=== PATIENT | male | born 1955 | race Caucasian/White ===

== ENCOUNTER → 2019-02-05 | Day surgery (SDC) | payer BC ==
[2019-02-03 10:54] LABS: BASOPHILS # (AUTO) 0.1 (0.0-0.1); EOSINOPHILS # (AUTO) 0.7 (0.0-0.4); EOSINOPHILS % 7.5 % (0.0-6.0); HEMATOCRIT 49.7 % (38.2-49.6); HEMOGLOBIN 16.5 g/dL (14.0-18.0); LYMPHOCYTES # (AUTO) 1.4 (1.0-3.2); LYMPHOCYTES % 15.6 % (18.0-39.1); MEAN CORPUSCULAR HEMOGLOBIN 29.8 pg (28-32); MEAN CORPUSCULAR HGB CONC 33.2 g/dL (31-35); MEAN CORPUSCULAR VOLUME 89.9 fL (81-99); MONOCYTES # (AUTO) 0.8 (0.2-0.8); MONOCYTES % 9.6 % (4.4-11.3); NEUTROPHILS # (AUTO) 5.8 (2.1-6.9); NEUTROPHILS % 65.6 % (38.7-80.0); PLATELET COUNT 286 x10e3/uL (140-360); RED BLOOD COUNT 5.53 x10e6/uL (4.3-5.7); RED CELL DISTRIBUTION WIDTH 13.1 % (11.7-14.4)
[~2019-02-05] MED LIST: FENTANYL CITRATE/PF 100MCG/2 ML INJ ONE; HYOSCYAMINE 0.125 MG TAB ONE; MIDAZOLAM HCL 2 MG/2 ML VIAL ONE; PROPOFOL IV EMULSION 10 MG/ML 50 ML VIAL ONE
--- OUTSIDE RECORDS SUMMARY | 2019-02-05 10:37 | XMS REPORT ---
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 Allergies, Adverse Reactions, Alerts This patient has no known allergies or adverse reactions. Medications This patient has no known medications. Encounters Start Date/Time End Date/Time Encounter Type Admission Type Attending Clinicians Care Facility Care Department Encounter ID 2017-07-19 05:15:00 2017-07-19 07:00:00 Out[facility] [id number]
[2019-02-05 15:58] VITALS: BP 141/82
--- NOTE | 2019-02-05 22:58 | Operative Report ---
DATE OF PROCEDURE: 02/05/2019 SURGEON: Stalin Cortez MD INDICATION FOR COLONOSCOPY: Colorectal cancer screening, history of bright red blood per rectum. MEDICATIONS: The patient was done under MAC, please see anesthesiologist's note. PROCEDURE IN DETAIL: With the patient in left lateral decubitus position, the flexible fiberoptic Olympus colonoscope was inserted into the rectum with ease and advanced all the way to the cecum. A minute polyp was cold biopsied in the cecum. A scope was then withdrawn slowly and approximately an 8 mm sessile polyp was removed per snare electrocautery from the ascending colon. The transverse and descending appeared to be within normal limits. A large circumferential mass was noted in the sigmoid colon. It started at approximately 12 cm from the anal verge. An extended 8 cm approximately to 20 cm. Biopsies were obtained and the proximal and distal margins of the mass where tattooed. The minute polyps were removed per snare electrocautery from the rectum. The scope was then retroflexed into the distal rectum and small internal hemorrhoids were noted none of which was actively bleeding. The scope was then straightened out it was subsequently withdrawn. The patient tolerated procedure well. Of note, diverticular disease was noted in the distal descending as well as the sigmoid colon. IMPRESSION: 1. Cecal polyp, minute, cold biopsied. 2. Ascending colon polyp approximately 8 mm sessile, removed per snare electrocautery. 3. Large circumferential mass extending from 12 cm to 20 cm from the anal verge. Biopsies were obtained. Proximal and distal margins of the mass were tattooed. 4. Diverticulosis. 5. Rectal polyps x3, removed per snare electrocautery. 6. Internal hemorrhoids none actively bleeding. PLAN: Follow up histology. The patient will need a CT scan of the abdomen and pelvis. We will need General Surgical consultation. Stalin Cortez MD [facility] [place] /[id number] cc: MD Jesús Romero DO
== END | disposition home or self-care (01) ==
LOC: OR 10:25
PROVIDERS: ATTEND Internal Medicine Gastroenterology
DX: C18.7 Malignant neoplasm of sigmoid colon (principal); D12.2 Benign neoplasm of ascending colon; K62.1 Rectal polyp; K57.30 Diverticulosis of large intestine without perforation or abscess without bleeding; K64.8 Other hemorrhoids; R19.5 Other fecal abnormalities; I10 Essential (primary) hypertension; I34.1 Nonrheumatic mitral (valve) prolapse; R00.1 Bradycardia, unspecified; Z01.810 Encounter for preprocedural cardiovascular examination; Z01.812 Encounter for preprocedural laboratory examination; Z86.73 Personal history of transient ischemic attack (TIA), and cerebral infarction without residual deficits
CPT/HCPCS: 36415; 45380; 45381; 45385; 85025; 93005; J2250; J2704; J3010; 45384

== ENCOUNTER → 2019-02-06 | Outpatient (CLI) | payer BC ==
[~2019-02-06] MED LIST changes: -FENTANYL CITRATE/PF 100MCG/2 ML INJ ONE; -HYOSCYAMINE 0.125 MG TAB ONE; +IOPAMIDOL 370 MG/ML 200 ML INFUS..BTL INJ ONE; -MIDAZOLAM HCL 2 MG/2 ML VIAL ONE; -PROPOFOL IV EMULSION 10 MG/ML 50 ML VIAL ONE
[2019-02-06 14:40] LABS: BLOOD UREA NITROGEN 14 mg/dL (7-26); BUN/CREATININE RATIO 14 (6-25); CREATININE, SERUM 1.03 mg/dL (0.72-1.25); EST GLOMERULAR FILTRATION RATE > 60 ML/MIN (60-)
--- NOTE | 2019-02-06 17:18 | Diagnostic Imaging Report ---
CT of the abdomen and pelvis History: Sigmoid mass Comparison: None available. Technique: Multidetector CT scanning of the abdomen and pelvis was performed from the level of the lung bases to the inferior pubic ramus, with IV contrast. DOSE REDUCTION: The examination was performed according to departmental dose-optimization program which includes automated exposure control, adjustment of the mA and/or kV according to patient size and/or use of iterative reconstruction technique. Discussion: The lung bases are clear. No focal hepatic lesions are identified. The liver is diffusely hypoattenuating compatible with hepatic steatosis. The gallbladder is present nondistended. No radiopaque gallstones are identified. There is no intrahepatic or extra hepatic biliary dilatation. The spleen is within normal limits. Incidental note is made of a 12 mm splenule anterior to the spleen. The bilateral adrenal glands are within normal limits. The pancreas is homogeneous in attenuation. No pancreatic masses identified. There is no pancreatic ductal dilatation. The kidneys are normal in size and enhance symmetrically. No hydroureteronephrosis. No kidney stones. The stomach, small, and large bowel are nondistended. The appendix is normal. There are scattered colonic diverticula. There is focal sigmoid wall thickening measuring up to 1 cm in thickness and approximately 5 cm in length. There is no free intraperitoneal air or ascites. No enlarged abdominal or pelvic lymph nodes are identified. The abdominal aorta is of normal course and caliber. The urinary bladder is within normal limits. The prostate is not enlarged. No acute osseous abnormalities are identified. No osseous lytic or blastic lesions are identified. IMPRESSION: 1. Sigmoid mass concerning for neoplasm. 2. No evidence of metastatic disease. 3. Sigmoid diverticulosis without evidence of acute diverticulitis. Signed by: Mitch Ortiz MD on 02/06/2019 5:14 PM
== END ==
LOC: CT 13:38
PROVIDERS: ATTEND Internal Medicine Gastroenterology
DX: R19.09 Other intra-abdominal and pelvic swelling, mass and lump (principal); K57.30 Diverticulosis of large intestine without perforation or abscess without bleeding
CPT/HCPCS: 36415; 74177; 82565; 84520; Q9967

== ENCOUNTER 2019-04-17 12:29 | Inpatient (IN) | payer BC ==
[~2019-04-17] VITALS: Ht 177.8 cm; Wt 76.7 kg
[2019-04-17] MEDS ORDERED: DIATRIZOATE MEGL/DIATRIZOA SOD 30 ML BTL PO ONE (13:34)
[2019-04-17 13:42] LABS: BASOPHILS # (AUTO) 0.1 (0.0-0.1); BASOPHILS % 0.3 % (0.0-1.0); HEMATOCRIT 44.9 % (38.2-49.6); HEMOGLOBIN 13.7 g/dL (14.0-18.0); LYMPHOCYTES # (AUTO) 0.7 (1.0-3.2); LYMPHOCYTES % 4.6 % (18.0-39.1); MEAN CORPUSCULAR HEMOGLOBIN 26.5 pg (28-32); MEAN CORPUSCULAR HGB CONC 30.5 g/dL (31-35); MEAN CORPUSCULAR VOLUME 86.8 fL (81-99); MONOCYTES # (AUTO) 0.6 (0.2-0.8); MONOCYTES % 4.1 % (4.4-11.3); NEUTROPHILS # (AUTO) 14.2 (2.1-6.9); NEUTROPHILS % 90.5 % (38.7-80.0); PLATELET COUNT 328 x10e3/uL (140-360); RED BLOOD COUNT 5.17 x10e6/uL (4.3-5.7); RED CELL DISTRIBUTION WIDTH 13.8 % (11.7-14.4)
[2019-04-17 13:44] LABS: INR 0.9; PROTHROMBIN TIME 12.7 seconds (11.9-14.5)
[2019-04-17 13:45] LABS: PARTIAL THROMBOPLASTIN TIME 27.4 seconds (23.8-35.5)
[2019-04-17 13:52] LABS: ALANINE AMINOTRANSFERASE 17 IU/L (0-55); ALBUMIN 4.1 g/dL (3.5-5.0); ALBUMIN/GLOBULIN RATIO 1.4 (0.8-2.0); ALKALINE PHOSPHATASE 76 IU/L (40-150); BLOOD UREA NITROGEN 9 mg/dL (7-26); BUN/CREATININE RATIO 10 (6-25); CALCIUM 9.3 mg/dL (8.4-10.2); CARBON DIOXIDE 22 mmol/L (22-29); CHLORIDE 105 mmol/L (98-107); CREATININE, SERUM 0.92 mg/dL (0.72-1.25); EST GLOMERULAR FILTRATION RATE > 60 ML/MIN (60-); GLUCOSE 113 mg/dL (74-118); SODIUM 140 mmol/L (136-145)
[2019-04-17] MEDS ORDERED: SODIUM CHLORIDE 0.9% 1000ML 1,000 ML IV SCH (15:00)
[2019-04-17 15:02] LABS: CLARITY,URINE CLEAR (CLEAR); COLOR,URINE YELLOW (YELLOW)
[2019-04-17] MEDS ORDERED: PIPER-TAZ 3.375 GM 50 ML IV STA (15:02)
[2019-04-17 15:03] LABS: BILIRUBIN,URINE NEGATIVE (NEGATIVE); KETONES,URINE NEGATIVE (NEGATIVE); LEUKOCYTE ESTERASE ,URINE NEGATIVE (NEGATIVE); NITRITE,URINE NEGATIVE (NEGATIVE); PROTEIN,URINE DIPSTICK NEGATIVE (NEGATIVE); URINE UROBILINOGEN 0.2 mg/dL (0.2 - 1)
--- NOTE | 2019-04-17 15:17 | Diagnostic Imaging Report ---
CT of the abdomen and pelvis, with contrast, 04/17/2019. History: Acute abdominal pain. Comparison: 02/24/2019. Technique: Multidetector CT scanning of the abdomen and pelvis was performed from the level of the lung bases to the inferior pubic rami after intravenous and oral administration of contrast. Coronal and sagittal multiplanar reformations were obtained. RADIATION DOSE: Total DLP: 375 mGy*cm Dose modulation, iterative reconstruction, and/or weight based adjustment of the mA/kV was utilized to reduce the radiation dose to as low as reasonably achievable. Discussion: LUNG BASES: There is bibasilar dependent atelectasis. ABDOMEN: The liver, gallbladder, biliary tree, spleen, pancreas, adrenal glands, and kidneys are normal. The hepatic vein, portal vein, and splenic vein are patent. The abdominal aorta is within normal limits for size. The stomach and proximal small bowel are unremarkable. There is been prior left hemicolectomy with anastomosis noted in the distal sigmoid region. There is dilatation of the distal small bowel and remaining colon down to the sigmoid anastomosis. Cecum measures up to 7.9 cm in diameter. The appendix is mildly distended and fluid-filled without visible appendicolith. There is no evidence of adenopathy or free fluid. PELVIS: The bladder, prostate, and seminal vesicles are normal in appearance. There is no evidence of free fluid or adenopathy. BONES AND SOFT TISSUES: Degenerative changes are present throughout the lumbar spine without evidence of lytic or sclerotic lesion. IMPRESSION: Prior left colectomy and distal colonic obstruction with transition point at the anastomosis. Signed by: Nikita Ayala on 04/17/2019 3:14 PM
[2019-04-17 15:20] LABS: BACTERIA,URINE RARE /HPF
[2019-04-17] MEDS ORDERED: MORPHINE SULFATE 2 MG/ML SYR 1ML IV PRN (16:45)
[2019-04-17] MEDS: SODIUM CHLORIDE 0.9% 1000ML 1,000 ML IV SCH (16:45)
[2019-04-17] MEDS ORDERED: MORPHINE SULFATE INJ 4 MG/ML INJ 1ML IV PRN (17:00)
[2019-04-17] MEDS ORDERED: MORPHINE SULFATE 5 MG/ML VIAL IV ONE (17:00)
[2019-04-17] MEDS ORDERED: IOPAMIDOL 370 MG/ML 200 ML INFUS..BTL INJ ONE (17:15)
[2019-04-17] MEDS ORDERED: SODIUM CHLORIDE 0.9% 50ML 50 ML ONE (17:15)
[2019-04-17] MEDS: METRONIDAZOLE 500MG/NS 100ML 100 ML IV SCH ×2 (17:42→23:38)
[2019-04-17] MEDS: MORPHINE SULFATE INJ 4 MG/ML INJ 1ML IV ONE (17:42)
[2019-04-17] MEDS: ONDANSETRON HCL INJ 2MG/ML 2ML 2 MG/ML VIAL IV PRN (17:42)
[2019-04-17] MEDS ORDERED: DEXAMETHASONE SOD PHOS INJ 4 MG/ML VIAL ONE (19:40)
[2019-04-17] MEDS ORDERED: ONDANSETRON HCL INJ 2MG/ML 2ML 2 MG/ML VIAL ONE (19:40)
[2019-04-17] MEDS ORDERED: LIDOCAINE HCL 2% LOCAL INJ 5 ML SDV VIAL INJ ONE (19:40)
[2019-04-17] MEDS ORDERED: SEVOFLURANE INHAL SOLN 250 ML PEN BTL ONE (19:40)
[2019-04-17] MEDS ORDERED: PROPOFOL IV EMULSION 10 MG/ML 20 ML VIAL ONE (19:40)
--- NOTE | 2019-04-17 20:18 | NUR ---
RECEIVED REPORT FROM SABINA FARRELL NURSE. PATIENT ARRIVED VIA WHEELCHAIR ACCOMPANIED BY HIS . PATIENT IS A&OX3 AND AMBULATES. CALL LIGHT WITHIN REACH.
[2019-04-17 20:20] VITALS: BP 163/80
[2019-04-17 21:09] VITALS: BP 163/80
[2019-04-17] MEDS: PIPER-TAZ 3.375 GM 50 ML IV SCH (21:56)
[2019-04-18] VITALS (8 sets, daily range): BP systolic 112–146; BP diastolic 67–82
[2019-04-18] MEDS: SODIUM CHLORIDE 0.9% 1000ML 1,000 ML IV SCH (02:40)
[2019-04-18] MEDS: PIPER-TAZ 3.375 GM 50 ML IV SCH ×4 (03:21→21:07)
[2019-04-18] MEDS: METRONIDAZOLE 500MG/NS 100ML 100 ML IV SCH ×4 (05:47→23:45)
[2019-04-18 06:11] LABS: BASOPHILS % 0.4 % (0.0-1.0); EOSINOPHILS # (AUTO) 0.1 (0.0-0.4); EOSINOPHILS % 0.7 % (0.0-6.0); HEMATOCRIT 38.8 % (38.2-49.6); HEMOGLOBIN 12.2 g/dL (14.0-18.0); LYMPHOCYTES # (AUTO) 0.9 (1.0-3.2); LYMPHOCYTES % 9.6 % (18.0-39.1); MEAN CORPUSCULAR HEMOGLOBIN 26.5 pg (28-32); MEAN CORPUSCULAR HGB CONC 31.4 g/dL (31-35); MEAN CORPUSCULAR VOLUME 84.3 fL (81-99); MONOCYTES % 9.8 % (4.4-11.3); NEUTROPHILS # (AUTO) 7.8 (2.1-6.9); NEUTROPHILS % 79.2 % (38.7-80.0); PLATELET COUNT 287 x10e3/uL (140-360); RED CELL DISTRIBUTION WIDTH 13.8 % (11.7-14.4)
[2019-04-18 06:39] LABS: ALANINE AMINOTRANSFERASE 12 IU/L (0-55); ALBUMIN 3.3 g/dL (3.5-5.0); ALBUMIN/GLOBULIN RATIO 1.3 (0.8-2.0); ALKALINE PHOSPHATASE 66 IU/L (40-150); ANION GAP 12.4 mmol/L (8-16); BLOOD UREA NITROGEN 10 mg/dL (7-26); BUN/CREATININE RATIO 10 (6-25); CALCIUM 8.9 mg/dL (8.4-10.2); CARBON DIOXIDE 24 mmol/L (22-29); CHLORIDE 106 mmol/L (98-107); CREATININE, SERUM 1.04 mg/dL (0.72-1.25); EST GLOMERULAR FILTRATION RATE > 60 ML/MIN (60-); GLUCOSE 107 mg/dL (74-118); POTASSIUM 4.4 mmol/L (3.5-5.1); SODIUM 138 mmol/L (136-145)
--- NOTE | 2019-04-18 07:00 | NUR ---
BEDSIDE REPORT DONE. PT IS ALERT RESTING IN BED, NO S/S OF DISTRESS. CALL LIGHT WITHIN REACH AND INSTRUCTED PT TO CALL RN FOR HELP.
--- NOTE | 2019-04-18 07:21 | NUR ---
GAVE BEDSIDE SHIFT REPORT TO ONCOMING NURSE. PATIENT IN BED ASLEEP. CALL LIGHT WITHIN REACH. PATIENT IS A&OX3 AND AMBULATES
[2019-04-18] MEDS ORDERED: SODIUM CHLORIDE 0.9% 250ML 250 ML ONE (14:18)
[2019-04-18] MEDS: ONDANSETRON HCL INJ 2MG/ML 2ML 2 MG/ML VIAL IV PRN (18:23)
--- NOTE | 2019-04-18 19:05 | NUR ---
RECEIVED REPORT FROM PREVIOUS NURSE. CALL LIGHT WITHIN REACH. PATIENT IN BED.
[2019-04-18] MEDS: MAGNESIUM HYDROXIDE 30 ML UDC PO SCH (21:07)
[2019-04-19] VITALS (9 sets, daily range): BP systolic 102–154; BP diastolic 64–76
[2019-04-19] MEDS: PIPER-TAZ 3.375 GM 50 ML IV SCH ×4 (03:17→20:20)
[2019-04-19] MEDS: METRONIDAZOLE 500MG/NS 100ML 100 ML IV SCH ×4 (05:32→23:53)
[2019-04-19 06:49] LABS: BASOPHILS # (AUTO) 0.1 (0.0-0.1); BASOPHILS % 0.7 % (0.0-1.0); EOSINOPHILS # (AUTO) 0.2 (0.0-0.4); EOSINOPHILS % 2.2 % (0.0-6.0); HEMATOCRIT 36.6 % (38.2-49.6); HEMOGLOBIN 11.2 g/dL (14.0-18.0); LYMPHOCYTES # (AUTO) 0.8 (1.0-3.2); LYMPHOCYTES % 10.9 % (18.0-39.1); MEAN CORPUSCULAR HEMOGLOBIN 26.1 pg (28-32); MEAN CORPUSCULAR HGB CONC 30.6 g/dL (31-35); MEAN CORPUSCULAR VOLUME 85.3 fL (81-99); MONOCYTES # (AUTO) 0.7 (0.2-0.8); MONOCYTES % 9.8 % (4.4-11.3); NEUTROPHILS # (AUTO) 5.5 (2.1-6.9); PLATELET COUNT 266 x10e3/uL (140-360); RED BLOOD COUNT 4.29 x10e6/uL (4.3-5.7); RED CELL DISTRIBUTION WIDTH 13.6 % (11.7-14.4)
[2019-04-19 06:54] LABS: ALANINE AMINOTRANSFERASE 11 IU/L (0-55); ALBUMIN 3.3 g/dL (3.5-5.0); ALBUMIN/GLOBULIN RATIO 1.4 (0.8-2.0); ALKALINE PHOSPHATASE 60 IU/L (40-150); ANION GAP 12.9 mmol/L (8-16); BLOOD UREA NITROGEN 11 mg/dL (7-26); BUN/CREATININE RATIO 9 (6-25); CALCIUM 8.7 mg/dL (8.4-10.2); CARBON DIOXIDE 25 mmol/L (22-29); CHLORIDE 105 mmol/L (98-107); CREATININE, SERUM 1.18 mg/dL (0.72-1.25); EST GLOMERULAR FILTRATION RATE > 60 ML/MIN (60-); GLUCOSE 78 mg/dL (74-118); POTASSIUM 3.9 mmol/L (3.5-5.1); SODIUM 139 mmol/L (136-145)
--- NOTE | 2019-04-19 07:00 | NUR ---
bedside report done. pt is sleeping, no s/s of distress. call light within reach, bed safety in place
--- NOTE | 2019-04-19 07:10 | NUR ---
GAVE REPORT TO ONCOMING NURSE. CALL LIGHT WITHIN REACH. PATIENT ASLEEP IN BED. PATIENT IS A&OX3 AND AMBULATES.
[2019-04-19] MEDS: NEOMYCIN SULFATE 500 MG TAB PO SCH ×2 (12:38→15:19)
[2019-04-19] MEDS: ERYTHROMYCIN 500 MG TAB PO SCH ×2 (12:38→15:19)
[2019-04-19] MEDS: ONDANSETRON HCL INJ 2MG/ML 2ML 2 MG/ML VIAL IV PRN (13:13)
--- NOTE | 2019-04-19 15:16 | NUR ---
pt stated that he is unable to take the second dose of oral antibiotics that was ordered by Dr. Raymond. Called Dr. Raymond and he stated that it was fine for the patient to skip the second dose and for the RN to plan to give the third dose at 11 pm
[2019-04-19] MEDS ORDERED: SODIUM CHLORIDE 0.9% 1000ML 1,000 ML IV SCH (17:15)
--- NOTE | 2019-04-19 19:05 | NUR ---
RECEIVED REPORT FROM PREVIOUS NURSE. CALL LIGHT WITHIN REACH. PATIENT IN BED. PATIENT IS A&OX3 AND AMBULATES.
[2019-04-19] MEDS: MAGNESIUM HYDROXIDE 30 ML UDC PO SCH (19:43)
[2019-04-19] MEDS ORDERED: ERYTHROMYCIN 500 MG TAB PO ONE (23:00)
[2019-04-19] MEDS ORDERED: NEOMYCIN SULFATE 500 MG TAB PO ONE (23:00)
[2019-04-20] VITALS (8 sets, daily range): BP systolic 118–138; BP diastolic 61–69
[2019-04-20] MEDS: PIPER-TAZ 3.375 GM 50 ML IV SCH ×4 (03:08→20:35)
[2019-04-20] MEDS: METRONIDAZOLE 500MG/NS 100ML 100 ML IV SCH ×4 (05:23→23:38)
--- NOTE | 2019-04-20 07:00 | NUR ---
RECEIVED BEDSIDE SHIFT REPORT FROM OFF GOING NURSE. PATIENT IS IN STABLE CONDITION, NO ACUTE DISTRESS NOTED. CALL LIGHT WITHIN REACH. BED IN THE LOWEST POSITION.
--- NOTE | 2019-04-20 07:02 | NUR ---
GAVE BEDSIDE SHIFT REPORT TO ONCOMING NURSE. CALL LIGHT WITHIN REACH. PATIENT IN BED. PATIENT IS A&OX3 AND AMBULATES
[2019-04-20] MEDS ORDERED: SUGAMMADEX SODIUM 200 MG/2 ML VIAL IV ONE (13:57)
--- NOTE | 2019-04-20 14:45 | NUR ---
PATIENT BACK TO UNIT FROM PROCEDURE, HE IS IN STABLE CONDITION.
[2019-04-20] MEDS ORDERED: FENTANYL CITRATE/PF 100MCG/2 ML INJ ONE (17:58)
[2019-04-20] MEDS ORDERED: MIDAZOLAM HCL 2 MG/2 ML VIAL ONE (17:58)
--- NOTE | 2019-04-20 19:34 | NUR ---
Bedside shift report given to oncoming nurse. Patient is resting in bed, no acute distress noted. Call light within reach. Bed in the lowest position.
--- NOTE | 2019-04-20 19:35 | NUR ---
RECEIVED PT IN BED AOX3 .RESPIRATIONS ARE EVEN AND UNLABORED .DENIES PAIN .NO ACUTE DISTRESS NOTED CALL LIGHT AT REACH.CONTINUE TO MONITOR
--- NOTE | 2019-04-20 21:24 | Operative Report ---
DATE OF PROCEDURE: 04/20/2019 SURGEON: Lopez Raymond MD PREOPERATIVE DIAGNOSIS: Rectal stricture with colonic obstruction. POSTOPERATIVE DIAGNOSIS: Rectal stricture with colonic obstruction. OPERATION PERFORMED: Colonoscopy with dilatation and release of colonic obstruction. ANESTHESIA: General. COMPLICATIONS: None. ESTIMATED BLOOD LOSS: Minimal. DESCRIPTION OF PROCEDURE: With the patient lying in bed in the lithotomy position under good general endotracheal anesthesia, the flexible colonoscope was introduced into the rectum, was slowly and carefully advanced about 10 to 12 cm. Immediately, we saw some lavinia from the patient's previous staple line from his low anterior resection. There was no obvious opening. There was a little bit of fecal material and a tiny little pinhole opening that could be seen through the center of the anastomosis with the anastomosis was almost virtually completely closed, secondary to a stricture. There was no sign of any recurrent tumor or anything like that. We decided to go ahead and do a dilatation. We managed to put the inflatable dilator through the stricture and up into the upper colon and this was then inflated slowly in stages and dilated all the way up to 16 mm and this was done for 2 minutes. The balloon was then let down and we were then able at this point to get the colonoscope up above the stricture. The stricture was then again re-ballooned all the way up to 16 mm and after this was done, 2nd balloon all the way up to 20 mm was then placed and similarly done for 2 minutes. We did it twice. After this was done, the colonoscope was then able to be passed all the way in the proximal colon. The mucosa of the proximal colon, all appeared to be within normal limits. This was all of short stricture at the level of the staple line. We were at this point inspected for bleeding and make sure that there was no significant bleeding and the procedure was then terminated. The patient tolerated the procedure well and returned to the recovery room in stable condition. MD SCOTT RomeroR/MODL /[id number]
[2019-04-21 00:48] VITALS: BP 108/58
[2019-04-21] MEDS: PIPER-TAZ 3.375 GM 50 ML IV SCH ×3 (02:53→15:19)
[2019-04-21 05:26] VITALS: BP 116/63
[2019-04-21 05:41] LABS: BASOPHILS % 0.2 % (0.0-1.0); EOSINOPHILS % 0.2 % (0.0-6.0); HEMATOCRIT 34.2 % (38.2-49.6); HEMOGLOBIN 10.8 g/dL (14.0-18.0); LYMPHOCYTES % 11.5 % (18.0-39.1); MEAN CORPUSCULAR HEMOGLOBIN 26.3 pg (28-32); MEAN CORPUSCULAR HGB CONC 31.6 g/dL (31-35); MEAN CORPUSCULAR VOLUME 83.2 fL (81-99); MONOCYTES # (AUTO) 0.9 (0.2-0.8); MONOCYTES % 10.9 % (4.4-11.3); NEUTROPHILS # (AUTO) 6.5 (2.1-6.9); PLATELET COUNT 257 x10e3/uL (140-360); RED BLOOD COUNT 4.11 x10e6/uL (4.3-5.7); RED CELL DISTRIBUTION WIDTH 13.5 % (11.7-14.4)
[2019-04-21 06:00] LABS: ANION GAP 10.1 mmol/L (8-16); BLOOD UREA NITROGEN 9 mg/dL (7-26); BUN/CREATININE RATIO 9 (6-25); CALCIUM 8.8 mg/dL (8.4-10.2); CARBON DIOXIDE 26 mmol/L (22-29); CHLORIDE 108 mmol/L (98-107); CREATININE, SERUM 0.96 mg/dL (0.72-1.25); EST GLOMERULAR FILTRATION RATE > 60 ML/MIN (60-); GLUCOSE 95 mg/dL (74-118); POTASSIUM 4.1 mmol/L (3.5-5.1); SODIUM 140 mmol/L (136-145)
[2019-04-21] MEDS: METRONIDAZOLE 500MG/NS 100ML 100 ML IV SCH ×3 (06:00→17:50)
--- NOTE | 2019-04-21 06:24 | NUR ---
PT RESTED DURING THE NIGHT ,ERASMO PAIN ,CALL LIGHT WITH IN REACH.CONTINUE TO MONITOR
--- NOTE | 2019-04-21 06:48 | NUR ---
BEDSIDE REPORT GIVEN TO THE ONCOMING NURSE
--- NOTE | 2019-04-21 06:58 | NUR ---
BEDSIDE SHIFT REPORT RECEIVED FROM OFF GOING NURSE. PATIENT IS RESTING IN BED. NO ACUTE DISTRESS NOTED AT THIS TIME. CALL LIGHT WITHIN REACH. BED IN THE LOWEST POSITION.
[2019-04-21 08:00] VITALS: BP 126/67
[2019-04-21 08:18] VITALS: BP 126/67
[2019-04-21 12:00] VITALS: BP 115/57
[2019-04-21 16:00] VITALS: BP 111/61
--- NOTE | 2019-04-21 19:09 | NUR ---
Received discharge order from MD. Patient is in stable condition. IV line to right wrist discontinues with tip intact, pressure applied to site, no bleeding noted. Discharge teaching provided to patient and , they both verbalized understanding. Discharge folder with prescriptions on hand. All personal items on hand. Patient refused wheelchair, staff accompanied patient to private auto.
--- NOTE | 2019-05-13 06:45 | Discharge Summary ---
ADMITTING DIAGNOSIS: Partial colonic obstruction. DISCHARGE DIAGNOSIS: Partial colonic obstruction secondary to rectal stricture. OPERATION PERFORMED: Colonoscopy and dilatation of rectal stricture. COMPLICATIONS: None. INDICATIONS: The patient is a 64-year-old male, who was admitted to the hospital after presenting to the emergency room with a history of acute onset of crampy lower abdominal pain and distention. The patient had a previous colon resection 2 months before. Physical examination at the time of admission showed him to have some abdominal distention. There was no rebound present. CT scan of the abdomen that was done showed distended colon and small bowel consistent with partial colonic obstruction. HOSPITAL COURSE: Laboratory data was otherwise within normal limits. The patient was able to be prepped for colonoscopy and he was taken to the operating room on 04/20/2019, at which time he underwent a rigid sigmoidoscopy and a flexible colonoscopy with dilatation of a rectal stricture. Postoperatively, the patient did well. He started having bowel movements. His pain had resolved and finally on 04/21/2019, with the patient being afebrile, his vital signs being stable, tolerating a diet well, and having bowel movements. He was discharged to go home to be followed at the office at a later date. MD BARBARA Romero/BHARGAV /[id number]
== END 2019-04-21 19:09 | disposition home or self-care (01) | DRG 395 ==
LOC: ER 12:29 → ERHOLD 16:40 → MED/SURG3 21:08
PROVIDERS: ADMIT Surgery; ATTEND Surgery
PROC: 0D7P8DZ Dilation of Rectum with Intraluminal Device, Via Natural or Artificial Opening Endoscopic (ICD-10-PCS; principal; 2019-04-20 12:30)
DX: K62.4 Stenosis of anus and rectum (principal); Z85.038 Personal history of other malignant neoplasm of large intestine; Z90.49 Acquired absence of other specified parts of digestive tract
CPT/HCPCS: 36415; 45378; 74177; 80048; 80053; 81001; 83605; 85025; 85610; 85730; 87040; 93005; 99284; J1100; J2001; J2250; J2270; J2405; J2543; J3010; J7030; J7050; Q9967

== ENCOUNTER → 2019-05-18 | Day surgery (SDC) | payer BC ==
[2019-05-14 10:24] LABS: BASOPHILS # (AUTO) 0.1 (0.0-0.1); BASOPHILS % 0.9 % (0.0-1.0); EOSINOPHILS # (AUTO) 0.1 (0.0-0.4); EOSINOPHILS % 1.9 % (0.0-6.0); HEMATOCRIT 39.3 % (38.2-49.6); HEMOGLOBIN 12.1 g/dL (14.0-18.0); LYMPHOCYTES # (AUTO) 1.1 (1.0-3.2); LYMPHOCYTES % 16.4 % (18.0-39.1); MEAN CORPUSCULAR HEMOGLOBIN 25.7 pg (28-32); MEAN CORPUSCULAR HGB CONC 30.8 g/dL (31-35); MEAN CORPUSCULAR VOLUME 83.4 fL (81-99); MONOCYTES # (AUTO) 0.7 (0.2-0.8); MONOCYTES % 10.9 % (4.4-11.3); NEUTROPHILS # (AUTO) 4.4 (2.1-6.9); NEUTROPHILS % 69.3 % (38.7-80.0); PLATELET COUNT 268 x10e3/uL (140-360); RED BLOOD COUNT 4.71 x10e6/uL (4.3-5.7); RED CELL DISTRIBUTION WIDTH 14.8 % (11.7-14.4)
[2019-05-14 10:43] LABS: ANION GAP 8.8 mmol/L (8-16); BLOOD UREA NITROGEN 11 mg/dL (7-26); BUN/CREATININE RATIO 11 (6-25); CALCIUM 9.4 mg/dL (8.4-10.2); CARBON DIOXIDE 29 mmol/L (22-29); CHLORIDE 107 mmol/L (98-107); CREATININE, SERUM 0.98 mg/dL (0.72-1.25); EST GLOMERULAR FILTRATION RATE > 60 ML/MIN (60-); GLUCOSE 105 mg/dL (74-118); POTASSIUM 3.8 mmol/L (3.5-5.1); SODIUM 141 mmol/L (136-145)
[~2019-05-18] MED LIST changes: +DEXAMETHASONE SOD PHOS INJ 4 MG/ML VIAL ONE; -IOPAMIDOL 370 MG/ML 200 ML INFUS..BTL INJ ONE; +LIDOCAINE HCL 2% LOCAL INJ 5 ML SDV VIAL INJ ONE; +MIDAZOLAM HCL 2 MG/2 ML VIAL ONE; +ONDANSETRON HCL INJ 2MG/ML 2ML 2 MG/ML VIAL ONE; +PROPOFOL IV EMULSION 10 MG/ML 20 ML VIAL ONE; +SEVOFLURANE INHAL SOLN 250 ML PEN BTL ONE
[2019-05-18 11:10] VITALS: BP 133/93
--- NOTE | 2019-05-18 12:20 | Operative Report ---
DATE OF PROCEDURE: 05/18/2019 SURGEON: Lopez Raymond MD PREOPERATIVE DIAGNOSIS: Rectal stricture. POSTOPERATIVE DIAGNOSIS: Rectal stricture. OPERATION PERFORMED: Colonoscopy with dilatation of rectal stricture. ANESTHESIA: General. COMPLICATIONS: None. ESTIMATED BLOOD LOSS: Minimal. DESCRIPTION OF PROCEDURE: With the patient lying in bed in the lithotomy position under good general anesthesia, the rigid EGD scope was placed into the rectum and advanced and at about the 10 cm stage, the area of the previous anastomosis was identified. There was a visible silk suture, has had been seen before. There was a tight again stricture at this level. We then went ahead and passed a dilator through the stricture without difficulty up into the upper colon and the dilator was then sequentially dilated to 20 mm, leaving each dilation from 16, 18, and 20 up for 2 minutes each. After this was done, the dilator was removed. The EGD scope would then be passed up into the upper colon without any difficulty. The guidewire was then advanced under direct vision all the way up to the cecum without any problems and the EGD scope was then removed and the pneumatic dilator was then introduced transanally and positioned over the guidewire, and this was then inflated all the way up to 30 mm of dilation, which was maintained for about 4 minutes. After this was done, the pneumatic dilator was then deflated and the larger colonoscope now traversed easily through the dilation without any difficulty. There was no major bleeding. The patient tolerated the procedure well and returned to the recovery room in stable condition. MD BARBARA Romero/MODL /[id number]
== END | disposition home or self-care (01) ==
LOC: OR 06:02
PROVIDERS: ATTEND Surgery
DX: K62.4 Stenosis of anus and rectum (principal); K56.609 Unspecified intestinal obstruction, unspecified as to partial versus complete obstruction; Z01.812 Encounter for preprocedural laboratory examination; Z86.73 Personal history of transient ischemic attack (TIA), and cerebral infarction without residual deficits
CPT/HCPCS: 36415; 45386; 80048; 85025; C1726; J1100; J2001; J2250; J2405; J2704; 45378

== ENCOUNTER 2019-10-10 02:22 | Inpatient (IN) | payer BC, OTHER ==
[~2019-10-10] VITALS: Ht 177.8 cm; Wt 83.1 kg
[2019-10-10] VITALS (7 sets, daily range): BP systolic 146–159; BP diastolic 79–92
[2019-10-10] MEDS ORDERED: MORPHINE SULFATE 2 MG/ML SYR 1ML IV STA (03:03)
[2019-10-10] MEDS ORDERED: ONDANSETRON HCL INJ 2MG/ML 2ML 2 MG/ML VIAL IV STA (03:03)
[2019-10-10 03:19] LABS: BASOPHILS # (AUTO) 0.1 (0.0-0.1); BASOPHILS % 0.5 % (0.0-1.0); EOSINOPHILS # (AUTO) 0.1 (0.0-0.4); EOSINOPHILS % 1.1 % (0.0-6.0); HEMATOCRIT 45.7 % (38.2-49.6); HEMOGLOBIN 14.3 g/dL (14.0-18.0); LYMPHOCYTES % 9.8 % (18.0-39.1); MEAN CORPUSCULAR HEMOGLOBIN 25.6 pg (28-32); MEAN CORPUSCULAR HGB CONC 31.3 g/dL (31-35); MEAN CORPUSCULAR VOLUME 81.9 fL (81-99); MONOCYTES # (AUTO) 0.8 (0.2-0.8); NEUTROPHILS # (AUTO) 8.4 (2.1-6.9); NEUTROPHILS % 80.2 % (38.7-80.0); PLATELET COUNT 257 x10e3/uL (140-360); RED BLOOD COUNT 5.58 x10e6/uL (4.3-5.7); RED CELL DISTRIBUTION WIDTH 15.9 % (11.7-14.4)
[2019-10-10] MEDS ORDERED: DIATRIZOATE MEGL/DIATRIZOA SOD 30 ML BTL PO ONE (03:19)
--- NOTE | 2019-10-10 03:22 | Emergency Department Note ---
History of Present Illnes History of Present Illness Chief Complaint: Abdominal Complaints History of Present Illness This is a 64 year old male REPORTS INTERMITTENT CRAMPS TO RLQ X3 DAYS; PT HAD BOWEL RESECTION ON 02/18/[address] Svitlana SCHWAB WITH RECURRENT STRICTURES;. Historian: Patient Arrival Mode: Car Onset (how long ago): day(s) (3) Location: RLQ Quality: PAIN Radiation: Reports non-radiation Severity: moderate Onset quality: gradual Duration (how long): day(s) (3) Timing of current episode: constant Progression: worsening Chronicity: recurrent Context: Reports recent surgery (BOWEL RESECTION WITH RECURRENT STRICTURES); Denies recent illness Relieving factors: none Exacerbating factors: none Associated symptoms: Reports denies other symptoms, Reports nausea/vomiting (WITHOUT VOMITING) Past Medical/Family History Physician Review I have reviewed the patient's past medical and family history. Any updates have been documented here. Past Medical History Recent Fever: No Clinical Suspicion of Infectio: No New/Unexplained Change in Ment: No Past Medical History: TIA, Cancer Other Medical History: MURMUR COLON CANCER Past Surgical History: Colon Resection Social History Smoking Cessation: Never Smoker Alcohol Use: None Any Illegal Drug Use: No Family History Family history of heart diseas: No Other family history HTN Other Last Tetanus: UNKNOWN Review of Systems Review of Systems Constitutional: Reports no symptoms EENTM: Reports no symptoms Cardiovascular: Reports no symptoms Respiratory: Reports no symptoms Gastrointestinal: Reports as per HPI Genitourinary: Reports no symptoms Musculoskeletal: Reports no symptoms Integumentary: Reports no symptoms Neurological: Reports no symptoms Psychological: Reports no symptoms Endocrine: Reports no symptoms Hematological/Lymphatic: Reports no symptoms Physical Exam Related Data Allergies: Coded Allergies: No Known Allergies (Unverified , 02/03/19) Triage Vital Signs Vital Signs Date Time Temp Pulse Resp B/P (MAP) Pulse Ox O2 Delivery O2 Flow Rate FiO2 10/10/19 02:58 98.4 70 16 164/92 99 Room Air Vital signs reviewed: Yes Physical Exam CONSTITUTIONAL Constitutional: Present well-developed, Present well-nourished, Present distressed (MILD) HENT HENT: Present normocephalic, Present atraumatic, Present oropharynx clear/moist, Present nose normal HENT L/R: Present left ext ear normal, Present right ext ear normal EYES Eyes: Reports PERRL, Reports conjunctivae normal NECK Neck: Present ROM normal PULMONARY Pulmonary: Present effort normal, Present breath sounds normal CARDIOVASCULAR Cardiovascular: Present regular rhythm, Present heart sounds normal, Present capillary refill normal, Present normal rate GASTROINTESTINAL Abdominal: Present soft, Present bowel sounds normal, Present tender (RLQ); Absent guarding, Absent mass, Absent rebound GENITOURINARY Genitourinary: Present exam deferred SKIN Skin: Present warm, Present dry MUSCULOSKELETAL Musculoskeletal: Present ROM normal NEUROLOGICAL Neurological: Present alert, Present oriented x 3, Present no gross motor or sensory deficits PSYCHOLOGICAL Psychological: Present mood/affect normal, Present judgement normal Results Laboratory Laboratory Laboratory Tests Test 10/10/19 03:05 White Blood Count 10.42 x10e3/uL (4.8-10.8) Red Blood Count 5.58 x10e6/uL (4.3-5.7) Hemoglobin 14.3 g/dL (14.0-18.0) Hematocrit 45.7 % (38.2-49.6) Mean Corpuscular Volume 81.9 fL (81-99) Mean Corpuscular Hemoglobin 25.6 pg (28-32) Mean Corpuscular Hemoglobin Concent 31.3 g/dL (31-35) Red Cell Distribution Width 15.9 % (11.7-14.4) Platelet Count 257 x10e3/uL (140-360) Neutrophils (%) (Auto) 80.2 % (38.7-80.0) Lymphocytes (%) (Auto) 9.8 % (18.0-39.1) Monocytes (%) (Auto) 8.0 % (4.4-11.3) Eosinophils (%) (Auto) 1.1 % (0.0-6.0) Basophils (%) (Auto) 0.5 % (0.0-1.0) Neutrophils # (Auto) 8.4 (2.1-6.9) Lymphocytes # (Auto) 1.0 (1.0-3.2) Monocytes # (Auto) 0.8 (0.2-0.8) Eosinophils # (Auto) 0.1 (0.0-0.4) Basophils # (Auto) 0.1 (0.0-0.1) Absolute Immature Granulocyte (auto 0.04 x10e3/uL (0-0.1) Prothrombin Time 12.2 seconds (11.9-14.5) Prothromb Time International Ratio 0.87 Activated Partial Thromboplast Time 27.9 seconds (23.8-35.5) Sodium Level 142 mmol/L (136-145) Potassium Level 4.1 mmol/L (3.5-5.1) Chloride Level 107 mmol/L (98-107) Carbon Dioxide Level 26 mmol/L (22-29) Anion Gap 13.1 mmol/L (8-16) Blood Urea Nitrogen 12 mg/dL (7-26) Creatinine 1.06 mg/dL (0.72-1.25) Estimat Glomerular Filtration Rate > 60 ML/MIN (60-) BUN/Creatinine Ratio 11 (6-25) Glucose Level 121 mg/dL (74-118) Calcium Level 9.6 mg/dL (8.4-10.2) Total Bilirubin 0.8 mg/dL (0.2-1.2) Aspartate Amino Transf (AST/SGOT) 16 IU/L (5-34) Alanine Aminotransferase (ALT/SGPT) 15 IU/L (0-55) Alkaline Phosphatase 86 IU/L (40-150) Total Protein 6.9 g/dL (6.5-8.1) Albumin 3.9 g/dL (3.5-5.0) Globulin 3.0 g/dL (2.3-3.5) Albumin/Globulin Ratio 1.3 (0.8-2.0) Amylase Level 42 U/L (25-125) Lipase 11 U/L (8-78) Laboratory Tests Test 10/10/19 03:05 Lab results reviewed: Yes Imaging Imaging results reviewed: Yes Impressions i spoke wtih dr king(radiologist) pt with colonic obstruction Assessment & Plan Medical Decision Making [facility] PT WITH ABD PAIN WITH H/O COLON CANCER WITH COLON RESECTION AND RECURRENT STRICTURES CBC,CMP, CT ABD/PEVLIS ORDERED TO EVAL FOR BOWEL OBSTRUCTION, STRICTURE, DIVERTICULITIS, COLITIS, ELEVATED LFT'S, ELECTROLYTE ABNORMALITY MORPHINE 4 MG IV ORDERED ZOFRAN 4 MG IV ORDERED i spoke with dr phan and dr schwab, admit inpatient, place ng tube Assessment & Plan Final Impression: (1) Colonic obstruction Depart Disposition: ADMITTED Last Vital Signs Date Time Temp Pulse Resp B/P (MAP) Pulse Ox O2 Delivery O2 Flow Rate FiO2 10/10/19 02:58 98.4 70 16 164/92 99 Room Air Home Meds No Active Prescriptions or Reported Meds Medications in the ED Morphine Sulfate 4 mg NOW STAT IV ; Start 10/10/19 at 03:03; Stop 10/10/19 at 03:04 Ondansetron HCl 4 mg NOW STAT IV ; Start 10/10/19 at 03:03; Stop 10/10/19 at 03:04 Diatrizoate Meglum/ Diatrizoate Sod 30 ml STK-MED ONCE PO ; Start 10/10/19 at 03:19; Stop 10/10/19 at 03:13; Status DC NIYAH ANDERSON MD Oct 10, 2019 03:22
[2019-10-10 03:29] LABS: INR 0.87; PROTHROMBIN TIME 12.2 seconds (11.9-14.5)
[2019-10-10 03:30] LABS: PARTIAL THROMBOPLASTIN TIME 27.9 seconds (23.8-35.5)
[2019-10-10 03:36] LABS: ALANINE AMINOTRANSFERASE 15 IU/L (0-55); ALBUMIN 3.9 g/dL (3.5-5.0); ALBUMIN/GLOBULIN RATIO 1.3 (0.8-2.0); ALKALINE PHOSPHATASE 86 IU/L (40-150); AMYLASE 42 U/L (25-125); ANION GAP 13.1 mmol/L (8-16); BLOOD UREA NITROGEN 12 mg/dL (7-26); BUN/CREATININE RATIO 11 (6-25); CALCIUM 9.6 mg/dL (8.4-10.2); CARBON DIOXIDE 26 mmol/L (22-29); CHLORIDE 107 mmol/L (98-107); CREATININE, SERUM 1.06 mg/dL (0.72-1.25); EST GLOMERULAR FILTRATION RATE > 60 ML/MIN (60-); GLUCOSE 121 mg/dL (74-118); LIPASE 11 U/L (8-78); POTASSIUM 4.1 mmol/L (3.5-5.1); SODIUM 142 mmol/L (136-145)
--- OUTSIDE RECORDS SUMMARY | 2019-10-10 03:54 | XMS REPORT | Clinical Summary ---
Author Author [facility] [employer] Address Unknown Phone Unavailable Care Team Providers Care Manager Analysis Name Role Phone Asked, No Pcp PCP Unavailable Allergies No Known Allergies Medications No known medications Active Problems Problem Noted Date TIA (transient ischemic attack) 05/12/2017 Social History Date Tobacco Use Types Packs/Day Years Used Never Smoker Smokeless Tobacco: Never Used Drinks/Week oz/Week Comments Alcohol Use No Sex Assigned at Date Recorded Not on file Industry Job Start Date Occupation Not on file Not on file Not on file Travel End Travel History Travel Start No recent travel history available. 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
--- OUTSIDE RECORDS SUMMARY | 2019-10-10 03:55 | XMS REPORT | Continuity of Care Document ---
Author Author [facility] Organization [facility] Address [address] [place] [address] Phone Unavailable Care Team Providers Care Coding Advisor Name Role Phone ROSI TYSON DO PCP Dorota LUO Attphys Unavailable Charleen RAYMOND Attphys Unavailable ASUNCION [place] Attphys Unavailable DR CORIN MEDINA Attphys Unavailable Charleen RAYMOND Admphys Unavailable DR CORIN MEDINA Admjessica Unavailable Payers Payer Name Policy Type Policy Number Effective Date Expiration Date [id number] 2018 00:00[facility]00 [facility] Problems Condition Name Condition Details Condition Category Status Onset Date Resolution Date Last Treatment Date Treating Clinician Comments Source TIA (transient ischemic attack) TIA (transient ischemic attack) Dis ease Active 2017-05-12 00:00:00 Waqas Metz Obstruction of colon Colonic obstruction Problem Active [facility] Allergies, Adverse Reactions, Alerts This patient has no known allergies or adverse reactions. Social History Social Habit Start Date Stop Date Quantity Comments Source Sex Assigned At Alphonse zuniga Lashay Alcohol intake 2017-05-12 00:00:00 2017-05-12 00:00:00 Current non-drinker of alcohol (finding) Waqas Metz Smoking Status Start Date Stop Date Source Never smoker [facility] Medications This patient has no known medications. Procedures Procedure Date / Time Performed Performing Clinician Sourjess e Computed tomography of abdomen and pelvis with contrast 2019 00:00:00 ED HADLEY [facility] Computed tomography of abdomen and pelvis with contrast 2018 00:00:00 EWA RAYMOND [facility] RESECTION OF LEFT LARGE INTESTINE, OPEN APPROACH 2019-02-18 00:00:00 EWA RAYMOND [facility] X-ray of chest, two views 2019-02-13 00:00:00 EWA RAYMOND [facility] Computed tomography of abdomen and pelvis with contrast 2018 00:00:00 ASUNCION [place] [facility] COLONOSCOPY AND BIOPSY 2019-02-05 00:00:00 EWA RAYMOND [facility] COLONOSCOPY SUBMUCOUS NJX 2019-02-05 00:00:00 EWA RAYMOND [facility] COLONOSCOPY W/LESION REMOVAL 2019-02-05 00:00:00 ALEXUS RAYMOND [facility] Plan of Care Planned Activity Planned Date Details Comments Source Future Scheduled Test 2019-10-03 00:00:00 INFLUENZA VACCINE [code = INFLUENZA VACCINE] [facility] Scheduled Test 2019 00:00:00 65+ PNEUMOCOCCAL V ACCINE (1 of 2 - PCV13) [code = 65+ PNEUMOCOCCAL VACCINE (1 of 2 - PCV13)] [facility] Scheduled Test 2004-01-03 00:00:00 COLONOSCOPY SCREEN ING [code = COLONOSCOPY SCREENING] [facility] Scheduled Test 2004-01-03 00:00:00 SHINGLES VACCINES (#1) [code = SHINGLES VACCINES (#1)] [facility] Encounters Start Date/Time End Date/Time Encounter Type Admission Type Att[facility] Care Department Encounter ID Source 2019-04-17 16:40:00 2019-04-21 19:09:00 Discharged Inpatient 1 SANDIP LUO [facility] [id number] [facility] 2019-03-29 14:29:00 2019-03-29 17:57:00 Departed Emergency Room 1 SANDIP LUO [facility] [id number] [facility] 2019-02-18 14:47:00 2019-03-01 12:35:00 Discharged Inpatient 3 EWA RAYMOND [facility] [id number] [facility] 2019-02-06 13:38:00 2019-02-06 13:38:00 Registered Clinic 3 ASUNCION OH [facility] [id number] [facility] 2019-02-05 10:25:00 2019-02-05 10:25:00 Registered Surgical Day Care [facility] [id number] [facility] 2017-07-19 05:15:00 2017-07-19 07:00:00 Outpatient CORIN MITCHELL [facility] [id number] [facility] Results Test Description Test Time Test Comments Results Result Comments Source Sodium Level 2019-04-21 06:03:00 Test Item Sodium Level (test code = 2951-2) 140 136-145 [facility]ressPotassium Dkqtn4553-28-92 06:03:00* Test Item Value Reference Range Interpretation Comments Potassium Level (test code = 2823-3) 4.1 3.5-5.1 [facility]ressChloride Bdzil6741-08-47 06:03:00* Test Item Value Reference Range Interpretation Comments Chloride Level (test code = 2075-0) 108 98-107 H [facility] CypressCarbon Dioxide Kjcns7112-86-54 06:03:00* Test Item Value Reference Range Interpretation Comments Carbon Dioxide Level (test code = 2028-9) 26 22-29 [facility] CypressAnion Bnx3542-57-86 06:03:00* Test Item Value Reference Range Interpretation Comments Anion Gap (test code = 36653-2) 10.1 8-16 [facility]ressBlood Urea Yxylmkwi1009-16-78 06:03:00* Test Item Value Reference Range Interpretation Comments Blood Urea Nitrogen (test code = 3094-0) 9 7-26 [facility]ressCreatinine2020-02-18 06:03:00* Test Item Value Reference Range Interpretation Comments Creatinine (test code = 2160-0) 0.96 0.72-1.25 [facility]ressBUN/Creatinine Twvfg2585-82-41 06:03:00* Test Item Value Reference Range Interpretation Comments BUN/Creatinine Ratio (test code = 3097-3) 9 6-25 [facility] CypressEstimat Glomerular Filtration Rate 2019-04-21 06:03:00* Test Item Value Reference Range Interpretation Comments Estimat Glomerular Filtration Rate (test code = 522536379) > 60 >60 Ranges were taken from the National Kidney Disease Education Program and the [facility] Kidney Foundation literature.Reference ranges:60 or greater: Ssiyyz45-23 ( for 3 consecutive months): Chronic kidney disease 15 or less: Kidney failureHCA Houston Healthcare North CypressGlucose Lpjki0750-81-64 06:03:00* Test Item Value Reference Range Interpretation Comments Glucose Level (test code = LIX4746) 95 74-118 [facility] CypressCalcium Uryxw5287-96-71 06:03:00* Test Item Value Reference Range Interpretation Comments Calcium Level (test code = 70951-7) 8.8 8.4-10.2 [facility] CypressWhite Blood Gmftx2222-65-09 05:47:00* Test Item Value Reference Range Interpretation Comments White Blood Count (test code = 6690-2) 8.38 4.8-10.8 [facility] CypressRed Blood Ekyht9944-26-84 05:47:00* Test Item Value Reference Range Interpretation Comments Red Blood Count (test code = 789-8) 4.11 4.3-5.7 L [facility] CypressHemoglobin2020-02-18 05:47:00* Test Item Value Reference Range Interpretation Comments Hemoglobin (test code = 63151-3) 10.8 14.0-18.0 L [facility]ressHematocrit2020-02-18 05:47:00* Test Item Value Reference Range Interpretation Comments Hematocrit (test code = 4544-3) 34.2 38.2-49.6 L [facility] CypressMean Corpuscular Khuzet8985-95-06 05:47:00* Test Item Value Reference Range Interpretation Comments Mean Corpuscular Volume (test code = 787-2) 83.2 81-99 [facility] CypressMean Corpuscular Qtevjsighy5812-87-45 05:47:00* Test Item Value Reference Range Interpretation Comments Mean Corpuscular Hemoglobin (test code = 785-6) 26.3 28-32 L [facility] CypressMean Corpuscular Hemoglobin Concent 2019-04-21 05:47:00* Test Item Value Reference Range Interpretation Comments Mean Corpuscular Hemoglobin Concent (test code = 786-4) 31.6 31-35 [facility] CypressRed Cell Distribution Sziee0416-04-46 05:47:00* Test Item Value Reference Range Interpretation Comments Red Cell Distribution Width (test code = 10973-4) 13.5 11.7 -14.4 [facility] CypressPlatelet Xucrs1930-61-54 05:47:00* Test Item Value Reference Range Interpretation Comments Platelet Count (test code = 777-3) 257 140-360 [facility] CypressNeutrophils (%) (Auto)2019-04-21 05:47:00 * Test Item Value Reference Range Interpretation Comments Neutrophils (%) (Auto) (test code = 67616-9) 77.0 38.7-80.0 [facility] CypressLymphocytes (%) (Auto)2019-04-21 05:47:00 * Test Item Value Reference Range Interpretation Comments Lymphocytes (%) (Auto) (test code = 736-9) 11.5 18.0-39.1 L [facility] CypressMonocytes (%) (Auto)2019-04-21 05:47:00* Test Item Value Reference Range Interpretation Comments Monocytes (%) (Auto) (test code = 5905-5) 10.9 4.4-11.3 [facility]ressEosinophils (%) (Auto)2019-04-21 05:47:00 * Test Item Value Reference Range Interpretation Comments Eosinophils (%) (Auto) (test code = 713-8) 0.2 0.0-6.0 [facility] CypressBasophils (%) (Auto)2019-04-21 05:47:00* Test Item Value Reference Range Interpretation Comments Basophils (%) (Auto) (test code = 706-2) 0.2 0.0-1.0 [facility] CypressIM GRANULOCYTES %2019-04-21 05:47:00* Test Item Value Reference Range Interpretation Comments IM GRANULOCYTES % (test code = IM GRANULOCYTES %) 0.2 0.0- 1.0 [facility] CypressNeutrophils # (Auto)2019-04-21 05:47:00* Test Item Value Reference Range Interpretation Comments Neutrophils # (Auto) (test code = 751-8) 6.5 2.1-6.9 [facility] CypressLymphocytes # (Auto)2019-04-21 05:47:00* Test Item Value Reference Range Interpretation Comments Lymphocytes # (Auto) (test code = 11078-9) 1.0 1.0-3.2 [facility] CypressMonocytes # (Auto)2019-04-21 05:47:00* Test Item Value Reference Range Interpretation Comments Monocytes # (Auto) (test code = 742-7) 0.9 0.2-0.8 H [facility] CypressEosinophils # (Auto)2019-04-21 05:47:00* Test Item Value Reference Range Interpretation Comments Eosinophils # (Auto) (test code = 711-2) 0.0 0.0-0.4 [facility]ressBasophils # (Auto)2019-04-21 05:47:00* Test Item Value Reference Range Interpretation Comments Basophils # (Auto) (test code = 704-7) 0.0 0.0-0.1 [facility] CypressAbsolute Immature Granulocyte (auto 2019-04-21 05:47:00* Test Item Value Reference Range Interpretation Comments Absolute Immature Granulocyte (auto (efrem t code = Absolute Immature Granulocyte (auto) 0.02 0-0.1 [facility] CypressBlood Pdgxwse8135-18-49 15:06:00* Test Item Value Reference Range Interpretation Comments Blood Culture (test code = 31401255) NO GROWTH AFTER 72 HOURS [facility] CypressTotal Byzhyqmth1602-50-53 06:59:00* Test Item Value Reference Range Interpretation Comments Total Bilirubin (test code = 1975-2) 1.4 0.2-1.2 H [facility] CypressAspartate Amino Transf (AST/SGOT) 2019-04-19 06:59:00* Test Item Value Reference Range Interpretation Comments Aspartate Amino Transf (AST/SGOT) (test code = Aspartate Amino Transf (AST/SGOT)) 14 5-34 [facility] CypressAlanine Aminotransferase (ALT/SGPT) 2019-04-19 06:59:00* Test Item Value Reference Range Interpretation Comments Alanine Aminotransferase (ALT/SGPT) (test code = 1742-6) 11 0-55 [facility] CypressTotal Iffzdxh7185-69-10 06:59:00* Test Item Value Reference Range Interpretation Comments Total Protein (test code = 2885-2) 5.7 6.5-8.1 L [facility] CypressAlbumin2020-02-16 06:59:00* Test Item Value Reference Range Interpretation Comments Albumin (test code = 1751-7) 3.3 3.5-5.0 L [facility] CypressGlobulin2020-02-16 06:59:00* Test Item Value Reference Range Interpretation Comments Globulin (test code = 92085-5) 2.4 2.3-3.5 [facility] CypressAlbumin/Globulin Cmtye5471-91-68 06:59:00 * Test Item Value Reference Range Interpretation Comments Albumin/Globulin Ratio (test code = 1759-0) 1.4 0.8-2.0 [facility] CypressAlkaline Lxuzdkxvhfz1649-17-59 06:59:00* Test Item Value Reference Range Interpretation Comments Alkaline Phosphatase (test code = 6768-6) 60 40-150 [facility] CypressLactic Acid Qzzkl8607-54-22 15:26:00* Test Item Value Reference Range Interpretation Comments Lactic Acid Level (test code = Lactic Acid Level) 1.0 0.5- 2.0 [facility] CypressUrine XZK3863-98-39 15:20:00* Test Item Value Reference Range Interpretation Comments Urine WBC (test code = 5821-4) NONE 0-5 [facility] CypressUrine NLF0729-13-41 15:20:00* Test Item Value Reference Range Interpretation Comments Urine RBC (test code = 93818-6) NONE 0-5 [facility] CypressUrine Kjxxmfnc4007-95-26 15:20:00* Test Item Value Reference Range Interpretation Comments Urine Bacteria (test code = 03803-0) RARE NONE [facility] CypressUrine Epithelial Gtiki2162-22-53 15:20:00 * Test Item Value Reference Range Interpretation Comments Urine Epithelial Cells (test code = 02757-0) NONE NONE [facility] CypressCT ABDOMEN/PELVIS S5722-95-35 15:06:00 [facility] [address] [address] Patient Name: ANAT FRANCE MR #: [id number] : 1955 Age/Sex: 64/M Req #: [id number] Adm Physician: Ordered by: ED HADLEY DAM TENDER Report #: [id number] Location: ER Room/Bed: Procedure: 0214-[address]/CT ABDOMEN/PELVIS W Exam Date: 04/17/19 Exam Time: 1450 REPORT STATUS: Signed CT of the abdomen and pelvis, with contrast, 04/17/2019. History: Acute abdominal pain. Comparison: 02/24/2019. Technique: Multidetector CT scanning of the abdomen and pelvis was performed from the level of the lung bases to the inferior pubic rami after intravenous and oral administration of contrast. Coronal and sagittal multiplanar reformations were obtained. RADIATION DOSE: Total DLP: 375 mGy*cm Dose modulation, iterative reconstruction, and/or weight based adjustment of the mA/kV was utilized to reduce the radiation dose to as low as reasonably achievable. Discussi on: LUNG BASES: There is bibasilar dependent atelectasis. ABDOMEN: The l iver, gallbladder, biliary tree, spleen, pancreas, adrenal glands, and kidneys are normal. The hepatic vein, portal vein, and splenic vein are patent. The abdominal aorta is within normal limits for size. The stomach and pro ximal small bowel are unremarkable. There is been prior left hemicolectomy wit h anastomosis noted in the distal sigmoid region. There is dilatation of the d istal small bowel and remaining colon down to the sigmoid anastomosis. Cecum m easures up to 7.9 cm in diameter. The appendix is mildly distended and fluid-f illed without visible appendicolith. There is no evidence of adenopathy or ryanne e fluid. PELVIS: The bladder, prostate, and seminal vesicles are normal in appearance. There is no evidence of free fluid or adenopathy. BONES A ND SOFT TISSUES: Degenerative changes are present throughout the lumbar spine without evidence of lytic or sclerotic lesion. IMPRESSION: Prior left colectomy and distal colonic obstruction with transition point at the anastomo sis. Signed by: Nikita Ayala on 04/17/2019 3:14 PM Dictated By: Jess AYALA MD 13 Tr anscribed By: FABRICIO on 04/17/191513 COPY TO: ED HADLEY DAM TENDER Urine Dmflf6141-28-06 15:03:00* Test Item Value Reference Range Interpretation Comments Urine Color (test code = 5778-6) YELLOW YELLOW [facility] CypressUrine Abnghuu9391-01-73 15:03:00* Test Item Value Reference Range Interpretation Comments Urine Clarity (test code = 41809-1) CLEAR CLEAR [facility] CypressUrine Specific Dfivlml1136-42-65 15:03:00 * Test Item Value Reference Range Interpretation Comments Urine Specific [place] (test code = 5811-5) 1.025 1.010-1.02 5 [facility] CypressUrine iO4814-52-65 15:03:00* Test Item Value Reference Range Interpretation Comments Urine pH (test code = 55740-9) 7 5-7 [facility] CypressUrine Leukocyte Mstcwknk3792-88-20 15:03:00* Test Item Value Reference Range Interpretation Comments Urine Leukocyte Esterase (test code = 5799-2) NEGATIVE NEGATIVE [facility] CypressUrine Qhpbzoz0115-95-56 15:03:00* Test Item Value Reference Range Interpretation Comments Urine Nitrite (test code = 19088-2) NEGATIVE NEGATIVE [facility] CypressUrine Qeyvtsh5023-30-45 15:03:00* Test Item Value Reference Range Interpretation Comments Urine Protein (test code = 5804-0) NEGATIVE NEGATIVE [facility] CypressUrine Glucose (UA)2019-04-17 15:03:00* Test Item Value Reference Range Interpretation Comments Urine Glucose (UA) (test code = 2349-9) NEGATIVE NEGATIVE [facility] CypressUrine Isebrra3231-00-09 15:03:00* Test Item Value Reference Range Interpretation Comments Urine Ketones (test code = 69439-7) NEGATIVE NEGATIVE [facility] Jdedobrwctyk7327-72-78 15:03:00* Test Item Value Reference Range Interpretation Comments Urine Urobilinogen (test code = 73976-1) 0.2 0.2-1 [facility] CypressUrine Bbufgtzta3141-24-78 15:03:00* Test Item Value Reference Range Interpretation Comments Urine Bilirubin (test code = 1978-6) NEGATIVE NEGATIVE [facility] CypressUrine Imogv3669-76-48 15:03:00* Test Item Value Reference Range Interpretation Comments Urine Blood (test code = 42363-3) NEGATIVE NEGATIVE [facility] CypressProthrombin Seve5982-26-57 14:25:00* Test Item Value Reference Range Interpretation Comments Prothrombin Time (test code = 5902-2) 12.7 11.9-14.5 [facility] CypressProthromb Time International Ratio 2019-04-17 14:25:00* Test Item Value Reference Range Interpretation Comments Prothromb Time International Ratio (test code = 6301-6) 0.90 Oral Anticoagulant Therapy INR Values:1. Low Intensity Therapy 1.5 - 2.02 . Moderate Intensity Therapy 2.0 - 3.03. High Intensity Therapy(1) 2.5 - 3. 54. High Intensity Therapy(2) 3.0 - 4.05. Panic Value INR > 5.0 [facility] CypressActivated Partial Thromboplast Time 2019-04-17 14:25:00* Test Item Value Reference Range Interpretation Comments Activated Partial Thromboplast Time (test code = 10067-4) 27.4 23.8-35.5 [facility] CypressABDOMEN 2 ISQO0723-90-31 17:29:00 [facility] [address] [address] Patient Name: ANAT FRANCE MR #: [id number] : 1955 Age/Sex: 64/M Req #: [id number] Adm Physician: Ordered by: SANDIP LUO MD Report #: [id number] Location: ER Room/Bed: Procedure: 5983-1418 DX/ABDOMEN 2 VIEW Exam Date: 03/29/19 Exam Time: 15 48 REPORT STATUS: Signed Exam: K UB - 2 views Clinical History: Abdominal pain, constipation. Compariso n: KUB 02/26/[address] abdomen/pelvis 02/24/2019. Findings/Impression: Nonobstructive bowel gas pattern. Interval resolution of small volume pneumope ritoneum. Moderate amount of stool in the proximal colon. No evidence of ab normal calcification. No acute bony abnormality. Signed by: Dr. Valeria Kang MD on 03/29/2019 5:32 PM Dictated By: VALERIA KANG MD 31 Transcribed By: FABRICIO on 03/29/191731 COPY TO: SANDIP LUO MD Sodium Rxleo4368-75-61 16:11:00* Test Item Value Reference Range Interpretation Comments Sodium Level (test code = 2951-2) 140 136-145 [facility] CypressPotassium Zvhne6172-23-79 16:11:00* Test Item Value Reference Range Interpretation Comments Potassium Level (test code = 2823-3) 3.9 3.5-5.1 [facility] CypressChloride Fsczc8723-60-96 16:11:00* Test Item Value Reference Range Interpretation Comments Chloride Level (test code = 2075-0) 105 98-107 [facility] CypressCarbon Dioxide Xyivs4325-13-20 16:11:00* Test Item Value Reference Range Interpretation Comments Carbon Dioxide Level (test code = 2028-9) 25 22-29 [facility] CypressAnion Ran9743-73-59 16:11:00* Test Item Value Reference Range Interpretation Comments Anion Gap (test code = 69014-7) 13.9 8-16 [facility] CypressBlood Urea Zviboxng9059-82-03 16:11:00* Test Item Value Reference Range Interpretation Comments Blood Urea Nitrogen (test code = 3094-0) 8 7-26 [facility] CypressCreatinine2020-01-26 16:11:00* Test Item Value Reference Range Interpretation Comments Creatinine (test code = 2160-0) 0.87 0.72-1.25 [facility] CypressBUN/Creatinine Cqkrr8658-42-87 16:11:00* Test Item Value Reference Range Interpretation Comments BUN/Creatinine Ratio (test code = 3097-3) 9 6-25 [facility] CypressEstimat Glomerular Filtration Rate 2019-03-29 16:11:00* Test Item Value Reference Range Interpretation Comments Estimat Glomerular Filtration Rate (test code = 052389453) > 60 >60 Ranges were taken from the National Kidney Disease Education Program and the [facility] Kid[facility] Foundation literature.Reference ranges:60 or greater: Mmojtq56-46 ( for 3 consecutive months): Chronic kidney disease 15 or less: Kidney failureHCA [facility] Healthcare North CypressGlucose Cultt3957-95-66 16:11:00* Test Item Value Reference Range Interpretation Comments Glucose Level (test code = ETZ2494) 98 74-118 [facility] CypressCalcium Vwiex2914-46-91 16:11:00* Test Item Value Reference Range Interpretation Comments Calcium Level (test code = 69259-8) 9.5 8.4-10.2 [facility] CypressTotal Ugdjgalcm1210-93-81 16:11:00* Test Item Value Reference Range Interpretation Comments Total Bilirubin (test code = 1975-2) 0.9 0.2-1.2 [facility] CypressAspartate Amino Transf (AST/SGOT) 2019-03-29 16:11:00* Test Item Value Reference Range Interpretation Comments Aspartate Amino Transf (AST/SGOT) (test code = Aspartate Amino Transf (AST/SGOT)) 18 5-34 [facility] CypressAlanine Aminotransferase (ALT/SGPT) 2019-03-29 16:11:00* Test Item Value Reference Range Interpretation Comments Alanine Aminotransferase (ALT/SGPT) (test code = 1742-6) 19 0-55 [facility] CypressTotal Dupuazx5444-88-17 16:11:00* Test Item Value Reference Range Interpretation Comments Total Protein (test code = 2885-2) 6.5 6.5-8.1 [facility] CypressAlbumin2020-01-26 16:11:00* Test Item Value Reference Range Interpretation Comments Albumin (test code = 1751-7) 3.8 3.5-5.0 [facility] CypressGlobulin2020-01-26 16:11:00* Test Item Value Reference Range Interpretation Comments Globulin (test code = 44811-2) 2.7 2.3-3.5 [facility] CypressAlbumin/Globulin Npjgo6311-89-85 16:11:00 * Test Item Value Reference Range Interpretation Comments Albumin/Globulin Ratio (test code = 1759-0) 1.4 0.8-2.0 [facility] CypressAlkaline Hfjexgdutcs0110-38-74 16:11:00* Test Item Value Reference Range Interpretation Comments Alkaline Phosphatase (test code = 6768-6) 69 40-150 [facility] CypressCreatine Riqghr2196-77-52 16:11:00* Test Item Value Reference Range Interpretation Comments Creatine Kinase (test code = 2157-6) 45 30-200 [facility] CypressCreatine Kinase EK0997-25-46 16:11:00* Test Item Value Reference Range Interpretation Comments Creatine Kinase MB (test code = 34582-9) 1.00 0-5.0 [facility] CypressTrst. francis hospitalnin E5124-64-01 16:11:00* Test Item Value Reference Range Interpretation Comments Troponin I (test code = DVY9184) 0.004 0-0.300 [facility] CypressCreatine Oaifbk8939-39-26 16:11:00* Test Item Value Reference Range Interpretation Comments Creatine Kinase (test code = 2157-6) 45 30-200 [facility] CypressCreatine Kinase AP6298-31-65 16:11:00* Test Item Value Reference Range Interpretation Comments Creatine Kinase MB (test code = 24027-9) 1.00 0-5.0 [facility] CypressTroponin P0505-78-28 16:11:00* Test Item Value Reference Range Interpretation Comments Troponin I (test code = UKO0875) 0.004 0-0.300 [facility] CypressWhite Blood Bwmvx3934-57-79 15:44:00* Test Item Value Reference Range Interpretation Comments White Blood Count (test code = 6690-2) 8.91 4.8-10.8 [facility]ressRed Blood Huowl7958-20-37 15:44:00* Test Item Value Reference Range Interpretation Comments Red Blood Count (test code = 789-8) 4.57 4.3-5.7 [facility] CypressHemoglobin2020-01-26 15:44:00* Test Item Value Reference Range Interpretation Comments Hemoglobin (test code = 96530-7) 12.7 14.0-18.0 L [facility] CypressHematocrit2020-01-26 15:44:00* Test Item Value Reference Range Interpretation Comments Hematocrit (test code = 4544-3) 39.3 38.2-49.6 [facility] CypressMean Corpuscular Trdqfd2882-51-68 15:44:00* Test Item Value Reference Range Interpretation Comments Mean Corpuscular Volume (test code = 787-2) 86.0 81-99 [facility]ressMean Corpuscular Ljruddipbv6723-92-84 15:44:00* Test Item Value Reference Range Interpretation Comments Mean Corpuscular Hemoglobin (test code = 785-6) 27.8 28-32 L [facility]ressMean Corpuscular Hemoglobin Concent 2019-03-29 15:44:00* Test Item Value Reference Range Interpretation Comments Mean Corpuscular Hemoglobin Concent (test code = 786-4) 32.3 31-35 [facility]ressRed Cell Distribution Iqibp4569-36-94 15:44:00* Test Item Value Reference Range Interpretation Comments Red Cell Distribution Width (test code = 66794-7) 13.6 11.7 -14.4 [facility] CypressPlatelet Qvzse1564-63-86 15:44:00* Test Item Value Reference Range Interpretation Comments Platelet Count (test code = 777-3) 346 140-360 [facility] CypressNeutrophils (%) (Auto)2019-03-29 15:44:00 * Test Item Value Reference Range Interpretation Comments Neutrophils (%) (Auto) (test code = 94675-8) 76.6 38.7-80.0 [facility] CypressLymphocytes (%) (Auto)2019-03-29 15:44:00 * Test Item Value Reference Range Interpretation Comments Lymphocytes (%) (Auto) (test code = 736-9) 13.2 18.0-39.1 L [facility] CypressMonocytes (%) (Auto)2019-03-29 15:44:00* Test Item Value Reference Range Interpretation Comments Monocytes (%) (Auto) (test code = 5905-5) 8.0 4.4-11.3 [facility]ressEosinophils (%) (Auto)2019-03-29 15:44:00 * Test Item Value Reference Range Interpretation Comments Eosinophils (%) (Auto) (test code = 713-8) 1.2 0.0-6.0 [facility] CypressBasophils (%) (Auto)2019-03-29 15:44:00* Test Item Value Reference Range Interpretation Comments Basophils (%) (Auto) (test code = 706-2) 0.6 0.0-1.0 [facility] CypressIM GRANULOCYTES %2019-03-29 15:44:00* Test Item Value Reference Range Interpretation Comments IM GRANULOCYTES % (test code = IM GRANULOCYTES %) 0.4 0.0- 1.0 [facility] CypressNeutrophils # (Auto)2019-03-29 15:44:00* Test Item Value Reference Range Interpretation Comments Neutrophils # (Auto) (test code = 751-8) 6.8 2.1-6.9 [facility] CypressLymphocytes # (Auto)2019-03-29 15:44:00* Test Item Value Reference Range Interpretation Comments Lymphocytes # (Auto) (test code = 45600-0) 1.2 1.0-3.2 [facility] CypressMonocytes # (Auto)2019-03-29 15:44:00* Test Item Value Reference Range Interpretation Comments Monocytes # (Auto) (test code = 742-7) 0.7 0.2-0.8 [facility]ressEosinophils # (Auto)2019-03-29 15:44:00* Test Item Value Reference Range Interpretation Comments Eosinophils # (Auto) (test code = 711-2) 0.1 0.0-0.4 [facility] CypressBasophils # (Auto)2019-03-29 15:44:00* Test Item Value Reference Range Interpretation Comments Basophils # (Auto) (test code = 704-7) 0.1 0.0-0.1 [facility] CypressAbsolute Immature Granulocyte (auto 2019-03-29 15:44:00* Test Item Value Reference Range Interpretation Comments Absolute Immature Granulocyte (auto (efrem t code = Absolute Immature Granulocyte (auto) 0.04 0-0.1 [facility] CypressUrine Vdiii2639-96-31 15:44:00* Test Item Value Reference Range Interpretation Comments Urine Color (test code = 5778-6) YELLOW YELLOW [facility] CypressUrine Bukguwc7456-94-99 15:44:00* Test Item Value Reference Range Interpretation Comments Urine Clarity (test code = 09701-2) CLEAR CLEAR [facility] CypressUrine Specific Trjmobo4296-61-30 15:44:00 * Test Item Value Reference Range Interpretation Comments Urine Specific [place] (test code = 5811-5) 1.030 1.010-1.02 5 H [facility] CypressUrine [id number] 15:44:00* Test Item Value Reference Range Interpretation Comments Urine pH (test code = 87088-9) 6 5-7 [facility]ressUrine Leukocyte Qwxupgzp9476-97-21 15:44:00* Test Item Value Reference Range Interpretation Comments Urine Leukocyte Esterase (test code = 5799-2) NEGATIVE NEGATIVE [facility] Tgixxrz9961-84-40 15:44:00* Test Item Value Reference Range Interpretation Comments Urine Nitrite (test code = 15686-7) NEGATIVE NEGATIVE [facility] CypressUrine Nwlrvwq9677-48-67 15:44:00* Test Item Value Reference Range Interpretation Comments Urine Protein (test code = 5804-0) NEGATIVE NEGATIVE [facility] Glucose (UA)2019-03-29 15:44:00* Test Item Value Reference Range Interpretation Comments Urine Glucose (UA) (test code = 2349-9) NEGATIVE NEGATIVE [facility] CypressUrine Iarhjsp4196-40-55 15:44:00* Test Item Value Reference Range Interpretation Comments Urine Ketones (test code = 38735-1) NEGATIVE NEGATIVE [facility] Ozommdbiydkh9341-66-54 15:44:00* Test Item Value Reference Range Interpretation Comments Urine Urobilinogen (test code = 27098-4) 0.2 0.2-1 [facility] CypressUrine Juidlvfcf3322-57-99 15:44:00* Test Item Value Reference Range Interpretation Comments Urine Bilirubin (test code = 1978-6) NEGATIVE NEGATIVE [facility] CypressUrine Jkjjt1299-51-30 15:44:00* Test Item Value Reference Range Interpretation Comments Urine Blood (test code = 37834-9) NEGATIVE NEGATIVE [facility] CypressUrine PUA9369-05-81 15:44:00* Test Item Value Reference Range Interpretation Comments Urine WBC (test code = 5821-4) 0-5 0-5 [facility] CypressUrine QGA9313-66-73 15:44:00* Test Item Value Reference Range Interpretation Comments Urine RBC (test code = 51601-7) 0-5 0-5 [facility] CypressUrine Ltnurrcc7161-16-31 15:44:00* Test Item Value Reference Range Interpretation Comments Urine Bacteria (test code = 71042-9) RARE NONE [facility] CypressUrine Epithelial Ctkat8024-07-88 15:44:00 * Test Item Value Reference Range Interpretation Comments Urine Epithelial Cells (test code = 71153-4) [facility]W N[facility] R[facility]71[facility]66 06:01:00* Test Item Value Reference Range Interpretation Comments Sodium Level (test code = 2951-2) 138 136-145 [facility] CypressPotassium Pnbic0015-04-01 06:01:00* Test Item Value Reference Range Interpretation Comments Potassium Level (test code = 2823-3) 3.5 3.5-5.1 [facility] CypressChloride Dqmbb7487-00-27 06:01:00* Test Item Value Reference Range Interpretation Comments Chloride Level (test code = 2075-0) 105 98-107 [facility] CypressCarbon Dioxide Fckon3200-95-22 06:01:00* Test Item Value Reference Range Interpretation Comments Carbon Dioxide Level (test code = 2028-9) 24 22-29 [facility] CypressAnion Dez7120-27-38 06:01:00* Test Item Value Reference Range Interpretation Comments Anion Gap (test code = 35033-6) 12.5 8-16 [facility] CypressBlood Urea Ocvvrvww2221-05-88 06:01:00* Test Item Value Reference Range Interpretation Comments Blood Urea Nitrogen (test code = 3094-0) 8 7-26 [facility] CypressCreatinine2019-12-27 06:01:00* Test Item Value Reference Range Interpretation Comments Creatinine (test code = 2160-0) 0.88 0.72-1.25 [facility] CypressBUN/Creatinine Ldysf9027-17-28 06:01:00* Test Item Value Reference Range Interpretation Comments BUN/Creatinine Ratio (test code = 3097-3) 9 6-25 [facility] CypressEstimat Glomerular Filtration Rate 2019-02-27 06:01:00* Test Item Value Reference Range Interpretation Comments Estimat Glomerular Filtration Rate (test code = 502524043) > 60 >60 Ranges were taken from the National Kidney Disease Education Program and the [place] [employer] literature.Reference ranges:60 or greater: Ubqggx99-44 ( for 3 consecutive months): Chronic kidney disease 15 or less: Kidney failureHCA [facility] CypressGlucose Sqcfs2677-21-64 06:01:00* Test Item Value Reference Range Interpretation Comments Glucose Level (test code = AEZ5949) 119 74-118 H [facility] CypressCalcium Vsboh0796-63-22 06:01:00* Test Item Value Reference Range Interpretation Comments Calcium Level (test code = 46787-1) 8.3 8.4-10.2 L [facility] CypressTotal Ykczkjysd8785-18-35 06:01:00* Test Item Value Reference Range Interpretation Comments Total Bilirubin (test code = 1975-2) 1.0 0.2-1.2 [facility] CypressAspartate Amino Transf (AST/SGOT) 2019-02-27 06:01:00* Test Item Value Reference Range Interpretation Comments Aspartate Amino Transf (AST/SGOT) (test code = Aspartate Amino Transf (AST/SGOT)) 28 5-34 [facility] CypressAlanine Aminotransferase (ALT/SGPT) 2019-02-27 06:01:00* Test Item Value Reference Range Interpretation Comments Alanine Aminotransferase (ALT/SGPT) (test code = 1742-6) 37 0-55 [facility] CypressTotal Ikfnqmt5733-65-77 06:01:00* Test Item Value Reference Range Interpretation Comments Total Protein (test code = 2885-2) 4.9 6.5-8.1 L [facility] CypressAlbumin2019-12-27 06:01:00* Test Item Value Reference Range Interpretation Comments Albumin (test code = 1751-7) 2.2 3.5-5.0 L [facility] CypressGlobulin2019-12-27 06:01:00* Test Item Value Reference Range Interpretation Comments Globulin (test code = 09898-5) 2.7 2.3-3.5 [facility] CypressAlbumin/Globulin Rtbgw9135-26-98 06:01:00 * Test Item Value Reference Range Interpretation Comments Albumin/Globulin Ratio (test code = 1759-0) 0.8 0.8-2.0 [facility] CypressAlkaline Fyjkoyihrwn0600-96-13 06:01:00* Test Item Value Reference Range Interpretation Comments Alkaline Phosphatase (test code = 6768-6) 84 40-150 [facility] CypressWhite Blood Xikow3565-64-39 05:45:00* Test Item Value Reference Range Interpretation Comments White Blood Count (test code = 6690-2) 11.43 4.8-10.8 H [facility] CypressRed Blood Qmhsp7126-46-86 05:45:00* Test Item Value Reference Range Interpretation Comments Red Blood Count (test code = 789-8) 3.26 4.3-5.7 L [facility] CypressHemoglobin2019-12-27 05:45:00* Test Item Value Reference Range Interpretation Comments Hemoglobin (test code = 27256-8) 9.6 14.0-18.0 L [facility] CypressHematocrit2019-12-27 05:45:00* Test Item Value Reference Range Interpretation Comments Hematocrit (test code = 4544-3) 28.3 38.2-49.6 L [facility] CypressMean Corpuscular Wqidew2580-82-53 05:45:00* Test Item Value Reference Range Interpretation Comments Mean Corpuscular Volume (test code = 787-2) 86.8 81-99 [facility] CypressMean Corpuscular Lfgrmdmyjw4688-83-13 05:45:00* Test Item Value Reference Range Interpretation Comments Mean Corpuscular Hemoglobin (test code = 785-6) 29.4 28-32 [facility] CypressMean Corpuscular Hemoglobin Concent 2019-02-27 05:45:00* Test Item Value Reference Range Interpretation Comments Mean Corpuscular Hemoglobin Concent (test code = 786-4) 33.9 31-35 [facility] CypressRed Cell Distribution Oviau4278-01-70 05:45:00* Test Item Value Reference Range Interpretation Comments Red Cell Distribution Width (test code = 66643-5) 12.9 11.7 -14.4 [facility] CypressPlatelet Aogeo8833-70-22 05:45:00* Test Item Value Reference Range Interpretation Comments Platelet Count (test code = 777-3) 375 140-360 H [facility] CypressNeutrophils (%) (Auto)2019-02-27 05:45:00 * Test Item Value Reference Range Interpretation Comments Neutrophils (%) (Auto) (test code = 68846-5) 73.5 38.7-80.0 [facility] CypressLymphocytes (%) (Auto)2019-02-27 05:45:00 * Test Item Value Reference Range Interpretation Comments Lymphocytes (%) (Auto) (test code = 736-9) 7.8 18.0-39.1 L [facility] CypressMonocytes (%) (Auto)2019-02-27 05:45:00* Test Item Value Reference Range Interpretation Comments Monocytes (%) (Auto) (test code = 5905-5) 10.1 4.4-11.3 [facility] CypressEosinophils (%) (Auto)2019-02-27 05:45:00 * Test Item Value Reference Range Interpretation Comments Eosinophils (%) (Auto) (test code = 713-8) 5.7 0.0-6.0 [facility] CypressBasophils (%) (Auto)2019-02-27 05:45:00* Test Item Value Reference Range Interpretation Comments Basophils (%) (Auto) (test code = 706-2) 0.5 0.0-1.0 [facility] CypressIM GRANULOCYTES %2019-02-27 05:45:00* Test Item Value Reference Range Interpretation Comments IM GRANULOCYTES % (test code = IM GRANULOCYTES %) 2.4 0.0- 1.0 H [facility] CypressNeutrophils # (Auto)2019-02-27 05:45:00* Test Item Value Reference Range Interpretation Comments Neutrophils # (Auto) (test code = 751-8) 8.4 2.1-6.9 H [facility] CypressLymphocytes # (Auto)2019-02-27 05:45:00* Test Item Value Reference Range Interpretation Comments Lymphocytes # (Auto) (test code = 00196-1) 0.9 1.0-3.2 L [facility] CypressMonocytes # (Auto)2019-02-27 05:45:00* Test Item Value Reference Range Interpretation Comments Monocytes # (Auto) (test code = 742-7) 1.2 0.2-0.8 H [facility] CypressEosinophils # (Auto)2019-02-27 05:45:00* Test Item Value Reference Range Interpretation Comments Eosinophils # (Auto) (test code = 711-2) 0.7 0.0-0.4 H [facility] CypressBasophils # (Auto)2019-02-27 05:45:00* Test Item Value Reference Range Interpretation Comments Basophils # (Auto) (test code = 704-7) 0.1 0.0-0.1 [facility] CypressAbsolute Immature Granulocyte (auto 2019-02-27 05:45:00* Test Item Value Reference Range Interpretation Comments Absolute Immature Granulocyte (auto (efrem t code = Absolute Immature Granulocyte (auto) 0.28 0-0.1 H [facility] CypressABDOMEN ACUTE SERIES W/PA RPQ2426-53-42 13:47:00 [place] [address] Patient Name: ANAT FRANCE MR #: [id number] : 1955 Age/Sex: 64/M Req #: [id number] Adm Physician: EWA RAYMOND MD Ordered by: EWA RAYMOND MD Report #: [id number] Location: MED/SURG Room/Bed: [facility] Procedure: [id number] DX/ABDOMEN ACUTE SERIES W/PA CXR Exam Date: 02/26/19 Exam Time: 1310 REPORT S TATUS: Signed EXAM: ABDOMEN ACUTE SERIES W/PA CXR DATE: 02/26/2019 12:2 6 PM INDICATION: Ileus COMPARISON: CT and radiograph from 02/25/20 19 FINDINGS: The trachea is midline. The lungs are symmetrically expanded without evidence for focal consolidation, pneumothorax, or significant pleural effusion. The cardiomediastinal silhouette is stable in appearance. Again identified is pneumoperitoneum, not significantly changed from the prior ex amination. There are diffusely dilated loops small bowel identified with air-f luid levels, similar to the prior examination. Surgical drainage catheter is i dentified in stable position. Midline surgical lavinia noted. No acute osse ous abnormalities identified. IMPRESSION: No significant interval baets ge from 02/24/2019 Grossly stable pneumoperitoneum. Grossly stable austin earing dilated loops of small bowel containing air-fluid levels concerning for ileus versus bowel obstruction. Signed by: Dr. Pelon Sotelo MD on 02/02 1:51 PM Dictated By: PELON SOTELO MD 1351 Transcribed By: FABRICIO on 02/26/19 1351 C OPY TO: EWA RAYMOND MD CT ABDOMEN/PELVIS W6214-06-20 17:35:00 [facility] [address] [place], [place] [address] Patient Name: ANAT FRANCE MR #: [id number] : 1955 Age/Sex: 64/M Req #: [id number] Adm Physician: EWA RAYMOND MD Ordered by: EWA RAYMOND MD Report #: [id number] Location: MED/SURG Room/Bed: [facility] Procedure: [id number] CT/CT ABDOMEN/PELVIS W Exam Date: 02/24/19 Exam Time: 1709 REPORT STATUS: Sig parveen EXAM: CT Abdomen and Pelvis WITH contrast INDICATION: Pneumoperitoneu m on earlier KUB ADNORMAL KUB. ONLY IV CONTRAST NO ORAL [id number] COMPARISON: KUB 02/24/[address] abdomen and pelvis 12 06/07/2018 LEATHA HNIQUE: Abdomen and pelvis were scanned utilizing a multidetector helical scan ner from the lung base to the pubic symphysis after administration of IV contr ast. Coronal and sagittal reformations were obtained. Routine protocol was per formed. Scan was performed when during portal venous phase. IV CON TRAST: 100 mL of Isovue-370 ORAL CONTRAST: None RADI ATION DOSE: Total DLP: 364.5 mGy*cm Estimated effective dose: (DL P x 0.015 x size factor) mSv COMPLICATIONS: None FINDINGS: LINES and TUBES: None. LOWER THORAX: Interval development of small bila teral pleural effusions with adjacent subsegmental atelectasis. HEPATOBIL IARY: No focal hepatic lesions. No biliary ductal dilation. GALLBLADD ER: No radio-opaque stones or sludge. There is mild gallbladder wall thickeni ng at the fundus, nonspecific finding and likely reactive. SPLEEN: No splen omegaly. PANCREAS: No focal masses or ductal dilatation. ADRENALS: No adrenal nodules KIDNEYS/URETERS: Kidneys enhance symmetrically. No hydronephrosis. No cystic or solid mass lesions. No stones. GI TRACT: Si nce 06/07/2018, there has been interval resection of a sigmoid mass. There is a left anterior lower quadrant drainage catheter with tip in the posterior pelvi s. Moderate inflammatory changes surrounding the surgical anastomoses, likely postoperative. No abscess or drainable fluid collections. Mild diffuse dila tation of the small bowel and colon, suggestive of postoperative ileus. No tra nsition point. No air within the bowel wall to suggest ischemia. The appendix is mildly dilated measuring 10 mm, previously 6 mm, and is surrounded by mild fat stranding and fluid and better seen on coronal image 48. PELVIC OR HENNY/BLADDER: Unremarkable. LYMPH NODES: No lymphadenopathy. VESSELS: Unremarkable. PERITONEUM / RETROPERITONEUM: Small amount of ascites, mainly in the right lower quadrant. Small amount of free air anterior to the liver in the right upper quadrant, measuring up to 2.1 cm in thickness. Tiny foci of air are also seen in the lower anterior abdomen just below the abdominal wall at the level of S1 on series 2, image 17, anterior left lower quadrant on imag e 75, and posterior deep pelvis on image 84. Otherwise, no free air in the rem aining abdomen or pelvis. BONES: Unremarkable. SOFT TISSUES: Small fat-containing left inguinal hernia. IMPRESSION: Status p ost recent sigmoid colon mass resection with direct colonic reanastomosis. Dyzhs-wc-eywwyycq peritoneum in the right upper quadrant as well as few tiny air foci scattered in the abdomen and pelvis may be postoperative. No CT find ings to suggest postoperative air leak or rupture viscus. Small amount of a scites, mainly in the right lower quadrant. The appendix is now mildly dila idalia, measuring 10 mm compared to 6 mm on preoperative exam. Findings are unequ ivocal for acute appendicitis and this may reflect reactive inflammation. Cons ider repeat CT abdomen and pelvis in 72 hours. Postoperative ileus. Signed by: Dr. Fabiana Billingsley M.D. on 02/24/2019 5:50 PM Dic tated By: FABIANA BILLINGSLEY MD 49 Transcribed By: FABRICIO on 02/24/191749 COPY TO: EWA RAYMOND MD ABDOMEN ACUTE SERIES W/PA [id number] 15:33:00 [place] [address] Patient Name: ANAT FRANCE MR #: [id number] : 1955 Age/Sex: 64/M Req #: [id number] Adm Physician: EWA RAYMOND MD Ordered by: EWA RAYMOND MD Report #: [id number] Location: MED/SURG Room/Bed: [facility] Procedure: [id number] DX/ABDOMEN ACUTE SERIES W/PA CXR Exam Date: 02/24/19 Exam Time: 1334 REPORT S TATUS: Signed EXAMINATION: ABDOMEN ACUTE SERIES W/PA CXR INDICATION : Ileus COMPARISON: Chest radiograph of 02/13/2019, CT abdomen and pelvis o f 02/06/2019 FINDINGS: LINES/TUBES:None LUNGS:The lungs are w ell-inflated. No focal consolidation or pulmonary edema. Mild bibasilar subseg mental atelectasis. PLEURA:No pleural effusion or pneumothorax. MEDIAS TINUM:The cardiomediastinal silhouette appears unchanged in size and shape. BONES/SOFT TISSUES:No acute osseous injury. ABDOMEN:New pneumoperitoneum with an air-fluid level in the right upper quadrant. Multiple dilated loops of small bowel measuring up to 3.8 cm maximum diameter with associated air-fluid levels, concerning for continued small bowel obstruction versus ileus. IMPRESSION: New pneumoperitoneum with an air-fluid level in the right upper quadrant. Dilated loops of small bowel measuring up to 3.8 cm maximum brandi meter with associated air-fluid levels, concerning for continued small bowel o bstruction versus ileus. No focal consolidation or pulmonary edema. Mild bibasilar subsegmental atelectasis. The above findings were discussed wit h Dr. Ewa Raymond on 02/24/2019 3:33 PM, who responded indicating that the communication was understood. Signed by: Kaushal Moore MD on 02/24/2019 3:40 PM Dictated By: KAUSHAL MOORE MD 39 Transcribed By: FABRICIO on 02/24/191539 COPY TO: EWA SOTO MD Differential Total Cells Pkigfrv2717-03-85 12:44:00* Test Item Value Reference Range Interpretation Comments Differential Total Cells Counted (test code = Differeulalia tial Total Cells Counted) 100 [facility]ressNeutrophils % (Manual)2019-02-19 12:44:00 * Test Item Value Reference Range Interpretation Comments Neutrophils % (Manual) (test code = 21655-6) 80 40-74 H [facility] CypressBand Neutrophils %2019-02-19 12:44:00* Test Item Value Reference Range Interpretation Comments Band Neutrophils % (test code = 764-1) 10 [facility] CypressLymphocytes % (Manual)2019-02-19 12:44:00 * Test Item Value Reference Range Interpretation Comments Lymphocytes % (Manual) (test code = 737-7) 3 19-48 L [facility] CypressMonocytes % (Manual)2019-02-19 12:44:00* Test Item Value Reference Range Interpretation Comments Monocytes % (Manual) (test code = 744-3) 7 3.4-9.0 [facility] CypressPlatelet Idywfyjj7194-95-86 12:44:00* Test Item Value Reference Range Interpretation Comments Platelet Estimate (test code = 68037-5) ADEQUATE [facility] CypressPlatelet Morphology Fxgbqmd4122-77-12 12:44:00* Test Item Value Reference Range Interpretation Comments Platelet Morphology Comment (test code = 48487-5) NORMAL [facility] CypressRed Cell Morphology Ssvfojm4052-62-72 12:44:00* Test Item Value Reference Range Interpretation Comments Red Cell Morphology Comment (test code = 6742-1) NORMAL [facility] CypressDifferential Total Cells Counted 2019-02-19 12:44:00* Test Item Value Reference Range Interpretation Comments Differential Total Cells Counted (test code = Differeulalia tial Total Cells Counted) 100 [facility] CypressNeutrophils % (Manual)2019-02-19 12:44:00 * Test Item Value Reference Range Interpretation Comments Neutrophils % (Manual) (test code = 11180-5) 80 40-74 H [facility] CypressBand Neutrophils %2019-02-19 12:44:00* Test Item Value Reference Range Interpretation Comments Band Neutrophils % (test code = 764-1) 10 [facility] CypressLymphocytes % (Manual)2019-02-19 12:44:00 * Test Item Value Reference Range Interpretation Comments Lymphocytes % (Manual) (test code = 737-7) 3 19-48 L [facility] CypressMonocytes % (Manual)2019-02-19 12:44:00* Test Item Value Reference Range Interpretation Comments Monocytes % (Manual) (test code = 744-3) 7 3.4-9.0 [facility] CypressPlatelet Mxecrhcc8373-96-26 12:44:00* Test Item Value Reference Range Interpretation Comments Platelet Estimate (test code = 75342-3) [facility]QU[facility] CypressPlatelet Morphology [id number] 12:44:00* Test Item Value Reference Range Interpretation Comments Platelet Morphology Comment (test code = 02399-1) NORMAL [facility] CypressRed Cell Morphology [id number] 12:44:00* Test Item Value Reference Range Interpretation Comments Red Cell Morphology Comment (test code = 6742-1) NORMAL [facility] CypressDifferential Total Cells Counted 2019-02-19 12:44:00* Test Item Value Reference Range Interpretation Comments Differential Total Cells Counted (test code = Differen tial Total Cells Counted) 100 [facility] CypressNeutrophils % (Manual)2019-02-19 12:44:00 * Test Item Value Reference Range Interpretation Comments Neutrophils % (Manual) (test code = 05169-8) 80 40-74 H [facility] CypressBand Neutrophils %2019-02-19 12:44:00* Test Item Value Reference Range Interpretation Comments Band Neutrophils % (test code = 764-1) 10 [facility] CypressLymphocytes % (Manual)2019-02-19 12:44:00 * Test Item Value Reference Range Interpretation Comments Lymphocytes % (Manual) (test code = 737-7) 3 19-48 L [facility] CypressMonocytes % (Manual)2019-02-19 12:44:00* Test Item Value Reference Range Interpretation Comments Monocytes % (Manual) (test code = 744-3) 7 3.4-9.0 [facility] CypressPlatelet [id number] 12:44:00* Test Item Value Reference Range Interpretation Comments Platelet Estimate (test code = 32584-5) [facility]QUATE [facility] CypressPlatelet Morphology [id number] 12:44:00* Test Item Value Reference Range Interpretation Comments Platelet Morphology Comment (test code = 10217-6) NORMAL [facility] CypressRed Cell Morphology [id number] 12:44:00* Test Item Value Reference Range Interpretation Comments Red Cell Morphology Comment (test code = 6742-1) NORMAL [facility] CypressCHEST 2 [id number] 16:47:00 [facility] [address] [address] Patient Name: ANAT FRANCE MR #: [id number] : 1955 Age/Sex: 64/M Req #: [id number] Adm Physician: Ordered by: EWA RAYMOND MD Report #: [id number] Location: OR Room/Bed: Procedure: 1213- 0065 DX/CHEST 2 VIEWS Exam Date: 02/13/19 Exam Time: 1550 REPORT STATUS: Signed Ches t, PA and lateral. History: Preoperative evaluation. Colon cancer. Com parison: None available. Discussion: The cardiomediastinal silhouette and pulmonary vasculature are within normal limits. The lungs are clear without ev idence of consolidation or effusion. There are no acute osseous abnormalities . Except IMPRESSION: No evidence of acute cardiopulmonary abnormality. Signed by: Mitch Andrew MD on 02/13/2019 4:48 PM Dictated By: ST JEANNIE ANDREW MD 164 8 Transcribed By: FABRICIO on 02/13/19 1648 COPY TO: EWA RAYMOND CT ABDOMEN/PELVIS [id number] 17:07:00 [address] [address] Patient Name: ANAT FRANCE MR #: [id number] : 1955 Age/Sex: 64/M Req #: [id number] Adm Physician: Ordered by: ASUNCION OH MD Report #: [id number] Location: CT Room/Bed: Procedure: 1206-[address]/CT ABDOMEN/PELVIS W Exam Date: 02/06/19 Exam Ti me: 1515 REPORT STATUS: Signed C T of the abdomen and pelvis History: Sigmoid mass Comparison: None av ailable. Technique: Multidetector CT scanning of the abdomen and pelvis was performed from the level of the lung bases to the inferior pubic ramus, with IV contra st. DOSE REDUCTION: The examination was performed according to departmental dose-optimization program which includes automated exposure control, adjustme nt of the mA and/or kV according to patient size and/or use of iterative rec onstruction technique. Discussion: The lung bases are clear. No focal hepatic lesions are identified. The liver is diffusely hypoattenuating compatible with hepatic steatosis. The gallbladder is present nondistended. No radiopaque gal lstones are identified. There is no intrahepatic or extra hepatic biliary dila tation. The spleen is within normal limits. Incidental note is made of a 12 mm splenule anterior to the spleen. The bilateral adrenal glands are wit hin normal limits. The pancreas is homogeneous in attenuation. No pancreati c masses identified. There is no pancreatic ductal dilatation. The kidney s are normal in size and enhance symmetrically. No hydroureteronephrosis. No k idney stones. The stomach, small, and large bowel are nondistended. The [place] endix is normal. There are scattered colonic diverticula. There is focal sigmo id wall thickening measuring up to 1 cm in thickness and approximately 5 cm in length. There is no free intraperitoneal air or ascites. No enlarged abdominal or pelvic lymph nodes are identified. The abdominal aorta is of n ormal course and caliber. The urinary bladder is within normal limits. The prostate is not enlarged. No acute osseous abnormalities are identifie d. No osseous lytic or blastic lesions are identified. IMPRESSION: 1. S igmoid mass concerning for neoplasm. 2. No evidence of metastatic disease. 3. Sigmoid diverticulosis without evidence of acute diverticulitis. Signed by: Mitch Andrew MD on 02/06/2019 5:14 PM Dictated By: MITCH MUHAMMAD MD [id number] Transcrib ed By: FABRICIO on 02/06/19 618 COPY TO: ASUNCION OH MD
[2019-10-10] MEDS ORDERED: SODIUM CHLORIDE 0.9% 50ML 50 ML ONE (04:06)
[2019-10-10] MEDS ORDERED: IOPAMIDOL 370 MG/ML 200 ML INFUS..BTL INJ ONE (04:06)
--- NOTE | 2019-10-10 05:27 | Diagnostic Imaging Report ---
EXAM: CT Abdomen and Pelvis WITH contrast INDICATION: ^EVAL FOR OBSTRUCTION/STRICTURE COMPARISON: TECHNIQUE: Abdomen and pelvis were scanned utilizing a multidetector helical scanner from the lung base to the pubic symphysis after administration of IV contrast. Coronal and sagittal reformations were obtained. Routine protocol was performed. Scan was performed when during portal venous phase. IV CONTRAST: 100 mL of Isovue 370 ORAL CONTRAST: None COMPLICATIONS: None RADIATION DOSE: Total DLP: 365.90 mGy*cm Estimated effective dose: (DLP x 0.015 x size factor) mSv CTDIvol has been reviewed. It is below the limits set by the Radiation Protocol Committee (RPC). Dose modulation, iterative reconstruction, and/or weight based adjustment of the mA/kV was utilized to reduce the radiation dose to as low as reasonably achievable. FINDINGS: LINES and TUBES: None. LOWER THORAX: Unremarkable HEPATOBILIARY: No focal hepatic lesions. No biliary ductal dilation. GALLBLADDER: Cholelithiasis No wall thickening. SPLEEN: No splenomegaly. PANCREAS: No focal masses or ductal dilatation. ADRENALS: No adrenal nodules KIDNEYS/URETERS: Kidneys enhance symmetrically. No hydronephrosis. No cystic or solid mass lesions. No stones. GI TRACT: Prior partial colectomy. There is focal dilatation of a long segment of colon measuring up to 6.9 cm. There is a transition point at the rectosigmoid anastomosis. The dilated loop of bowel demonstrates mild wall thickening and mild stranding of the mesenteric fat. Small bowel is nondilated. PELVIC ORGANS/BLADDER: Unremarkable. LYMPH NODES: No lymphadenopathy. VESSELS: Unremarkable. PERITONEUM / RETROPERITONEUM: No free air or fluid. BONES: Unremarkable. SOFT TISSUES: Unremarkable. IMPRESSION: Distal colonic obstruction with transition point at the anastomosis in the rectosigmoid region. Signed by: Gilberto Paz MD on 10/10/2019 5:24 AM
[2019-10-10] MEDS ORDERED: MORPHINE SULFATE 2 MG/ML SYR 1ML IV PRN (05:30)
[2019-10-10] MEDS ORDERED: BENZOCAINE/TETRACAINE/BUTAMBEN AERO SPRAY 56 GM CAN TOP ONE (05:30)
--- OUTSIDE RECORDS SUMMARY | 2019-10-10 05:56 | XMS REPORT | Continuity of Care Document ---
Author Author [facility] t Organization [facility] Address [address] [place] [address] Phone Unavailable Care Team Providers Care Butadiene Converter Helper Name Role Phone ROSI TYSON DO PCP Charleen ANDERSON Attphys Unavailable Dorota LUO Attphys Unavailable Charleen RAYMOND Attphys Unavailable ASUNCION [place] Attphys Unavailable DR CORIN MEDINA Attphygricelda Unavailable Charleen RAYMOND Admphys Unavailable DR CORIN MEDINA Unavailable Payers Payer Name Policy Type Policy Number Effective Date Expiration Date [id number] 2018 00:00:00 [facility] Problems Condition Name Condition Details Condition Category Status Onset Date Resolution Date Last Treatment Date Treating Clinician Comments Source TIA (transient ischemic attack) TIA (transient ischemic attack) Dis ease Active 2017-05-12 00:00:00 Waqas Metz Obstruction of colon Colonic obstruction Problem Active [facility] Allergies, Adverse Reactions, Alerts This patient has no known allergies or adverse reactions. Social History Social Habit Start Date Stop Date Quantity Comments Source Sex Assigned At Alphonse zuniga Lashay Alcohol intake 2017-05-12 00:00:00 2017-05-12 00:00:00 Current non-drinker of alcohol (finding) Waqas Metz Smoking Status Start Date Stop Date Source Never smoker [place] Lesly jackie Medications This patient has no known medications. Procedures Procedure Date / Time Performed Performing Clinician Sourjess e Computed tomography of abdomen and pelvis with contrast 2019 00:00:00 ED HADLEY [facility] Computed tomography of abdomen and pelvis with contrast 2018 00:00:00 EWA RAYMOND [facility] RESECTION OF LEFT LARGE INTESTINE, OPEN APPROACH 2019-02-18 00:00:00 EWA RAYMOND [facility] X-ray of chest, two views 2019-02-13 00:00:00 EWA RAYMOND [facility] Computed tomography of abdomen and pelvis with contrast 2018 00:00:00 ASUNCION [place] [facility] COLONOSCOPY AND BIOPSY 2019-02-05 00:00:00 EWA RAYMOND [facility] COLONOSCOPY SUBMUCOUS NJX 2019-02-05 00:00:00 EWA RAYMOND [facility] COLONOSCOPY W/LESION REMOVAL 2019-02-05 00:00:00 ALEXUS RAYMOND [facility] Plan of Care Planned Activity Planned Date Details Comments Source Future Scheduled Test 2019-10-03 00:00:00 INFLUENZA VACCINE [code = INFLUENZA VACCINE] [facility] Scheduled Test 2019 00:00:00 65+ PNEUMOCOCCAL V ACCINE (1 of 2 - PCV13) [code = 65+ PNEUMOCOCCAL VACCINE (1 of 2 - PCV13)] [facility] Scheduled Test 2004-01-03 00:00:00 COLONOSCOPY SCREEN ING [code = COLONOSCOPY SCREENING] [facility] Scheduled Test 2004-01-03 00:00:00 SHINGLES VACCINES (#1) [code = SHINGLES VACCINES (#1)] [facility] Encounters Start Date/Time End Date/Time Encounter Type Admission Type [facility] Care Department Encounter ID Source 2019-04-17 16:40:00 2019-04-21 19:09:00 Discharged Inpatient 1 SANDIP LUO [facility] [id number] [facility] 2019-03-29 14:29:00 2019-03-29 17:57:00 Departed Emergency Room 1 SANDIP LUO [facility] [id number] [facility] 2019-02-18 14:47:00 2019-03-01 12:35:00 Discharged Inpatient 3 EWA RAYMOND [facility] [id number] [facility] 2019-02-06 13:38:00 2019-02-06 13:38:00 Registered Clinic 3 ASUNCION OH [facility] [id number] [facility] 2019-02-05 10:25:00 2019-02-05 10:25:00 Registered Surgical Day Care [facility] [id number] [facility] 2017-07-19 05:15:00 2017-07-19 07:00:00 Outpatient C CORIN MEDINA [id number] Results Test Description Test Time Test Comments Results Result Comments Source CT ABDOMEN/PELVIS W 2019-10-10 05:07:00 [place] [address] Patient Name: ANAT FRANCE MR #: [id number] : 1955 Age/Sex: 64/M Req #: [id number] Adm Physician: Ordered by: NIYAH ANDERSON MD Report #: [id number] Location: ER Room/Bed: Procedure: [id number] CT/CT ABDOMEN/PELVIS W Exam Date: 10/10/19 Exam Time: 0420 REPORT STATUS: Signed EXAM: CT Abdomen and Pelvis WITH contrast INDICATION: EVAL FOR OBSTRUCTION/STRICTURE COMPARISON: TECHNIQUE: Abdomen and pelvis were scanned utilizing a multidetector helical scanner from the lung base to the pubic symphysis after administration of IV contrast. Coronal and sagittal reformations were obtained. Routine protocol was performed. Scan was performed when during portal venous phase. IV CONTRAST: 100 mL of Isovue 370 ORAL CONTRAST: None COMPLICATIONS: None RADIATION DOSE: Total DLP: 365.90 mGy*cm Estimated effective dose: (DLP x 0.015 x size factor) mSv CTDIvol has bee n reviewed. It is below the limits set by the Radiation Protocol Committee (RPC). Dose modulation, iterative reconstruction, and/or weight based adjustment of the mA/kV was utilized to reduce the radiation dose to as low as reasonably achievable. FINDINGS: LINES and TUBES: None. LOWER THORAX: Unremarkable HEPATOBILIARY: No focal hepatic lesions. No biliary ductal dilation. GALLBLADDER: Cholelithiasis No wall thickening. SPLEEN: No splenomegaly. PANCREAS: No focal masses or ductal dilatation. ADRENALS: No adrenal nodules KIDNEYS/URETERS: Kidneys enhance symmetrically. No hydronephrosis. No cystic or solid mass lesions. No stones. GI TRACT: Prior partial colectomy. There is focal dilatation of a long segment of colon measuring up to 6.9 cm. There is a transition point at the rectosigmoid anastomosis. The dilated loop of bowel demonstrates mild wall thickening and mild stranding of the mesenteric fat. Small bowel is nondilated. PELVIC ORGANS/BLADDER: Unremarkable. LYMPH NODES: No lymphadenopathy. VESSELS: Unremarkable. PERITONEUM / RETROPERITONEUM: No free air or fluid. BONES: Unremarkable. SOFT TISSUES: Unremarkable. IMPRESSION: Distal colonic obstruction with transition point at the anastomosis in the rectosigmoid region. Signed by: Luis Paz MD on 10/10/2019 5:24 AM Dictated By: LUIS PAZ MD 3 Transcribed By: FABRICIO on 10/10/19523 COPY TO: NIYAH ANDERSON MD Sodium Level 2019-04-21 06:03:00 Test Item Sodium Level (test code = 2951-2) 140 136-145 [facility] Pdrzo6438-20-80 06:03:00* Test Item Value Reference Range Interpretation Comments Potassium Level (test code = 2823-3) 4.1 3.5-5.1 [facility] HoustonChloride Ibuzn4598-93-84 06:03:00* Test Item Value Reference Range Interpretation Comments Chloride Level (test code = 2075-0) 108 98-107 H [facility] HoustonCarbon Dioxide Tvzwz0024-14-63 06:03:00* Test Item Value Reference Range Interpretation Comments Carbon Dioxide Level (test code = 2028-9) 26 22-29 [facility] HoustonAnion Jwg8112-83-31 06:03:00* Test Item Value Reference Range Interpretation Comments Anion Gap (test code = 58193-4) 10.1 8-16 [facility] HoustonBlood Urea Lqelprqx0285-52-73 06:03:00* Test Item Value Reference Range Interpretation Comments Blood Urea Nitrogen (test code = 3094-0) 9 7-26 [facility] HoustonCreatinine2020-02-18 06:03:00* Test Item Value Reference Range Interpretation Comments Creatinine (test code = 2160-0) 0.96 0.72-1.25 [facility] HoustonBUN/Creatinine Kpuvm7195-84-91 06:03:00* Test Item Value Reference Range Interpretation Comments BUN/Creatinine Ratio (test code = 3097-3) 9 6- [facility] Houston[facility]at Glomerular Filtration Rate 2019-04-21 06:03:00* Test Item Value Reference Range Interpretation Comments Estimat Glomerular Filtration Rate (test code = 379314111) > 60 >60 Ranges were taken from the National Kidney Disease Education Program and the [facility] literature.Reference ranges:60 or greater: Gjfcjc85-14 ( for 3 consecutive months): Chronic kidney disease 15 or less: Kidney failureNexus Children's Hospital HoustonGlucose Pnjzr3233-31-66 06:03:00* Test Item Value Reference Range Interpretation Comments Glucose Level (test code = FJP2814) 95 74-118 [facility] HoustonCalcium Tqmxr7478-84-84 06:03:00* Test Item Value Reference Range Interpretation Comments Calcium Level (test code = 95614-3) 8.8 8.4-10.2 [facility] HoustonWhite Blood Mxsdq8661-61-51 05:47:00* Test Item Value Reference Range Interpretation Comments White Blood Count (test code = 6690-2) 8.38 4.8-10.8 [facility] HoustonRed Blood Xxufl7207-26-70 05:47:00* Test Item Value Reference Range Interpretation Comments Red Blood Count (test code = 789-8) 4.11 4.3-5.7 L [facility] HoustonHemoglobin2020-02-18 05:47:00* Test Item Value Reference Range Interpretation Comments Hemoglobin (test code = 17569-3) 10.8 14.0-18.0 L [facility] HoustonHematocrit2020-02-18 05:47:00* Test Item Value Reference Range Interpretation Comments Hematocrit (test code = 4544-3) 34.2 38.2-49.6 L [facility] HoustonMean Corpuscular Uvdvwu6666-14-29 05:47:00* Test Item Value Reference Range Interpretation Comments Mean Corpuscular Volume (test code = 787-2) 83.2 81-99 [facility] HoustonMean Corpuscular Ymttvagvla2340-45-29 05:47:00* Test Item Value Reference Range Interpretation Comments Mean Corpuscular Hemoglobin (test code = 785-6) 26.3 28-32 L [facility] HoustonMean Corpuscular Hemoglobin Concent 2019-04-21 05:47:00* Test Item Value Reference Range Interpretation Comments Mean Corpuscular Hemoglobin Concent (test code = 786-4) 31.6 31-35 [facility] HoustonRed Cell Distribution Kohsk6666-12-10 05:47:00* Test Item Value Reference Range Interpretation Comments Red Cell Distribution Width (test code = 82580-0) 13.5 11.7 -14.4 [facility] HoustonPlatelet Xffbb4134-99-29 05:47:00* Test Item Value Reference Range Interpretation Comments Platelet Count (test code = 777-3) 257 140-360 [facility] HoustonNeutrophils (%) (Auto)2019-04-21 05:47:00 * Test Item Value Reference Range Interpretation Comments Neutrophils (%) (Auto) (test code = 28514-9) 77.0 38.7-80.0 [facility] HoustonLymphocytes (%) (Auto)2019-04-21 05:47:00 * Test Item Value Reference Range Interpretation Comments Lymphocytes (%) (Auto) (test code = 736-9) 11.5 18.0-39.1 L [facility] HoustonMonocytes (%) (Auto)2019-04-21 05:47:00* Test Item Value Reference Range Interpretation Comments Monocytes (%) (Auto) (test code = 5905-5) 10.9 4.4-11.3 [facility] HoustonEosinophils (%) (Auto)2019-04-21 05:47:00 * Test Item Value Reference Range Interpretation Comments Eosinophils (%) (Auto) (test code = 713-8) 0.2 0.0-6.0 [facility] HoustonBasophils (%) (Auto)2019-04-21 05:47:00* Test Item Value Reference Range Interpretation Comments Basophils (%) (Auto) (test code = 706-2) 0.2 0.0-1.0 [facility] HoustonIM GRANULOCYTES %2019-04-21 05:47:00* Test Item Value Reference Range Interpretation Comments IM GRANULOCYTES % (test code = IM GRANULOCYTES %) 0.2 0.0- 1.0 [facility] HoustonNeutrophils # (Auto)2019-04-21 05:47:00* Test Item Value Reference Range Interpretation Comments Neutrophils # (Auto) (test code = 751-8) 6.5 2.1-6.9 [facility] HoustonLymphocytes # (Auto)2019-04-21 05:47:00* Test Item Value Reference Range Interpretation Comments Lymphocytes # (Auto) (test code = 15691-2) 1.0 1.0-3.2 [facility] HoustonMonocytes # (Auto)2019-04-21 05:47:00* Test Item Value Reference Range Interpretation Comments Monocytes # (Auto) (test code = 742-7) 0.9 0.2-0.8 H [facility] HoustonEosinophils # (Auto)2019-04-21 05:47:00* Test Item Value Reference Range Interpretation Comments Eosinophils # (Auto) (test code = 711-2) 0.0 0.0-0.4 [facility] HoustonBasophils # (Auto)2019-04-21 05:47:00* Test Item Value Reference Range Interpretation Comments Basophils # (Auto) (test code = 704-7) 0.0 0.0-0.1 [facility] HoustonAbsolute Immature Granulocyte (auto 2019-04-21 05:47:00* Test Item Value Reference Range Interpretation Comments Absolute Immature Granulocyte (auto (efrem t code = Absolute Immature Granulocyte (auto) 0.02 0-0.1 [facility] HoustonBlood Lfnghxo1922-56-93 15:06:00* Test Item Value Reference Range Interpretation Comments Blood Culture (test code = 53556416) NO GROWTH AFTER 72 HOURS [facility] HoustonTotal Hthomibsw3175-25-13 06:59:00* Test Item Value Reference Range Interpretation Comments Total Bilirubin (test code = 1975-2) 1.4 0.2-1.2 H [facility] HoustonAspartate Amino Transf (AST/SGOT) 2019-04-19 06:59:00* Test Item Value Reference Range Interpretation Comments Aspartate Amino Transf (AST/SGOT) (test code = Aspartate Amino Transf (AST/SGOT)) 14 5-34 [facility] HoustonAlanine Aminotransferase (ALT/SGPT) 2019-04-19 06:59:00* Test Item Value Reference Range Interpretation Comments Alanine Aminotransferase (ALT/SGPT) (test code = 1742-6) 11 0-55 [facility] HoustonTotal Sksfwpi3996-68-18 06:59:00* Test Item Value Reference Range Interpretation Comments Total Protein (test code = 2885-2) 5.7 6.5-8.1 L [facility] HoustonAlbumin2020-02-16 06:59:00* Test Item Value Reference Range Interpretation Comments Albumin (test code = 1751-7) 3.3 3.5-5.0 L [facility] HoustonGlobulin2020-02-16 06:59:00* Test Item Value Reference Range Interpretation Comments Globulin (test code = 90929-5) 2.4 2.3-3.5 [facility] HoustonAlbumin/Globulin Rhihy7648-43-92 06:59:00 * Test Item Value Reference Range Interpretation Comments Albumin/Globulin Ratio (test code = 1759-0) 1.4 0.8-2.0 [facility] HoustonAlkaline Xzoekvuzbvs4272-91-36 06:59:00* Test Item Value Reference Range Interpretation Comments Alkaline Phosphatase (test code = 6768-6) 60 40-150 [facility] HoustonLactic Acid Yfsta2539-15-31 15:26:00* Test Item Value Reference Range Interpretation Comments Lactic Acid Level (test code = Lactic Acid Level) 1.0 0.5- 2.0 [facility] HoustonUrine WKC4710-71-29 15:20:00* Test Item Value Reference Range Interpretation Comments Urine WBC (test code = 5821-4) NONE 0-5 [facility] HoustonUrine TJJ6945-82-79 15:20:00* Test Item Value Reference Range Interpretation Comments Urine RBC (test code = 40517-7) NONE 0-5 [facility] HoustonUrine Fgeupsxl4378-69-12 15:20:00* Test Item Value Reference Range Interpretation Comments Urine Bacteria (test code = 00100-6) RARE NONE [facility] HoustonUrine Epithelial Jilyt4203-99-42 15:20:00 * Test Item Value Reference Range Interpretation Comments Urine Epithelial Cells (test code = 09130-7) NONE NONE [facility] HoustonCT ABDOMEN/PELVIS G4898-39-21 15:06:00 [facility] [address] [address] Patient Name: ANAT FRANCE MR #: [id number] : 1955 Age/Sex: 64/M Req #: [id number] Adm Physician: Ordered by: ED HADLEY LITIGATION ASSISTANT Report #: [id number] Location: ER Room/Bed: Procedure: [id number]/CT [...] 3:14 PM Dictated By: Jess AYALA MD [address] anscribed By: FABRICIO on 04/17/19 1514 COPY TO: ED HADLEY LITIGATION ASSISTANT Urine Dryji9295-79-22 15:03:00* Test Item Value Reference Range Interpretation Comments Urine Color (test code = 5778-6) YELLOW YELLOW [facility] HoustonUrine Yhodldo1512-85-86 15:03:00* Test Item Value Reference Range Interpretation Comments Urine Clarity (test code = 29099-2) CLEAR CLEAR [facility] HoustonUrine Specific Dxvofjn1305-45-54 15:03:00 * Test Item Value Reference Range Interpretation Comments Urine Specific [place] (test code = 5811-5) 1.025 1.010-1.02 5 [facility] HoustonUrine [id number] 15:03:00* Test Item Value Reference Range Interpretation Comments Urine pH (test code = 02161-3) 7 5-7 [facility] HoustonUrine Leukocyte Wzzfbwlz8126-65-40 15:03:00* Test Item Value Reference Range Interpretation Comments Urine Leukocyte Esterase (test code = 5799-2) NEGATIVE NEGATIVE [facility] HoustonUrine Yrgerer7338-07-71 15:03:00* Test Item Value Reference Range Interpretation Comments Urine Nitrite (test code = 72084-9) NEGATIVE NEGATIVE [facility] HoustonUrine Tniboai9115-44-18 15:03:00* Test Item Value Reference Range Interpretation Comments Urine Protein (test code = 5804-0) NEGATIVE NEGATIVE [facility] HoustonUrine Glucose (UA)2019-04-17 15:03:00* Test Item Value Reference Range Interpretation Comments Urine Glucose (UA) (test code = 2349-9) NEGATIVE NEGATIVE [facility] HoustonUrine Nymkaaf4498-60-48 15:03:00* Test Item Value Reference Range Interpretation Comments Urine Ketones (test code = 31856-2) NEGATIVE NEGATIVE [facility] HoustonUrine Vngaqrzyempp5901-76-15 15:03:00* Test Item Value Reference Range Interpretation Comments Urine Urobilinogen (test code = 71651-3) 0.2 0.2-1 [facility] HoustonUrine Baxzyxryv7153-78-35 15:03:00* Test Item Value Reference Range Interpretation Comments Urine Bilirubin (test code = 1978-6) NEGATIVE NEGATIVE [facility] HoustonUrine Zbchx2795-48-13 15:03:00* Test Item Value Reference Range Interpretation Comments Urine Blood (test code = 17116-1) NEGATIVE NEGATIVE [facility] HoustonProthrombin Ncrr8253-34-73 14:25:00* Test Item Value Reference Range Interpretation Comments Prothrombin Time (test code = 5902-2) 12.7 11.9-14.5 [facility] HoustonProthromb Time International Ratio 2019-04-17 14:25:00* Test Item Value Reference Range Interpretation Comments Prothromb Time International Ratio (test code = 6301-6) 0.90 Oral Anticoagulant Therapy INR Values:1. Low Intensity Therapy 1.5 - 2.02 . Moderate Intensity Therapy 2.0 - 3.03. High Intensity Therapy(1) 2.5 - 3. 54. High Intensity Therapy(2) 3.0 - 4.05. Panic Value INR > 5.0 [facility] HoustonActivated Partial Thromboplast Time 2019-04-17 14:25:00* Test Item Value Reference Range Interpretation Comments Activated Partial Thromboplast Time (test code = 30912-4) 27.4 23.8-35.5 [facility] HoustonABDOMEN 2 [id number] 17:29:00 [facility] [address] [place] [address] Patient Name: ANAT FRANCE MR #: [id number] : 1955 Age/Sex: 64/M Req #: [id number] Adm Physician: Ordered by: SANDIP LUO MD Report #: [id number] Location: ER Room/Bed: Procedure: [id number] DX/ABDOMEN 2 VIEW Exam Date: 03/29/19 Exam [...] 03/29/191731 COPY TO: SANDIP LUO MD Sodium Newls7422-94-74 16:11:00* Test Item Value Reference Range Interpretation Comments Sodium Level (test code = 2951-2) 140 136-145 [facility] HoustonPotassium Zytre1903-01-24 16:11:00* Test Item Value Reference Range Interpretation Comments Potassium Level (test code = 2823-3) 3.9 3.5-5.1 [facility] HoustonChloride Ibdnj0387-69-87 16:11:00* Test Item Value Reference Range Interpretation Comments Chloride Level (test code = 2075-0) 105 98-107 [facility] HoustonCarbon Dioxide Xkzni8058-93-80 16:11:00* Test Item Value Reference Range Interpretation Comments Carbon Dioxide Level (test code = 2028-9) 25 22-29 [facility] HoustonAnion Ndi1014-15-74 16:11:00* Test Item Value Reference Range Interpretation Comments Anion Gap (test code = 57534-3) 13.9 8-16 [facility] HoustonBlood Urea Hsjgdufy3007-95-49 16:11:00* Test Item Value Reference Range Interpretation Comments Blood Urea Nitrogen (test code = 3094-0) 8 7-26 [facility] HoustonCreatinine2020-01-26 16:11:00* Test Item Value Reference Range Interpretation Comments Creatinine (test code = 2160-0) 0.87 0.72-1.25 [facility] HoustonBUN/Creatinine Rflla1738-72-07 16:11:00* Test Item Value Reference Range Interpretation Comments BUN/Creatinine Ratio (test code = 3097-3) 9 6-25 [facility] HoustonEstimat Glomerular Filtration Rate 2019-03-29 16:11:00* Test Item Value Reference Range Interpretation Comments Estimat Glomerular Filtration Rate (test code = 876652897) > 60 >60 Ranges were taken from the National Kidney Disease Education Program and the Counts include 234 beds at the [facility] Kidney Foundation literature.Reference ranges:60 or greater: Ycncln57-11 ( for 3 consecutive months): Chronic kidney disease 15 or less: Kidney failureNexus Children's Hospital HoustonGlucose Zfbpu4045-46-60 16:11:00* Test Item Value Reference Range Interpretation Comments Glucose Level (test code = UTJ3588) 98 74-118 [facility] HoustonCalcium Yojcd7695-60-31 16:11:00* Test Item Value Reference Range Interpretation Comments Calcium Level (test code = 76519-2) 9.5 8.4-10.2 [facility] HoustonTotal Vcecjtwsg8241-59-14 16:11:00* Test Item Value Reference Range Interpretation Comments Total Bilirubin (test code = 1975-2) 0.9 0.2-1.2 [facility] HoustonAspartate Amino Transf (AST/SGOT) 2019-03-29 16:11:00* Test Item Value Reference Range Interpretation Comments Aspartate Amino Transf (AST/SGOT) (test code = Aspartate Amino Transf (AST/SGOT)) 18 5-34 [facility] HoustonAlanine Aminotransferase (ALT/SGPT) 2019-03-29 16:11:00* Test Item Value Reference Range Interpretation Comments Alanine Aminotransferase (ALT/SGPT) (test code = 1742-6) 19 0-55 [facility] HoustonTotal Svhwygy6597-96-72 16:11:00* Test Item Value Reference Range Interpretation Comments Total Protein (test code = 2885-2) 6.5 6.5-8.1 [facility] HoustonAlbumin2020-01-26 16:11:00* Test Item Value Reference Range Interpretation Comments Albumin (test code = 1751-7) 3.8 3.5-5.0 [facility] HoustonGlobulin2020-01-26 16:11:00* Test Item Value Reference Range Interpretation Comments Globulin (test code = 45475-9) 2.7 2.3-3.5 [facility] HoustonAlbumin/Globulin Rxxle0437-57-42 16:11:00 * Test Item Value Reference Range Interpretation Comments Albumin/Globulin Ratio (test code = 1759-0) 1.4 0.8-2.0 [facility] HoustonAlkaline Xxpcmwrxwzd6343-30-18 16:11:00* Test Item Value Reference Range Interpretation Comments Alkaline Phosphatase (test code = 6768-6) 69 40-150 [facility] HoustonCreatine Schtvq1249-13-16 16:11:00* Test Item Value Reference Range Interpretation Comments Creatine Kinase (test code = 2157-6) 45 30-200 [facility] HoustonCreatine Kinase IZ2800-35-68 16:11:00* Test Item Value Reference Range Interpretation Comments Creatine Kinase MB (test code = 32637-3) 1.00 0-5.0 [facility] HoustonTroponin U2891-44-07 16:11:00* Test Item Value Reference Range Interpretation Comments Troponin I (test code = NHQ4393) 0.004 0-0.300 [facility] HoustonCreatine Raispl6740-35-93 16:11:00* Test Item Value Reference Range Interpretation Comments Creatine Kinase (test code = 2157-6) 45 30-200 [facility] HoustonCreatine Kinase YU3202-67-40 16:11:00* Test Item Value Reference Range Interpretation Comments Creatine Kinase MB (test code = 35877-6) 1.00 0-5.0 [facility] HoustonTroponin V4152-84-11 16:11:00* Test Item Value Reference Range Interpretation Comments Troponin I (test code = EUZ6493) 0.004 0-0.300 [facility] HoustonWhite Blood Qduks7039-33-77 15:44:00* Test Item Value Reference Range Interpretation Comments White Blood Count (test code = 6690-2) 8.91 4.8-10.8 [facility] HoustonRed Blood Dzagq2099-85-31 15:44:00* Test Item Value Reference Range Interpretation Comments Red Blood Count (test code = 789-8) 4.57 4.3-5.7 [facility] [place]emoglobin[place] 15:44:00* Test Item Value Reference Range Interpretation Comments Hemoglobin (test code = 00324-3) 12.7 14.0-18.0 L [facility] HoustonHematocrit2020-01-26 15:44:00* Test Item Value Reference Range Interpretation Comments Hematocrit (test code = 4544-3) 39.3 38.2-49.6 [facility] HoustonMean Corpuscular Djgzzq9156-12-98 15:44:00* Test Item Value Reference Range Interpretation Comments Mean Corpuscular Volume (test code = 787-2) 86.0 81-99 [facility] [place]Mean Corpuscular Tqneeskksd0805-56-23 15:44:00* Test Item Value Reference Range Interpretation Comments Mean Corpuscular Hemoglobin (test code = 785-6) 27.8 28-32 L [facility] HoustonMean Corpuscular Hemoglobin Concent 2019-03-29 15:44:00* Test Item Value Reference Range Interpretation Comments Mean Corpuscular Hemoglobin Concent (test code = 786-4) 32.3 31-35 [facility] HoustonRed Cell Distribution Kncod0130-23-73 15:44:00* Test Item Value Reference Range Interpretation Comments Red Cell Distribution Width (test code = 72979-5) 13.6 11.7 -14.4 [facility] HoustonPlatelet Mdlus6813-87-27 15:44:00* Test Item Value Reference Range Interpretation Comments Platelet Count (test code = 777-3) 346 140-360 [facility] HoustonNeutrophils (%) (Auto)2019-03-29 15:44:00 * Test Item Value Reference Range Interpretation Comments Neutrophils (%) (Auto) (test code = 53361-8) 76.6 38.7-80.0 [facility] HoustonLymphocytes (%) (Auto)2019-03-29 15:44:00 * Test Item Value Reference Range Interpretation Comments Lymphocytes (%) (Auto) (test code = 736-9) 13.2 18.0-39.1 L [facility] HoustonMonocytes (%) (Auto)2019-03-29 15:44:00* Test Item Value Reference Range Interpretation Comments Monocytes (%) (Auto) (test code = 5905-5) 8.0 4.4-11.3 [facility] HoustonEosinophils (%) (Auto)2019-03-29 15:44:00 * Test Item Value Reference Range Interpretation Comments Eosinophils (%) (Auto) (test code = 713-8) 1.2 0.0-6.0 [facility] HoustonBasophils (%) (Auto)2019-03-29 15:44:00* Test Item Value Reference Range Interpretation Comments Basophils (%) (Auto) (test code = 706-2) 0.6 0.0-1.0 [facility] HoustonIM GRANULOCYTES %2019-03-29 15:44:00* Test Item Value Reference Range Interpretation Comments IM GRANULOCYTES % (test code = IM GRANULOCYTES %) 0.4 0.0- 1.0 [facility] HoustonNeutrophils # (Auto)2019-03-29 15:44:00* Test Item Value Reference Range Interpretation Comments Neutrophils # (Auto) (test code = 751-8) 6.8 2.1-6.9 [facility] HoustonLymphocytes # (Auto)2019-03-29 15:44:00* Test Item Value Reference Range Interpretation Comments Lymphocytes # (Auto) (test code = 40185-6) 1.2 1.0-3.2 [facility] HoustonMonocytes # (Auto)2019-03-29 15:44:00* Test Item Value Reference Range Interpretation Comments Monocytes # (Auto) (test code = 742-7) 0.7 0.2-0.8 [facility] HoustonEosinophils # (Auto)2019-03-29 15:44:00* Test Item Value Reference Range Interpretation Comments Eosinophils # (Auto) (test code = 711-2) 0.1 0.0-0.4 [facility] HoustonBasophils # (Auto)2019-03-29 15:44:00* Test Item Value Reference Range Interpretation Comments Basophils # (Auto) (test code = 704-7) 0.1 0.0-0.1 [facility] HoustonAbsolute Immature Granulocyte (auto 2019-03-29 15:44:00* Test Item Value Reference Range Interpretation Comments Absolute Immature Granulocyte (auto (efrem t code = Absolute Immature Granulocyte (auto) 0.04 0-0.1 [facility] HoustonUrine Rwsnc3077-81-90 15:44:00* Test Item Value Reference Range Interpretation Comments Urine Color (test code = 5778-6) YELLOW YELLOW [facility] HoustonUrine Dkthbds5801-18-99 15:44:00* Test Item Value Reference Range Interpretation Comments Urine Clarity (test code = 05688-5) CLEAR CLEAR [facility] HoustonUrine Specific Bvckeao5409-86-34 15:44:00 * Test Item Value Reference Range Interpretation Comments Urine Specific [place] (test code = 5811-5) 1.030 1.010-1.02 5 H [facility] HoustonUrine iK0901-38-59 15:44:00* Test Item Value Reference Range Interpretation Comments Urine pH (test code = 93307-3) 6 5-7 [facility] HoustonUrine Leukocyte Wnjjwznw8867-93-26 15:44:00* Test Item Value Reference Range Interpretation Comments Urine Leukocyte Esterase (test code = 5799-2) NEGATIVE NEGATIVE [facility] HoustonUrine Ljjfaly6192-07-37 15:44:00* Test Item Value Reference Range Interpretation Comments Urine Nitrite (test code = 16002-6) NEGATIVE NEGATIVE [facility] HoustonUrine Hhnjzlb4820-20-15 15:44:00* Test Item Value Reference Range Interpretation Comments Urine Protein (test code = 5804-0) NEGATIVE NEGATIVE [facility] HoustonUrine Glucose (UA)2019-03-29 15:44:00* Test Item Value Reference Range Interpretation Comments Urine Glucose (UA) (test code = 2349-9) NEGATIVE NEGATIVE [facility] HoustonUrine Fuwgxzs3319-32-82 15:44:00* Test Item Value Reference Range Interpretation Comments Urine Ketones (test code = 49674-1) NEGATIVE NEGATIVE [facility] HoustonUrine Upewsuenhgof2975-61-91 15:44:00* Test Item Value Reference Range Interpretation Comments Urine Urobilinogen (test code = 04444-4) 0.2 0.2-1 [facility] HoustonUrine Nvuhsrndb0341-47-88 15:44:00* Test Item Value Reference Range Interpretation Comments Urine Bilirubin (test code = 1978-6) NEGATIVE NEGATIVE [facility] Gpucl8971-52-68 15:44:00* Test Item Value Reference Range Interpretation Comments Urine Blood (test code = 36932-0) NEGATIVE NEGATIVE [facility] HoustonUrine EQH8125-34-41 15:44:00* Test Item Value Reference Range Interpretation Comments Urine WBC (test code = 5821-4) 0-5 0-5 [facility] HoustonUrine PDU2390-54-45 15:44:00* Test Item Value Reference Range Interpretation Comments Urine RBC (test code = 41792-4) 0-5 0-5 [facility] Cwngmmvx0973-12-45 15:44:00* Test Item Value Reference Range Interpretation Comments Urine Bacteria (test code = 36853-1) RARE NONE [facility] HoustonUrine Epithelial Nxllm3398-17-90 15:44:00 * Test Item Value Reference Range Interpretation Comments Urine Epithelial Cells (test code = 55602-9) FEW NONE [facility] Uonlf5866-[facility]-59 06:01:00* Test Item Value Reference Range Interpretation Comments Sodium Level (test code = 2951-2) 138 136-145 [facility] HoustonPotassium Aumvf5895-15-20 06:01:00* Test Item Value Reference Range Interpretation Comments Potassium Level (test code = 2823-3) 3.5 3.5-5.1 [facility] HoustonChloride Apvgl5659-19-07 06:01:00* Test Item Value Reference Range Interpretation Comments Chloride Level (test code = 2075-0) 105 98-107 [facility] HoustonCarbon Dioxide Evvkf3478-51-24 06:01:00* Test Item Value Reference Range Interpretation Comments Carbon Dioxide Level (test code = 2028-9) 24 22-29 [facility] HoustonAnion Vea4495-86-91 06:01:00* Test Item Value Reference Range Interpretation Comments Anion Gap (test code = 28487-6) 12.5 8-16 [facility] HoustonBlood Urea Tlorixjg9753-76-49 06:01:00* Test Item Value Reference Range Interpretation Comments Blood Urea Nitrogen (test code = 3094-0) 8 7-26 [facility] HoustonCreatinine2019-12-27 06:01:00* Test Item Value Reference Range Interpretation Comments Creatinine (test code = 2160-0) 0.88 0.72-1.25 [facility] HoustonBUN/Creatinine Toity4336-72-07 06:01:00* Test Item Value Reference Range Interpretation Comments BUN/Creatinine Ratio (test code = 3097-3) 9 6-25 [facility] HoustonEstimat Glomerular Filtration Rate 2019-02-27 06:01:00* Test Item Value Reference Range Interpretation Comments Estimat Glomerular Filtration Rate (test code = 913661724) > 60 >60 Ranges were taken from the National Kidney Disease Education Program and the [facility] literature.Reference ranges:60 or greater: Maykcm28-25 ( for 3 consecutive months): Chronic kidney disease 15 or less: Kidney failureN[facility] Children's Hospital HoustonGlucose Zrdfj9440-21-31 06:01:00* Test Item Value Reference Range Interpretation Comments Glucose Level (test code = AGM0149) 119 74-118 H [facility] HoustonCalcium Dgito8995-34-95 06:01:00* Test Item Value Reference Range Interpretation Comments Calcium Level (test code = 75833-5) 8.3 8.4-10.2 L [facility] HoustonTotal Fjfctkcxb2008-55-11 06:01:00* Test Item Value Reference Range Interpretation Comments Total Bilirubin (test code = 1975-2) 1.0 0.2-1.2 [facility] HoustonAspartate Amino Transf (AST/SGOT) 2019-02-27 06:01:00* Test Item Value Reference Range Interpretation Comments Aspartate Amino Transf (AST/SGOT) (test code = Aspartate Amino Transf (AST/SGOT)) 28 5-34 [facility] HoustonAlanine Aminotransferase (ALT/SGPT) 2019-02-27 06:01:00* Test Item Value Reference Range Interpretation Comments Alanine Aminotransferase (ALT/SGPT) (test code = 1742-6) 37 0-55 [facility] HoustonTotal Pufxsgl3055-44-45 06:01:00* Test Item Value Reference Range Interpretation Comments Total Protein (test code = 2885-2) 4.9 6.5-8.1 L [facility] HoustonAlbumin2019-12-27 06:01:00* Test Item Value Reference Range Interpretation Comments Albumin (test code = 1751-7) 2.2 3.5-5.0 L [facility] HoustonGlobulin2019-12-27 06:01:00* Test Item Value Reference Range Interpretation Comments Globulin (test code = 45425-3) 2.7 2.3-3.5 [facility] HoustonAlbumin/Globulin Akqgk8554-33-09 06:01:00 * Test Item Value Reference Range Interpretation Comments Albumin/Globulin Ratio (test code = 1759-0) 0.8 0.8-2.0 [facility] HoustonAlkaline Wqysqjznmsk3929-60-01 06:01:00* Test Item Value Reference Range Interpretation Comments Alkaline Phosphatase (test code = 6768-6) 84 40-150 [facility] HoustonWhite Blood Lcakl4370-75-43 05:45:00* Test Item Value Reference Range Interpretation Comments White Blood Count (test code = 6690-2) 11.43 4.8-10.8 H [facility] HoustonRed Blood Ffott7718-00-19 05:45:00* Test Item Value Reference Range Interpretation Comments Red Blood Count (test code = 789-8) 3.26 4.3-5.7 L [facility] HoustonHemoglobin2019-12-27 05:45:00* Test Item Value Reference Range Interpretation Comments Hemoglobin (test code = 86587-6) 9.6 14.0-18.0 L [facility] HoustonHematocrit2019-12-27 05:45:00* Test Item Value Reference Range Interpretation Comments Hematocrit (test code = 4544-3) 28.3 38.2-49.6 L [facility] HoustonMean Corpuscular Mxsvow4541-24-94 05:45:00* Test Item Value Reference Range Interpretation Comments Mean Corpuscular Volume (test code = 787-2) 86.8 81-99 [facility] HoustonMean Corpuscular Bamjztxpol0148-42-21 05:45:00* Test Item Value Reference Range Interpretation Comments Mean Corpuscular Hemoglobin (test code = 785-6) 29.4 28-32 [facility] HoustonMean Corpuscular Hemoglobin Concent 2019-02-27 05:45:00* Test Item Value Reference Range Interpretation Comments Mean Corpuscular Hemoglobin Concent (test code = 786-4) 33.9 31-35 [facility] HoustonRed Cell Distribution Xdzob0812-70-65 05:45:00* Test Item Value Reference Range Interpretation Comments Red Cell Distribution Width (test code = 64465-5) 12.9 11.7 -14.4 [facility] HoustonPlatelet Vtyws1412-18-78 05:45:00* Test Item Value Reference Range Interpretation Comments Platelet Count (test code = 777-3) 375 140-360 H [facility] HoustonNeutrophils (%) (Auto)2019-02-27 05:45:00 * Test Item Value Reference Range Interpretation Comments Neutrophils (%) (Auto) (test code = 20257-9) 73.5 38.7-80.0 [facility] HoustonLymphocytes (%) (Auto)2019-02-27 05:45:00 * Test Item Value Reference Range Interpretation Comments Lymphocytes (%) (Auto) (test code = 736-9) 7.8 18.0-39.1 L [facility] HoustonMonocytes (%) (Auto)2019-02-27 05:45:00* Test Item Value Reference Range Interpretation Comments Monocytes (%) (Auto) (test code = 5905-5) 10.1 4.4-11.3 [facility] HoustonEosinophils (%) (Auto)2019-02-27 05:45:00 * Test Item Value Reference Range Interpretation Comments Eosinophils (%) (Auto) (test code = 713-8) 5.7 0.0-6.0 [facility] HoustonBasophils (%) (Auto)2019-02-27 05:45:00* Test Item Value Reference Range Interpretation Comments Basophils (%) (Auto) (test code = 706-2) 0.5 0.0-1.0 [facility] HoustonIM GRANULOCYTES %2019-02-27 05:45:00* Test Item Value Reference Range Interpretation Comments IM GRANULOCYTES % (test code = IM GRANULOCYTES %) 2.4 0.0- 1.0 H [facility] HoustonNeutrophils # (Auto)2019-02-27 05:45:00* Test Item Value Reference Range Interpretation Comments Neutrophils # (Auto) (test code = 751-8) 8.4 2.1-6.9 H [facility] HoustonLymphocytes # (Auto)2019-02-27 05:45:00* Test Item Value Reference Range Interpretation Comments Lymphocytes # (Auto) (test code = 36830-9) 0.9 1.0-3.2 L [facility] HoustonMonocytes # (Auto)2019-02-27 05:45:00* Test Item Value Reference Range Interpretation Comments Monocytes # (Auto) (test code = 742-7) 1.2 0.2-0.8 H [facility] HoustonEosinophils # (Auto)2019-02-27 05:45:00* Test Item Value Reference Range Interpretation Comments Eosinophils # (Auto) (test code = 711-2) 0.7 0.0-0.4 H [facility] HoustonBasophils # (Auto)2019-02-27 05:45:00* Test Item Value Reference Range Interpretation Comments Basophils # (Auto) (test code = 704-7) 0.1 0.0-0.1 [facility] HoustonAbsolute Immature Granulocyte (auto 2019-02-27 05:45:00* Test Item Value Reference Range Interpretation Comments Absolute Immature Granulocyte (auto (efrem t code = Absolute Immature Granulocyte (auto) 0.28 0-0.1 H [facility] HoustonABDOMEN ACUTE SERIES W/PA WXE1007-38-18 13:47:00 [facility] [address] [place] [address] Patient Name: ANAT FRANCE MR #: [id number] : 1955 Age/Sex: 64/M Req #: [id number] Adm Physician: EWA RAYMOND MD Ordered by: EWA RAYMOND MD Report #: [id number] Location: MED/SURG Room/Bed: [facility] Procedure: [id number] DX/ABDOMEN ACUTE SERIES W/PA CXR Exam Date: [...] ous abnormalities identified. IMPRESSION: No significant interval bates ge from 02/24/2019 Grossly stable pneumoperitoneum. Grossly stable austin earing dilated loops of small bowel containing air-fluid levels concerning for ileus versus bowel obstruction. Signed by: Dr. Pelon Sotelo MD on 02/02 1:51 PM Dictated By: PELON SOTELO MD 135 Transcribed By: FABRICIO on 02/26/19 1351 C OPY TO: EWA RAYMOND MD CT ABDOMEN/PELVIS L2733-19-26 17:35:00 [place] [address] Patient Name: ANAT FRANCE MR #: [id number] : 1955 Age/Sex: 64/M Req #: [id number] Adm Physician: EWA RAYMOND MD Ordered by: EWA RAYMOND MD Report #: [id number] Location: MED/SURG Room/Bed: [facility] Procedure: [id number] CT/CT ABDOMEN/PELVIS W Exam Date: 02/24/19 Exam [...] colon mass resection with direct colonic reanastomosis. Jxbig-ua-ceoieiux peritoneum in the right upper quadrant as [...] EWA RAYMOND MD ABDOMEN ACUTE SERIES W/PA VVV2672-34-74 15:33:00 [place] [address] Patient Name: ANAT FRANCE MR #: [id number] : 1955 Age/Sex: 64/M Req #: [id number] Adm Physician: EWA RAYMOND MD Ordered by: EWA RAYMOND MD Report #: [id number] Location: MED/SURG Room/Bed: [facility] Procedure: [id number] DX/ABDOMEN ACUTE SERIES W/PA CXR Exam Date: [...] 3:40 PM Dictated By: KAUSHAL MOORE MD 154 Transcribed By: FABRICIO on 02/24/19 1540 COPY TO: EWA SOTO MD Differential Total Cells Euhzlod1036-33-83 12:44:00* Test Item Value Reference Range Interpretation Comments Differential Total Cells Counted (test code = Differen tial Total Cells Counted) 100 [facility] HoustonNeutrophils % (Manual)2019-02-19 12:44:00 * Test Item Value Reference Range Interpretation Comments Neutrophils % (Manual) (test code = 38230-0) 80 40-74 H [facility] HoustonBand Neutrophils %2019-02-19 12:44:00* Test Item Value Reference Range Interpretation Comments Band Neutrophils % (test code = 764-1) 10 [facility] HoustonLymphocytes % (Manual)2019-02-19 12:44:00 * Test Item Value Reference Range Interpretation Comments Lymphocytes % (Manual) (test code = 737-7) 3 19-48 L [facility] HoustonMonocytes % (Manual)2019-02-19 12:44:00* Test Item Value Reference Range Interpretation Comments Monocytes % (Manual) (test code = 744-3) 7 3.4-9.0 [facility] HoustonPlatelet Jfhyuhmo8020-56-34 12:44:00* Test Item Value Reference Range Interpretation Comments Platelet Estimate (test code = 61741-6) ADEQUATE [facility] HoustonPlatelet Morphology Nxjsvql3081-40-74 12:44:00* Test Item Value Reference Range Interpretation Comments Platelet Morphology Comment (test code = 20863-1) NORMAL [facility] HoustonRed Cell Morphology Wbzaftc1029-53-61 12:44:00* Test Item Value Reference Range Interpretation Comments Red Cell Morphology Comment (test code = 6742-1) NORMAL [facility] HoustonDifferential Total Cells Counted 2019-02-19 12:44:00* Test Item Value Reference Range Interpretation Comments Differential Total Cells Counted (test code = Connor tial Total Cells Counted) 100 [facility] HoustonNeutrophils % (Manual)2019-02-19 12:44:00 * Test Item Value Reference Range Interpretation Comments Neutrophils % (Manual) (test code = 12377-8) 80 40-74 H [facility] HoustonBand Neutrophils %2019-02-19 12:44:00* Test Item Value Reference Range Interpretation Comments Band Neutrophils % (test code = 764-1) 10 [facility] HoustonLymphocytes % (Manual)2019-02-19 12:44:00 * Test Item Value Reference Range Interpretation Comments Lymphocytes % (Manual) (test code = 737-7) 3 19-48 L [facility] HoustonMonocytes % (Manual)2019-02-19 12:44:00* Test Item Value Reference Range Interpretation Comments Monocytes % (Manual) (test code = 744-3) 7 3.4-9.0 [facility] HoustonPlatelet Ltwaxqmn3057-56-50 12:44:00* Test Item Value Reference Range Interpretation Comments Platelet Estimate (test code = 56064-3) ADEQUATE [facility] HoustonPlatelet Morphology Gtpquxt1946-62-28 12:44:00* Test Item Value Reference Range Interpretation Comments Platelet Morphology Comment (test code = 34606-7) NORMAL [facility] HoustonRed Cell Morphology Hzrmjyx9154-34-55 12:44:00* Test Item Value Reference Range Interpretation Comments Red Cell Morphology Comment (test code = 6742-1) NORMAL [facility] HoustonDifferential Total Cells Counted 2019-02-19 12:44:00* Test Item Value Reference Range Interpretation Comments Differential Total Cells Counted (test code = Differen tial Total Cells Counted) 100 [facility] HoustonNeutrophils % (Manual)2019-02-19 12:44:00 * Test Item Value Reference Range Interpretation Comments Neutrophils % (Manual) (test code = 93589-8) 80 40-74 H [facility] HoustonBand Neutrophils %2019-02-19 12:44:00* Test Item Value Reference Range Interpretation Comments Band Neutrophils % (test code = 764-1) 10 [facility] HoustonLymphocytes % (Manual)2019-02-19 12:44:00 * Test Item Value Reference Range Interpretation Comments Lymphocytes % (Manual) (test code = 737-7) 3 19-48 L [facility] HoustonMonocytes % (Manual)2019-02-19 12:44:00* Test Item Value Reference Range Interpretation Comments Monocytes % (Manual) (test code = 744-3) 7 3.4-9.0 [facility] HoustonPlatelet Apvhkfbm3836-87-93 12:44:00* Test Item Value Reference Range Interpretation Comments Platelet Estimate (test code = 12318-3) ADEQUATE [facility] HoustonPlatelet Morphology Apwescn4022-64-07 12:44:00* Test Item Value Reference Range Interpretation Comments Platelet Morphology Comment (test code = 55563-2) NORMAL [facility] HoustonRed Cell Morphology Atwerbd8229-38-29 12:44:00* Test Item Value Reference Range Interpretation Comments Red Cell Morphology Comment (test code = 6742-1) NORMAL [facility] HoustonCHEST 2 NKLOQ5270-20-25 16:47:00 [facility] [address] [place] [address] Patient Name: ANAT FRANCE MR #: [id number] : 1955 Age/Sex: 64/M Req #: [id number] Adm Physician: Ordered by: EWA RAYMOND MD Report #: [id number] Location: OR Room/Bed: Procedure: [id number] DX/CHEST [...] 1648 COPY TO: EWA RAYMOND CT ABDOMEN/PELVIS Y1207-40-68 17:07:00 [place] [address] Patient Name: ANAT FRANCE MR #: [id number] : 1955 Age/Sex: 64/M Req #: [id number] Adm Physician: Ordered by: ASUNCION OH MD Report #: [id number] Location: CT Room/Bed: Procedure: [id number]/CT [...] 5:14 PM Dictated By: MITCH MUHAMMAD MD 13 Transcrib ed By: FABRICIO on 02/06/191713 COPY TO: ASUNCION OH MD
--- OUTSIDE RECORDS SUMMARY | 2019-10-10 05:56 | XMS REPORT | Clinical Summary ---
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
--- NOTE | 2019-10-10 06:10 | NUR ---
Received report from ER nurse.
--- NOTE | 2019-10-10 06:24 | NUR ---
Patient arrived to floor via stretcher.
[2019-10-10] MEDS: SODIUM CHLORIDE 0.9% 1000ML 1,000 ML IV SCH ×3 (06:29→23:00)
[2019-10-10] MEDS ORDERED: ACETAMINOPHEN 325 MG SUPP PR PRN (13:30)
[2019-10-10] MEDS ORDERED: HYDRALAZINE HCL 20 MG/ML VIAL IV PRN (13:30)
[2019-10-10] MEDS ORDERED: MORPHINE SULFATE INJ 4 MG/ML INJ 1ML IV PRN (13:45)
[2019-10-10] MEDS: SODIUM CHLORIDE 0.9% 250ML IRRIG IR SCH ×2 (16:58→20:38)
--- NOTE | 2019-10-10 17:50 | NUR ---
PATIENT REPORTED HEADACHE AND WAS OFFERED TYLENOL A SUPPOSITORY. PATIENT REFUSED AND SAID, "I'LL TRY TO SLEEP IT OFF."
--- NOTE | 2019-10-10 18:50 | History and Physical ---
HISTORY OF PRESENT ILLNESS: A 64-year-old male with past medical history positive for colon cancer, status post partial colectomy, recurrent obstructions on the anastomotic side of the colon, came here with abdominal pain, found to have abdominal obstruction. Again, the patient was placed on NG tube with suction and IV fluids. REVIEW OF SYSTEMS: CARDIOVASCULAR: No chest pain or palpitation. RESPIRATORY: No shortness of breath. No cough. GASTROINTESTINAL: No nausea, vomiting, abdominal pain. GENITOURINARY: No frequency or dysuria. ALLERGIES: NOT ALLERGIC TO ANY MEDICATION. PAST MEDICAL HISTORY: Positive for hypertension, history of colon cancer. SOCIAL HISTORY: He does not smoke. He does not drink. PHYSICAL EXAMINATION: HEART: Showed regular rhythm. Normal S1, S2 sound. LUNGS: Clear bilaterally. ABDOMEN: Soft. EXTREMITIES: Show no evidence of cyanosis or hematoma. VITAL SIGNS: Blood pressure 149/79, temperature 98.4, heart rate 69 per minute, respiratory rate 20 per minute, oxygen saturation 97%. LABORATORY DATA: On the blood work, we have CBC; white blood count 10.42, hemoglobin 14.3, hematocrit 45.7, and platelet count 457,000. On the BMP; sodium 142, potassium 4.1, chloride 107, CO2 26, BUN 12, creatinine 1.06, anion gap 13.1, glucose 121, calcium 9.6, total bilirubin 0.8, AST 16, ALT 15, alkaline phosphatase 86, total protein 6.9, albumin 3.9, globulin 3.0, amylase 42, lipase 11. COVID test is pending. On the imaging we have distal colonic obstruction. On the CT of the abdomen colon showed distal colon obstruction with transition point anastomosis in the rectosigmoid region. FINAL IMPRESSION: 1. . 2. Uncontrolled hypertension. 3. History of colon cancer. PLAN OF TREATMENT: N.p.o. IV fluids. NG tube to suction in. Normal saline 125 mL an hour, morphine 4 mg IV q.4 hours as needed, Zofran 4 mg IV q.4 hours as needed. MD ED Kim/BHARGAV /[id number]
--- NOTE | 2019-10-10 18:53 | NUR ---
AAOX3. ACYANOTIC. RESTING IN BED. NO DISTRESS NOTED. CALL LIGHT IN REACH. SIDE RAILS UP X2. BED LOW AND LOCKED. REPORT RECEIVED BY ONCOMING NURSE.
--- NOTE | 2019-10-10 19:48 | NUR ---
received report from day nurse. patient is resting comfortably in bed. bed is in lowest position and call light is within reach. will continue to monitor patient.
[2019-10-11] VITALS (7 sets, daily range): BP systolic 144–160; BP diastolic 71–90
[2019-10-11] MEDS: SODIUM CHLORIDE 0.9% 250ML IRRIG IR SCH ×7 (00:15→23:36)
[2019-10-11] MEDS: SODIUM CHLORIDE 0.9% 1000ML 1,000 ML IV SCH ×2 (05:30→08:59)
[2019-10-11 06:22] LABS: BASOPHILS % 0.5 % (0.0-1.0); EOSINOPHILS # (AUTO) 0.2 (0.0-0.4); EOSINOPHILS % 1.9 % (0.0-6.0); HEMATOCRIT 44.7 % (38.2-49.6); LYMPHOCYTES % 11.9 % (18.0-39.1); MEAN CORPUSCULAR HEMOGLOBIN 25.7 pg (28-32); MEAN CORPUSCULAR HGB CONC 31.3 g/dL (31-35); MEAN CORPUSCULAR VOLUME 82.2 fL (81-99); MONOCYTES # (AUTO) 0.7 (0.2-0.8); MONOCYTES % 8.5 % (4.4-11.3); NEUTROPHILS # (AUTO) 6.4 (2.1-6.9); NEUTROPHILS % 76.8 % (38.7-80.0); PLATELET COUNT 240 x10e3/uL (140-360); RED BLOOD COUNT 5.44 x10e6/uL (4.3-5.7); RED CELL DISTRIBUTION WIDTH 15.8 % (11.7-14.4)
[2019-10-11 06:31] LABS: ALANINE AMINOTRANSFERASE 12 IU/L (0-55); ALBUMIN 3.4 g/dL (3.5-5.0); ALBUMIN/GLOBULIN RATIO 1.2 (0.8-2.0); ALKALINE PHOSPHATASE 101 IU/L (40-150); ANION GAP 12.9 mmol/L (8-16); BLOOD UREA NITROGEN 12 mg/dL (7-26); BUN/CREATININE RATIO 13 (6-25); CALCIUM 8.8 mg/dL (8.4-10.2); CARBON DIOXIDE 24 mmol/L (22-29); CHLORIDE 107 mmol/L (98-107); CREATININE, SERUM 0.89 mg/dL (0.72-1.25); EST GLOMERULAR FILTRATION RATE > 60 ML/MIN (60-); GLUCOSE 93 mg/dL (74-118); POTASSIUM 3.9 mmol/L (3.5-5.1); SODIUM 140 mmol/L (136-145)
--- NOTE | 2019-10-11 07:11 | NUR ---
Report given to day nurse. patient is resting comfortably in the bed.
--- NOTE | 2019-10-11 07:20 | NUR ---
ASSUMED CARE. AWAKE AND ALERT. RESTING IN BED. ACYANOTIC. NO DISTRESS NOTED. CALL LIGHT IN REACH. SIDE RAILS UP X2. BED LOW AND LOCKED.
--- NOTE | 2019-10-11 08:55 | Diagnostic Imaging Report ---
Abdomen/KUB INDICATION: ^COLONIC OBSTRUCTION ^[id number] ^0815 COMPARISON: CT abdomen/pelvis 10/10/2019. FINDINGS: Medical Devices: Enteric tube terminates just past the GE junction Bowel: Little air in the small bowel. Status post left hemicolectomy. Dilated right colon is redemonstrated (7.4 cm) with air-fluid level. It contains diluted enteric contrast. There is air in the proximal transverse colon. No pneumatosis. Free air: None Abdominal calcifications: None Organomegaly: None Excreted contrast in the kidneys and bladder from CT. Lung bases: Clear Bones: Unremarkable IMPRESSION: Persistently dilated colon with air-fluid level, consistent with distal obstruction. Enteric tube terminates at the GE junction. Recommend advancement by 7 to 10 cm to ensure sidehole placement within the stomach. Signed by: Dr. Brigette Finn MD on 10/11/2019 8:52 AM
[2019-10-11] MEDS: ACETAMINOPHEN 1000 MG/100 ML IV PRN ×2 (13:31→23:46)
[2019-10-11] MEDS: CLONIDINE HCL 0.3MG/24 HR PATCH TOP SCH (13:45)
--- NOTE | 2019-10-11 13:47 | NUR ---
NGT TO LEFT NARE REMOVED AFTER PATIENT REPORTED FEELING A LUMP IN THROAT. DR. WYATT NOTIFIED AND ORDERED RE-INSERTION OF NGT AND XRAY FOLLOWING INSERTION. PREPARING TO INSERT NGT TO RIGHT NARE.
--- NOTE | 2019-10-11 14:37 | NUR ---
15F NGT INSERTED TO RIGHT NARE. PLACEMENT CHECKED WITH 30 CC OF AIR. PATIENT TOLERATED PROCEDURE WELL. AAOX3. ACYANOTIC. 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 NO DISTRESS NOTED. CALL LIGHT IN REACH. BED LOW AND LOCKED.
--- NOTE | 2019-10-11 16:18 | Progress Note ---
DATE: 10/11/2019 Internal Medicine Progress Note SUBJECTIVE: The patient is doing well. No abdominal pain. PHYSICAL EXAMINATION: HEART: Showed regular rhythm. Normal S1 and S2 sound. LUNGS: Clear bilaterally. ABDOMEN: Soft. No distention. EXTREMITIES: Show no edema. VITAL SIGNS: Blood pressure 156/76, temperature 98.4 degrees Fahrenheit, heart rate 64 per minute, respiratory rate 19 per minute, and O2 saturation 99%. LABORATORY DATA: On the CBC, white blood count 8.34, hemoglobin 14.0, hematocrit 44.0, and platelet count 240,000. On the BMP; sodium 140, potassium 3.9, chloride 107, CO2 24, BUN 12, creatinine 0.89, glucose 93, and calcium 9.8. Total bilirubin 1.5, AST 14, ALT 12, and alkaline phosphatase 101. Total protein 6.3, albumin 3.4, and globulin 2.9. Coronavirus test is pending. Last x-ray of the abdomen showed still having persistent dilated colon with air fluid level consistent with distal obstruction. Enteric tube terminates in the gastroesophageal junction. Recommend advancement by 7 to 10 cm to ensure placement within the stomach. FINAL IMPRESSION: 1. Colonic obstruction. 2. Uncontrolled hypertension. 3. History of colon cancer. PLAN OF TREATMENT: N.p.o. NG tube to suctioning. Continue current medication regimen. Continue with surgical followup. MD ED Kim/BHARGAV /[id number]
--- NOTE | 2019-10-11 16:29 | Diagnostic Imaging Report ---
Abdomen/KUB INDICATION: ^NGT PLACEMENT ^[id number] ^1540 COMPARISON: Abdomen x-ray 0820 hours. FINDINGS: Portable, supine image obtained at 1540 hours. Medical Devices: Nasogastric tube terminates at the GE junction. The sidehole is within the esophagus Bowel: Gaseous dilatation of the large bowel is redemonstrated. The right colon measures 6.8 cm in diameter without pneumatosis. No dilated small bowel loops. Free air: None Abdominal calcifications: None Organomegaly: None Lung bases: Clear Bones: Stable IMPRESSION: Enteric tube remains in the distal esophagus. Recommend advancement 7 to 10 cm to a short sidehole placement within the stomach. No change in large bowel dilatation. Signed by: Dr. Brigette Finn MD on 10/11/2019 4:25 PM
--- NOTE | 2019-10-11 19:19 | NUR ---
received report from day nurse. patient is resting comfortably in the bed. bed is in the lowest position and call light is within reach. will continue to monitor patient.
--- NOTE | 2019-10-11 19:45 | NUR ---
spoke with attending physician regarding IV fluids. physician gave orders for D5 1/2 NS at 100cc/hr. NS order discontinued.
--- NOTE | 2019-10-11 20:00 | NUR ---
spoke with surgeon regarding whether patient can have ice chips. surgeon states patient cannot have any ice chips.
[2019-10-11] MEDS ORDERED: DEXTROSE 5% 1,000 ML IV SCH (20:30)
[2019-10-11] MEDS: DEXTROSE 5%/0.45% SOD CHL 1,000 ML IV SCH (21:23)
--- NOTE | 2019-10-11 21:52 | NUR ---
suction canister has been changed.
[2019-10-12] VITALS (7 sets, daily range): BP systolic 149–164; BP diastolic 78–88
[2019-10-12] MEDS: SODIUM CHLORIDE 0.9% 250ML IRRIG IR SCH ×4 (04:15→16:15)
--- NOTE | 2019-10-12 07:08 | NUR ---
report given to day nurse. patient is resting comfortably in the bed. bed is in lowest position and call light is within reach.
[2019-10-12] MEDS: DEXTROSE 5%/0.45% SOD CHL 1,000 ML IV SCH ×3 (07:27→21:00)
--- NOTE | 2019-10-12 09:05 | Diagnostic Imaging Report ---
Exam: KUB - 2 views Indication: Large bowel obstruction Comparison: KUB of 10/11/2019 Findings: NG tube with tip in the stomach and side port at the gastroesophageal junction. Persistent dilation of ascending and proximal transverse colon, now measuring up to 8.2 cm maximum diameter at the proximal transverse colon. No free air or pneumatosis. No acute osseous injury. Impression: Persistently dilated loops of large bowel measuring up to 8.2 cm maximum diameter, consistent with previously seen large bowel obstruction with anastomotic transition point. Signed by: Mohan Whitehead MD on 10/12/2019 9:01 AM
[2019-10-12] MEDS: ACETAMINOPHEN 1000 MG/100 ML IV PRN (11:15)
[2019-10-12] MEDS: ONDANSETRON HCL INJ 2MG/ML 2ML 2 MG/ML VIAL IV PRN (14:35)
[2019-10-12] MEDS: ACETAMINOPHEN 325 MG TAB PO PRN (17:30)
[2019-10-12] MEDS ORDERED: MAGNESIUM HYDROXIDE 30 ML UDC PO ONE (18:20)
[2019-10-13] VITALS (9 sets, daily range): BP systolic 118–147; BP diastolic 63–84
--- NOTE | 2019-10-13 06:43 | NUR ---
patient is resting in the bed. bed is in the lowest position and call light is within reach.
[2019-10-13] MEDS: DEXTROSE 5%/0.45% SOD CHL 1,000 ML IV SCH (07:04)
[2019-10-13] MEDS: ACETAMINOPHEN 325 MG TAB PO PRN (10:34)
--- NOTE | 2019-10-13 12:58 | Diagnostic Imaging Report ---
EXAMINATION: ABDOMEN ACUTE SERIES W/PA CXR INDICATION: Bowel obstruction COMPARISON: KUB of 10/12/2019, CT abdomen and pelvis of 10/10/2019 FINDINGS: LINES/TUBES:None LUNGS:The lungs are well-inflated. No focal consolidation or pulmonary edema. PLEURA:No pleural effusion or pneumothorax. MEDIASTINUM:The cardiomediastinal silhouette appears normal in size and shape. BONES/SOFT TISSUES:No acute osseous injury. Left nipple ring. ABDOMEN:Gaseous distention of multiple loops of large and small bowel. Gaseous distention of the cecum measures up to 6.6 cm maximum diameter with an associated air-fluid level. Distended loops of small bowel measure up to 4.0 cm maximum diameter with several associated air-fluid levels. No free air. No acute osseous injury. Anastomotic sutures in the pelvis. IMPRESSION: No acute findings in the thorax. Distended loops of large and small bowel with associated air-fluid levels consistent with known bowel obstruction. Signed by: Mohan Whitehead MD on 10/13/2019 12:54 PM
--- NOTE | 2019-10-13 18:53 | NUR ---
Report given to oncoming nurse of patients status. AAOX4 to time, person, place,situation. Respirations even and unlabored. Side rails upx2, call light within reach.
[2019-10-13] MEDS ORDERED: MAGNESIUM HYDROXIDE 30 ML UDC PO ONE (21:00)
[2019-10-14] VITALS (8 sets, daily range): BP systolic 129–157; BP diastolic 75–82
[2019-10-14] MEDS: DEXTROSE 5%/0.45% SOD CHL 1,000 ML IV SCH ×2 (04:49→18:15)
--- NOTE | 2019-10-14 06:51 | NUR ---
patient is resting in the bed. bed is in lowest position and call light is within reach.
--- NOTE | 2019-10-14 19:05 | NUR ---
Report given to oncoming nurse of patient's status. No s/s of acute distress noted. Side rails upx2, call light within reach, bed alarm on.
--- NOTE | 2019-10-14 19:30 | NUR ---
BEDSIDE SHIFT REPORT RECEIVED FROM DAY RN. PT IS ALERT AND ORIENTED X3. RESPIRATIONS ARE EVEN AND UNLABORED.PT WANTING TO KOREY SHOWER THIS PM. PIV INFUSING D5.45 AT 100 ML /HR. SITE HEALTHY. PT AMBULATE TO BATHROOM. DR VERDUGO HERE NEW ORDER RECEIVED FOR MOM 60 ML IN AM. CALL LIGHT WITHIN REACH. BED LOCKED AND IN LOW POSITION.
[2019-10-15] VITALS: BP 130/75
--- NOTE | 2019-10-15 00:36 | NUR ---
l wrist 20g started, patent and intact, educated patient on signs of infiltration, cheyenne rn notified of site insertion, cheyenne rn will continue to monitor.
[2019-10-15 04:00] VITALS: BP 108/54
[2019-10-15] MEDS: DEXTROSE 5%/0.45% SOD CHL 1,000 ML IV SCH ×3 (04:46→17:40)
[2019-10-15] MEDS ORDERED: MAGNESIUM HYDROXIDE 30 ML UDC PO ONE (06:00)
[2019-10-15 08:00] VITALS: BP 144/73
[2019-10-15 09:05] VITALS: BP 144/73
[2019-10-15 09:30] VITALS: BP 157/82
--- NOTE | 2019-10-15 10:14 | Progress Note ---
DATE: 10/15/2019 Internal Medicine Progress Note SUBJECTIVE: The patient is doing well. No significant complaint. PHYSICAL EXAMINATION: HEART: Showed regular rhythm. Normal S1 and S2 sound. LUNGS: Clear bilaterally. ABDOMEN: Soft, nontender. No distention. LABORATORY DATA: On the BMP; sodium 140, potassium 3.9, chloride 107, CO2 of 24, BUN 12, creatinine 0.89, glucose 93. CBC showed white count 8.34, hemoglobin 14.0, hematocrit 44.7, and platelet count 240,000. FINAL IMPRESSION: 1. Colonic obstruction. 2. History of colon cancer. PLAN OF TREATMENT: We are going to continue with current IV fluids, Zofran as needed for vomiting, hydralazine 10 mg IV q.4 hours as needed for hypertension, Tylenol 325 mg q.4 hours as needed, clonidine patch 0.3 mg once a week, morphine 4 mg IV q.4 hours as needed. Surgical followup with Dr. Raymond. MD ED Kim/BHARGAV /[id number] MTDD
--- NOTE | 2019-10-15 19:20 | NUR ---
BEDSIDE SHIFT REPORT RECEIVED FROM DAY RN. CONDITION STABLE . 20 G PIV PATENT WITH HEALTHY SITE. PT TO BE NPO IN AM FOR PROCEDURE - CONSENT SIGNED.
[2019-10-15 20:00] VITALS: BP 148/83
[2019-10-16] VITALS (9 sets, daily range): BP systolic 127–150; BP diastolic 59–88
[2019-10-16] MEDS: DEXTROSE 5%/0.45% SOD CHL 1,000 ML IV SCH ×2 (04:40→13:03)
[2019-10-16 05:19] LABS: BASOPHILS % 0.6 % (0.0-1.0); EOSINOPHILS # (AUTO) 0.3 (0.0-0.4); EOSINOPHILS % 4.5 % (0.0-6.0); HEMATOCRIT 41.1 % (38.2-49.6); HEMOGLOBIN 13.3 g/dL (14.0-18.0); LYMPHOCYTES % 16.3 % (18.0-39.1); MEAN CORPUSCULAR HEMOGLOBIN 26.3 pg (28-32); MEAN CORPUSCULAR HGB CONC 32.4 g/dL (31-35); MEAN CORPUSCULAR VOLUME 81.2 fL (81-99); MONOCYTES # (AUTO) 0.7 (0.2-0.8); MONOCYTES % 10.8 % (4.4-11.3); NEUTROPHILS # (AUTO) 4.2 (2.1-6.9); NEUTROPHILS % 67.5 % (38.7-80.0); PLATELET COUNT 224 x10e3/uL (140-360); RED BLOOD COUNT 5.06 x10e6/uL (4.3-5.7); RED CELL DISTRIBUTION WIDTH 15.4 % (11.7-14.4)
[2019-10-16 05:57] LABS: ALANINE AMINOTRANSFERASE 43 IU/L (0-55); ALKALINE PHOSPHATASE 89 IU/L (40-150); ANION GAP 11.4 mmol/L (8-16); BLOOD UREA NITROGEN 6 mg/dL (7-26); BUN/CREATININE RATIO 7 (6-25); CALCIUM 8.8 mg/dL (8.4-10.2); CARBON DIOXIDE 25 mmol/L (22-29); CHLORIDE 108 mmol/L (98-107); CREATININE, SERUM 0.85 mg/dL (0.72-1.25); EST GLOMERULAR FILTRATION RATE > 60 ML/MIN (60-); GLUCOSE 104 mg/dL (74-118); POTASSIUM 3.4 mmol/L (3.5-5.1); SODIUM 141 mmol/L (136-145)
[2019-10-16] MEDS ORDERED: POTASSIUM CHLORIDE 20MEQ/100ML 100 ML IV ONE (09:45)
[2019-10-16] MEDS ORDERED: PROPOFOL IV EMULSION 10 MG/ML 20 ML VIAL ONE (13:57)
[2019-10-16] MEDS ORDERED: LIDOCAINE HCL 2% JELLY 5 ML TUBE ONE (14:19)
[2019-10-16] MEDS ORDERED: SEVOFLURANE INHAL SOLN 250 ML PEN BTL ONE (14:19)
[2019-10-16] MEDS ORDERED: GLYCOPYRROLATE INJ 0.2 MG/ML VIAL ONE (14:19)
[2019-10-16] MEDS ORDERED: DEXAMETHASONE SOD PHOS INJ 4 MG/ML VIAL ONE (14:19)
[2019-10-16] MEDS ORDERED: NEOSTIGMINE 1 MG/ML 10ML VIAL ONE (14:19)
[2019-10-16] MEDS ORDERED: ROCURONIUM BROMIDE 10 MG/ML 5ML VIAL IV ONE (14:19)
[2019-10-16] MEDS ORDERED: KETOROLAC TROMETHAMINE 30 MG/ML VIAL ONE (14:19)
[2019-10-16] MEDS ORDERED: LIDOCAINE HCL 2% LOCAL INJ 5 ML SDV VIAL INJ ONE (14:19)
[2019-10-16] MEDS ORDERED: ONDANSETRON HCL INJ 2MG/ML 2ML 2 MG/ML VIAL ONE (14:19)
[2019-10-16] MEDS ORDERED: CEFTRIAXONE SOD 1 GM VIAL ONE (14:19)
[2019-10-16] MEDS ORDERED: MIDAZOLAM HCL 2 MG/2 ML VIAL ONE (14:50)
[2019-10-16] MEDS ORDERED: KETAMINE HCL INJ 50 MG/ML 10 ML VIAL ONE (14:50)
[2019-10-16] MEDS ORDERED: FENTANYL CITRATE/PF 100MCG/2 ML INJ ONE (14:50)
--- NOTE | 2019-10-16 17:15 | NUR ---
Nutrition Screen Note RD Recommendation for Physician: -Recommend advancing to GI soft diet when medically appropriate -If diet is unable to be advanced, consider alternative means of nutrition Plan of Care: RD following, monitoring for tolerance and adequacy Nutrition reason for involvement: length of stay and NPO/clear liquid diet order > 4 days Primary Diagnose(s): colonic obstruction PMH: HTN, colon cancer s/p partial colectomy Ht: 70 in Wt: 169 lb BMI: 24.2 kg/m2 IBW:[address] Assessment: (10/16/19) Chart reviewed. Labs and meds reviewed. Pt is a 64 year old male admitted with colonic obstruction. Pt has been NPO/clear liquid diet for > 4 days. Pt is currently NPO for procedure today (exploratory laparotomy and colon resection). Pt was previously on a clear liquid diet with 50-100% meal intake. Per chart, there are no reports of decreased appetite or unintentional weight loss prior to admission. Recommend advancing to GI soft diet when medically appropriate. Will continue to monitor. Current Diet: NPO Malnutrition Evaluation (10/16/19) The patient does not meet criteria for a specified degree of malnutrition at this time. Will re-evaluate at follow-up as appropriate. Energy intake: <50% of estimated energy requirements for > 5 days Weight loss: No weight loss reported per chart Fat loss: unable to evaluate Muscle loss: unable to evaluate Supporting Evidence: Fluid accumulation: unable to evaluate Functional Status: unable to evaluate Diet Education Needs Assessment: Diet education not indicated. Nutrition Care Level: high Signed: Debi Cullen, RD, LD
--- NOTE | 2019-10-16 19:05 | NUR ---
WALKING ROUNDS PERFORMED, PT OFF UNIT IN SURGERY.
--- NOTE | 2019-10-16 19:35 | NUR ---
RECEIVED CALL FROM REQUESTING UPDATES ON PT. PT STILL IN SURGERY AND INFORMED FAMILY MEMBER WILL CALL WITH UPDATES WHEN AVAILABLE.
[2019-10-16] MEDS ORDERED: NALOXONE HCL INJ 0.4 MG/ML AMP IV PRN (20:00)
[2019-10-16] MEDS ORDERED: ACETAMINOPHEN 1000 MG/100 ML IV PRN (20:00)
[2019-10-16] MEDS: HYDROMORPHONE 0.2MG/ML-SOD CHL 30ML PCA SYRINGE IV PRN (20:15)
[2019-10-16] MEDS ORDERED: PIPER-TAZ 3.375 GM 50 ML ONE (20:43)
[2019-10-16] MEDS: PIPER-TAZ 3.375 GM 50 ML IV SCH (21:00)
--- NOTE | 2019-10-16 22:01 | NUR ---
PT BELONGINGS TRANSFERRED TO ROOM 189. PT TO TRANSFER TO ROOM FROM ICU. CALL PLACED TO JACQUELINE FRANCE TO UPDATE ON PATIENT STATUS AND ROOM CHANGE. NO ANSWER, LEFT MESSAGE.
[2019-10-16] MEDS: METRONIDAZOLE 500MG/NS 100ML 100 ML IV SCH (22:34)
[2019-10-16] MEDS: DEXTROSE 5%/LACTATED RINGERS 1,000 ML IV SCH (22:34)
--- NOTE | 2019-10-16 22:49 | NUR ---
Spoke to Dr. Svitlana Raymond about downgrade orders for patient. Dr. Raymond stated that it was ok to move to med surg, but he wants STRICT I&O's on the patient and to be notified of any decreased urine output, or signs/symptoms of Sepsis. RN acknowledged and verbally conveyed order to TORRES Spivey at [phone].
--- NOTE | 2019-10-16 23:00 | NUR ---
RECEIVED PT FROM ICU TO ROOM 115 BY HOSPITAL BED. PT IS AAOX3, RR EVEN AND NON-LABORED, ON ROOM AIR. SOUND ENGINEER FOR PAIN MANAGEMENT WITH SOUND ENGINEER BUTTON WITHIN REACH. NGT TO (L) NARE. HENNESSY TO GRAVITY. COLOSTOMY NOTED TO (R) ANTERIOR ABD, DRESSING CDI. TRAE DRAIN TO (L) ANTERIOR ABD DRAINING SANGUINOUS FLUID. LEFT PT LAYING FOWLERS IN BED, BED IN LOW LOCKED POSITION, SIDE RAILS UPX2, CALL LIGHT AND PHONE WITHIN REACH.
[2019-10-16] MEDS: SODIUM CHLORIDE 0.9% 250ML IRRIG IR SCH (23:16)
--- NOTE | 2019-10-16 23:21 | NUR ---
AT 2140 PATIENT WAS TRANSFERRED TO ICU 189 FROM PACU S/P ILEECTOMY/COLON RESECTION. PATIENT WITH PREVIOUS HX OF COLECTOMY, COLON CANCER, HTN. COMMUNITY MUSIC THERAPIST PUMP PRESENT, 0.2MG DILAUDID. #20 L WRIST IV PRESENT. PATIENT WAS LETHARGIC, ORIENTED X 4. HR REGULAR, SINUS RHYTHM, HYPERTENSIVE (140'S - 150'S SYS). NO EDEMA PRESENT, PULSES X 4. LCTA. DENIES SOB. 7L OXYMASK ON AT TIME OF TRANSFER, SPO2 100%. SUPPLEMENTAL OXYGEN TITRATED DOWN UNTIL TAKEN OFF BEFORE TRANSFERRING OUT OF ICU. MIDLINE ABDOMINAL INCISION COVERED BY BULKY SURGICAL DRESSING. RIGHT SIDED OSTOMY PRESENT WITH SEROSAN OUTPUT NOTED IN BAG. OSTOMY APPEARS BEEFY RED. TRAE DRAIN TO LEFT ABDOMEN WITH SANG OUTPUT, 20CC EMPTIED. PATIENT REPORTS 7/10 PAIN. COMMUNITY MUSIC THERAPIST EDUCATION PROVIDED. ABSENT BS AT THIS TIME. L NGT TO LOW CONTINUOUS SUCTION. HENNESSY HANGING TO GRAVITY, YELLOW URINE. Q15MIN VS OBTAINED AND D5LR & FLAGYL ABX HUNG. THIS RN WAS THEN NOTIFIED THAT PATIENT WOULD BE TRANSFERRING BACK TO ORIGINAL BED, MS 115. PATIENT BROUGHT TO MS AT 2300 AND REPORT GIVEN AT BEDSIDE. COMMUNITY MUSIC THERAPIST HAND OFF PROVIDED, ALL QUESTIONS ANSWERED. COMMUNITY MUSIC THERAPIST PUMP PRESENT, 0.2MG DILAUDID. #20 L WRIST IV PRESENT.
[2019-10-17] VITALS (9 sets, daily range): BP systolic 108–132; BP diastolic 64–74
[2019-10-17] MEDS: PIPER-TAZ 3.375 GM 50 ML IV SCH ×4 (03:00→20:46)
[2019-10-17] MEDS: DEXTROSE 5%/LACTATED RINGERS 1,000 ML IV SCH ×3 (04:00→20:46)
[2019-10-17 05:02] LABS: BASOPHILS % 0.3 % (0.0-1.0); HEMATOCRIT 39.9 % (38.2-49.6); HEMOGLOBIN 12.5 g/dL (14.0-18.0); LYMPHOCYTES # (AUTO) 0.6 (1.0-3.2); LYMPHOCYTES % 4.2 % (18.0-39.1); MEAN CORPUSCULAR HEMOGLOBIN 27.1 pg (28-32); MEAN CORPUSCULAR HGB CONC 31.3 g/dL (31-35); MEAN CORPUSCULAR VOLUME 86.6 fL (81-99); MONOCYTES % 6.9 % (4.4-11.3); NEUTROPHILS # (AUTO) 12.1 (2.1-6.9); NEUTROPHILS % 88.1 % (38.7-80.0); PLATELET COUNT 234 x10e3/uL (140-360); RED BLOOD COUNT 4.61 x10e6/uL (4.3-5.7); RED CELL DISTRIBUTION WIDTH 15.3 % (11.7-14.4)
[2019-10-17] MEDS: METRONIDAZOLE 500MG/NS 100ML 100 ML IV SCH ×4 (05:12→22:45)
[2019-10-17] MEDS: SODIUM CHLORIDE 0.9% 250ML IRRIG IR SCH ×4 (05:12→16:00)
[2019-10-17 05:19] LABS: ANION GAP 12.8 mmol/L (8-16); BLOOD UREA NITROGEN 9 mg/dL (7-26); BUN/CREATININE RATIO 9 (6-25); CALCIUM 8.1 mg/dL (8.4-10.2); CARBON DIOXIDE 22 mmol/L (22-29); CHLORIDE 108 mmol/L (98-107); CREATININE, SERUM 0.95 mg/dL (0.72-1.25); EST GLOMERULAR FILTRATION RATE > 60 ML/MIN (60-); GLUCOSE 155 mg/dL (74-118); POTASSIUM 3.8 mmol/L (3.5-5.1); SODIUM 139 mmol/L (136-145)
--- NOTE | 2019-10-17 05:32 | NUR ---
PAGE PLACED FOR MD Svitlana VERDUGO CONCERNING COLOR CHANGE IN URINE FROM YELLOW TO CLOUDY DARK ABY AND THE CATHETER TUBING CHANGED TO A PINK CLOUDY COLOR. SAMPLE COLLECTED AND TUBING CHANGED. WAITING FOR CALL BACK.
[2019-10-17] MEDS ORDERED: LACTATED RINGER'S 500 ML IV ONE ×2 (05:45→17:15)
[2019-10-17] MEDS ORDERED: LACTATED RINGER'S 1,000 ML ONE ×2 (06:09→17:18)
--- NOTE | 2019-10-17 06:11 | NUR ---
SPOKE WITH MD Svitlana VERDUGO CONCERNING CHANGE IN URINE APPEARANCE. GIVE BOLUS AND CONTINUE TO MONITOR.
--- NOTE | 2019-10-17 14:50 | NUR ---
PATIENT STATED, "I WANT SOME SOME ICE CHIPS OR I WANT THIS TUBE OUT OF MY NOSE, I JUST CAN NOT SWALLOW." CALLED DR. Svitlana VERDUGO'S ANSWERING SERVICE, SPOKE TO FORK TRUCK OPERATOR REGARDING THE PATIENT STATEMENT, FORK TRUCK OPERATOR STATED, "I WILL NOTIFY THE PHYSICIAN."
--- NOTE | 2019-10-17 18:47 | NUR ---
WALKING ROUNDS PERFORMED, RECEIVED PT LAYING SEMI FOWLERS IN BED, AAOX3, RR EVEN AND NON-LABORED, ON ROOM AIR. VETERINARY VIRUS SERUM INSPECTOR PUMP FOR PAIN CONTROL, VETERINARY VIRUS SERUM INSPECTOR BUTTON WITHIN REACH. DRESSING TO ANTERIOR ABD CDI. COLOSTOMY INTACT, TRAE TO (L) ABD INTACT DRAINING TO BULB SUCTION. LEFT PT LAYING SEMI FOWLERS IN BED, BED IN LOW LOCKED POSITION, SIDE RAILS UPX2, CALL LIGHT AND PHONE WITHIN REACH.
[2019-10-17] MEDS: HYDROMORPHONE 0.2MG/ML-SOD CHL 30ML PCA SYRINGE IV PRN (22:05)
[2019-10-18] MEDS: PIPER-TAZ 3.375 GM 50 ML IV SCH ×4 (04:00→20:45)
[2019-10-18] MEDS: DEXTROSE 5%/LACTATED RINGERS 1,000 ML IV SCH ×3 (04:00→19:49)
[2019-10-18 04:41] VITALS: BP 117/76
[2019-10-18] MEDS: METRONIDAZOLE 500MG/NS 100ML 100 ML IV SCH ×4 (04:47→22:00)
[2019-10-18 05:19] LABS: BASOPHILS # (AUTO) 0.1 (0.0-0.1); BASOPHILS % 0.6 % (0.0-1.0); EOSINOPHILS # (AUTO) 0.2 (0.0-0.4); EOSINOPHILS % 1.8 % (0.0-6.0); HEMOGLOBIN 10.8 g/dL (14.0-18.0); LYMPHOCYTES # (AUTO) 0.8 (1.0-3.2); LYMPHOCYTES % 7.6 % (18.0-39.1); MEAN CORPUSCULAR HEMOGLOBIN 25.9 pg (28-32); MEAN CORPUSCULAR HGB CONC 30.9 g/dL (31-35); MEAN CORPUSCULAR VOLUME 83.9 fL (81-99); MONOCYTES # (AUTO) 1.2 (0.2-0.8); MONOCYTES % 10.9 % (4.4-11.3); NEUTROPHILS # (AUTO) 8.5 (2.1-6.9); NEUTROPHILS % 78.5 % (38.7-80.0); PLATELET COUNT 228 x10e3/uL (140-360); RED BLOOD COUNT 4.17 x10e6/uL (4.3-5.7); RED CELL DISTRIBUTION WIDTH 15.6 % (11.7-14.4)
[2019-10-18 05:55] LABS: BLOOD UREA NITROGEN 9 mg/dL (7-26); BUN/CREATININE RATIO 9 (6-25); CALCIUM 8.1 mg/dL (8.4-10.2); CARBON DIOXIDE 27 mmol/L (22-29); CHLORIDE 107 mmol/L (98-107); CREATININE, SERUM 1.04 mg/dL (0.72-1.25); EST GLOMERULAR FILTRATION RATE > 60 ML/MIN (60-); GLUCOSE 114 mg/dL (74-118); SODIUM 140 mmol/L (136-145)
--- NOTE | 2019-10-18 07:35 | NUR ---
PATIENT'S HENNESSY CATHETER BULB REMOVED WITHOUT DIFFICULTY, PATIENT COMPLAINED THAT IT WAS UNCOMFORTABLE. Addendum: 10/18/19 at 0740 by Scar Thomas RN PATIENT'S HENNESSY CATHETER BULB DEFLATED, 8ML NORMAL SALINE REMOVED IN SYRINGE, CATHETER REMOVED WITHOUT DIFFICULTY, PATIENT COMPLAINED THAT IT WAS UNCOMFORTABLE.
[2019-10-18 08:31] VITALS: BP 120/76
[2019-10-18 09:19] VITALS: BP 120/76
--- NOTE | 2019-10-18 11:14 | NUR ---
PATIENT SITTING AT BEDSIDE IN A CHAIR, DENIED PAIN AND DISCOMFORT.
[2019-10-18] MEDS: CLONIDINE HCL 0.3MG/24 HR PATCH TOP SCH (13:45)
[2019-10-18 14:39] VITALS: BP 123/65
[2019-10-18 17:56] VITALS: BP 126/65
--- NOTE | 2019-10-18 18:50 | NUR ---
BEDSIDE NURSING REPORT RECEIVED FROM MORNING NURSE. PT ALERT AND ORIENT TO NAME, SITTING IN CHAIR AT BEDSIDE. DENIES PAIN AT THIS TIME, DERRICK BOAT LEVERMAN PUMP IN PLACE. CALL LIGHT WITHIN REACH. BED LOW AND LOCKED.
[2019-10-18] MEDS ORDERED: HYDROMORPHONE 0.2MG/ML-SOD CHL 30ML PCA SYRINGE IV PRN (19:30)
[2019-10-18 20:00] VITALS: BP 130/60
[2019-10-19] MEDS: PIPER-TAZ 3.375 GM 50 ML IV SCH ×4 (03:00→20:58)
[2019-10-19] MEDS: METRONIDAZOLE 500MG/NS 100ML 100 ML IV SCH ×4 (04:00→22:39)
[2019-10-19] MEDS: DEXTROSE 5%/LACTATED RINGERS 1,000 ML IV SCH ×3 (04:00→20:30)
[2019-10-19 05:04] LABS: BASOPHILS # (AUTO) 0.1 (0.0-0.1); BASOPHILS % 0.5 % (0.0-1.0); EOSINOPHILS # (AUTO) 0.4 (0.0-0.4); EOSINOPHILS % 4.5 % (0.0-6.0); HEMATOCRIT 33.7 % (38.2-49.6); HEMOGLOBIN 10.6 g/dL (14.0-18.0); LYMPHOCYTES # (AUTO) 0.8 (1.0-3.2); LYMPHOCYTES % 8.2 % (18.0-39.1); MEAN CORPUSCULAR HEMOGLOBIN 26.3 pg (28-32); MEAN CORPUSCULAR HGB CONC 31.5 g/dL (31-35); MEAN CORPUSCULAR VOLUME 83.6 fL (81-99); MONOCYTES # (AUTO) 0.9 (0.2-0.8); MONOCYTES % 9.1 % (4.4-11.3); NEUTROPHILS # (AUTO) 7.5 (2.1-6.9); NEUTROPHILS % 77.1 % (38.7-80.0); PLATELET COUNT 252 x10e3/uL (140-360); RED BLOOD COUNT 4.03 x10e6/uL (4.3-5.7); RED CELL DISTRIBUTION WIDTH 15.2 % (11.7-14.4)
[2019-10-19 05:40] LABS: ANION GAP 10.3 mmol/L (8-16); BLOOD UREA NITROGEN 7 mg/dL (7-26); BUN/CREATININE RATIO 8 (6-25); CALCIUM 8.3 mg/dL (8.4-10.2); CARBON DIOXIDE 24 mmol/L (22-29); CHLORIDE 107 mmol/L (98-107); CREATININE, SERUM 0.84 mg/dL (0.72-1.25); EST GLOMERULAR FILTRATION RATE > 60 ML/MIN (60-); GLUCOSE 118 mg/dL (74-118); POTASSIUM 3.3 mmol/L (3.5-5.1); SODIUM 138 mmol/L (136-145)
[2019-10-19 06:30] VITALS: BP 146/81
--- NOTE | 2019-10-19 07:00 | NUR ---
BEDSIDE SHIFT REPORT RECEIVED FROM ELEMENTARY INSTRUCTIONAL COACH RN. PT DENIES NEEDS AT THIS TIME.
[2019-10-19 08:03] VITALS: BP 146/81
[2019-10-19 13:11] VITALS: BP 148/76
[2019-10-19 16:15] VITALS: BP 150/70
--- NOTE | 2019-10-19 19:47 | NUR ---
Received pt in bed awake a/o x 3. c/o periodic cramp to abd, otherwise no pain or discomfort. Bed in low and locked position, personal items and call light within reach. No s/sx of acute distress noted. Bedside report given.
[2019-10-19 20:00] VITALS: BP 156/89
[2019-10-19] MEDS: HYDROMORPHONE 1MG/1ML INJ IV PRN (20:59)
[2019-10-19] MEDS: ONDANSETRON HCL INJ 2MG/ML 2ML 2 MG/ML VIAL IV PRN (20:59)
[2019-10-19 21:00] VITALS: BP 156/89
[2019-10-20] VITALS (9 sets, daily range): BP systolic 144–173; BP diastolic 75–91
[2019-10-20] MEDS: HYDROMORPHONE 1MG/1ML INJ IV PRN ×4 (00:34→13:37)
[2019-10-20] MEDS: PIPER-TAZ 3.375 GM 50 ML IV SCH ×4 (03:29→21:14)
[2019-10-20] MEDS: METRONIDAZOLE 500MG/NS 100ML 100 ML IV SCH ×3 (04:00→16:05)
[2019-10-20] MEDS: DEXTROSE 5%/LACTATED RINGERS 1,000 ML IV SCH ×3 (05:00→20:00)
--- NOTE | 2019-10-20 07:00 | NUR ---
BEDSIDE SHIFT REPORT RECEIVED FROM CURRICULUM CONSULTANT RN. PT DENIES NEEDS AT THIS TIME.
[2019-10-20] MEDS: ONDANSETRON HCL INJ 2MG/ML 2ML 2 MG/ML VIAL IV PRN ×2 (09:14→13:37)
[2019-10-20] MEDS ORDERED: MORPHINE SULFATE INJ 4 MG/ML INJ 1ML IV PRN (17:45)
--- NOTE | 2019-10-20 18:25 | NUR ---
Nutrition Screen Note RD Recommendation for Physician: -Recommend ADAT to GI Soft -Recommend Ensure Clear TID for adequacy while on CLD, adjust to Ensure Enlive TID when diet advanced -If unable to advance diet within 24 hrs, recommend initiating PPN at 80 ml/hr of D10W/500 ml (96 gm dextrose), AA8.5%/500 ml (82 gm protein), NaCl 30 mEq/L, Na Acetate 30 mEq/L, KCl 35 mEq/L, KPhos 12 mmol/L, Ca Gluconate 4.6 mEq/L, Mg Sulfate 12 mEq/l, trace elements, MVI, thiamine. Provides 654 kcal/day -Decrease or discontinue IVF with initiation of TPN -Check BMP with Mg and Phos daily, replace low lytes as needed Plan of Care: RD following, TPN rec's, diet and ONS rec's, monitoring for tolerance and adequacy Nutrition reason for involvement: length of stay and NPO/clear liquid diet order > 4 days Primary Diagnose(s): colonic obstruction PMH: HTN, colon cancer s/p partial colectomy Ht: 70 in Wt: 169 lb BMI: 24.2 kg/m2 IBW:[address] Assessment: 10/19: Follow up. Pt on CLD x day 2 today. Pt tolerating CLD, continues to have some abdominal pain- per RN most likely post operative gas. Pt now NPO/CLD day 10, discussed with RN that pt will need PN as diet has not been advanced. RN reports pt with peripheral access only. Noted Dr. Svitlana Raymond managing pt currently. RD placed PPN order form in chart if diet not advanced for MD to initiate PN. Chart reviewed. Will continue to monitor. (10/16/19) Chart reviewed. Labs and meds reviewed. Pt is a 64 year old male admitted with colonic obstruction. Pt has been NPO/clear liquid diet for > 4 days. Pt is currently NPO for procedure today (exploratory laparotomy and colon resection). Pt was previously on a clear liquid diet with 50-100% meal intake. Per chart, there are no reports of decreased appetite or unintentional weight loss prior to admission. Recommend advancing to GI soft diet when medically appropriate. Will continue to monitor. GI: + ostotomy, output 10/17 50 ml Skin: abdominal incision Labs: 10/18: na 138, K 3.3, Cl 107, CO2 24, BUN 7, Cr 0.84, Gluc 118, Ca 8.3 Meds: abx, dilaudid, zofran IVF: D5LR at 125 ml/hr Estimated Nutritional Needs: 9847-6534 calories/day (18-20 kcal/kg CBW) 83-125 g protein/day (1-1.5 g pro/kg CBW) Malnutrition Evaluation (10/16/19) The patient does not meet criteria for a specified degree of malnutrition at this time. Will re-evaluate at follow-up as appropriate. Energy intake: <50% of estimated energy requirements for > 5 days Weight loss: No weight loss reported per chart Fat loss: unable to evaluate Muscle loss: unable to evaluate Supporting Evidence: Fluid accumulation: unable to evaluate Functional Status: unable to evaluate Diet: Clear liquids Diet Education Needs Assessment: Diet education not indicated. Diet Adequacy: Not meeting calorie needs, Not meeting protein needs Diet Tolerance: tolerating CLD Diet Education Needs Assessment: Diet education not indicated, patient on temporary/transition diet. Nutrition Diagnosis: Inadequate energy and protein intake related to current medical condition (colonic obstruction) as evidenced by NPO/CLD x 10 days and not meeting needs. Goal: Patient will meet 75-100% of estimated needs by follow up Progress: N/A Interventions: -Fiber modified diet, Commercial beverage, Composition, Rate, Route, Recommended Modifications, Multivitamin/mineral supplement therapy, Collaboration with other providers Monitoring/Evaluation: -Total energy intake, Total protein intake, Formula/Solution, Prescription medication, Modified diet, Liquid supplement, Weight change Nutrition Care Level: high- NPO/CLD x 10 days Signed: Isadora Carrera RD, LD, [facility]
[2019-10-21] MEDS: DEXTROSE 5%/LACTATED RINGERS 1,000 ML IV SCH ×2 (01:08→04:00)
[2019-10-21] MEDS: PIPER-TAZ 3.375 GM 50 ML IV SCH ×4 (03:21→20:41)
[2019-10-21 04:10] VITALS: BP 152/88
--- NOTE | 2019-10-21 07:00 | NUR ---
bedside shift report received pt in stable condition, denies pain at this time, updated on poc voiced understanding, dsg to abdomen c/d/i, colostomy with greenish/brownish stool noted, rafael with serosanguineous fluid noted, ivf infusing to r wrist 20g no ss of infiltration noted, no other co voiced call light in reach will contineu to monitor
[2019-10-21 08:37] VITALS: BP 155/90
[2019-10-21 08:57] VITALS: BP 155/90
[2019-10-21] MEDS ORDERED: POTASSIUM CHL IV SCH (09:30)
[2019-10-21] MEDS ORDERED: LACTATED RINGERS IV SCH (09:30)
[2019-10-21] MEDS ORDERED: DEXTROSE IV SCH (09:30)
[2019-10-21] MEDS: ONDANSETRON HCL INJ 2MG/ML 2ML 2 MG/ML VIAL IV PRN ×2 (11:18→11:25)
--- NOTE | 2019-10-21 11:26 | NUR ---
pt co nausea, states he got real hot, diaphoretic and nausea,pt given prn nausea meds, pt states he has cramping that comes and goes, no other co voiced, will continue to monitor
[2019-10-21] MEDS ORDERED: KETOROLAC TROMETHAMINE 30 MG/ML VIAL IV ONE (12:00)
[2019-10-21 12:24] VITALS: BP 149/89
[2019-10-21] MEDS: POTASSIUM CHL IV SCH ×2 (13:14→22:39)
[2019-10-21] MEDS: LACTATED RINGERS IV SCH ×2 (13:14→22:39)
[2019-10-21] MEDS: DEXTROSE IV SCH ×2 (13:14→22:39)
[2019-10-21 16:26] VITALS: BP 153/81
[2019-10-21 20:00] VITALS: BP 151/86
--- NOTE | 2019-10-21 21:53 | NUR ---
SPOKE TO MD Jr OH. NEW ORDERS RECEIVED.
[2019-10-21] MEDS ORDERED: KETOROLAC TROMETHAMINE 30 MG/ML VIAL IV PRN (22:00)
[2019-10-22] VITALS (9 sets, daily range): BP systolic 131–155; BP diastolic 78–91
[2019-10-22] MEDS: PIPER-TAZ 3.375 GM 50 ML IV SCH ×4 (04:23→21:06)
--- NOTE | 2019-10-22 07:12 | NUR ---
REPORT GIVEN TO DAYSHIFT NURSE. ALERT AND RESTING IN BED. NO SIGNS IV INFILTRATION. BED LOCKED AND IN LOW POSITION. CALL LIGHT WITHIN REACH.
[2019-10-22] MEDS: LACTATED RINGERS IV SCH (09:07)
[2019-10-22] MEDS: DEXTROSE IV SCH (09:07)
[2019-10-22] MEDS: POTASSIUM CHL IV SCH (09:07)
--- NOTE | 2019-10-22 19:00 | NUR ---
Resumed care of patient. Patient awake and resting in bed, no s/s of distress at this time. Bed locked and in lowest position, side rails upx3, call light placed within reach. All safety measures in place.
[2019-10-23] VITALS (10 sets, daily range): BP systolic 133–156; BP diastolic 73–87
[2019-10-23] MEDS: DEXTROSE IV SCH ×3 (01:04→14:15)
[2019-10-23] MEDS: POTASSIUM CHL IV SCH ×3 (01:04→14:15)
[2019-10-23] MEDS: LACTATED RINGERS IV SCH ×3 (01:04→14:15)
[2019-10-23] MEDS: PIPER-TAZ 3.375 GM 50 ML IV SCH ×4 (03:04→20:55)
[2019-10-23 05:17] LABS: BASOPHILS # (AUTO) 0.1 (0.0-0.1); EOSINOPHILS # (AUTO) 0.5 (0.0-0.4); EOSINOPHILS % 5.2 % (0.0-6.0); HEMATOCRIT 35.6 % (38.2-49.6); HEMOGLOBIN 11.2 g/dL (14.0-18.0); LYMPHOCYTES # (AUTO) 1.2 (1.0-3.2); LYMPHOCYTES % 13.1 % (18.0-39.1); MEAN CORPUSCULAR HEMOGLOBIN 25.7 pg (28-32); MEAN CORPUSCULAR HGB CONC 31.5 g/dL (31-35); MEAN CORPUSCULAR VOLUME 81.8 fL (81-99); MONOCYTES # (AUTO) 0.9 (0.2-0.8); MONOCYTES % 10.3 % (4.4-11.3); NEUTROPHILS # (AUTO) 5.8 (2.1-6.9); NEUTROPHILS % 66.6 % (38.7-80.0); PLATELET COUNT 359 x10e3/uL (140-360); RED BLOOD COUNT 4.35 x10e6/uL (4.3-5.7); RED CELL DISTRIBUTION WIDTH 15.2 % (11.7-14.4)
[2019-10-23 05:35] LABS: ANION GAP 11.9 mmol/L (8-16); BLOOD UREA NITROGEN 6 mg/dL (7-26); BUN/CREATININE RATIO 7 (6-25); CALCIUM 8.4 mg/dL (8.4-10.2); CARBON DIOXIDE 21 mmol/L (22-29); CHLORIDE 109 mmol/L (98-107); CREATININE, SERUM 0.88 mg/dL (0.72-1.25); EST GLOMERULAR FILTRATION RATE > 60 ML/MIN (60-); GLUCOSE 310 mg/dL (74-118); POTASSIUM 4.9 mmol/L (3.5-5.1); SODIUM 137 mmol/L (136-145)
--- NOTE | 2019-10-23 07:00 | NUR ---
Bedside report given to oncoming nurse. Patient awake and resting in bed, no s/s of distress at this time. All safety measures in place.
--- NOTE | 2019-10-23 13:04 | NUR ---
WOUND CARE CONSULT FOR OSTOMY TEACHING POST ILEECTOMY /RESECTION PATIENT GIVEN WRITTEN INFORMATION AND INSTRUCTION ON TROY SKIN PROTECTION AND APPLIANCE MAINTENANCE . PATIENT DEMONSTRATED TECHNIQUES AND REPEATED INSTRUCTIONAL INFORMATION ALSO STATES INCREASED LEVEL OF COMFORT AND CONFIDENCE CONTACT INFO SHARED SO FUTURE NEEDS MAY BE ADDRESSED IF ASSISTANCE OR INFORMATION IS NEEDED Addendum: 10/23/19 at 1309 by Byron Solo RN Amended: Links added.
--- NOTE | 2019-10-23 14:33 | NUR ---
ORDERS REC'D FOR HOME HEALTH AND OSTOMY SUPPLIES CHOICE LETTER SIGNED FOR [facility] PH: [phone] FAX: [phone] CLINICALS FAXED; CONFIRMATION REC'D COPY OF CHOICE LETTER ALONG WITH MY BUSINESS CARD GIVEN TO PT CM SPOKE WITH MARQUITA AT [facility] AND ASSURED THEY ARE IN NETWORK WITH [facility] BS TX PLAN DC HOME TOMORROW
--- NOTE | 2019-10-23 19:00 | NUR ---
Resumed care of patient. Patient awake and resting in bed, respirations even and unlabored on room air, no s/s of distress at this time. Colostomy bag in place, stoma beefy red. Midline abdominal incision and dressings CDI. Bed locked and in lowest position, side rails upx3, call light placed within reach. All safety measures in place.
[2019-10-23] MEDS: HYDROCODONE/APAP 7.5MG-325MG 1 EA TAB PO PRN (20:29)
[2019-10-24] VITALS: BP 127/80
[2019-10-24] MEDS: PIPER-TAZ 3.375 GM 50 ML IV SCH ×2 (03:13→09:09)
[2019-10-24 04:00] VITALS: BP 108/57
[2019-10-24] MEDS: HYDROCODONE/APAP 7.5MG-325MG 1 EA TAB PO PRN (04:44)
[2019-10-24 08:55] VITALS: BP 119/73
[2019-10-24 08:57] VITALS: BP 119/73
[2019-10-24 08:59] VITALS: BP 119/73
[2019-10-24] MEDS ORDERED: NORCO 7.5-3251 EACH PO (10:22)
--- NOTE | 2019-10-24 11:57 | Discharge Summary ---
ADMITTING DIAGNOSES: 1. Colon stricture with obstruction. 2. Colon adenocarcinoma. DISCHARGE DIAGNOSES: 1. Colon adenocarcinoma. 2. Status post exploratory laparotomy with colon resection and low anterior anastomosis with diverting ileostomy placement. HOSPITAL COURSE: This is a 64-year-old white man, who has known history of colon adenocarcinoma. The patient was admitted with a diagnosis of colonic stricture with obstruction. The patient was seen by Dr. Lopez Raymond and underwent successful exploratory laparotomy with colon resection. During the surgical procedure, the patient underwent low anterior anastomosis and diverting ileostomy placement. The patient tolerated surgery well. On date of discharge, the patient was tolerating a regular diet. One day prior to being discharge, the patient's potassium was 4.9, BUN and creatinine were 6 and 0.8 respectively. Also, one day prior to being discharge, hemoglobin 11.2 g/dL and white blood cell count was 8700 with normal differential. The patient's condition on discharge was stable. DISCHARGE MEDICATIONS: [place] 7.5/325 one pill every 4 hours p.r.n. pain, 30 prescribed, no refills. FOLLOWUP INSTRUCTIONS: The patient instructed to follow up with Dr. Lopez Raymond within 1-2 weeks. The patient instructed to follow up with Dr. Sandesr, his primary care physician within 2 weeks. MD RANDY EngelO/RENUL /[id number] cc: DO Lopez Kaiser MD
--- NOTE | 2019-12-30 09:52 | Operative Report ---
DATE OF PROCEDURE: 10/16/2019 SURGEON: Lopez Raymond MD PREOPERATIVE DIAGNOSIS: Colonic stricture with obstruction. POSTOPERATIVE DIAGNOSIS: Colonic stricture with obstruction. OPERATIONS PERFORMED: Exploratory laparotomy, colon resection and low-anterior anastomosis and diverting ileostomy. ASSISTANTS: 1. Dr. Greg Raymond. 2. ALLYN Dumont. ANESTHESIA: General endotracheal. COMPLICATIONS: None. ESTIMATED BLOOD LOSS: 300 mL. DESCRIPTION OF PROCEDURE: With the patient lying in bed in the supine position under good general endotracheal anesthesia, the abdomen was prepped with Betadine solution and draped in the usual manner. A lower midline incision was made. It was carried down through the subcutaneous tissue, down to the midline fascia. The midline fascia was opened and the abdomen was entered. Upon entering the abdominal cavity, exploration revealed there were some adhesions to the lower abdomen and also to the pelvic region and the right lower quadrant from the patient's previous surgery. The patient had undergone a previous left colectomy for cancer. The proximal bowel leading down into the pelvis was at this point decompressed and the patient had undergone a bowel prep, which had been successful in getting him cleaned out. The right colon was then mobilized off the lateral gutter in order to be able to get as much length as possible as well as the hepatic flexure of the transverse colon. At this point, all the adhesions in the pelvis were slowly and carefully taken down. The area of the old staple anastomosis was identified and there was a tight inflammatory stricture in this area. We decided to go ahead and do a resection. The proximal colon was then divided between bowel clamps at an area that was clearly viable and after this was done, the distal area of the previous anastomosis was then slowly and carefully resected up into the upper rectosigmoid junction after the area had been clearly mobilized off the pelvis. We had at this point some viable bowel was proximally and distally, although the upper rectum had some amount of inflammatory reaction, but it was clearly viable and with good bleeding edges. We decided at this point to go ahead and do an anastomosis as the patient had a good bowel prep. The anastomosis was then hand-sewn. The posterior row of 3-0 silk was then performed in a seromuscular fashion. The tooth clamps were then removed and an internal row was performed with 3-0 Vicryl. After this was done, the gloves and instruments were changed. The anastomosis was completed with another anterior seromuscular 3-0 silk. This gives a satisfactory anastomosis without any tension. However, we decided that it would be best to protect this anastomosis with an ileostomy to make sure that there was no further problems and to close the ileostomy down the line once everything was completely healed. The terminal ileum was then divided with a MORA stapler and mobilized, and brought out in the right lower quadrant without any tension whatsoever. The abdomen was then copiously irrigated and perfect hemostasis was ascertained, and the abdomen was then closed in layers. The peritoneum was closed with a running suture of #1 Vicryl. The midline fascia was closed with a running suture of #1 PDS and the skin was closed with clips. The ileostomy was then matured using interrupted sutures of 3-0 Vicryl. An appliance and dressings were placed. Sponge, lap, and needle count was correct. The patient tolerated the procedure well and returned to the recovery room in stable condition. MD BARBARA Romero/BHARGAV /[id number]
== END 2019-10-24 11:30 | disposition home or self-care (01) | DRG 330 ==
LOC: ER 02:32 → ERHOLD 05:53 → MED/SURG 06:11 → ICU 10-16 21:40 → MED/SURG 10-16 23:00
PROC: 0DBP0ZZ Excision of Rectum, Open Approach (ICD-10-PCS; 2019-10-16)
PROC: 0D1B0Z4 Bypass Ileum to Cutaneous, Open Approach (ICD-10-PCS; 2019-10-16)
PROC: 0DBN0ZZ Excision of Sigmoid Colon, Open Approach (ICD-10-PCS; principal; 2019-10-16 12:30)
DX: K56.699 Other intestinal obstruction unspecified as to partial versus complete obstruction (principal); K76.6 Portal hypertension; I10 Essential (primary) hypertension; Z86.73 Personal history of transient ischemic attack (TIA), and cerebral infarction without residual deficits; Z85.038 Personal history of other malignant neoplasm of large intestine; Z90.49 Acquired absence of other specified parts of digestive tract; K63.89 Other specified diseases of intestine; E87.6 Hypokalemia; K66.0 Peritoneal adhesions (postprocedural) (postinfection); R53.81 Other malaise; Z11.59 Encounter for screening for other viral diseases
CPT/HCPCS: 36415; 74018; 74019; 74022; 74177; 80048; 80053; 82150; 82948; 83690; 85025; 85610; 85730; 93005; 96361; 99284; J0696; J1100; J1170; J1885; J2001; J2250; J2270; J2405; J2543; J2710; J3010; J3480; J7030; J7070; J7120; J7121; Q9967

== ENCOUNTER 2019-11-05 09:26 | Observation (INO) | payer BC, OTHER ==
[~2019-11-05] VITALS: Ht 177.8 cm; Wt 83.0 kg
[~2019-11-05 09:26] MED LIST changes: -DEXAMETHASONE SOD PHOS INJ 4 MG/ML VIAL ONE; -LIDOCAINE HCL 2% LOCAL INJ 5 ML SDV VIAL INJ ONE; -MIDAZOLAM HCL 2 MG/2 ML VIAL ONE; +NORCO 7.5-3251 EACH PO; -ONDANSETRON HCL INJ 2MG/ML 2ML 2 MG/ML VIAL ONE; -PROPOFOL IV EMULSION 10 MG/ML 20 ML VIAL ONE; -SEVOFLURANE INHAL SOLN 250 ML PEN BTL ONE
[2019-11-05] MEDS ORDERED: KETOROLAC TROMETHAMINE 30 MG/ML VIAL IV STA (09:57)
[2019-11-05] MEDS ORDERED: DIAZEPAM 2 MG TAB PO ONE (10:00)
--- NOTE | 2019-11-05 10:02 | NUR ---
COVID SWAB OBTAINED.
--- OUTSIDE RECORDS SUMMARY | 2019-11-05 10:05 | XMS REPORT | Clinical Summary ---
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
--- OUTSIDE RECORDS SUMMARY | 2019-11-05 10:05 | XMS REPORT | Continuity of Care Document ---
Author Author [facility] t Organization [facility] Address [address] [place] [address] Phone Unavailable Care Team Providers Care Cardiac Nurse Specialist Name Role Phone MARBELLAAngi SERRANO DO ARANDA PCP [place] Attphys Unavailable Dorota LUO Attphys Unavailable Charleen RAYMOND Attphys Unavailable [place]UNCION [place] Attphys Unavailable DR CORIN MEDINA Attphys Unavailable [place] Admphys Unavailable Charleen RAYMOND Admphys Unavailable DR CORIN MEDINA Admjessica Unavailable Payers Payer Name Policy Type Policy Number Effective Date Expiration Date Manda delaney [facility] [id number] 2019 00:00:00 [facility] Cdc Review Covid19 [id number] [facility] Problems Condition Name Condition Details Condition Category Status Onset Date Resolution Date Last Treatment Date Treating Clinician Comments Source TIA (transient ischemic attack) TIA (transient ischemic attack) Dis ease Active 2017-05-12 00:00:00 Waqas Metz Obstruction of colon Colonic obstruction Problem Active [facility] Allergies, Adverse Reactions, Alerts This patient has no known allergies or adverse reactions. Social History Social Habit Start Date Stop Date Quantity Comments Source Sex Assigned At Alphonse zuniga Lashay Alcohol intake 2017-05-12 00:00:00 2017-05-12 00:00:00 Current non-drinker of alcohol (finding) Waqas Metz Smoking Status Start Date Stop Date Source Never smoker Waqas mejia Medications Ordered Medication Name Filled Medication Name Start Date Stop Da te Current Medication? Ordering Clinician Indication Dosage Frequency Signature (SIG) Comments Components Source Hydrocodone Bit/Acetaminophen (Jackson 7.5-325 Tablet) 1 Each TABLET Hydrocodone Bit/Acetaminophen (Jackson 7.5-325 Tablet) 1 Each TABLET Yes 1 Every 4 Hours as needed for [facility] Vital Signs Vital Name Observation Time Observation Value Comments Source Body Temperature 2019-10-24 08:59:00 97.6 [degF] [facility] BMI (Body Mass Index) 2019-10-24 08:52:00 26.3 kg/m2 [facility] Weight 2019-10-20 06:35:00 183.31 [lb_av] [facility] Procedures Procedure Date / Time Performed Performing Clinician [facility] Computed tomography of abdomen and pelvis with contrast 00:00:00 [facility] COLONOSCOPY W/BALLOON DILAT 2019-05-18 00:00:00 [facility] DILATION OF RECTUM WITH INTRALUMINAL DEVICE, ENDO 2019-04-20 00: 00:00 [facility] Computed tomography of abdomen and pelvis with contrast 2019 00:00:00 ED HADLEY [facility] Computed tomography of abdomen and pelvis with contrast 2018 00:00:00 EWA RAYMOND [facility] RESECTION OF LEFT LARGE INTESTINE, OPEN APPROACH 2019-02-18 00:0 0:00 [facility] X-ray of chest, two views 2019-02-13 00:00:00 EWA RAYMOND [facility] Computed tomography of abdomen and pelvis with contrast 2018 00:00:00 ASUNCION [place] [facility] COLONOSCOPY AND BIOPSY 2019-02-05 00:00:00 [facility] Manda [facility] COLONOSCOPY SUBMUCOUS NJX 2019-02-05 00:00:00 HAI Batres [facility] COLONOSCOPY W/LESION REMOVAL 2019-02-05 00:00:00 [facility] Plan of Care Planned Activity Planned Date Details Comments Source Future Scheduled Test 2019-12-03 00:00:00 INFLUENZA VACCINE [code = INFLUENZA VACCINE] [facility] Future Scheduled Test 2019 00:00:00 65+ PNEUMOCOCCAL V ACCINE (1 of 2 - PCV13) [code = 65+ PNEUMOCOCCAL VACCINE (1 of 2 - PCV13)] [facility] Future Scheduled Test 2004-01-03 00:00:00 COLONOSCOPY SCREEN ING [code = COLONOSCOPY SCREENING] [facility] Scheduled Test 2004-01-03 00:00:00 SHINGLES VACCINES (#1) [code = SHINGLES VACCINES (#1)] [facility] Instructions Bowel Obstruction [facility] Encounters Start Date/Time End Date/Time Encounter Type Admission Type Attendi [facility] Care Department Encounter ID Source 2019-10-10 05:53:00 2019-10-24 11:30:00 Discharged Inpatient 1 LOKI [place] [facility] [id number] [facility]3]. [facility] Patients [facility] 2019-05-18 06:02:00 2019-05-18 06:02:00 Registered Surgical Day Care [facility] [id number] [facility] Patients [facility] 2019-04-17 15:40:00 2019-04-21 18:09:00 Discharged Inpatient 1 SANDIP LUO [facility] Patients [facility] [id number] [facility]3]. [facility] Patients [facility] 2019-03-29 13:29:00 2019-03-29 16:57:00 Departed Emergency Room 1 SANDIP LUO [facility] [id number] [facility]3]. [facility] Patients [facility] 2019-02-18 13:47:00 2019-03-01 11:35:00 Discharged Inpatient 3 EWA RAYMOND [facility] [id number] [facility]3]. [facility] Patients [facility] 2019-02-06 12:38:00 2019-02-06 12:38:00 Registered Clinic 3 OHNILTON ADAMESURICE [facility] [id number] [facility]3]. [facility] 2019-02-05 09:25:00 2019-02-05 09:25:00 Registered Surgical Day Care [facility] [id number] [facility] 2017-07-19 05:15:00 2017-07-19 07:00:00 Outpatient CORIN MITCHELL [facility] [id number] [facility] Results Test Description Test Time Test Comments Results Result Comments Source Capillary blood glucose measurement by glucometer (mas s/volume) 2019-10-23 18:11:00 Test Item Bedside Glucose (test code = 42771-1) 117 70-120 Meter ID: [id number] [facility] automated count (number/volume)2019-10-23 05:06:00* Test Item Value Reference Range Interpretation Comments White Blood Count (test code = 6690-2) 8.77 4.8-10.8 [facility] automated count (number/volume)2019-10-23 05:06:00* Test Item Value Reference Range Interpretation Comments Red Blood Count (test code = 789-8) 4.35 4.3-5.7 [facility] measurement (moles/volume)2019-10-23 05:06:00* Test Item Value Reference Range Interpretation Comments Hemoglobin (test code = 47922-7) 11.2 14.0-18.0 [facility] hematocrit (volume fraction)2019-10-23 05:06:00* Test Item Value Reference Range Interpretation Comments Hematocrit (test code = 4544-3) 35.6 38.2-49.6 [facility] erythrocyte mean corpuscular cgmhgc8362-14-41 05:06:00* Test Item Value Reference Range Interpretation Comments Mean Corpuscular Volume (test code = 787-2) 81.8 81-99 [facility] eryth[facility] mean corpuscular hemoglobin (mass per erythrocyte)2019-10-23 05:06:00* Test Item Value Reference Range Interpretation Comments Mean Corpuscular Hemoglobin (test code = 785-6) 25.7 28-32 [facility] erythrocyte mean corpuscular hemoglobin concentration measurement (mass/volume)2019-10-23 05:06:00* Test Item Value Reference Range Interpretation Comments Mean Corpuscular Hemoglobin Concent (test code = 786-4) 31.5 31-35 [facility] HospitalRDW UzaXl-Ggt2765-74-21 05:06:00* Test Item Value Reference Range Interpretation Comments Red Cell Distribution Width (test code = 41824-0) 15.2 11.7 -14.4 [facility] blood platelet count (count/volume)2019-10-23 05:06:00* Test Item Value Reference Range Interpretation Comments Platelet Count (test code = 777-3) 359 140-360 [facility] blood segmented neutrophil count as percentage of total edwtyvjbyw4442-95-20 05:06:00* Test Item Value Reference Range Interpretation Comments Neutrophils (%) (Auto) (test code = 75300-3) 66.6 38.7-80.0 [facility] lymphocyte count as percentage ot total ihlgfwqgxp6321-20-44 05:06:00* Test Item Value Reference Range Interpretation Comments Lymphocytes (%) (Auto) (test code = 736-9) 13.1 18.0-39.1 [facility] blood monocyte count as percentage of total dckdymjvod5277-20-42 05:06:00* Test Item Value Reference Range Interpretation Comments Monocytes (%) (Auto) (test code = 5905-5) 10.3 4.4-11.3 [facility] blood eosinophil count as percentage of total kemwrmobyi8894-56-70 05:06:00* Test Item Value Reference Range Interpretation Comments Eosinophils (%) (Auto) (test code = 713-8) 5.2 0.0-6.0 [facility] blood basophil count as percentage of total xwydqqmbss5543-37-81 05:06:00* Test Item Value Reference Range Interpretation Comments Basophils (%) (Auto) (test code = 706-2) 1.0 0.0-1.0 [facility] HospitalFluoroscopic procedure less than one hour scuxmief9812-88-89 05:06:00* Test Item Value Reference Range Interpretation Comments IM GRANULOCYTES % (test code = IM GRANULOCYTES %) 3.8 0.0- 1.0 [facility] blood neutrophil count 2019-10-23 05:06:00* Test Item Value Reference Range Interpretation Comments Neutrophils # (Auto) (test code = 751-8) 5.8 2.1-6.9 [facility] lymphocytes count (number/volume) 2019-10-23 05:06:00* Test Item Value Reference Range Interpretation Comments Lymphocytes # (Auto) (test code = 36426-5) 1.2 1.0-3.2 [facility] monocytes automated count (number/volume)2019-10-23 05:06:00* Test Item Value Reference Range Interpretation Comments Monocytes # (Auto) (test code = 742-7) 0.9 0.2-0.8 [facility] HospitalAutom[facility] blood eosinophil count 2019-10-23 05:06:00* Test Item Value Reference Range Interpretation Comments Eosinophils # (Auto) (test code = 711-2) 0.5 0.0-0.4 [facility] HospitalAutomated blood basophil count (count/volume)2019-10-23 05:06:00* Test Item Value Reference Range Interpretation Comments Basophils # (Auto) (test code = 704-7) 0.1 0.0-0.1 [facility] HospitalFluoroscopic procedure less than one hour zzciugac0837-49-56 05:06:00* Test Item Value Reference Range Interpretation Comments Absolute Immature Granulocyte (auto (efrem t code = Absolute Immature Granulocyte (auto) 0.33 0-0.1 [facility] sodium measurement (moles/volume)2019-10-23 05:06:00* Test Item Value Reference Range Interpretation Comments Sodium Level (test code = 2951-2) 137 136-145 [facility]er[facility] or plasma potassium measurement (moles/volume)2019-10-23 05:06:00* Test Item Value Reference Range Interpretation Comments Potassium Level (test code = 2823-3) 4.9 3.5-5.1 [facility] or plasma chloride measurement (moles/volume)2019-10-23 05:06:00* Test Item Value Reference Range Interpretation Comments Chloride Level (test code = 2075-0) 109 98-107 [facility]erum or plasma carbon dioxide, total measurement (moles/volume)2019-10-23 05:06:00* Test Item Value Reference Range Interpretation Comments Carbon Dioxide Level (test code = 2028-9) 21 -29 [facility] Hospitalerum or plasma anion qdr6828-80-19 05:06:00* Test Item Value Reference Range Interpretation Comments Anion Gap (test code = 94122-7) 11.9 8-16 [facility] or plasma urea nitrogen measurement (mass/volume)2019-10-23 05:06:00* Test Item Value Reference Range Interpretation Comments Blood Urea Nitrogen (test code = 3094-0) 6 7-26 [facility]erum or plasma creatinine measurement (mass/volume)2019-10-23 05:06:00* Test Item Value Reference Range Interpretation Comments Creatinine (test code = 2160-0) 0.88 0.72-1.25 [facility]erum or plasma urea nitrogen/creatinine mass ufaqy0019-04-04 05:06:00* Test Item Value Reference Range Interpretation Comments BUN/Creatinine Ratio (test code = 3097-3) 7 6-25 [facility] HospitalEstimated glomerular filtration rate (GFR) nwvzlvbdidlvs3831-06-87 05:06:00* Test Item Value Reference Range Interpretation Comments Estimat Glomerular Filtration Rate (test code = 017512947) > 60 >60 Ranges were taken from the National Kidney Disease Education Program and the [facility] literature.Reference ranges:60 or greater: Vmzset65-85 ( for 3 consecutive months): Chronic kidney disease 15 or less: Kidney failureMethodist Southlake HospitalGlucose ugtpissrnjv2080-84-68 05:06:00* Test Item Value Reference Range Interpretation Comments Glucose Level (test code = QZN9782) 310 74-118 [facility]erum or plasma calcium measurement (mass/volume)2019-10-23 05:06:00* Test Item Value Reference Range Interpretation Comments Calcium Level (test code = 32315-1) 8.4 8.4-10.2 [facility] Hospitalerum or plasma total bilirubin measurement (mass/volume)2019-10-16 05:10:00* Test Item Value Reference Range Interpretation Comments Total Bilirubin (test code = 1975-2) 0.9 0.2-1.2 [facility] HospitalFluoroscopic procedure less than one hour vhqdeafn9566-45-56 05:10:00* Test Item Value Reference Range Interpretation Comments Aspartate Amino Transf (AST/SGOT) (test code = Aspartate Amino Transf (AST/SGOT)) 47 5-34 [facility] Hospitalerum or plasma alanine aminotransferase measurement (enzymatic activity/volume)2019-10-16 05:10:00* Test Item Value Reference Range Interpretation Comments Alanine Aminotransferase (ALT/SGPT) (test code = 1742-6) 43 0-55 [facility] Hospitalerum or plasma protein measurement (mass/volume)2019-10-16 05:10:00* Test Item Value Reference Range Interpretation Comments Total Protein (test code = 2885-2) 5.9 6.5-8.1 [facility] Hospitalerum or plasma albumin measurement (mass/volume)2019-10-16 05:10:00* Test Item Value Reference Range Interpretation Comments Albumin (test code = 1751-7) 3.0 3.5-5.0 [facility] HospitalPlasma globulin measurement (mass/volume) 2019-10-16 05:10:00* Test Item Value Reference Range Interpretation Comments Globulin (test code = 52049-5) 2.9 2.3-3.5 [facility] Hospitalerum or plasma albumin/globulin mass tmgli0670-50-78 05:10:00* Test Item Value Reference Range Interpretation Comments Albumin/Globulin Ratio (test code = 1759-0) 1.0 0.8-2.0 [facility] Hospitalerum or plasma alkaline phosphatase measurement (enzymatic activity/volume)2019-10-16 05:10:00* Test Item Value Reference Range Interpretation Comments Alkaline Phosphatase (test code = 6768-6) 89 40-150 [facility] VDI2568-98-11 12:52:00 [facility] [address] [address] Patient Name: ANAT FRANCE MR #: [id number] : 1955 Age/Sex: 64/M Req #: [id number] Adm Physician: LOKI OH MD Ordered by: LOKI OH MD Report #: [id number] Location: MED/SURG Room/Bed: [facility] Procedure: [id number] DX/ABDOME N ACUTE SERIES W/PA CXR Exam Date: 10/13/19 Exam Demar e: 1220 REPORT STATUS: Signed EX AMINATION: ABDOMEN ACUTE SERIES W/PA CXR INDICATION: Bowel obstruction COMPARISON: KUB of 10/12/2019, CT abdomen and pelvis of 10/10/2019 FINDINGS: LINES/TUBES:None LUNGS:The lungs are well-inflated. No focal consolidation or pulmonary edema. PLEURA:No pleural effusion or pneumothor ax. MEDIASTINUM:The cardiomediastinal silhouette appears normal in size and shape. BONES/SOFT TISSUES:No acute osseous injury. Left nipple ring. ABDOMEN:Gaseous distention of multiple loops of large and small bowel. Gaseous distention of the cecum measures up to 6.6 cm maximum diameter with an associ ated air-fluid level. Distended loops of small bowel measure up to 4.0 cm maxi mum diameter with several associated air-fluid levels. No free air. No acute o sseous injury. Anastomotic sutures in the pelvis. IMPRESSION: No acut e findings in the thorax. Distended loops of large and small bowel with ass ociated air-fluid levels consistent with known bowel obstruction. Signed by: Kaushal Moore MD on 10/13/2019 12:54 PM Dictated By: KAUSHAL MOORE MD Elec tronically Signed By: KAUSHAL MOORE MD on 10/13/19 1254 Transcribed By: FABRICIO on 10/13/19 1254 COPY TO: LOKI OH MD ABDOMEN 2 VIEW 2019-10-12 08:57:00 [address] [address] Patient Name: ANAT FRANCE MR #: [id number] : 1955 Age/Sex: 64/M Req #: [id number] Adm Physician: LOKI OH MD Ordered by: RADU RAYMOND MD Report #: [id number] Location: MED/SURG Room/Bed: [facility] Procedure: [id number] DX/AB DOMEN 2 VIEW Exam Date: 10/12/19 Exam Time: 0830 REPORT STATUS: Signed Exam: KUB - 2 views Indication: Large bowel obstruction Comparison: KUB of 10/11/2019 Findings: NG tube with tip in the stomach and side port at the gastroes ophageal junction. Persistent dilation of ascending and proximal transverse co quinton, now measuring up to 8.2 cm maximum diameter at the proximal transverse co quinton. No free air or pneumatosis. No acute osseous injury. Impression: P ersistently dilated loops of large bowel measuring up to 8.2 cm maximum diamet er, consistent with previously seen large bowel obstruction with anastomotic t ransition point. Signed by: Kaushal Moore MD on 10/12/2019 9:01 AM Dict ated By: KAUSHAL MOORE MD 0 Transcribed By: FABRICIO on 10/12/19900 COPY TO: RADU RAYMOND MD ABDOMEN-1VIEW (KUB)2019-10-11 16:24:00 [facility] [address] [address] Patient Name: ANAT FRANCE MR #: [id number] : 1955 Age/Sex: 64/M Req #: [id number] Adm Physician: LOKI OH MD Ordered by: FILI WYATT MD Report #: [id number] Location: MED/SURG Room/Bed: [facility] Procedure: [id number] DX/ABDOMEN -1VIEW (KUB) Exam Date: 10/11/19 Exam Time: 1540 REPORT STATUS: Signed Abdomen/KUB INDICATION: NGT PLACEMENT [id number] COMPARISON: Abdomen x- ray 0820 hours. FINDINGS: Portable, supine image obtained at 1540 hours. Medical Devices: Nasogastric tube terminates at the GE junction. The shanna ehole is within the esophagus Bowel: Gaseous dilatation of the large yaritza l is redemonstrated. The right colon measures 6.8 cm in diameter without pneum atosis. No dilated small bowel loops. Free air: None Abdominal calci fications: None Organomegaly: None Lung bases: Clear Bones: Stabl e IMPRESSION: Enteric tube remains in the distal esophagus. Recommend advancement 7 to 10 cm to a short sidehole placement within the stomach. No change in large bowel dilatation. Signed by: Dr. Brigette Gimenez MD on 10/11/2019 4:25 PM Dictated By: BRIGETTE GIMENEZ MD Electronically Sig parveen By: BRIGETTE GIMENEZ MD on 08/09/20 1625 Transcribed By: FABRICIO on 1624 COPY TO: FILI WYATT MD ABDOMEN 2 BPYG3437-49-55 08:48:00 [address] [address] Patient Name: ANAT FRANCE MR #: [id number] : 1955 Age/Sex: 64/M Req #: [id number] Adm Physician: LOKI OH MD Ordered by: RADU RAYMOND MD Report #: [id number] Location: MED/SURG Room/Bed: [facility] Procedure: [id number] DX/AB DOMEN 2 VIEW Exam Date: 10/11/19 Exam Time: 814 REPORT STATUS: Signed Abdomen/KUB INDICATION: COLONIC OBSTRUCTION [id number] COMPARISON: CT abdomen/pelvis 10/10/2019. FINDINGS: Medical Devices: Enteric tube ter minates just past the GE junction Bowel: Little air in the small bowel. Sta tus post left hemicolectomy. Dilated right colon is redemonstrated (7.4 cm) wi th air-fluid level. It contains diluted enteric contrast. There is air in the proximal transverse colon. No pneumatosis. Free air: None Abdominal calcifications: None Organomegaly: None Excreted contrast in the kidn eys and bladder from CT. Lung bases: Clear Bones: Unremarkable IM PRESSION: Persistently dilated colon with air-fluid level, consistent with distal obstruction. Enteric tube terminates at the GE junction. Recommend advancement by 7 to 10 cm to ensure sidehole placement within the stomach. Signed by: Dr. Brigette Gimenez MD on 10/11/2019 8:52 AM Dictated By: BRIGETTE GIMENEZ MD 1 Transcribed By: FABRICIO on 10/11/19851 COPY TO: FIOR RAYMOND MD Fluoroscopic procedure less than one hour oknrdhti1126-66-80 06:11:00* Test Item Value Reference Range Interpretation Comments Coronavirus (PCR) (test code = Coronavirus (PCR)) NOT DETECTED NOTD ETECTED Hologic [employer]ptima SARS-CoV-2 assay is a nucleic amplification test intended for the qualitative detection of RNA from SARS-CoV-2 from nasopharyngeal (WELFARE INVESTIGATOR) specimens. It is used under Emergency Use Authorization (EUA) by FDA.A positive result is indicative of the presence of SARS-CoV-2 RNA. Clinical correlation with patient history and other diagnostic information is necessary to determine patient infe ction status.A negative (Not Detected) result does not preclude SARS-CoV-2 infec tion. Clinical Correlation with patient history and other diagnostic information should be used in patient management decisions.Invalid: Unable to generate a va lid result on this specimen. Please submit a new specimen for reprat testing oc clinically indicated.Tesing performed by:[facility] [id number] [place] [address] [id number], Niyah Dhaliwal MD, PhD [facility]LVIS [id number] 05:07:00 [address] [place] [address] Patient Name: ANAT FRANCE MR #: [id number] : 1955 Age/Sex: 64/M Req #: [id number] Adm Physician: Ordered by: NIYAH ANDERSON MD Report #: [id number] Location: ER Room/Bed: Procedure: CT/ CT ABDOMEN/PELVIS W Exam Date: 10/10/19 Exam Time: 0 420 REPORT STATUS: Signed EXAM: CT Abdomen and Pelvis WITH contrast INDICATION: EVAL FOR OBSTRUCTION/STR ICTURE COMPARISON: TECHNIQUE: Abdomen and pelvis were scanned utilizing a m ulNutmeg Educationtector helical scanner from the lung base to the pubic symphysis after a dministration of IV contrast. Coronal and sagittal reformations were obtained. Routine protocol was performed. Scan was performed when during portal venous phase. IV CONTRAST: 100 mL of Isovue 370 ORAL CONTRAST: None COMPLICATIONS: None RADIATION DOSE: Total DLP: 365.90 mGy*cm Estimated effective dose: (DLP x 0.015 x size factor) mSv CTDIvol has been reviewed. It is below the limits set by the Radiation Protoc ol Committee (RPC). Dose modulation, iterative reconstruction, and/or silvia ght based adjustment of the mA/kV was utilized to reduce the radiation dose to as low as reasonably achievable. FINDINGS: LINES and TUBES: None. LOWER THORAX: Unremarkable HEPATOBILIARY: No focal hepatic lesio ns. No biliary ductal dilation. GALLBLADDER: Cholelithiasis No wall thick ening. SPLEEN: No splenomegaly. PANCREAS: No focal masses or ductal d ilatation. ADRENALS: No adrenal nodules KIDNEYS/URETERS: Kidneys enhance [...] of the mesenteric fat. Small bowel is nondilat ed. PELVIC ORGANS/BLADDER: Unremarkable. LYMPH NODES: No lymphadenopat hy. VESSELS: Unremarkable. PERITONEUM / RETROPERITONEUM: No free air o r fluid. BONES: Unremarkable. SOFT TISSUES: Unremarkable. IMPRESSION: Distal colonic obstruction with transition point at the anas tomosis in the rectosigmoid region. Signed by: Luis Paz MD on 020 5:24 AM Dictated By: LUIS PAZ MD 3 Transcribed By: FABRICIO on 10/10/19523 CO PY TO: NIYAH ANDERSON MD Prothrombin time (PT) in platelet poor plasma by coagulation utypv5246-23-44 03:05:00* Test Item Value Reference Range Interpretation Comments Prothrombin Time (test code = 5902-2) 12.2 11.9-14.5 [facility] HospitalINR in Platelet poor plasma by Coagulation aynyc6906-11-87 03:05:00* Test Item Value Reference Range Interpretation Comments Prothromb Time International Ratio (test code = 6301-6) 0.87 Oral Anticoagulant Therapy INR Values:1. Low Intensity Therapy 1.5 - 2.02 . Moderate Intensity Therapy 2.0 - 3.03. High Intensity Therapy(1) 2.5 - 3. 54. High Intensity Therapy(2) 3.0 - 4.05. Panic Value INR > 5.0 [facility] HospitalActivated partial thromboplastin time (aPTT) in platelet poor plasma by coagulation nlxkh8116-83-08 03:05:00* Test Item Value Reference Range Interpretation Comments Activated Partial Thromboplast Time (test code = 46836-1) 27.9 23.8-35.5 [facility] Hospitalerum or plasma amylase measurement (enzymatic activity/volume)2019-10-10 03:05:00* Test Item Value Reference Range Interpretation Comments Amylase Level (test code = 1798-8) 42 25-125 [facility] Hospitalerum or plasma lipase measurement (enzymatic activity/volume)2019-10-10 03:05:00* Test Item Value Reference Range Interpretation Comments Lipase (test code = 3040-3) 11 8-78 [facility] Hospitalodium Enwlj6449-78-87 06:03:00* Test Item Value Reference Range Interpretation Comments Sodium Level (test code = 2951-2) 140 136-145 [facility] HospitalPotassium Qlelr3744-86-66 06:03:00* Test Item Value Reference Range Interpretation Comments Potassium Level (test code = 2823-3) 4.1 3.5-5.1 [facility] HospitalChloride Auvvy2322-43-25 06:03:00* Test Item Value Reference Range Interpretation Comments Chloride Level (test code = 2075-0) 108 98-107 H [facility] HospitalCarbon Dioxide Hgzpf9757-19-61 06:03:00* Test Item Value Reference Range Interpretation Comments Carbon Dioxide Level (test code = 2028-9) 26 22-29 [facility] HospitalAnion Gsa7954-13-05 06:03:00* Test Item Value Reference Range Interpretation Comments Anion Gap (test code = 54026-4) 10.1 8-16 [facility] HospitalBlood Urea Fwssxwnh6004-11-51 06:03:00* Test Item Value Reference Range Interpretation Comments Blood Urea Nitrogen (test code = 3094-0) 9 7-26 [facility] HospitalCreatinine2020-02-18 06:03:00* Test Item Value Reference Range Interpretation Comments Creatinine (test code = 2160-0) 0.96 0.72-1.25 [facility] HospitalBUN/Creatinine Aaecz4543-93-54 06:03:00* Test Item Value Reference Range Interpretation Comments BUN/Creatinine Ratio (test code = 3097-3) 9 6- [facility] HospitalEstimat Glomerular Filtration Rate 2019-04-21 06:03:00* Test Item Value Reference Range Interpretation Comments Estimat Glomerular Filtration Rate (test code = 508122550) > 60 >60 Ranges were taken from the National Kidney Disease Education Program and the [facility] literature.Reference ranges:60 or greater: Fnbqvr47-25 ( for 3 consecutive months): Chronic kidney disease 15 or less: Kidney failureMethodist [facility] HospitalGlucose Rgwva0533-17-76 06:03:00* Test Item Value Reference Range Interpretation Comments Glucose Level (test code = TGX7929) 95 74-118 [facility] HospitalCalcium Cuhzd8070-74-60 06:03:00* Test Item Value Reference Range Interpretation Comments Calcium Level (test code = 65999-0) 8.8 8.4-10.2 [facility] HospitalWhite Blood Mbybt3638-46-07 05:47:00* Test Item Value Reference Range Interpretation Comments White Blood Count (test code = 6690-2) 8.38 4.8-10.8 [facility] HospitalRed Blood Khnva7329-00-43 05:47:00* Test Item Value Reference Range Interpretation Comments Red Blood Count (test code = 789-8) 4.11 4.3-5.7 L [facility] HospitalHemoglobin2020-02-18 05:47:00* Test Item Value Reference Range Interpretation Comments Hemoglobin (test code = 42519-1) 10.8 14.0-18.0 L [facility] HospitalHematocrit2020-02-18 05:47:00* Test Item Value Reference Range Interpretation Comments Hematocrit (test code = 4544-3) 34.2 38.2-49.6 L [facility] HospitalMean Corpuscular Cyrtdu1566-58-41 05:47:00* Test Item Value Reference Range Interpretation Comments Mean Corpuscular Volume (test code = 787-2) 83.2 81-99 [facility] HospitalMean Corpuscular Nohlcqxulj4304-40-38 05:47:00* Test Item Value Reference Range Interpretation Comments Mean Corpuscular Hemoglobin (test code = 785-6) 26.3 28-32 L [facility] HospitalMean Corpuscular Hemoglobin Concent 2019-04-21 05:47:00* Test Item Value Reference Range Interpretation Comments Mean Corpuscular Hemoglobin Concent (test code = 786-4) 31.6 31-35 [facility] HospitalRed Cell Distribution Lrcjt5152-02-59 05:47:00* Test Item Value Reference Range Interpretation Comments Red Cell Distribution Width (test code = 89174-4) 13.5 11.7 -14.4 [facility] HospitalPlatelet Eocab8717-21-99 05:47:00* Test Item Value Reference Range Interpretation Comments Platelet Count (test code = 777-3) 257 140-360 [facility] HospitalNeutrophils (%) (Auto)2019-04-21 05:47:00 * Test Item Value Reference Range Interpretation Comments Neutrophils (%) (Auto) (test code = 38475-2) 77.0 38.7-80.0 [facility] HospitalLymphocytes (%) (Auto)2019-04-21 05:47:00 * Test Item Value Reference Range Interpretation Comments Lymphocytes (%) (Auto) (test code = 736-9) 11.5 18.0-39.1 L [facility] HospitalMonocytes (%) (Auto)2019-04-21 05:47:00* Test Item Value Reference Range Interpretation Comments Monocytes (%) (Auto) (test code = 5905-5) 10.9 4.4-11.3 [facility] HospitalEosinophils (%) (Auto)2019-04-21 05:47:00 * Test Item Value Reference Range Interpretation Comments Eosinophils (%) (Auto) (test code = 713-8) 0.2 0.0-6.0 [facility] HospitalBasophils (%) (Auto)2019-04-21 05:47:00* Test Item Value Reference Range Interpretation Comments Basophils (%) (Auto) (test code = 706-2) 0.2 0.0-1.0 [facility] HospitalIM GRANULOCYTES %2019-04-21 05:47:00* Test Item Value Reference Range Interpretation Comments IM GRANULOCYTES % (test code = IM GRANULOCYTES %) 0.2 0.0- 1.0 [facility] HospitalNeutrophils # (Auto)2019-04-21 05:47:00* Test Item Value Reference Range Interpretation Comments Neutrophils # (Auto) (test code = 751-8) 6.5 2.1-6.9 [facility] HospitalLymphocytes # (Auto)2019-04-21 05:47:00* Test Item Value Reference Range Interpretation Comments Lymphocytes # (Auto) (test code = 27512-0) 1.0 1.0-3.2 [facility] HospitalMonocytes # (Auto)2019-04-21 05:47:00* Test Item Value Reference Range Interpretation Comments Monocytes # (Auto) (test code = 742-7) 0.9 0.2-0.8 H [facility] HospitalEosinophils # (Auto)2019-04-21 05:47:00* Test Item Value Reference Range Interpretation Comments Eosinophils # (Auto) (test code = 711-2) 0.0 0.0-0.4 [facility] HospitalBasophils # (Auto)2019-04-21 05:47:00* Test Item Value Reference Range Interpretation Comments Basophils # (Auto) (test code = 704-7) 0.0 0.0-0.1 [facility] HospitalAbsolute Immature Granulocyte (auto 2019-04-21 05:47:00* Test Item Value Reference Range Interpretation Comments Absolute Immature Granulocyte (auto (efrem t code = Absolute Immature Granulocyte (auto) 0.02 0-0.1 [facility] HospitalBlood Lldkmsk6613-35-10 15:06:00* Test Item Value Reference Range Interpretation Comments Blood Culture (test code = 10181011) NO GROWTH AFTER 72 HOURS [facility] HospitalTotal Lhxdakuxv8049-52-19 06:59:00* Test Item Value Reference Range Interpretation Comments Total Bilirubin (test code = 1975-2) 1.4 0.2-1.2 H [facility] HospitalAspartate Amino Transf (AST/SGOT) 2019-04-19 06:59:00* Test Item Value Reference Range Interpretation Comments Aspartate Amino Transf (AST/SGOT) (test code = Aspartate Amino Transf (AST/SGOT)) 14 5-34 [facility] HospitalAlanine Aminotransferase (ALT/SGPT) 2019-04-19 06:59:00* Test Item Value Reference Range Interpretation Comments Alanine Aminotransferase (ALT/SGPT) (test code = 1742-6) 11 0-55 [facility] HospitalTotal Dzjntti6789-58-73 06:59:00* Test Item Value Reference Range Interpretation Comments Total Protein (test code = 2885-2) 5.7 6.5-8.1 L [facility] HospitalAlbumin2020-02-16 06:59:00* Test Item Value Reference Range Interpretation Comments Albumin (test code = 1751-7) 3.3 3.5-5.0 L [facility] HospitalGlobulin2020-02-16 06:59:00* Test Item Value Reference Range Interpretation Comments Globulin (test code = 10593-7) 2.4 2.3-3.5 [facility] HospitalAlbumin/Globulin Yolqs6809-48-52 06:59:00 * Test Item Value Reference Range Interpretation Comments Albumin/Globulin Ratio (test code = 1759-0) 1.4 0.8-2.0 [facility] HospitalAlkaline Hhyhmdjhusc0805-72-37 06:59:00* Test Item Value Reference Range Interpretation Comments Alkaline Phosphatase (test code = 6768-6) 60 40-150 [facility] HospitalLactic Acid Oeyxc3750-92-55 15:26:00* Test Item Value Reference Range Interpretation Comments Lactic Acid Level (test code = Lactic Acid Level) 1.0 0.5- 2.0 [facility] HospitalUrine RND7255-83-31 15:20:00* Test Item Value Reference Range Interpretation Comments Urine WBC (test code = 5821-4) NONE 0-5 [facility] HospitalUrine YDD4174-91-01 15:20:00* Test Item Value Reference Range Interpretation Comments Urine RBC (test code = 90457-2) NONE 0-5 [facility] HospitalUrine Bjbmmlgt3498-13-11 15:20:00* Test Item Value Reference Range Interpretation Comments Urine Bacteria (test code = 76661-4) RARE NONE [facility] HospitalUrine Epithelial Rvbsa9046-38-50 15:20:00 * Test Item Value Reference Range Interpretation Comments Urine Epithelial Cells (test code = 71217-3) NONE NONE [facility] HospitalCT ABDOMEN/PELVIS H9570-67-07 15:06:00 [facility] [address] [place] [address] Patient Name: ANAT FRANCE MR #: [id number] : 1955 Age/Sex: 64/M Req #: [id number] Adm Physician: Ordered by: ED HADLEY WELFARE INVESTIGATOR Report #: [id number] Location: ER Room/Bed: Procedure: 0214-[address]/CT [...] Ayala on 04/17/2019 3:14 PM Dictated By: Phyllis AYALA MD [address] anscribed By: FABRICIO on 04/17/19 8390 COPY TO: ED HADLEY WELFARE INVESTIGATOR Urine Pgumr1737-14-80 15:03:00* Test Item Value Reference Range Interpretation Comments Urine Color (test code = 5778-6) YELLOW YELLOW [facility] HospitalUrine Ofozzeu3044-64-33 15:03:00* Test Item Value Reference Range Interpretation Comments Urine Clarity (test code = 28821-6) CLEAR CLEAR [facility] HospitalUrine Specific Jslovmh6776-71-01 15:03:00 * Test Item Value Reference Range Interpretation Comments Urine Specific [place] (test code = 5811-5) 1.025 1.010-1.02 5 [facility] HospitalUrine hR3989-24-11 15:03:00* Test Item Value Reference Range Interpretation Comments Urine pH (test code = 66208-2) 7 5-7 [facility] HospitalUrine Leukocyte Jqptzjjr4909-17-58 15:03:00* Test Item Value Reference Range Interpretation Comments Urine Leukocyte Esterase (test code = 5799-2) NEGATIVE NEGATIVE [facility] HospitalUrine Oqniofc6188-40-22 15:03:00* Test Item Value Reference Range Interpretation Comments Urine Nitrite (test code = 20475-2) NEGATIVE NEGATIVE [facility] HospitalUrine Ojdtwkm4018-86-13 15:03:00* Test Item Value Reference Range Interpretation Comments Urine Protein (test code = 5804-0) NEGATIVE NEGATIVE [facility] HospitalUrine Glucose (UA)2019-04-17 15:03:00* Test Item Value Reference Range Interpretation Comments Urine Glucose (UA) (test code = 2349-9) NEGATIVE NEGATIVE [facility] HospitalUrine Krgjhhc0317-44-32 15:03:00* Test Item Value Reference Range Interpretation Comments Urine Ketones (test code = 41400-9) NEGATIVE NEGATIVE [facility] HospitalUrine Nfdbkusjvxqv8179-79-98 15:03:00* Test Item Value Reference Range Interpretation Comments Urine Urobilinogen (test code = 75198-2) 0.2 0.2-1 [facility] HospitalUrine Qwwivwvvz0220-46-92 15:03:00* Test Item Value Reference Range Interpretation Comments Urine Bilirubin (test code = 1978-6) NEGATIVE NEGATIVE [facility] HospitalUrine Sphyr2541-20-67 15:03:00* Test Item Value Reference Range Interpretation Comments Urine Blood (test code = 88547-9) NEGATIVE NEGATIVE [facility] HospitalProthrombin Pvef0109-42-44 14:25:00* Test Item Value Reference Range Interpretation Comments Prothrombin Time (test code = 5902-2) 12.7 11.9-14.5 [facility] HospitalProthromb Time International Ratio 2019-04-17 14:25:00* Test Item Value Reference Range Interpretation Comments Prothromb Time International Ratio (test code = 6301-6) 0.90 Oral Anticoagulant Therapy INR Values:1. Low Intensity Therapy 1.5 - 2.02 . Moderate Intensity Therapy 2.0 - 3.03. High Intensity Therapy(1) 2.5 - 3. 54. High Intensity Therapy(2) 3.0 - 4.05. Panic Value INR > 5.0 [facility] HospitalActivated Partial Thromboplast Time 2019-04-17 14:25:00* Test Item Value Reference Range Interpretation Comments Activated Partial Thromboplast Time (test code = 24241-6) 27.4 23.8-35.5 [facility] HospitalFluoroscopic procedure less than one hour yrmuqzxc3845-07-48 13:50:00* Test Item Value Reference Range Interpretation Comments Lactic Acid Level (test code = Lactic Acid Level) 1.0 0.5- 2.0 [facility] HospitalBlood tcpgeyl5984-73-17 13:50:00* Test Item Value Reference Range Interpretation Comments Blood Culture (test code = 79696894) NO GROWTH AFTER 5 DAYS, FINAL REPORT [facility] HospitalUrine color lyhwzgsvckxeg7119-35-69 13:25:00* Test Item Value Reference Range Interpretation Comments Urine Color (test code = 5778-6) YELLOW YELLOW [facility] HospitalUrine vjmamrc1675-21-54 13:25:00* Test Item Value Reference Range Interpretation Comments Urine Clarity (test code = 52114-1) CLEAR CLEAR [facility] Hospitalpecific gravity of Urine by Test strip 2019-04-17 13:25:00* Test Item Value Reference Range Interpretation Comments Urine Specific [place] (test code = 5811-5) 1.025 1.010-1.02 5 [facility] HospitalUrine pH measurement by automated test gqwfn8142-54-71 13:25:00* Test Item Value Reference Range Interpretation Comments Urine pH (test code = 47623-8) 7 5-7 [facility] HospitalUrine leukocyte esterase detection by ipcuyxrs7866-52-46 13:25:00* Test Item Value Reference Range Interpretation Comments Urine Leukocyte Esterase (test code = 5799-2) NEGATIVE NEGATIVE [facility] HospitalUrine nitrite ohbkhgxzs5667-76-35 13:25:00* Test Item Value Reference Range Interpretation Comments Urine Nitrite (test code = 16254-5) NEGATIVE NEGATIVE [facility] HospitalUrine protein measurement by test strip (mass/volume)2019-04-17 13:25:00* Test Item Value Reference Range Interpretation Comments Urine Protein (test code = 5804-0) NEGATIVE NEGATIVE [facility] HospitalUrine glucose imtauvgvd9497-22-22 13:25:00* Test Item Value Reference Range Interpretation Comments Urine Glucose (UA) (test code = 2349-9) NEGATIVE NEGATIVE [facility] HospitalUrine ketones detection by automated test wckdu8467-09-46 13:25:00* Test Item Value Reference Range Interpretation Comments Urine Ketones (test code = 05331-4) NEGATIVE NEGATIVE [facility] HospitalUrine urobilinogen measurement by test strip (mass/volume)2019-04-17 13:25:00* Test Item Value Reference Range Interpretation Comments Urine Urobilinogen (test code = 85181-9) 0.2 0.2-1 [facility] HospitalUrine total bilirubin measurement (mass/volume)2019-04-17 13:25:00* Test Item Value Reference Range Interpretation Comments Urine Bilirubin (test code = 1978-6) NEGATIVE NEGATIVE [facility] HospitalUrine erythrocytes buczysinz0227-23-21 13:25:00* Test Item Value Reference Range Interpretation Comments Urine Blood (test code = 40473-2) NEGATIVE NEGATIVE [facility] HospitalAutomated urine sediment leukocyte count by microscopy (number/high power field)2019-04-17 13:25:00* Test Item Value Reference Range Interpretation Comments Urine WBC (test code = 5821-4) NONE 0-5 [facility] HospitalErythrocytes detection in urine sediment by light fdczwahuuq3287-68-46 13:25:00* Test Item Value Reference Range Interpretation Comments Urine RBC (test code = 71176-1) NONE 0-5 [facility] HospitalBacteria detection in urine sediment by light ryzwyhemaf3487-67-31 13:25:00* Test Item Value Reference Range Interpretation Comments Urine Bacteria (test code = 77863-2) RARE NONE [facility] HospitalEpithelial cells detection in urine sediment by light mbhsssdaxj5034-98-17 13:25:00* Test Item Value Reference Range Interpretation Comments Urine Epithelial Cells (test code = 36736-3) NONE NONE [facility] HospitalABDOMEN 2 PEOW9796-96-22 17:29:00 [facility] [address] [place] [address] Patient Name: ANAT FRANCE MR #: [id number] : 1955 Age/Sex: 64/M Req #: [id number] Adm Physician: Ordered by: SANDIP LUO MD Report #: [id number] Location: ER Room/Bed: Procedure: [id number] DX/ABDOMEN 2 VIEW Exam Date: 03/29/19 Exam [...] 03/29/191731 COPY TO: SANDIP LUO MD Sodium Ikjyl2112-29-42 16:11:00* Test Item Value Reference Range Interpretation Comments Sodium Level (test code = 2951-2) 140 136-145 [facility] HospitalPotassium Qxpiu7461-71-53 16:11:00* Test Item Value Reference Range Interpretation Comments Potassium Level (test code = 2823-3) 3.9 3.5-5.1 [facility] HospitalChloride Glqzp5491-52-79 16:11:00* Test Item Value Reference Range Interpretation Comments Chloride Level (test code = 2075-0) 105 98-107 [facility] HospitalCarbon Dioxide Lfqcg3097-65-66 16:11:00* Test Item Value Reference Range Interpretation Comments Carbon Dioxide Level (test code = 2028-9) 25 22-29 [facility] HospitalAnion Sgw0275-10-82 16:11:00* Test Item Value Reference Range Interpretation Comments Anion Gap (test code = 19216-6) 13.9 8-16 [facility] HospitalBlood Urea Dnvfzwzl1438-28-83 16:11:00* Test Item Value Reference Range Interpretation Comments Blood Urea Nitrogen (test code = 3094-0) 8 7-26 [facility] HospitalCreatinine2020-01-26 16:11:00* Test Item Value Reference Range Interpretation Comments Creatinine (test code = 2160-0) 0.87 0.72-1.25 [facility] HospitalBUN/Creatinine Jlftc0549-22-61 16:11:00* Test Item Value Reference Range Interpretation Comments BUN/Creatinine Ratio (test code = 3097-3) 9 6- [facility] HospitalEstimat Glomerular Filtration Rate 2019-03-29 16:11:00* Test Item Value Reference Range Interpretation Comments Estimat Glomerular Filtration Rate (test code = 239199996) > 60 >60 Ranges were taken from the National Kidney Disease Education Program and the [facility] literature.Reference ranges:60 or greater: Hhyewq00-19 ( for 3 consecutive months): Chronic kidney disease 15 or less: Kidney failureMethodist [facility] HospitalGlucose Glokz3743-97-89 16:11:00* Test Item Value Reference Range Interpretation Comments Glucose Level (test code = HGS2025) 98 74-118 [facility] HospitalCalcium Wrkwx8354-92-20 16:11:00* Test Item Value Reference Range Interpretation Comments Calcium Level (test code = 77498-4) 9.5 8.4-10.2 [facility] HospitalTotal Pgoowsuti5923-42-59 16:11:00* Test Item Value Reference Range Interpretation Comments Total Bilirubin (test code = 1975-2) 0.9 0.2-1.2 [facility] HospitalAspartate Amino Transf (AST/SGOT) 2019-03-29 16:11:00* Test Item Value Reference Range Interpretation Comments Aspartate Amino Transf (AST/SGOT) (test code = Aspartate Amino Transf (AST/SGOT)) 18 5-34 [facility] HospitalAlanine Aminotransferase (ALT/SGPT) 2019-03-29 16:11:00* Test Item Value Reference Range Interpretation Comments Alanine Aminotransferase (ALT/SGPT) (test code = 1742-6) 19 0-55 [facility] HospitalTotal Qooofbk8711-49-44 16:11:00* Test Item Value Reference Range Interpretation Comments Total Protein (test code = 2885-2) 6.5 6.5-8.1 [facility] HospitalAlbumin2020-01-26 16:11:00* Test Item Value Reference Range Interpretation Comments Albumin (test code = 1751-7) 3.8 3.5-5.0 [facility] HospitalGlobulin2020-01-26 16:11:00* Test Item Value Reference Range Interpretation Comments Globulin (test code = 33233-9) 2.7 2.3-3.5 [facility] HospitalAlbumin/Globulin Omxpt2477-79-24 16:11:00 * Test Item Value Reference Range Interpretation Comments Albumin/Globulin Ratio (test code = 1759-0) 1.4 0.8-2.0 [facility] HospitalAlkaline Wpbdrttfzem9752-00-66 16:11:00* Test Item Value Reference Range Interpretation Comments Alkaline Phosphatase (test code = 6768-6) 69 40-150 [facility] HospitalCreatine Nfjljo1054-80-49 16:11:00* Test Item Value Reference Range Interpretation Comments Creatine Kinase (test code = 2157-6) 45 30-200 [facility] HospitalCreatine Kinase FH7243-02-74 16:11:00* Test Item Value Reference Range Interpretation Comments Creatine Kinase MB (test code = 20682-5) 1.00 0-5.0 [facility] HospitalTroponin J6233-44-94 16:11:00* Test Item Value Reference Range Interpretation Comments Troponin I (test code = BYS5354) 0.004 0-0.300 [facility] HospitalCreatine Yzjvox4558-47-49 16:11:00* Test Item Value Reference Range Interpretation Comments Creatine Kinase (test code = 2157-6) 45 30-200 [facility] HospitalCreatine Kinase DF2097-66-18 16:11:00* Test Item Value Reference Range Interpretation Comments Creatine Kinase MB (test code = 98378-7) 1.00 0-5.0 [facility] HospitalTrformerly [facility]n B5281-99-32 16:11:00* Test Item Value Reference Range Interpretation Comments Troponin I (test code = OKV9097) 0.004 0-0.300 [facility] HospitalWhite Blood Pecdy9430-17-75 15:44:00* Test Item Value Reference Range Interpretation Comments White Blood Count (test code = 6690-2) 8.91 4.8-10.8 [facility] HospitalRed Blood Qpvfc9639-20-62 15:44:00* Test Item Value Reference Range Interpretation Comments Red Blood Count (test code = 789-8) 4.57 4.3-5.7 [facility] HospitalHemoglobin2020-01-26 15:44:00* Test Item Value Reference Range Interpretation Comments Hemoglobin (test code = 58808-5) 12.7 14.0-18.0 L [facility] HospitalHematocrit2020-01-26 15:44:00* Test Item Value Reference Range Interpretation Comments Hematocrit (test code = 4544-3) 39.3 38.2-49.6 [facility] HospitalMean Corpuscular Jebyrk5879-68-53 15:44:00* Test Item Value Reference Range Interpretation Comments Mean Corpuscular Volume (test code = 787-2) 86.0 81-99 [facility] HospitalMean Corpuscular Lezdsogxfp0707-71-31 15:44:00* Test Item Value Reference Range Interpretation Comments Mean Corpuscular Hemoglobin (test code = 785-6) 27.8 28-32 L [facility] HospitalMean Corpuscular Hemoglobin Concent 2019-03-29 15:44:00* Test Item Value Reference Range Interpretation Comments Mean Corpuscular Hemoglobin Concent (test code = 786-4) 32.3 31-35 [facility] HospitalRed Cell Distribution Giajy2402-15-83 15:44:00* Test Item Value Reference Range Interpretation Comments Red Cell Distribution Width (test code = 60098-0) 13.6 11.7 -14.4 [facility] HospitalPlatelet Eqcvu9843-47-14 15:44:00* Test Item Value Reference Range Interpretation Comments Platelet Count (test code = 777-3) 346 140-360 [facility] HospitalNeutrophils (%) (Auto)2019-03-29 15:44:00 * Test Item Value Reference Range Interpretation Comments Neutrophils (%) (Auto) (test code = 17802-4) 76.6 38.7-80.0 [facility] HospitalLymphocytes (%) (Auto)2019-03-29 15:44:00 * Test Item Value Reference Range Interpretation Comments Lymphocytes (%) (Auto) (test code = 736-9) 13.2 18.0-39.1 L [facility] HospitalMonocytes (%) (Auto)2019-03-29 15:44:00* Test Item Value Reference Range Interpretation Comments Monocytes (%) (Auto) (test code = 5905-5) 8.0 4.4-11.3 [facility] HospitalEosinophils (%) (Auto)2019-03-29 15:44:00 * Test Item Value Reference Range Interpretation Comments Eosinophils (%) (Auto) (test code = 713-8) 1.2 0.0-6.0 [facility] [facility] ([facility])2019-03-29 15:44:00* Test Item Value Reference Range Interpretation Comments Basophils (%) (Auto) (test code = 706-2) 0.6 0.0-1.0 [facility]IM [facility]ULOCYTES %2019-03-29 15:44:00* Test Item Value Reference Range Interpretation Comments IM GRANULOCYTES % (test code = IM GRANULOCYTES %) 0.4 0.0- 1.0 [facility] HospitalNeutrophils # (Auto)2019-03-29 15:44:00* Test Item Value Reference Range Interpretation Comments Neutrophils # (Auto) (test code = 751-8) 6.8 2.1-6.9 [facility] HospitalLymphocytes # (Auto)2019-03-29 15:44:00* Test Item Value Reference Range Interpretation Comments Lymphocytes # (Auto) (test code = 76945-5) 1.2 1.0-3.2 [facility]Monocytes # (Auto)2019-03-29 15:44:00* Test Item Value Reference Range Interpretation Comments Monocytes # (Auto) (test code = 742-7) 0.7 0.2-0.8 [facility] HospitalEosinophils # (Auto)2019-03-29 15:44:00* Test Item Value Reference Range Interpretation Comments Eosinophils # (Auto) (test code = 711-2) 0.1 0.0-0.4 [facility]Basophils # (Auto)2019-03-29 15:44:00* Test Item Value Reference Range Interpretation Comments Basophils # (Auto) (test code = 704-7) 0.1 0.0-0.1 [facility] HospitalAbsolute Immature Granulocyte (auto 2019-03-29 15:44:00* Test Item Value Reference Range Interpretation Comments Absolute Immature Granulocyte (auto (efrem t code = Absolute Immature Granulocyte (auto) 0.04 0-0.1 [facility] HospitalUrine Vdjin9628-38-15 15:44:00* Test Item Value Reference Range Interpretation Comments Urine Color (test code = 5778-6) YELLOW YELLOW [facility] HospitalUrine Rwjmaua6440-95-07 15:44:00* Test Item Value Reference Range Interpretation Comments Urine Clarity (test code = 48233-3) CLEAR CLEAR [facility] HospitalUrine Specific Qynyrzz6653-67-42 15:44:00 * Test Item Value Reference Range Interpretation Comments Urine Specific [place] (test code = 5811-5) 1.030 1.010-1.02 5 H [facility] HospitalUrine jF3233-27-70 15:44:00* Test Item Value Reference Range Interpretation Comments Urine pH (test code = 10021-5) 6 5-7 [facility] Leukocyte Gnwkpgox8460-79-72 15:44:00* Test Item Value Reference Range Interpretation Comments Urine Leukocyte Esterase (test code = 5799-2) NEGATIVE NEGATIVE [facility] HospitalUrine Xdhsslr7972-05-27 15:44:00* Test Item Value Reference Range Interpretation Comments Urine Nitrite (test code = 75765-8) NEGATIVE NEGATIVE [facility] HospitalUrine Ksrwdvs2232-05-34 15:44:00* Test Item Value Reference Range Interpretation Comments Urine Protein (test code = 5804-0) NEGATIVE NEGATIVE [facility] HospitalUrine Glucose (UA)2019-03-29 15:44:00* Test Item Value Reference Range Interpretation Comments Urine Glucose (UA) (test code = 2349-9) NEGATIVE NEGATIVE [facility] HospitalUrine Fqdyuwj2725-09-02 15:44:00* Test Item Value Reference Range Interpretation Comments Urine Ketones (test code = 01669-4) NEGATIVE NEGATIVE [facility] HospitalU[facility] Vkioijcavztg1269-23-38 15:44:00* Test Item Value Reference Range Interpretation Comments Urine Urobilinogen (test code = 73351-6) 0.2 0.2-1 [facility] HospitalUrine Pqvkeacbr3420-56-71 15:44:00* Test Item Value Reference Range Interpretation Comments Urine Bilirubin (test code = 1978-6) NEGATIVE NEGATIVE [facility] HospitalUrine Nlaay2586-08-15 15:44:00* Test Item Value Reference Range Interpretation Comments Urine Blood (test code = 96503-4) NEGATIVE NEGATIVE [facility] HospitalUrine MHW0178-63-93 15:44:00* Test Item Value Reference Range Interpretation Comments Urine WBC (test code = 5821-4) 0-5 0-5 [facility] OQB8572-22-30 15:44:00* Test Item Value Reference Range Interpretation Comments Urine RBC (test code = 76613-4) 0-5 0-5 [facility] HospitalUrine Uikhpwat7716-01-25 15:44:00* Test Item Value Reference Range Interpretation Comments Urine Bacteria (test code = 07182-5) RARE NONE [facility] HospitalUrine Epithelial Noecv6510-73-03 15:44:00 * Test Item Value Reference Range Interpretation Comments Urine Epithelial Cells (test code = 91010-1) FEW NONE [facility]erum or plasma creatine kinase measurement (enzymatic activity/volume)2019-03-29 13:00:00* Test Item Value Reference Range Interpretation Comments Creatine Kinase (test code = 2157-6) 45 30-200 [facility] Hospitalerum or plasma creatine kinase MB measurement (mass/volume)2019-03-29 13:00:00* Test Item Value Reference Range Interpretation Comments Creatine Kinase MB (test code = 15684-6) 1.00 0-5.0 [facility] HospitalTroponin I measurement by highly sensitive enzyme lsoaqdnxsya4451-30-74 13:00:00* Test Item Value Reference Range Interpretation Comments Troponin I (test code = 31276-3) 0.004 0-0.300 [facility] Hospitalodium Gjjwp8951-50-06 06:01:00* Test Item Value Reference Range Interpretation Comments Sodium Level (test code = 2951-2) 138 136-145 [facility] HospitalPotassium Mckfr9508-57-06 06:01:00* Test Item Value Reference Range Interpretation Comments Potassium Level (test code = 2823-3) 3.5 3.5-5.1 [facility] HospitalChloride Rhfsi9037-53-14 06:01:00* Test Item Value Reference Range Interpretation Comments Chloride Level (test code = 2075-0) 105 98-107 [facility] HospitalCarbon Dioxide Dinqb5050-00-33 06:01:00* Test Item Value Reference Range Interpretation Comments Carbon Dioxide Level (test code = 2028-9) 24 22-29 [facility] HospitalAnion Orf2783-22-29 06:01:00* Test Item Value Reference Range Interpretation Comments Anion Gap (test code = 11650-9) 12.5 8-16 [facility] HospitalBlood Urea Ywyaedhg9176-89-27 06:01:00* Test Item Value Reference Range Interpretation Comments Blood Urea Nitrogen (test code = 3094-0) 8 7-26 [facility] HospitalCreatinine2019-12-27 06:01:00* Test Item Value Reference Range Interpretation Comments Creatinine (test code = 2160-0) 0.88 0.72-1.25 [facility] HospitalBUN/Creatinine Ckayg2500-30-75 06:01:00* Test Item Value Reference Range Interpretation Comments BUN/Creatinine Ratio (test code = 3097-3) 9 6-25 [facility] HospitalEstimat Glomerular Filtration Rate 2019-02-27 06:01:00* Test Item Value Reference Range Interpretation Comments Estimat Glomerular Filtration Rate (test code = 499903804) > 60 >60 Ranges were taken from the National Kidney Disease Education Program and the [facility] literature.Reference ranges:60 or greater: Hrqown22-98 ( for 3 consecutive months): Chronic kidney disease 15 or less: Kidney failureMethodist Southlake HospitalGlucose Fvbrv5839-52-44 06:01:00* Test Item Value Reference Range Interpretation Comments Glucose Level (test code = JIL6478) 119 74-118 H [facility] HospitalCalcium Uadoj4148-36-99 06:01:00* Test Item Value Reference Range Interpretation Comments Calcium Level (test code = 65424-0) 8.3 8.4-10.2 L [facility] HospitalTotal Cxglqhgfi2718-99-74 06:01:00* Test Item Value Reference Range Interpretation Comments Total Bilirubin (test code = 1975-2) 1.0 0.2-1.2 [facility] HospitalAspartate Amino Transf (AST/SGOT) 2019-02-27 06:01:00* Test Item Value Reference Range Interpretation Comments Aspartate Amino Transf (AST/SGOT) (test code = Aspartate Amino Transf (AST/SGOT)) 28 5-34 [facility] HospitalAlanine Aminotransferase (ALT/SGPT) 2019-02-27 06:01:00* Test Item Value Reference Range Interpretation Comments Alanine Aminotransferase (ALT/SGPT) (test code = 1742-6) 37 0-55 [facility] HospitalTotal Kqsgqcv8290-23-77 06:01:00* Test Item Value Reference Range Interpretation Comments Total Protein (test code = 2885-2) 4.9 6.5-8.1 L [facility] HospitalAlbumin2019-12-27 06:01:00* Test Item Value Reference Range Interpretation Comments Albumin (test code = 1751-7) 2.2 3.5-5.0 L [facility] HospitalGlobulin2019-12-27 06:01:00* Test Item Value Reference Range Interpretation Comments Globulin (test code = 56379-3) 2.7 2.3-3.5 [facility] HospitalAlbumin/Globulin Lsdbx0224-51-92 06:01:00 * Test Item Value Reference Range Interpretation Comments Albumin/Globulin Ratio (test code = 1759-0) 0.8 0.8-2.0 [facility] HospitalAlkaline Oxjuxexnryi2204-53-05 06:01:00* Test Item Value Reference Range Interpretation Comments Alkaline Phosphatase (test code = 6768-6) 84 40-150 [facility] HospitalWhite Blood Sdjdw3569-89-26 05:45:00* Test Item Value Reference Range Interpretation Comments White Blood Count (test code = 6690-2) 11.43 4.8-10.8 H [facility] HospitalRed Blood Yyxrl1382-25-35 05:45:00* Test Item Value Reference Range Interpretation Comments Red Blood Count (test code = 789-8) 3.26 4.3-5.7 L [facility] HospitalHemoglobin2019-12-27 05:45:00* Test Item Value Reference Range Interpretation Comments Hemoglobin (test code = 25470-1) 9.6 14.0-18.0 L [facility] HospitalHematocrit2019-12-27 05:45:00* Test Item Value Reference Range Interpretation Comments Hematocrit (test code = 4544-3) 28.3 38.2-49.6 L [facility] HospitalMean Corpuscular Nycbco9650-01-08 05:45:00* Test Item Value Reference Range Interpretation Comments Mean Corpuscular Volume (test code = 787-2) 86.8 81-99 [facility] HospitalMean Corpuscular Wfmsiqqrkr9055-87-02 05:45:00* Test Item Value Reference Range Interpretation Comments Mean Corpuscular Hemoglobin (test code = 785-6) 29.4 28-32 [facility] HospitalMean Corpuscular Hemoglobin Concent 2019-02-27 05:45:00* Test Item Value Reference Range Interpretation Comments Mean Corpuscular Hemoglobin Concent (test code = 786-4) 33.9 31-35 [facility] HospitalRed Cell Distribution Kabrb3237-11-10 05:45:00* Test Item Value Reference Range Interpretation Comments Red Cell Distribution Width (test code = 94677-6) 12.9 11.7 -14.4 [facility] HospitalPlatelet Xqsae4359-63-11 05:45:00* Test Item Value Reference Range Interpretation Comments Platelet Count (test code = 777-3) 375 140-360 H [facility] HospitalNeutrophils (%) (Auto)2019-02-27 05:45:00 * Test Item Value Reference Range Interpretation Comments Neutrophils (%) (Auto) (test code = 10850-1) 73.5 38.7-80.0 [facility] HospitalLymphocytes (%) (Auto)2019-02-27 05:45:00 * Test Item Value Reference Range Interpretation Comments Lymphocytes (%) (Auto) (test code = 736-9) 7.8 18.0-39.1 L [facility] HospitalMonocytes (%) (Auto)2019-02-27 05:45:00* Test Item Value Reference Range Interpretation Comments Monocytes (%) (Auto) (test code = 5905-5) 10.1 4.4-11.3 [facility] HospitalEosinophils (%) (Auto)2019-02-27 05:45:00 * Test Item Value Reference Range Interpretation Comments Eosinophils (%) (Auto) (test code = 713-8) 5.7 0.0-6.0 [facility] HospitalBasophils (%) (Auto)2019-02-27 05:45:00* Test Item Value Reference Range Interpretation Comments Basophils (%) (Auto) (test code = 706-2) 0.5 0.0-1.0 [facility] HospitalIM GRANULOCYTES %2019-02-27 05:45:00* Test Item Value Reference Range Interpretation Comments IM GRANULOCYTES % (test code = IM GRANULOCYTES %) 2.4 0.0- 1.0 H [facility] HospitalNeutrophils # (Auto)2019-02-27 05:45:00* Test Item Value Reference Range Interpretation Comments Neutrophils # (Auto) (test code = 751-8) 8.4 2.1-6.9 H [facility] HospitalLymphocytes # (Auto)2019-02-27 05:45:00* Test Item Value Reference Range Interpretation Comments Lymphocytes # (Auto) (test code = 91871-3) 0.9 1.0-3.2 L [facility] HospitalMonocytes # (Auto)2019-02-27 05:45:00* Test Item Value Reference Range Interpretation Comments Monocytes # (Auto) (test code = 742-7) 1.2 0.2-0.8 H [facility] HospitalEosinophils # (Auto)2019-02-27 05:45:00* Test Item Value Reference Range Interpretation Comments Eosinophils # (Auto) (test code = 711-2) 0.7 0.0-0.4 H [facility] HospitalBasophils # (Auto)2019-02-27 05:45:00* Test Item Value Reference Range Interpretation Comments Basophils # (Auto) (test code = 704-7) 0.1 0.0-0.1 [facility] HospitalAbsolute Immature Granulocyte (auto 2019-02-27 05:45:00* Test Item Value Reference Range Interpretation Comments Absolute Immature Granulocyte (auto (efrem t code = Absolute Immature Granulocyte (auto) 0.28 0-0.1 H [facility] HospitalABDOMEN ACUTE SERIES W/PA ZVY1612-05-59 13:47:00 [place] [address] Patient Name: ANAT FRANCE MR #: [id number] : 1955 Age/Sex: 64/M Req #: [id number] Adm Physician: EWA RAYMOND MD Ordered by: EWA RAYMOND MD Report #: [id number] Location: MED/SURG Room/Bed: [facility] Procedure: [id number] DX/ABDOMEN ACUTE SERIES W/PA CXR Exam Date: [...] OPY TO: EWA RAYMOND MD CT ABDOMEN/PELVIS O9084-67-20 17:35:00 [place] [address] Patient Name: ANAT FRANCE MR #: [id number] : 1955 Age/Sex: 64/M Req #: [id number] Adm Physician: EWA RAYMOND MD Ordered by: EWA RAYMOND MD Report #: [id number] Location: MED/SURG Room/Bed: [facility] Procedure: [id number] CT/CT ABDOMEN/PELVIS W Exam Date: 02/24/19 Exam [...] colon mass resection with direct colonic reanastomosis. Cqfee-yi-glccbqyw peritoneum in the right upper quadrant as [...] TO: EWA RAYMOND MD ABDOMEN ACUTE SERIES W/MARY GFJ1152-21-37 15:33:00 [place] [address] Patient Name: ANAT FRANCE MR #: [id number] : 1955 Age/Sex: 64/M Req #: [id number] Adm Physician: EWA RAYMOND MD Ordered by: EWA RAYMOND MD Report #: [id number] Location: MED/SURG Room/Bed: [facility] Procedure: [id number] DX/ABDOMEN ACUTE SERIES W/PA CXR Exam Date: [...] 3:40 PM Dictated By: KAUSHAL MOORE MD 3160 Transcribed By: FABRICIO on 02/24/19 1540 COPY TO: EWA SOTO MD Differential Total Cells Zzgwkep2037-47-12 12:44:00* Test Item Value Reference Range Interpretation Comments Differential Total Cells Counted (test code = Differen tial Total Cells Counted) 100 [facility] HospitalNeutrophils % (Manual)2019-02-19 12:44:00 * Test Item Value Reference Range Interpretation Comments Neutrophils % (Manual) (test code = 27168-5) 80 40-74 H [facility] HospitalBand Neutrophils %2019-02-19 12:44:00* Test Item Value Reference Range Interpretation Comments Band Neutrophils % (test code = 764-1) 10 [facility] HospitalLymphocytes % (Manual)2019-02-19 12:44:00 * Test Item Value Reference Range Interpretation Comments Lymphocytes % (Manual) (test code = 737-7) 3 19-48 L [facility] HospitalMonocytes % (Manual)2019-02-19 12:44:00* Test Item Value Reference Range Interpretation Comments Monocytes % (Manual) (test code = 744-3) 7 3.4-9.0 [facility] HospitalPlatelet Guahjmxa3971-81-58 12:44:00* Test Item Value Reference Range Interpretation Comments Platelet Estimate (test code = 76819-4) ADEQUATE [facility] HospitalPlatelet Morphology Mbjnssq8347-18-29 12:44:00* Test Item Value Reference Range Interpretation Comments Platelet Morphology Comment (test code = 26965-5) NORMAL [facility] HospitalRed Cell Morphology Qweewiz7233-08-61 12:44:00* Test Item Value Reference Range Interpretation Comments Red Cell Morphology Comment (test code = 6742-1) NORMAL [facility] HospitalDifferential Total Cells Counted 2019-02-19 12:44:00* Test Item Value Reference Range Interpretation Comments Differential Total Cells Counted (test code = Connor tial Total Cells Counted) 100 [facility] HospitalNeutrophils % (Manual)2019-02-19 12:44:00 * Test Item Value Reference Range Interpretation Comments Neutrophils % (Manual) (test code = 88922-7) 80 40-74 H [facility] HospitalBand Neutrophils %2019-02-19 12:44:00* Test Item Value Reference Range Interpretation Comments Band Neutrophils % (test code = 764-1) 10 [facility] HospitalLymphocytes % (Manual)2019-02-19 12:44:00 * Test Item Value Reference Range Interpretation Comments Lymphocytes % (Manual) (test code = 737-7) 3 19-48 L [facility] HospitalMonocytes % (Manual)2019-02-19 12:44:00* Test Item Value Reference Range Interpretation Comments Monocytes % (Manual) (test code = 744-3) 7 3.4-9.0 [facility] HospitalPlatelet Xtbwatmk2215-57-04 12:44:00* Test Item Value Reference Range Interpretation Comments Platelet Estimate (test code = 42132-0) ADEQUATE [facility] HospitalPlatelet Morphology Tjdqxfg3687-56-50 12:44:00* Test Item Value Reference Range Interpretation Comments Platelet Morphology Comment (test code = 24519-0) NORMAL [facility] HospitalRed Cell Morphology Qgdyigc8920-28-70 12:44:00* Test Item Value Reference Range Interpretation Comments Red Cell Morphology Comment (test code = 6742-1) NORMAL [facility] HospitalDifferential Total Cells Counted 2019-02-19 12:44:00* Test Item Value Reference Range Interpretation Comments Differential Total Cells Counted (test code = Differeulalia tial Total Cells Counted) 100 [facility] HospitalNeutrophils % (Manual)2019-02-19 12:44:00 * Test Item Value Reference Range Interpretation Comments Neutrophils % (Manual) (test code = 09762-1) 80 40-74 H [facility] HospitalBand Neutrophils %2019-02-19 12:44:00* Test Item Value Reference Range Interpretation Comments Band Neutrophils % (test code = 764-1) 10 [facility] HospitalLymphocytes % (Manual)2019-02-19 12:44:00 * Test Item Value Reference Range Interpretation Comments Lymphocytes % (Manual) (test code = 737-7) 3 19-48 L [facility] HospitalMonocytes % (Manual)2019-02-19 12:44:00* Test Item Value Reference Range Interpretation Comments Monocytes % (Manual) (test code = 744-3) 7 3.4-9.0 [facility] HospitalPlatelet Ssuuyfon4877-51-25 12:44:00* Test Item Value Reference Range Interpretation Comments Platelet Estimate (test code = 02892-3) ADEQUATE [facility] HospitalPlatelet Morphology Doknfpz3189-84-80 12:44:00* Test Item Value Reference Range Interpretation Comments Platelet Morphology Comment (test code = 21195-0) NORMAL [facility] HospitalRed Cell Morphology Ajuumix5379-31-45 12:44:00* Test Item Value Reference Range Interpretation Comments Red Cell Morphology Comment (test code = 6742-1) NORMAL [facility] HospitalFluoroscopic procedure less than one hour skexvojf2448-83-06 03:35:00* Test Item Value Reference Range Interpretation Comments Differential Total Cells Counted (test code = Differen tial Total Cells Counted) 100 [facility] neutrophils/100 leukocytes 2019-02-19 03:35:00* Test Item Value Reference Range Interpretation Comments Neutrophils % (Manual) (test code = 61073-4) 80 40-74 [facility] blood band neutrophils form/100 yzbxalgqlu7285-50-57 03:35:00* Test Item Value Reference Range Interpretation Comments Band Neutrophils % (test code = 764-1) 10 [facility] blood lymphocytes/100 leukocytes 2019-02-19 03:35:00* Test Item Value Reference Range Interpretation Comments Lymphocytes % (Manual) (test code = 737-7) 3 19-48 [facility] blood monocytes/100 leukocytes 2019-02-19 03:35:00* Test Item Value Reference Range Interpretation Comments Monocytes % (Manual) (test code = 744-3) 7 3.4-9.0 [facility] HospitalBlood platelets count by estimate (number/volume)2019-02-19 03:35:00* Test Item Value Reference Range Interpretation Comments Platelet Estimate (test code = 57450-8) ADEQUATE [facility] HospitalPlatelet ouyzhtjeog8448-04-05 03:35:00* Test Item Value Reference Range Interpretation Comments Platelet Morphology Comment (test code = 14804-4) NORMAL [facility] HospitalRBC uhyeojypqb2435-76-17 03:35:00* Test Item Value Reference Range Interpretation Comments Red Cell Morphology Comment (test code = 6742-1) NORMAL [facility] HospitalCHEST 2 ZVZZO7778-61-60 16:47:00 [facility] [address] [place] [address] Patient Name: ANAT FRANCE MR #: [id number] : 1955 Age/Sex: 64/M Req #: [id number] Adm Physician: Ordered by: EWA RAYMOND MD Report #: [id number] Location: OR Room/Bed: Procedure: [id number] DX/CHEST [...] 1648 COPY TO: EWA RAYMOND CT ABDOMEN/PELVIS [id number] 17:07:[address] [address] Patient Name: ANAT FRANCE MR #: [id number] : 1955 Age/Sex: 64/M Req #: [id number] Adm Physician: Ordered by: ASUNCION OH MD Report #: [id number] Location: CT Room/Bed: Procedure: 1206-[address]/CT [...]
[2019-11-05] MEDS ORDERED: DIAZEPAM 5 MG TAB PO ONE (10:15)
[2019-11-05 10:19] LABS: BASOPHILS # (AUTO) 0.1 (0.0-0.1); BASOPHILS % 0.6 % (0.0-1.0); EOSINOPHILS % 0.3 % (0.0-6.0); HEMATOCRIT 37.9 % (38.2-49.6); HEMOGLOBIN 11.9 g/dL (14.0-18.0); LYMPHOCYTES # (AUTO) 0.7 (1.0-3.2); LYMPHOCYTES % 4.9 % (18.0-39.1); MEAN CORPUSCULAR HEMOGLOBIN 26.2 pg (28-32); MEAN CORPUSCULAR HGB CONC 31.4 g/dL (31-35); MEAN CORPUSCULAR VOLUME 83.5 fL (81-99); MONOCYTES # (AUTO) 1.5 (0.2-0.8); NEUTROPHILS # (AUTO) 11.3 (2.1-6.9); NEUTROPHILS % 82.5 % (38.7-80.0); PLATELET COUNT 321 x10e3/uL (140-360); RED BLOOD COUNT 4.54 x10e6/uL (4.3-5.7); RED CELL DISTRIBUTION WIDTH 15.5 % (11.7-14.4)
--- NOTE | 2019-11-05 10:31 | Diagnostic Imaging Report ---
Chest, 1 view, 11/05/2019. History: Shortness of breath. Comparison: 10/13/2019. Findings: The cardiomediastinal silhouette and pulmonary vasculature are within normal limits for a portable exam. There is no focal consolidation or pleural effusion. There are no acute osseous or soft tissue abnormalities. Impression: No acute cardiopulmonary abnormality. Signed by: Nikita Ayala on 11/05/2019 10:28 AM
--- NOTE | 2019-11-05 10:43 | Emergency Department Note ---
History of Present Illnes History of Present Illness Chief Complaint: COVID PUI History of Present Illness This is a 64 year old male arrived to the ED with complaints of shortness of breath worse when taking a deep breath, pt states he had pleurisy several years ago and this feels similar. . Timing of current episode: intermittent Progression: waxing and waning Chronicity: new Context: Denies recent illness Relieving factors: none Past Medical/Family History Physician Review I have reviewed the patient's past medical and family history. Any updates have been documented here. Past Medical History Past Medical History: TIA, Cancer Other Medical History: MURMUR COLON CANCER bowel obstruction Past Surgical History: Colon Resection Other Last Tetanus: UNKNOWN Physical Exam Related Data Allergies: Coded Allergies: No Known Allergies (Unverified , 02/03/19) Physical Exam CONSTITUTIONAL HENT EYES NECK PULMONARY CARDIOVASCULAR GASTROINTESTINAL GENITOURINARY SKIN MUSCULOSKELETAL NEUROLOGICAL PSYCHOLOGICAL Assessment & Plan Home Meds Reported Medications Hydrocodone Bit/Acetaminophen (NORCO 7.5-325 TABLET) 1 Each Tablet, 1 TAB PO Q4H PRN, TAB 10/24/19 VINICIUS WILKINS DO Nov 05, 2019 10:43
[2019-11-05 10:51] LABS: ALANINE AMINOTRANSFERASE 27 IU/L (0-55); ALBUMIN 4.1 g/dL (3.5-5.0); ALBUMIN/GLOBULIN RATIO 1.4 (0.8-2.0); ALKALINE PHOSPHATASE 113 IU/L (40-150); ANION GAP 14.2 mmol/L (8-16); BLOOD UREA NITROGEN 10 mg/dL (7-26); BUN/CREATININE RATIO 11 (6-25); CALCIUM 9.4 mg/dL (8.4-10.2); CARBON DIOXIDE 23 mmol/L (22-29); CHLORIDE 103 mmol/L (98-107); CREATINE KINASE 14 IU/L (30-200); CREATININE, SERUM 0.93 mg/dL (0.72-1.25); EST GLOMERULAR FILTRATION RATE > 60 ML/MIN (60-); GLUCOSE 109 mg/dL (74-118); LIPASE 11 U/L (8-78); POTASSIUM 4.2 mmol/L (3.5-5.1); SODIUM 136 mmol/L (136-145)
--- NOTE | 2019-11-05 11:23 | NUR ---
Note undone in EDM - 11/05/19 at 1351 by JANELLE Pt brought to room into room with Mindy RN, pt almost unable to stand. Trying to direct this RN into a wheelchair, this RN holding pt to assist with ambulation, pt diaphoretic, tachypneic and but speaking in full sentences, slight auditory wheezing noted. Pt goes to room and turns on wall O2 and using her waving her hands to have the O2 blow into her mouth. Almost placing her mouth on the O2 connecting port. This RN was attempting to obtain rm air saturation, when this RN had back turn, pt grabbed O2 tubing and placed on herself. Pt then showing Saturation level of 96%. SKYLER Guillen present in room. Pt reports to this RN after CN left room that she her doctor took her portable O2 away b/c she does not qualify b/c her sats do not drop below 88%. Pt then procedes to demand to have RT there, and states wants xopenex not albuterol. Pt is very demanding will not keep mask on and coughing at this RN repeatedly. Sats 100%. Speaking in full sentences. Pt very demanding, reports she just wants to get neb treatment and leave. Applied CM and BP cuff, pt then rips before BP was completed. At this point this RN left room. About 2 minutes later, pt was seen by witnesses walking out room to ambulance doors and grabbed keys from [employer]. Drove away in her truck, airway intact and still breathing.
--- NOTE | 2019-11-05 12:22 | Diagnostic Imaging Report ---
CT of the chest, PE protocol, with contrast, 11/05/2019. History: Shortness of breath. Comparison: Chest x-ray from earlier today. Technique: Multidetector thin collimation CT scanning of the chest was performed from the level of the apices to the upper abdomen during the pulmonary arterial phase, after intravenous administration of contrast. Coronal and sagittal MIP reformations were obtained. RADIATION DOSE: Total DLP: 493 mGy*cm Dose modulation, iterative reconstruction, and/or weight based adjustment of the mA/kV was utilized to reduce the radiation dose to as low as reasonably achievable. Discussion: Chest: The pulmonary arteries are well-opacified demonstrating hypodense filling defects within right middle lobe, lingular, and bilateral lower lobe segmental pulmonary artery branches. The main pulmonary artery is normal in size measuring 2.5 cm in diameter. The heart and aorta are normal in size. There is no IVC contrast reflux or right ventricular enlargement. Thyroid is unremarkable. There is no axillary or mediastinal adenopathy. There is bibasilar atelectasis with trace bilateral pleural effusions. Limited evaluation of the upper abdomen shows normal bilateral adrenal glands. Bones and soft tissues: No acute abnormality. Mild degenerative changes are present throughout the thoracic spine. IMPRESSION: Bilateral segmental pulmonary emboli. The findings were discussed with Dr. Robles at 12:15 on 11/05/2019. Signed by: Nikita Ayala on 11/05/2019 12:19 PM
[2019-11-05] MEDS ORDERED: ENOXAPARIN SODIUM INJ 100 MG/ML SYR SC SCH (12:30)
[2019-11-05] MEDS ORDERED: ENOXAPARIN SODIUM INJ 100 MG/ML SYR SC ONE (12:32)
[2019-11-05] MEDS: ENOXAPARIN INJ 80 MG/0.8 ML SYR SC SCH ×2 (12:35→20:41)
--- OUTSIDE RECORDS SUMMARY | 2019-11-05 12:46 | XMS REPORT | Clinical Summary ---
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
--- OUTSIDE RECORDS SUMMARY | 2019-11-05 12:47 | XMS REPORT | Continuity of Care Document ---
Author Author [facility] Organization [facility] Address [address] [place] [address] Phone Unavailable Care Team Providers Care Fork Assembler Name Role Phone MARBELLA SERRANO DO ARANDA PCP Manda ROBLES Attphys Unavailable [place], [place] Attphys Unavailable PUJA A LAIRD Attphys Unavailable Charleen RAYMOND Attphys Unavailable [place], ASUNCION Attphys Unavailable JUVEANDDR CORIN Batres Attphys Unavailable [place], [place] Admphys Unavailable Charleen RAYMOND Admphys Unavailable DR CORIN MEDINA Admjessica Unavailable Payers Payer Name Policy Type Policy Number Effective Date [id number] 2019 00:00:00 [facility] Cdc Review Covid19 [id number] [facility] Problems Condition Name Condition Details Condition Category Status Onset Date Resolution Date Last Treatment Date Treating Clinician Comments Source TIA (transient ischemic attack) TIA (transient ischemic attack) Dis ease Active 2017-05-12 00:00:00 Waqas Metz Obstruction of colon Colonic obstruction Problem Active [facility] Allergies, Adverse Reactions, Alerts This patient has [...] Signature (SIG) Comments Components Source Hydrocodone Bit/Acetaminophen (Toyah 7.5-325 Tablet) 1 Each TABLET Hydrocodone Bit/Acetaminophen (Toyah 7.5-325 Tablet) 1 Each TABLET Yes 1 Every 4 Hours as needed for [facility] Vital Signs Vital Name Observation Time Observation Value Comments Source Body Temperature 2019-10-24 08:59:00 97.6 [degF] [facility] BMI (Body Mass Index) 2019-10-24 08:52:00 26.3 kg/m2 [facility] Weight 2019-10-20 06:35:00 183.31 [lb_av] [facility] Procedures Procedure Date / Time Performed Performing Clinician Brigido doe Computed tomography of abdomen and pelvis with contrast 00:00:00 [facility] COLONOSCOPY W/BALLOON DILAT 2019-05-18 00:00:00 [facility] DILATION OF RECTUM WITH INTRALUMINAL DEVICE, ENDO 2019-04-20 00: 00:00 [facility] Computed tomography of abdomen and pelvis with contrast 2019 00:00:00 ED HADLEY [facility] Computed tomography of abdomen and pelvis with contrast 2018 00:00:00 EWA RAYMOND [facility] RESECTION OF LEFT LARGE INTESTINE, OPEN APPROACH 2019-02-18 00:0 0:00 [facility] X-ray of chest, two views 2019-02-13 00:00:00 EWA RAYMOND [facility] Computed tomography of abdomen and pelvis with contrast 2018 00:00:00 ASUNCION [place] [facility] COLONOSCOPY AND BIOPSY 2019-02-05 00:00:00 [facility] COLONOSCOPY SUBMUCOUS NJX 2019-02-05 00:00:[address] [facility] COLONOSCOPY W/LESION REMOVAL 2019-02-05 00:00:00 [facility] Plan of Care Planned Activity Planned Date Details Comments Source Future Scheduled Test 2019-12-03 00:00:00 INFLUENZA VACCINE [code = INFLUENZA VACCINE] [facility] Future Scheduled Test 2019 00:00:00 65+ PNEUMOCOCCAL V ACCINE (1 of 2 - PCV13) [code = 65+ PNEUMOCOCCAL VACCINE (1 of 2 - PCV13)] [facility] Future Scheduled Test 2004-01-03 00:00:00 COLONOSCOPY SCREEN ING [code = COLONOSCOPY SCREENING] [facility] Scheduled Test 2004-01-03 00:00:00 SHINGLES VACCINES (#1) [code = SHINGLES VACCINES (#1)] [facility] Instructions Bowel Obstruction [facility] Encounters Start Date/Time End Date/Time Encounter Type Admission Type Att[facility] Care Department Encounter ID Source 2019-10-10 05:53:00 2019-10-24 11:30:00 Discharged Inpatient 1 ADRIANO LOKI [facility] [id number] [facility] 2019-05-18 06:02:00 2019-05-18 06:02:00 Registered Surgical Day Care [facility] [id number] [facility] 2019-04-17 15:40:00 2019-04-21 18:09:00 Discharged Inpatient 1 SANDIP LUO [facility] [id number] [facility] Patients [facility] 2019-03-29 13:29:00 2019-03-29 16:57:00 Departed Emergency Room 1 SANDIP LUO [facility] [id number] [facility] Patients [facility] 2019-02-18 13:47:00 2019-03-01 11:35:00 Discharged Inpatient 3 EWA RAYMOND [facility] [id number] [facility] 2019-02-06 12:38:00 2019-02-06 12:38:00 Registered Clinic 3 ASUNCION [place] [facility] [id number] [facility] 2019-02-05 09:25:00 2019-02-05 09:25:00 Registered Surgical Day Care [facility] [id number] [facility] 2017-07-19 05:15:00 2017-07-19 07:00:00 Outpatient Phyllis GONZALESCORIN [facility] RIVEROAKSAZRA [id number] [facility] Results Test Description Test Time Test Comments Results Result Comments Source CT CHEST W 2019-11-05 12:09:00 [facility] [address] [address] Patient Name: ANAT FRANCE MR #: [id number] : 1955 Age/Sex: 64/M Req #: [id number] Adm Physician: Ordered by: VINICIUS ROBLES DO Report #: [id number] Location: ER Room/Bed: Procedure: [id number] CT/CT CHEST W Exam Date: 11/05/19 Exam Time: 1134 REPORT STATUS: Signed CT of the chest, PE protocol, with contrast, 11/05/2019. History: Shortness of breath. Comparison: Chest x-ray from earlier today. Technique: Multidetector thin collimation CT scanning of the chest was performed from the level of the apices to the upper abdomen during the pulmonary arterial phase, after intravenous administration of contrast. Coronal and sagittal MIP reformations were obtained. RADIATION DOSE: Total DLP: 493 mGy*cm Dose modulation, iterative reconstruction, and/or weight based adjustment of the mA/kV was utilized to reduce the radiation dose to as low as reasonably achievable. Discussi on: Chest: The pulmonary arteries are well-opacified demonstrating hypodense filling defects within right middle lobe, lingular, and bilateral lower lobe segmental pulmonary artery branches. The main pulmonary artery is normal in size measuring 2.5 cm in diameter. The heart and aorta are normal in size. There is no IVC contrast reflux or right ventricular enlargement. Thyroid is unremarkable. There is no axillary or mediastinal adenopathy. There is bibasilar atelectasis with trace bilateral pleural effusions. Limited evaluation of the upper abdomen shows normal bilateral adrenal glands. Bones and soft tissues: No acute abnormality. Mild degenerative changes are present throughout the thoracic spine. IMPRESSION: Bilateral segmental pulmonary emboli. The findings were discussed with Dr. Robles at 12:15 on 11/05/2019. Signed by: Nikita Ayala on 11/05/2019 12:19 PM Dictated By: NIKITA AYALA MD 121 Transcribed By: FABRICIO on 11/05/19 121 COPY TO: VINICIUS ROBLES DO CHEST SINGLE (PORTABLE) 2019-11-05 10:27:[address] [address] Patient Name: ANAT FRANCE MR #: [id number] : 1955 Age/Sex: 64/M Req #: [id number] Adm Physician: Ordered by: VINICIUS ROBLES DO Report #: [id number] Location: ER Room/Bed: Procedure: [id number] DX/CHEST SINGLE (PORTABLE) Exam Date: 11/05/19 Exam Time: 1000 REPORT STATUS: Signed Chest, 1 view, 11/05/2019. History: Shortness of breath. Comparison: 10/13/2019. Findings: The cardiomediastinal silhouette and pulmonary vasculature are within normal limits for a portable exam. There is no focal consolidation or pleural effusion. There are no acute osseous or soft tissue abnormalities. Impression: No acute cardiopulmonary abnormality. Signed by: Nikita Ayala on 11/05/2019 10:28 AM Dictated By: NIKITA AYALA MD 1028 Transcribed By: FABRICIO on 11/05/19 1028 COPY TO: VINICIUS ROBLES DO Capillary blood glucose measurement by glucometer (mas s/volume) 2019-10-23 18:11:00 Test Item Bedside Glucose (test code = 33957-0) 117 70-120 Meter ID: [id number] Hospital[facility] leukocytes automated count (number/volume)2019-10-23 05:06:00* Test Item Value Reference Range Interpretation Comments White Blood Count (test code = 6690-2) 8.77 4.8-10.8 [facility] erythrocytes automated count (number/volume)2019-10-23 05:06:00* Test Item Value Reference Range Interpretation Comments Red Blood Count (test code = 789-8) 4.35 4.3-5.7 [facility] CenterBlood hemoglobin measurement (moles/volume)2019-10-23 05:06:00* Test Item Value Reference Range Interpretation Comments Hemoglobin (test code = 33843-5) 11.2 14.0-18.0 [facility] CenterAutomated blood hematocrit (volume fraction)2019-10-23 05:06:00* Test Item Value Reference Range Interpretation Comments Hematocrit (test code = 4544-3) 35.6 38.2-49.6 [facility] CenterAutomated erythrocyte mean corpuscular epjmcl3457-85-70 05:06:00* Test Item Value Reference Range Interpretation Comments Mean Corpuscular Volume (test code = 787-2) 81.8 81-99 [facility] CenterAutomated erythrocyte mean corpuscular hemoglobin (mass per erythrocyte)2019-10-23 05:06:00* Test Item Value Reference Range Interpretation Comments Mean Corpuscular Hemoglobin (test code = 785-6) 25.7 28-[address] [facility] mean corpuscular hemoglobin concentration measurement (mass/volume)2019-10-23 05:06:00* Test Item Value Reference Range Interpretation Comments Mean Corpuscular Hemoglobin Concent (test code = 786-4) 31.5 31-35 [facility] CenterRDW EvpOk-Usk3248-89-21 05:06:00* Test Item Value Reference Range Interpretation Comments Red Cell Distribution Width (test code = 28609-6) 15.2 11.7 -14.4 [facility] CenterAutomated blood platelet count (count/volume)2019-10-23 05:06:00* Test Item Value Reference Range Interpretation Comments Platelet Count (test code = 777-3) 359 140-360 [facility] CenterAutomated blood segmented neutrophil count as percentage of total iqxuetmfeh7225-31-97 05:06:00* Test Item Value Reference Range Interpretation Comments Neutrophils (%) (Auto) (test code = 94174-4) 66.6 38.7-80.0 [facility] CenterAutomated blood lymphocyte count as percentage ot total jpvrzxyufg3199-59-26 05:06:00* Test Item Value Reference Range Interpretation Comments Lymphocytes (%) (Auto) (test code = 736-9) 13.1 18.0-39.1 [facility] CenterAutomated blood monocyte count as percentage of total zrppkqfvwf3022-68-59 05:06:00* Test Item Value Reference Range Interpretation Comments Monocytes (%) (Auto) (test code = 5905-5) 10.3 4.4-11.3 [facility] CenterAutomated blood eosinophil count as percentage of total uuvuzyivot5222-68-25 05:06:00* Test Item Value Reference Range Interpretation Comments Eosinophils (%) (Auto) (test code = 713-8) 5.2 0.0-6.0 [facility] CenterAutomated blood basophil count as percentage of total xfqmggvhpy3338-29-54 05:06:00* Test Item Value Reference Range Interpretation Comments Basophils (%) (Auto) (test code = 706-2) 1.0 0.0-1.0 [facility] CenterFluoroscopic procedure less than one hour ufgdytto0353-07-62 05:06:00* Test Item Value Reference Range Interpretation Comments IM GRANULOCYTES % (test code = IM GRANULOCYTES %) 3.8 0.0- 1.0 [facility] CenterAutomated blood neutrophil count 2019-10-23 05:06:00* Test Item Value Reference Range Interpretation Comments Neutrophils # (Auto) (test code = 751-8) 5.8 2.1-6.9 [facility] CenterBlood lymphocytes count (number/volume) 2019-10-23 05:06:00* Test Item Value Reference Range Interpretation Comments Lymphocytes # (Auto) (test code = 13631-6) 1.2 1.0-3.2 [facility] CenterBl[facility] monocytes automated count (number/volume)2019-10-23 05:06:00* Test Item Value Reference Range Interpretation Comments Monocytes # (Auto) (test code = 742-7) 0.9 0.2-0.8 [facility] CenterAutomated blood eosinophil count 2019-10-23 05:06:00* Test Item Value Reference Range Interpretation Comments Eosinophils # (Auto) (test code = 711-2) 0.5 0.0-0.4 [facility] CenterAutomated blood basophil count (count/volume)2019-10-23 05:06:00* Test Item Value Reference Range Interpretation Comments Basophils # (Auto) (test code = 704-7) 0.1 0.0-0.1 [facility] CenterFluoroscopic procedure less than one hour otbqugku1502-81-41 05:06:00* Test Item Value Reference Range Interpretation Comments Absolute Immature Granulocyte (auto (efrem t code = Absolute Immature Granulocyte (auto) 0.33 0-0.1 [facility] sodium measurement (moles/volume)2019-10-23 05:06:00* Test Item Value Reference Range Interpretation Comments Sodium Level (test code = 2951-2) 137 136-145 [facility] or plasma potassium measurement (moles/volume)2019-10-23 05:06:00* Test Item Value Reference Range Interpretation Comments Potassium Level (test code = 2823-3) 4.9 3.5-5.1 [facility] chloride measurement (moles/volume)2019-10-23 05:06:00* Test Item Value Reference Range Interpretation Comments Chloride Level (test code = 2075-0) 109 98-107 [facility]rum or plasma carbon dioxide, total measurement (moles/volume)2019-10-23 05:06:00* Test Item Value Reference Range Interpretation Comments Carbon Dioxide Level (test code = 2028-9) 21 22-29 [facility] or plasma anion cip3921-90-91 05:06:00* Test Item Value Reference Range Interpretation Comments Anion Gap (test code = 68328-2) 11.9 8-16 [facility] or plasma urea nitrogen measurement (mass/volume)2019-10-23 05:06:00* Test Item Value Reference Range Interpretation Comments Blood Urea Nitrogen (test code = 3094-0) 6 7-26 [facility]ererum or plasma creatinine measurement (mass/volume)2019-10-23 05:06:00* Test Item Value Reference Range Interpretation Comments Creatinine (test code = 2160-0) 0.88 0.72-1.25 [facility]ererum or plasma urea nitrogen/creatinine mass fmcwu1042-52-10 05:06:00* Test Item Value Reference Range Interpretation Comments BUN/Creatinine Ratio (test code = 3097-3) 7 6-25 [facility] CenterEstimated glomerular filtration rate (GFR) xdtstzaikkjoh5330-42-64 05:06:00* Test Item Value Reference Range Interpretation Comments Estimat Glomerular Filtration Rate (test code = 464764258) > 60 >60 Ranges were taken from the National Kidney Disease Education Program and the [facility] Kid[facility] Foundation literature.Reference ranges:60 or greater: Pzlkgw09-01 ( for 3 consecutive months): Chronic kidney disease 15 or less: Kidney failureHCA [facility] Healthcare Medical CenterGlucose mdahsdxdydc3918-02-57 05:06:00* Test Item Value Reference Range Interpretation Comments Glucose Level (test code = QNW9442) 310 74-118 [facility]ere[facility] or plasma calcium measurement (mass/volume)2019-10-23 05:06:00* Test Item Value Reference Range Interpretation Comments Calcium Level (test code = 78722-0) 8.4 8.4-10.2 [facility]ererum or plasma total bilirubin measurement (mass/volume)2019-10-16 05:10:00* Test Item Value Reference Range Interpretation Comments Total Bilirubin (test code = 1975-2) 0.9 0.2-1.2 [facility] CenterFluoroscopic procedure less than one hour nmgisnqn9022-50-72 05:10:00* Test Item Value Reference Range Interpretation Comments Aspartate Amino Transf (AST/SGOT) (test code = Aspartate Amino Transf (AST/SGOT)) 47 5-34 [facility]ererum or plasma alanine aminotransferase measurement (enzymatic activity/volume)2019-10-16 05:10:00* Test Item Value Reference Range Interpretation Comments Alanine Aminotransferase (ALT/SGPT) (test code = 1742-6) 43 0-55 [facility]ererum or plasma protein measurement (mass/volume)2019-10-16 05:10:00* Test Item Value Reference Range Interpretation Comments Total Protein (test code = 2885-2) 5.9 6.5-8.1 [facility]ererum or plasma albumin measurement (mass/volume)2019-10-16 05:10:00* Test Item Value Reference Range Interpretation Comments Albumin (test code = 1751-7) 3.0 3.5-5.0 [facility] CenterPlasma globulin measurement (mass/volume) 2019-10-16 05:10:00* Test Item Value Reference Range Interpretation Comments Globulin (test code = 96329-4) 2.9 2.3-3.5 [facility]ererum or plasma albumin/globulin mass kdojy2579-68-94 05:10:00* Test Item Value Reference Range Interpretation Comments Albumin/Globulin Ratio (test code = 1759-0) 1.0 0.8-2.0 [facility]ererum or plasma alkaline phosphatase measurement (enzymatic activity/volume)2019-10-16 05:10:00* Test Item Value Reference Range Interpretation Comments Alkaline Phosphatase (test code = 6768-6) 89 40-[address] [facility] NBZ1295-27-55 12:52:00 [facility] [address] [address] Patient Name: ANAT FRANCE MR #: [id number] : 1955 Age/Sex: 64/M Req #: [id number] Adm Physician: LOKI OH MD Ordered by: LOKI OH MD Report #: [id number] Location: MED/SURG Room/Bed: [facility] Procedure: [id number] DX/ABDOME N ACUTE SERIES W/PA CXR Exam [...] OH MD ABDOMEN 2 VIEW 2019-10-12 08:57:00 [address] [address] Patient Name: ANAT FRANCE MR #: [id number] : 1955 Age/Sex: 64/M Req #: [id number] Adm Physician: LOKI OH MD Ordered by: RADU RAYMOND MD Report #: [id number] Location: MED/SURG Room/Bed: [facility] Procedure: [id number] DX/AB DOMEN 2 VIEW Exam Date: 10/12/19 [...] RAYMOND MD ABDOMEN-1VIEW (KUB)2019-10-11 16:24:00 [facility] [address] [address] Patient Name: ANAT FRANCE MR #: [id number] : 1955 Age/Sex: 64/M Req #: [id number] Adm Physician: LOKI OH MD Ordered by: FILI WYATT MD Report #: [id number] Location: MED/SURG Room/Bed: [facility] Procedure: [id number] DX/ABDOMEN -1VIEW (KUB) Exam Date: 10/11/19 Exam [...] in large bowel dilatation. Signed by: Dr. Dung Gimenez MD on 10/11/2019 4:25 PM Dictated By: DUNG GIMENEZ MD Electronically Sig parveen By: DUNG GIMENEZ MD on 10/11/19 9284 Transcribed By: FABRICIO on 1624 COPY TO: FILI WYATT MD ABDOMEN 2 YDLF8869-93-93 08:48:[address] [address] Patient Name: ANAT FRANCE MR #: [id number] : 1955 Age/Sex: 64/M Req #: [id number] Adm Physician: LOKI OH MD Ordered by: RADU RAYMOND MD Report #: [id number] Location: MED/SURG Room/Bed: [facility] Procedure: [id number] DX/AB DOMEN 2 VIEW Exam Date: 10/11/19 [...] placement within the stomach. Signed by: Dr. Dung Gimenez MD on 10/11/2019 8:52 AM Dictated By: DUNG GIMENEZ MD 1 COPY TO: FIOR RAYMOND MD Fluoroscopic procedure less than one hour urzqycab8196-51-51 06:11:00* Test Item Value Reference Range Interpretation Comments Coronavirus (PCR) (test code = Coronavirus (PCR)) NOT DETECTED NOTD ETECTED Hologic Aptima SARS-CoV-2 assay is a nucleic amplification test intended for the qualitative detection of RNA from SARS-CoV-2 from nasopharyngeal (CUSTODIAN MANAGER) specimens. It is used under Emergency Use [...] for reprat testing oc clinically indicated.Tesing performed by:[facility] [address] [place] [address] [id number] [id number], Niyah Dhaliwal MD, PhD [facility] CenterCT ABDOMEN/PELVIS S3620-77-62 05:07:00 [facility] [address] [place] [address] Patient Name: ANAT FRANCE MR #: [id number] : 1955 Age/Sex: 64/M Req #: [id number] Adm Physician: Ordered by: NIYAH ANDERSON MD Report #: [id number] Location: ER Room/Bed: Procedure: CT/ CT ABDOMEN/PELVIS W Exam Date: 10/10/19 Exam Time: 0 420 REPORT STATUS: Signed EXAM: CT Abdomen and Pelvis WITH contrast INDICATION: EVAL FOR OBSTRUCTION/STR ICTURE COMPARISON: TECHNIQUE: Abdomen and pelvis were scanned utilizing a m ulPinpoint MDtector helical scanner from the lung base to [...] (PT) in platelet poor plasma by coagulation bvahy2194-10-65 03:05:00* Test Item Value Reference Range Interpretation Comments Prothrombin Time (test code = 5902-2) 12.2 11.9-14.5 [facility] CenterINR in Platelet poor plasma by Coagulation sonbi3568-93-28 03:05:00* Test Item Value Reference Range Interpretation Comments Prothromb Time International Ratio (test code = 6301-6) 0.87 Oral Anticoagulant Therapy INR Values:1. Low Intensity Therapy 1.5 - 2.02 . Moderate Intensity Therapy 2.0 - 3.03. High Intensity Therapy(1) 2.5 - 3. 54. High Intensity Therapy(2) 3.0 - 4.05. Panic Value INR > 5.0 [facility] CenterActivated partial thromboplastin time (aPTT) in platelet poor plasma by coagulation hymoq9844-87-30 03:05:00* Test Item Value Reference Range Interpretation Comments Activated Partial Thromboplast Time (test code = 42056-2) 27.9 23.8-35.5 [facility] or plasma amylase measurement (enzymatic activity/volume)2019-10-10 03:05:00* Test Item Value Reference Range Interpretation Comments Amylase Level (test code = 1798-8) 42 25-125 [facility]ererum or plasma lipase measurement (enzymatic activity/volume)2019-10-10 03:05:00* Test Item Value Reference Range Interpretation Comments Lipase (test code = 3040-3) 11 8-78 [facility] Centerodium Utkex0440-01-50 06:03:00* Test Item Value Reference Range Interpretation Comments Sodium Level (test code = 2951-2) 140 136-145 [facility] CenterPotassium Kxiif2716-04-21 06:03:00* Test Item Value Reference Range Interpretation Comments Potassium Level (test code = 2823-3) 4.1 3.5-5.1 [facility] CenterChloride Qovar3220-15-45 06:03:00* Test Item Value Reference Range Interpretation Comments Chloride Level (test code = 2075-0) 108 98-107 H [facility] CenterCarbon Dioxide Ebtrc2507-79-11 06:03:00* Test Item Value Reference Range Interpretation Comments Carbon Dioxide Level (test code = 2028-9) 26 22-29 [facility] CenterAnion Trm4455-91-59 06:03:00* Test Item Value Reference Range Interpretation Comments Anion Gap (test code = 93014-3) 10.1 8-16 [facility] CenterBlood Urea Xhyilrde8585-90-31 06:03:00* Test Item Value Reference Range Interpretation Comments Blood Urea Nitrogen (test code = 3094-0) 9 7-26 [facility] CenterCreatinine2020-02-18 06:03:00* Test Item Value Reference Range Interpretation Comments Creatinine (test code = 2160-0) 0.96 0.72-1.25 [facility] CenterBUN/Creatinine Oobjo0409-89-17 06:03:00* Test Item Value Reference Range Interpretation Comments BUN/Creatinine Ratio (test code = 3097-3) 9 6- [facility] CenterEstimat Glomerular Filtration Rate 2019-04-21 06:03:00* Test Item Value Reference Range Interpretation Comments Estimat Glomerular Filtration Rate (test code = 922960480) > 60 >60 Ranges were taken from the National Kidney Disease Education Program and the [facility] Foundation literature.Reference ranges:60 or greater: Disqmc26-09 ( for 3 consecutive months): Chronic kidney disease 15 or less: Kidney failureHCA [facility] Healthcare Medical CenterGlucose Puqcp3630-50-37 06:03:00* Test Item Value Reference Range Interpretation Comments Glucose Level (test code = KRA5396) 95 74-118 [facility] CenterCalcium Zctyl5280-13-10 06:03:00* Test Item Value Reference Range Interpretation Comments Calcium Level (test code = 77987-6) 8.8 8.4-10.2 [facility] CenterWhite Blood Jyqpl2061-44-90 05:47:00* Test Item Value Reference Range Interpretation Comments White Blood Count (test code = 6690-2) 8.38 4.8-10.8 [facility] CenterRed Blood Cqlei0790-78-96 05:47:00* Test Item Value Reference Range Interpretation Comments Red Blood Count (test code = 789-8) 4.11 4.3-5.7 L [facility] CenterHemoglobin2020-02-18 05:47:00* Test Item Value Reference Range Interpretation Comments Hemoglobin (test code = 72671-6) 10.8 14.0-18.0 L [facility] CenterHematocrit2020-02-18 05:47:00* Test Item Value Reference Range Interpretation Comments Hematocrit (test code = 4544-3) 34.2 38.2-49.6 L [facility] CenterMean Corpuscular Oiioba1616-14-32 05:47:00* Test Item Value Reference Range Interpretation Comments Mean Corpuscular Volume (test code = 787-2) 83.2 81-99 [facility] CenterMean Corpuscular Oppqeqpeuf9877-10-81 05:47:00* Test Item Value Reference Range Interpretation Comments Mean Corpuscular Hemoglobin (test code = 785-6) 26.3 28-32 L [facility] CenterMean Corpuscular Hemoglobin Concent 2019-04-21 05:47:00* Test Item Value Reference Range Interpretation Comments Mean Corpuscular Hemoglobin Concent (test code = 786-4) 31.6 31-35 [facility] CenterRed Cell Distribution Jmbxo7445-75-82 05:47:00* Test Item Value Reference Range Interpretation Comments Red Cell Distribution Width (test code = 49505-7) 13.5 11.7 -14.4 [facility] CenterPlatelet Drkdk9193-75-46 05:47:00* Test Item Value Reference Range Interpretation Comments Platelet Count (test code = 777-3) 257 140-360 [facility] CenterNeutrophils (%) (Auto)2019-04-21 05:47:00 * Test Item Value Reference Range Interpretation Comments Neutrophils (%) (Auto) (test code = 68728-4) 77.0 38.7-80.0 [facility] CenterLymphocytes (%) (Auto)2019-04-21 05:47:00 * Test Item Value Reference Range Interpretation Comments Lymphocytes (%) (Auto) (test code = 736-9) 11.5 18.0-39.1 L [facility] CenterMonocytes (%) (Auto)2019-04-21 05:47:00* Test Item Value Reference Range Interpretation Comments Monocytes (%) (Auto) (test code = 5905-5) 10.9 4.4-11.3 [facility] CenterEosinophils (%) (Auto)2019-04-21 05:47:00 * Test Item Value Reference Range Interpretation Comments Eosinophils (%) (Auto) (test code = 713-8) 0.2 0.0-6.0 [facility] CenterBasophils (%) (Auto)2019-04-21 05:47:00* Test Item Value Reference Range Interpretation Comments Basophils (%) (Auto) (test code = 706-2) 0.2 0.0-1.0 [facility] CenterIM GRANULOCYTES %2019-04-21 05:47:00* Test Item Value Reference Range Interpretation Comments IM GRANULOCYTES % (test code = IM GRANULOCYTES %) 0.2 0.0- 1.0 [facility] CenterNeutrophils # (Auto)2019-04-21 05:47:00* Test Item Value Reference Range Interpretation Comments Neutrophils # (Auto) (test code = 751-8) 6.5 2.1-6.9 [facility] CenterLymphocytes # (Auto)2019-04-21 05:47:00* Test Item Value Reference Range Interpretation Comments Lymphocytes # (Auto) (test code = 52058-3) 1.0 1.0-3.2 [facility] CenterMonocytes # (Auto)2019-04-21 05:47:00* Test Item Value Reference Range Interpretation Comments Monocytes # (Auto) (test code = 742-7) 0.9 0.2-0.8 H [facility] CenterEosinophils # (Auto)2019-04-21 05:47:00* Test Item Value Reference Range Interpretation Comments Eosinophils # (Auto) (test code = 711-2) 0.0 0.0-0.4 [facility] CenterBasophils # (Auto)2019-04-21 05:47:00* Test Item Value Reference Range Interpretation Comments Basophils # (Auto) (test code = 704-7) 0.0 0.0-0.1 [facility] CenterAbsolute Immature Granulocyte (auto 2019-04-21 05:47:00* Test Item Value Reference Range Interpretation Comments Absolute Immature Granulocyte (auto (efrem t code = Absolute Immature Granulocyte (auto) 0.02 0-0.1 [facility] CenterBlood Uvqexhb4871-17-64 15:06:00* Test Item Value Reference Range Interpretation Comments Blood Culture (test code = 93073454) NO GROWTH AFTER 72 HOURS [facility] CenterTotal Bsbrekzwm9760-19-76 06:59:00* Test Item Value Reference Range Interpretation Comments Total Bilirubin (test code = 1975-2) 1.4 0.2-1.2 H [facility] CenterAspartate Amino Transf (AST/SGOT) 2019-04-19 06:59:00* Test Item Value Reference Range Interpretation Comments Aspartate Amino Transf (AST/SGOT) (test code = Aspartate Amino Transf (AST/SGOT)) 14 5-34 [facility] CenterAlanine Aminotransferase (ALT/SGPT) 2019-04-19 06:59:00* Test Item Value Reference Range Interpretation Comments Alanine Aminotransferase (ALT/SGPT) (test code = 1742-6) 11 0-55 [facility] CenterTotal Maouwnn3689-07-95 06:59:00* Test Item Value Reference Range Interpretation Comments Total Protein (test code = 2885-2) 5.7 6.5-8.1 L [facility] CenterAlbumin2020-02-16 06:59:00* Test Item Value Reference Range Interpretation Comments Albumin (test code = 1751-7) 3.3 3.5-5.0 L [facility] CenterGlobulin2020-02-16 06:59:00* Test Item Value Reference Range Interpretation Comments Globulin (test code = 12302-6) 2.4 2.3-3.5 [facility] CenterAlbumin/Globulin Uialy7223-81-24 06:59:00 * Test Item Value Reference Range Interpretation Comments Albumin/Globulin Ratio (test code = 1759-0) 1.4 0.8-2.0 [facility] CenterAlkaline Qmdwhncbthd7964-52-08 06:59:00* Test Item Value Reference Range Interpretation Comments Alkaline Phosphatase (test code = 6768-6) 60 40-150 [facility] CenterLactic Acid Voqgy5666-82-84 15:26:00* Test Item Value Reference Range Interpretation Comments Lactic Acid Level (test code = Lactic Acid Level) 1.0 0.5- 2.0 [facility] CenterUrine JGQ7057-92-16 15:20:00* Test Item Value Reference Range Interpretation Comments Urine WBC (test code = 5821-4) NONE 0-5 [facility] CenterUrine JGS4653-00-45 15:20:00* Test Item Value Reference Range Interpretation Comments Urine RBC (test code = 15828-0) NONE 0-5 [facility] CenterUrine Fyzqozkx0059-23-37 15:20:00* Test Item Value Reference Range Interpretation Comments Urine Bacteria (test code = 80878-4) RARE NONE [facility] CenterUrine Epithelial Vijxe5157-47-23 15:20:00 * Test Item Value Reference Range Interpretation Comments Urine Epithelial Cells (test code = 61801-8) NONE NONE [facility] CenterCT ABDOMEN/PELVIS L6926-35-22 15:06:00 [facility] [address] [place] [address] Patient Name: ANAT FRANCE MR #: [id number] : 1955 Age/Sex: 64/M Req #: [id number] Adm Physician: Ordered by: ED HADLEY NP Report #: [id number] Location: ER Room/Bed: Procedure: 0214-[address]/CT [...] 3:14 PM Dictated By: Phyllis AYALA MD [id number] anscribed By: FABRICIO on 04/17/19 1514 COPY TO: ED HADLEY CUSTODIAN MANAGER Urine Zpkfs3086-99-84 15:03:00* Test Item Value Reference Range Interpretation Comments Urine Color (test code = 5778-6) YELLOW YELLOW [facility] CenterUrine Bklgxmg5518-23-67 15:03:00* Test Item Value Reference Range Interpretation Comments Urine Clarity (test code = 96170-3) CLEAR CLEAR [facility] CenterUrine Specific Hbgbgqi8823-95-26 15:03:00 * Test Item Value Reference Range Interpretation Comments Urine Specific Treadwell (test code = 5811-5) 1.025 1.010-1.02 5 [facility] CenterUrine vO8738-73-75 15:03:00* Test Item Value Reference Range Interpretation Comments Urine pH (test code = 80477-3) 7 5-7 [facility] CenterUrine Leukocyte Abzxreub7626-47-21 15:03:00* Test Item Value Reference Range Interpretation Comments Urine Leukocyte Esterase (test code = 5799-2) NEGATIVE NEGATIVE [facility] CenterUrine Vupxydv6003-06-50 15:03:00* Test Item Value Reference Range Interpretation Comments Urine Nitrite (test code = 54981-1) NEGATIVE NEGATIVE [facility] CenterUrine Jfvpemz5973-81-54 15:03:00* Test Item Value Reference Range Interpretation Comments Urine Protein (test code = 5804-0) NEGATIVE NEGATIVE [facility] CenterUrine Glucose (UA)2019-04-17 15:03:00* Test Item Value Reference Range Interpretation Comments Urine Glucose (UA) (test code = 2349-9) NEGATIVE NEGATIVE [facility] CenterUrine Gohlwaj1253-45-76 15:03:00* Test Item Value Reference Range Interpretation Comments Urine Ketones (test code = 15647-1) NEGATIVE NEGATIVE [facility] CenterUrine Sgfhozwitpml7949-85-53 15:03:00* Test Item Value Reference Range Interpretation Comments Urine Urobilinogen (test code = 55709-5) 0.2 0.2-1 [facility] CenterUrine Wkkcfnfqi3916-15-70 15:03:00* Test Item Value Reference Range Interpretation Comments Urine Bilirubin (test code = 1978-6) NEGATIVE NEGATIVE [facility] CenterUrine Yklzt7671-66-46 15:03:00* Test Item Value Reference Range Interpretation Comments Urine Blood (test code = 42556-6) NEGATIVE NEGATIVE [facility] CenterProthrombin Abac7815-91-87 14:25:00* Test Item Value Reference Range Interpretation Comments Prothrombin Time (test code = 5902-2) 12.7 11.9-14.5 [facility] CenterProthromb Time International Ratio 2019-04-17 14:25:00* Test Item Value Reference Range Interpretation Comments Prothromb Time International Ratio (test code = 6301-6) 0.90 Oral Anticoagulant Therapy INR Values:1. Low Intensity Therapy 1.5 - 2.02 . Moderate Intensity Therapy 2.0 - 3.03. High Intensity Therapy(1) 2.5 - 3. 54. High Intensity Therapy(2) 3.0 - 4.05. Panic Value INR > 5.0 [facility] CenterActivated Partial Thromboplast Time 2019-04-17 14:25:00* Test Item Value Reference Range Interpretation Comments Activated Partial Thromboplast Time (test code = 03193-6) 27.4 23.8-35.5 [facility] CenterFluoroscopic procedure less than one hour nfnoexix0348-23-74 13:50:00* Test Item Value Reference Range Interpretation Comments Lactic Acid Level (test code = Lactic Acid Level) 1.0 0.5- 2.0 [facility] CenterBlood elmihtq9473-34-47 13:50:00* Test Item Value Reference Range Interpretation Comments Blood Culture (test code = 10722503) NO GROWTH AFTER 5 DAYS, FINAL REPORT [facility] CenterUrine color peavtxfkciqri6948-00-24 13:25:00* Test Item Value Reference Range Interpretation Comments Urine Color (test code = 5778-6) YELLOW YELLOW [facility] CenterUrine dryvgef3756-61-85 13:25:00* Test Item Value Reference Range Interpretation Comments Urine Clarity (test code = 46296-4) [facility]AR [facility]AR [facility] gravity of Urine by Test strip 2019-04-17 13:25:00* Test Item Value Reference Range Interpretation Comments Urine Specific Treadwell (test code = 5811-5) 1.025 1.010-1.02 5 [facility] CenterUrine pH measurement by automated test fzmis0652-85-38 13:25:00* Test Item Value Reference Range Interpretation Comments Urine pH (test code = 06325-6) 7 5-7 [facility] CenterUrine leukocyte esterase detection by tzvwwcuo9659-94-02 13:25:00* Test Item Value Reference Range Interpretation Comments Urine Leukocyte Esterase (test code = 5799-2) NEGATIVE NEGATIVE [facility] CenterUrine nitrite lrwfvzhfn4345-94-10 13:25:00* Test Item Value Reference Range Interpretation Comments Urine Nitrite (test code = 96363-6) NEGATIVE NEGATIVE [facility] CenterUrine protein measurement by test strip (mass/volume)2019-04-17 13:25:00* Test Item Value Reference Range Interpretation Comments Urine Protein (test code = 5804-0) NEGATIVE NEGATIVE [facility] CenterUrine glucose jekztrinu0344-38-42 13:25:00* Test Item Value Reference Range Interpretation Comments Urine Glucose (UA) (test code = 2349-9) NEGATIVE NEGATIVE [facility] CenterUrine ketones detection by automated test aarxa2906-46-55 13:25:00* Test Item Value Reference Range Interpretation Comments Urine Ketones (test code = 91816-7) NEGATIVE NEGATIVE [facility] CenterUrine urobilinogen measurement by test strip (mass/volume)2019-04-17 13:25:00* Test Item Value Reference Range Interpretation Comments Urine Urobilinogen (test code = 90529-5) 0.2 0.2-1 [facility] CenterUrine total bilirubin measurement (mass/volume)2019-04-17 13:25:00* Test Item Value Reference Range Interpretation Comments Urine Bilirubin (test code = 1978-6) NEGATIVE NEGATIVE [facility] CenterUrine erythrocytes lceaamjdm0416-99-15 13:25:00* Test Item Value Reference Range Interpretation Comments Urine Blood (test code = 50200-6) NEGATIVE NEGATIVE [facility] CenterAutomated urine sediment leukocyte count by microscopy (number/high power field)2019-04-17 13:25:00* Test Item Value Reference Range Interpretation Comments Urine WBC (test code = 5821-4) NONE 0-5 [facility] CenterErythrocytes detection in urine sediment by light gxtsooulmt7947-80-14 13:25:00* Test Item Value Reference Range Interpretation Comments Urine RBC (test code = 40332-6) NONE 0-5 [facility] CenterBacteria detection in urine sediment by light jgxvpuarjs2949-65-91 13:25:00* Test Item Value Reference Range Interpretation Comments Urine Bacteria (test code = 47301-8) RARE NONE [facility] CenterEpithelial cells detection in urine sediment by light oxxtahkhzz4879-16-88 13:25:00* Test Item Value Reference Range Interpretation Comments Urine Epithelial Cells (test code = 40885-9) NONE NONE [facility] CenterABDOMEN 2 ODQW3754-46-56 17:29:00 [facility] [address] [place] [address] Patient Name: ANAT FRANCE MR #: [id number] : 1955 Age/Sex: 64/M Req #: [id number] Adm Physician: Ordered by: SANDIP LUO MD Report #: [id number] Location: ER Room/Bed: Procedure: [id number] DX/ABDOMEN 2 VIEW Exam Date: 03/29/19 Exam [...] 03/29/191731 COPY TO: SANDIP LUO MD Sodium Pqyvt1416-96-44 16:11:00* Test Item Value Reference Range Interpretation Comments Sodium Level (test code = 2951-2) 140 136-145 [facility] CenterPotassium Uknoc4726-06-04 16:11:00* Test Item Value Reference Range Interpretation Comments Potassium Level (test code = 2823-3) 3.9 3.5-5.1 [facility] CenterChloride Xdxjv5854-19-73 16:11:00* Test Item Value Reference Range Interpretation Comments Chloride Level (test code = 2075-0) 105 98-107 [facility] CenterCarbon Dioxide Fszsf7115-49-83 16:11:00* Test Item Value Reference Range Interpretation Comments Carbon Dioxide Level (test code = 2028-9) 25 22-29 [facility] CenterAnion Bhv6138-92-46 16:11:00* Test Item Value Reference Range Interpretation Comments Anion Gap (test code = 03485-4) 13.9 8-16 [facility] CenterBlood Urea Zoteddri8687-57-90 16:11:00* Test Item Value Reference Range Interpretation Comments Blood Urea Nitrogen (test code = 3094-0) 8 7-26 [facility] CenterCreatinine2020-01-26 16:11:00* Test Item Value Reference Range Interpretation Comments Creatinine (test code = 2160-0) 0.87 0.72-1.25 [facility] CenterBUN/Creatinine Cwper5126-82-37 16:11:00* Test Item Value Reference Range Interpretation Comments BUN/Creatinine Ratio (test code = 3097-3) 9 6- [facility] CenterEstimat Glomerular Filtration Rate 2019-03-29 16:11:00* Test Item Value Reference Range Interpretation Comments Estimat Glomerular Filtration Rate (test code = 105515478) > 60 >60 Ranges were taken from the National Kidney Disease Education Program and the [facility] [employer] literature.Reference ranges:60 or greater: Bepqtl85-34 ( for 3 consecutive months): Chronic kidney disease 15 or less: Kidney failureHCA [facility] CenterGlucose Ntfgl4695-33-03 16:11:00* Test Item Value Reference Range Interpretation Comments Glucose Level (test code = NTJ9571) 98 74-118 [facility] CenterCalcium Giffa6128-16-18 16:11:00* Test Item Value Reference Range Interpretation Comments Calcium Level (test code = 75533-5) 9.5 8.4-10.2 [facility] CenterTotal Foskgnlxm0244-77-59 16:11:00* Test Item Value Reference Range Interpretation Comments Total Bilirubin (test code = 1975-2) 0.9 0.2-1.2 [facility] CenterAspartate Amino Transf (AST/SGOT) 2019-03-29 16:11:00* Test Item Value Reference Range Interpretation Comments Aspartate Amino Transf (AST/SGOT) (test code = Aspartate Amino Transf (AST/SGOT)) 18 5-34 [facility] CenterAlanine Aminotransferase (ALT/SGPT) 2019-03-29 16:11:00* Test Item Value Reference Range Interpretation Comments Alanine Aminotransferase (ALT/SGPT) (test code = 1742-6) 19 0-55 [facility] CenterTotal Oafnfgb6243-85-73 16:11:00* Test Item Value Reference Range Interpretation Comments Total Protein (test code = 2885-2) 6.5 6.5-8.1 [facility] CenterAlbumin2020-01-26 16:11:00* Test Item Value Reference Range Interpretation Comments Albumin (test code = 1751-7) 3.8 3.5-5.0 [facility] CenterGlobulin2020-01-26 16:11:00* Test Item Value Reference Range Interpretation Comments Globulin (test code = 31500-9) 2.7 2.3-3.5 [facility] CenterAlbumin/Globulin Aknkt5511-50-57 16:11:00 * Test Item Value Reference Range Interpretation Comments Albumin/Globulin Ratio (test code = 1759-0) 1.4 0.8-2.0 [facility] CenterAlkaline Qgwkwfcaaif1603-59-30 16:11:00* Test Item Value Reference Range Interpretation Comments Alkaline Phosphatase (test code = 6768-6) 69 40-150 [facility] CenterCreatine Ijuzuj2334-13-98 16:11:00* Test Item Value Reference Range Interpretation Comments Creatine Kinase (test code = 2157-6) 45 30-200 [facility] CenterCreatine Kinase RB8419-20-38 16:11:00* Test Item Value Reference Range Interpretation Comments Creatine Kinase MB (test code = 38322-3) 1.00 0-5.0 [facility] CenterTroponin N5793-63-76 16:11:00* Test Item Value Reference Range Interpretation Comments Troponin I (test code = TZG7684) 0.004 0-0.300 [facility] CenterCreatine Ywayiq8377-14-15 16:11:00* Test Item Value Reference Range Interpretation Comments Creatine Kinase (test code = 2157-6) 45 30-200 [facility] CenterCreatine Kinase SV3476-87-14 16:11:00* Test Item Value Reference Range Interpretation Comments Creatine Kinase MB (test code = 78472-1) 1.00 0-5.0 [facility] CenterTroponin D4348-81-25 16:11:00* Test Item Value Reference Range Interpretation Comments Troponin I (test code = AEW3124) 0.004 0-0.300 [facility] CenterWhite Blood Brvhf3989-84-81 15:44:00* Test Item Value Reference Range Interpretation Comments White Blood Count (test code = 6690-2) 8.91 4.8-10.8 [facility] CenterRed Blood Whmwy7851-82-70 15:44:00* Test Item Value Reference Range Interpretation Comments Red Blood Count (test code = 789-8) 4.57 4.3-5.7 [facility] CenterHemoglobin2020-01-26 15:44:00* Test Item Value Reference Range Interpretation Comments Hemoglobin (test code = 15935-8) 12.7 14.0-18.0 L [facility] CenterHematocrit2020-01-26 15:44:00* Test Item Value Reference Range Interpretation Comments Hematocrit (test code = 4544-3) 39.3 38.2-49.6 [facility] CenterMean Corpuscular Xxyfrf0881-37-76 15:44:00* Test Item Value Reference Range Interpretation Comments Mean Corpuscular Volume (test code = 787-2) 86.0 81-99 [facility] CenterMean Corpuscular Hywwejawsa8971-52-80 15:44:00* Test Item Value Reference Range Interpretation Comments Mean Corpuscular Hemoglobin (test code = 785-6) 27.8 28-32 L [facility] CenterMean Corpuscular Hemoglobin Concent 2019-03-29 15:44:00* Test Item Value Reference Range Interpretation Comments Mean Corpuscular Hemoglobin Concent (test code = 786-4) 32.3 31-35 [facility] CenterRed Cell Distribution Edazp9630-98-32 15:44:00* Test Item Value Reference Range Interpretation Comments Red Cell Distribution Width (test code = 52121-2) 13.6 11.7 -14.4 [facility] CenterPlatelet Bajhb5757-26-58 15:44:00* Test Item Value Reference Range Interpretation Comments Platelet Count (test code = 777-3) 346 140-360 [facility] CenterNeutrophils (%) (Auto)2019-03-29 15:44:00 * Test Item Value Reference Range Interpretation Comments Neutrophils (%) (Auto) (test code = 44664-5) 76.6 38.7-80.0 [facility] CenterLymphocytes (%) (Auto)2019-03-29 15:44:00 * Test Item Value Reference Range Interpretation Comments Lymphocytes (%) (Auto) (test code = 736-9) 13.2 18.0-39.1 L [facility] CenterMonocytes (%) (Auto)2019-03-29 15:44:00* Test Item Value Reference Range Interpretation Comments Monocytes (%) (Auto) (test code = 5905-5) 8.0 4.4-11.3 [facility] CenterEosinophils (%) (Auto)2019-03-29 15:44:00 * Test Item Value Reference Range Interpretation Comments Eosinophils (%) (Auto) (test code = 713-8) 1.2 0.0-6.0 [facility] CenterBasophils (%) (Auto)2019-03-29 15:44:00* Test Item Value Reference Range Interpretation Comments Basophils (%) (Auto) (test code = 706-2) 0.6 0.0-1.0 [facility] CenterIM GRANULOCYTES %2019-03-29 15:44:00* Test Item Value Reference Range Interpretation Comments IM GRANULOCYTES % (test code = IM GRANULOCYTES %) 0.4 0.0- 1.0 [facility] CenterNeutrophils # (Auto)2019-03-29 15:44:00* Test Item Value Reference Range Interpretation Comments Neutrophils # (Auto) (test code = 751-8) 6.8 2.1-6.9 [facility] CenterLymphocytes # (Auto)2019-03-29 15:44:00* Test Item Value Reference Range Interpretation Comments Lymphocytes # (Auto) (test code = 45723-5) 1.2 1.0-3.2 [facility] CenterMonocytes # (Auto)2019-03-29 15:44:00* Test Item Value Reference Range Interpretation Comments Monocytes # (Auto) (test code = 742-7) 0.7 0.2-0.8 [facility] CenterEosinophils # (Auto)2019-03-29 15:44:00* Test Item Value Reference Range Interpretation Comments Eosinophils # (Auto) (test code = 711-2) 0.1 0.0-0.4 [facility] CenterBasophils # (Auto)2019-03-29 15:44:00* Test Item Value Reference Range Interpretation Comments Basophils # (Auto) (test code = 704-7) 0.1 0.0-0.1 [facility] CenterAbsolute Immature Granulocyte (auto 2019-03-29 15:44:00* Test Item Value Reference Range Interpretation Comments Absolute Immature Granulocyte (auto (efrem t code = Absolute Immature Granulocyte (auto) 0.04 0-0.1 [facility] CenterUrine Zkoeb9821-88-73 15:44:00* Test Item Value Reference Range Interpretation Comments Urine Color (test code = 5778-6) YELLOW YELLOW [facility] CenterUrine Glrwdbf0941-10-64 15:44:00* Test Item Value Reference Range Interpretation Comments Urine Clarity (test code = 66605-4) CLEAR CLEAR [facility] CenterUrine Specific Xlbhuvb6760-29-61 15:44:00 * Test Item Value Reference Range Interpretation Comments Urine Specific Treadwell (test code = 5811-5) 1.030 1.010-1.02 5 H [facility] CenterUrine oF2165-46-87 15:44:00* Test Item Value Reference Range Interpretation Comments Urine pH (test code = 73408-2) 6 5-7 [facility] CenterU[facility] Leukocyte Mnakznla7717-30-95 15:44:00* Test Item Value Reference Range Interpretation Comments Urine Leukocyte Esterase (test code = 5799-2) NEGATIVE NEGATIVE [facility] CenterUrine Wnbswsk1181-97-07 15:44:00* Test Item Value Reference Range Interpretation Comments Urine Nitrite (test code = 72911-6) NEGATIVE NEGATIVE [facility] CenterUrine Nomjzwm4962-56-39 15:44:00* Test Item Value Reference Range Interpretation Comments Urine Protein (test code = 5804-0) NEGATIVE NEGATIVE [facility] CenterUrine Glucose (UA)2019-03-29 15:44:00* Test Item Value Reference Range Interpretation Comments Urine Glucose (UA) (test code = 2349-9) NEGATIVE NEGATIVE [facility] CenterUrine Kfkvcau5369-95-66 15:44:00* Test Item Value Reference Range Interpretation Comments Urine Ketones (test code = 49847-4) NEGATIVE NEGATIVE [facility] CenterUrine Otdzikjopzjp6025-18-56 15:44:00* Test Item Value Reference Range Interpretation Comments Urine Urobilinogen (test code = 10979-4) 0.2 0.2-1 [facility] CenterUrine Wgzgirojb8631-51-92 15:44:00* Test Item Value Reference Range Interpretation Comments Urine Bilirubin (test code = 1978-6) NEGATIVE NEGATIVE [facility] CenterU[facility] Xgwaq1314-81-35 15:44:00* Test Item Value Reference Range Interpretation Comments Urine Blood (test code = 40762-4) NEGATIVE NEGATIVE [facility] CenterU[facility] RQG4417-19-45 15:44:00* Test Item Value Reference Range Interpretation Comments Urine WBC (test code = 5821-4) 0-5 0-5 [facility] CenterUrine KPR5527-39-83 15:44:00* Test Item Value Reference Range Interpretation Comments Urine RBC (test code = 21601-4) 0-5 0-5 [facility] CenterUrine Hcpykcxw6186-13-67 15:44:00* Test Item Value Reference Range Interpretation Comments Urine Bacteria (test code = 00356-1) RARE NONE [facility] CenterUrine Epithelial Bkjue8374-68-22 15:44:00 * Test Item Value Reference Range Interpretation Comments Urine Epithelial Cells (test code = 65312-0) FEW NONE [facility] plasma creatine kinase measurement (enzymatic activity/volume)2019-03-29 13:00:00* Test Item Value Reference Range Interpretation Comments Creatine Kinase (test code = 2157-6) 45 30-200 [facility]ererum or plasma creatine kinase MB measurement (mass/volume)2019-03-29 13:00:00* Test Item Value Reference Range Interpretation Comments Creatine Kinase MB (test code = 11836-3) 1.00 0-5.0 [facility] CenterTroponin I measurement by highly sensitive enzyme tjvvtdvgnff2535-05-69 13:00:00* Test Item Value Reference Range Interpretation Comments Troponin I (test code = 91950-5) 0.004 0-0.300 [facility] Centerodium Utmyy8814-79-52 06:01:00* Test Item Value Reference Range Interpretation Comments Sodium Level (test code = 2951-2) 138 136-145 [facility] CenterPotassium Yafys2804-23-85 06:01:00* Test Item Value Reference Range Interpretation Comments Potassium Level (test code = 2823-3) 3.5 3.5-5.1 [facility] CenterChloride Phudn9554-80-06 06:01:00* Test Item Value Reference Range Interpretation Comments Chloride Level (test code = 2075-0) 105 98-107 [facility] CenterCarbon Dioxide Mtuyd3729-06-91 06:01:00* Test Item Value Reference Range Interpretation Comments Carbon Dioxide Level (test code = 2028-9) 24 22-29 [facility] CenterAnion Uze7219-51-80 06:01:00* Test Item Value Reference Range Interpretation Comments Anion Gap (test code = 78071-5) 12.5 8-16 [facility] CenterBlood Urea Qtmbdcgb8890-35-42 06:01:00* Test Item Value Reference Range Interpretation Comments Blood Urea Nitrogen (test code = 3094-0) 8 7-26 [facility] CenterCreatinine2019-12-27 06:01:00* Test Item Value Reference Range Interpretation Comments Creatinine (test code = 2160-0) 0.88 0.72-1.25 [facility] CenterBUN/Creatinine Lbdjd9439-09-37 06:01:00* Test Item Value Reference Range Interpretation Comments BUN/Creatinine Ratio (test code = 3097-3) 9 6-25 [facility] CenterEstimat Glomerular Filtration Rate 2019-02-27 06:01:00* Test Item Value Reference Range Interpretation Comments Estimat Glomerular Filtration Rate (test code = 133270287) > 60 >60 Ranges were taken from the National Kidney Disease Education Program and the [facility] literature.Reference ranges:60 or greater: Pksazm61-21 ( for 3 consecutive months): Chronic kidney disease 15 or less: Kidney failureHCA [facility] CenterGlucose Qfxbs5134-11-88 06:01:00* Test Item Value Reference Range Interpretation Comments Glucose Level (test code = DLP8297) 119 74-118 H [facility] CenterCalcium Xkbfb3195-99-24 06:01:00* Test Item Value Reference Range Interpretation Comments Calcium Level (test code = 43009-5) 8.3 8.4-10.2 L [facility] CenterTotal Itomfzyze0366-66-72 06:01:00* Test Item Value Reference Range Interpretation Comments Total Bilirubin (test code = 1975-2) 1.0 0.2-1.2 [facility] CenterAspartate Amino Transf (AST/SGOT) 2019-02-27 06:01:00* Test Item Value Reference Range Interpretation Comments Aspartate Amino Transf (AST/SGOT) (test code = Aspartate Amino Transf (AST/SGOT)) 28 5-34 [facility] CenterAlanine Aminotransferase (ALT/SGPT) 2019-02-27 06:01:00* Test Item Value Reference Range Interpretation Comments Alanine Aminotransferase (ALT/SGPT) (test code = 1742-6) 37 0-55 [facility] CenterTotal Sukgznk5170-04-89 06:01:00* Test Item Value Reference Range Interpretation Comments Total Protein (test code = 2885-2) 4.9 6.5-8.1 L [facility] CenterAlbumin2019-12-27 06:01:00* Test Item Value Reference Range Interpretation Comments Albumin (test code = 1751-7) 2.2 3.5-5.0 L [facility] CenterGlobulin2019-12-27 06:01:00* Test Item Value Reference Range Interpretation Comments Globulin (test code = 53477-8) 2.7 2.3-3.5 [facility] CenterAlbumin/Globulin Osswk1852-32-24 06:01:00 * Test Item Value Reference Range Interpretation Comments Albumin/Globulin Ratio (test code = 1759-0) 0.8 0.8-2.0 [facility] CenterAlkaline Bsetairaxqf9765-72-53 06:01:00* Test Item Value Reference Range Interpretation Comments Alkaline Phosphatase (test code = 6768-6) 84 40-150 [facility] CenterWhite Blood Edvly7862-80-12 05:45:00* Test Item Value Reference Range Interpretation Comments White Blood Count (test code = 6690-2) 11.43 4.8-10.8 H [facility] CenterRed Blood Tnflf6702-73-12 05:45:00* Test Item Value Reference Range Interpretation Comments Red Blood Count (test code = 789-8) 3.26 4.3-5.7 L [facility] CenterHemoglobin2019-12-27 05:45:00* Test Item Value Reference Range Interpretation Comments Hemoglobin (test code = 45720-8) 9.6 14.0-18.0 L [facility] CenterHematocrit2019-12-27 05:45:00* Test Item Value Reference Range Interpretation Comments Hematocrit (test code = 4544-3) 28.3 38.2-49.6 L [facility] CenterMean Corpuscular Azsazz6096-18-44 05:45:00* Test Item Value Reference Range Interpretation Comments Mean Corpuscular Volume (test code = 787-2) 86.8 81-99 [facility] CenterMean Corpuscular Egxrqlduox4001-89-74 05:45:00* Test Item Value Reference Range Interpretation Comments Mean Corpuscular Hemoglobin (test code = 785-6) 29.4 28-32 [facility] CenterMean Corpuscular Hemoglobin Concent 2019-02-27 05:45:00* Test Item Value Reference Range Interpretation Comments Mean Corpuscular Hemoglobin Concent (test code = 786-4) 33.9 31-35 [facility] CenterRed Cell Distribution Bsgmx0854-95-16 05:45:00* Test Item Value Reference Range Interpretation Comments Red Cell Distribution Width (test code = 39832-1) 12.9 11.7 -14.4 [facility] CenterPlatelet Vlxtu4649-38-99 05:45:00* Test Item Value Reference Range Interpretation Comments Platelet Count (test code = 777-3) 375 140-360 H [facility] CenterNeutrophils (%) (Auto)2019-02-27 05:45:00 * Test Item Value Reference Range Interpretation Comments Neutrophils (%) (Auto) (test code = 34028-8) 73.5 38.7-80.0 [facility] CenterLymphocytes (%) (Auto)2019-02-27 05:45:00 * Test Item Value Reference Range Interpretation Comments Lymphocytes (%) (Auto) (test code = 736-9) 7.8 18.0-39.1 L [facility] CenterMonocytes (%) (Auto)2019-02-27 05:45:00* Test Item Value Reference Range Interpretation Comments Monocytes (%) (Auto) (test code = 5905-5) 10.1 4.4-11.3 [facility] CenterEosinophils (%) (Auto)2019-02-27 05:45:00 * Test Item Value Reference Range Interpretation Comments Eosinophils (%) (Auto) (test code = 713-8) 5.7 0.0-6.0 [facility] CenterBasophils (%) (Auto)2019-02-27 05:45:00* Test Item Value Reference Range Interpretation Comments Basophils (%) (Auto) (test code = 706-2) 0.5 0.0-1.0 [facility] CenterIM GRANULOCYTES %2019-02-27 05:45:00* Test Item Value Reference Range Interpretation Comments IM GRANULOCYTES % (test code = IM GRANULOCYTES %) 2.4 0.0- 1.0 H [facility] CenterNeutrophils # (Auto)2019-02-27 05:45:00* Test Item Value Reference Range Interpretation Comments Neutrophils # (Auto) (test code = 751-8) 8.4 2.1-6.9 H [facility] CenterLymphocytes # (Auto)2019-02-27 05:45:00* Test Item Value Reference Range Interpretation Comments Lymphocytes # (Auto) (test code = 79943-5) 0.9 1.0-3.2 L [facility] CenterMonocytes # (Auto)2019-02-27 05:45:00* Test Item Value Reference Range Interpretation Comments Monocytes # (Auto) (test code = 742-7) 1.2 0.2-0.8 H [facility] CenterEosinophils # (Auto)2019-02-27 05:45:00* Test Item Value Reference Range Interpretation Comments Eosinophils # (Auto) (test code = 711-2) 0.7 0.0-0.4 H [facility] CenterBasophils # (Auto)2019-02-27 05:45:00* Test Item Value Reference Range Interpretation Comments Basophils # (Auto) (test code = 704-7) 0.1 0.0-0.1 [facility] CenterAbsolute Immature Granulocyte (auto 2019-02-27 05:45:00* Test Item Value Reference Range Interpretation Comments Absolute Immature Granulocyte (auto (efrem t code = Absolute Immature Granulocyte (auto) 0.28 0-0.1 H [facility] CenterABDOMEN ACUTE SERIES W/PA DQJ5426-65-73 13:47:00 [place] [address] Patient Name: ANAT FRANCE MR #: [id number] : 1955 Age/Sex: 64/M Req #: [id number] Adm Physician: EWA RAYMOND MD Ordered by: EWA RAYMOND MD Report #: [id number] Location: MED/SURG Room/Bed: [facility] Procedure: [id number] DX/ABDOMEN ACUTE SERIES W/PA CXR Exam Date: [...] OPY TO: EWA RAYMOND MD CT ABDOMEN/PELVIS [id number] 17:35:00 [place] [address] Patient Name: ANAT FRANCE MR #: [id number] : 1955 Age/Sex: 64/M Req #: [id number] Adm Physician: EWA RAYMOND MD Ordered by: EWA RAYMOND MD Report #: [id number] Location: MED/SURG Room/Bed: [facility] Procedure: [id number] CT/CT ABDOMEN/PELVIS W Exam Date: 02/24/19 Exam Time: 1710 REPORT STATUS: Sig parveen EXAM: CT Abdomen [...] colon mass resection with direct colonic reanastomosis. Upzob-nw-kfbptdsu peritoneum in the right upper quadrant as [...] TO: EWA RAYMOND MD ABDOMEN ACUTE SERIES [place] VBS0876-83-15 15:33:00 [place] [address] Patient Name: ANAT FRANCE MR #: [id number] : 1955 Age/Sex: 64/M Req #: [id number] Adm Physician: EWA RAYMOND MD Ordered by: EWA RAYMOND MD Report #: [id number] Location: MED/SURG Room/Bed: [facility] Procedure: [id number] DX/ABDOMEN ACUTE SERIES W/PA CXR Exam Date: [...] 3:40 PM Dictated By: KAUSHAL MOORE MD 1540 Transcribed By: FABRICIO on 02/24/19 1540 COPY TO: EWA SOTO MD Differential Total Cells Fhakenx8990-47-25 12:44:00* Test Item Value Reference Range Interpretation Comments Differential Total Cells Counted (test code = Differeulalia tial Total Cells Counted) 100 [facility] CenterNeutrophils % (Manual)2019-02-19 12:44:00 * Test Item Value Reference Range Interpretation Comments Neutrophils % (Manual) (test code = 35504-6) 80 40-74 H [facility] CenterBand Neutrophils %2019-02-19 12:44:00* Test Item Value Reference Range Interpretation Comments Band Neutrophils % (test code = 764-1) 10 [facility] CenterLymphocytes % (Manual)2019-02-19 12:44:00 * Test Item Value Reference Range Interpretation Comments Lymphocytes % (Manual) (test code = 737-7) 3 19-48 L [facility] CenterMonocytes % (Manual)2019-02-19 12:44:00* Test Item Value Reference Range Interpretation Comments Monocytes % (Manual) (test code = 744-3) 7 3.4-9.0 [facility] CenterPlatelet Yvijyahr1122-93-48 12:44:00* Test Item Value Reference Range Interpretation Comments Platelet Estimate (test code = 95338-3) ADEQUATE [facility] CenterPlatelet Morphology Ouwvrqo9237-52-32 12:44:00* Test Item Value Reference Range Interpretation Comments Platelet Morphology Comment (test code = 71833-9) NORMAL [facility] CenterRed Cell Morphology Vufapqa5334-53-69 12:44:00* Test Item Value Reference Range Interpretation Comments Red Cell Morphology Comment (test code = 6742-1) NORMAL [facility] CenterDifferential Total Cells Counted 2019-02-19 12:44:00* Test Item Value Reference Range Interpretation Comments Differential Total Cells Counted (test code = Connor tial Total Cells Counted) 100 [facility] CenterNeutrophils % (Manual)2019-02-19 12:44:00 * Test Item Value Reference Range Interpretation Comments Neutrophils % (Manual) (test code = 54593-5) 80 40-74 H [facility] CenterBand Neutrophils %2019-02-19 12:44:00* Test Item Value Reference Range Interpretation Comments Band Neutrophils % (test code = 764-1) 10 [facility] CenterLymphocytes % (Manual)2019-02-19 12:44:00 * Test Item Value Reference Range Interpretation Comments Lymphocytes % (Manual) (test code = 737-7) 3 19-48 L [facility] CenterMonocytes % (Manual)2019-02-19 12:44:00* Test Item Value Reference Range Interpretation Comments Monocytes % (Manual) (test code = 744-3) 7 3.4-9.0 [facility] CenterPlatelet Zuhfpagm8265-08-45 12:44:00* Test Item Value Reference Range Interpretation Comments Platelet Estimate (test code = 44540-5) ADEQUATE [facility] CenterPlatelet Morphology Gvshxtr5261-20-55 12:44:00* Test Item Value Reference Range Interpretation Comments Platelet Morphology Comment (test code = 27513-3) NORMAL [facility] CenterRed Cell Morphology Miiewiy9310-77-15 12:44:00* Test Item Value Reference Range Interpretation Comments Red Cell Morphology Comment (test code = 6742-1) NORMAL [facility] CenterDifferential Total Cells Counted 2019-02-19 12:44:00* Test Item Value Reference Range Interpretation Comments Differential Total Cells Counted (test code = Differeulalia tial Total Cells Counted) 100 [facility] CenterNeutrophils % (Manual)2019-02-19 12:44:00 * Test Item Value Reference Range Interpretation Comments Neutrophils % (Manual) (test code = 79955-2) 80 40-74 H [facility] CenterBand Neutrophils %2019-02-19 12:44:00* Test Item Value Reference Range Interpretation Comments Band Neutrophils % (test code = 764-1) 10 [facility] CenterLymphocytes % (Manual)2019-02-19 12:44:00 * Test Item Value Reference Range Interpretation Comments Lymphocytes % (Manual) (test code = 737-7) 3 19-48 L [facility] CenterMonocytes % (Manual)2019-02-19 12:44:00* Test Item Value Reference Range Interpretation Comments Monocytes % (Manual) (test code = 744-3) 7 3.4-9.0 [facility] CenterPlatelet Gudukkah3253-35-30 12:44:00* Test Item Value Reference Range Interpretation Comments Platelet Estimate (test code = 54682-9) ADEQUATE [facility] CenterPlatelet Morphology Wsqfcqe0365-79-64 12:44:00* Test Item Value Reference Range Interpretation Comments Platelet Morphology Comment (test code = 95077-2) NORMAL [facility] CenterRed Cell Morphology Uonkruj9059-33-56 12:44:00* Test Item Value Reference Range Interpretation Comments Red Cell Morphology Comment (test code = 6742-1) NORMAL [facility] CenterFluoroscopic procedure less than one hour hgiqbfrk9573-07-59 03:35:00* Test Item Value Reference Range Interpretation Comments Differential Total Cells Counted (test code = Differen tial Total Cells Counted) 100 [facility] CenterManual blood neutrophils/100 leukocytes 2019-02-19 03:35:00* Test Item Value Reference Range Interpretation Comments Neutrophils % (Manual) (test code = 95209-7) 80 40-74 [facility] Centerual [facility] neutrophils form/100 zurzhdnqgt4867-15-35 03:35:00* Test Item Value Reference Range Interpretation Comments Band Neutrophils % (test code = 764-1) 10 [facility] Centerual blood lymphocytes/100 leukocytes 2019-02-19 03:35:00* Test Item Value Reference Range Interpretation Comments Lymphocytes % (Manual) (test code = 737-7) 3 19-48 [facility] blood monocytes/100 leukocytes 2019-02-19 03:35:00* Test Item Value Reference Range Interpretation Comments Monocytes % (Manual) (test code = 744-3) 7 3.4-9.0 [facility] CenterBlood platelets count by estimate (number/volume)2019-02-19 03:35:00* Test Item Value Reference Range Interpretation Comments Platelet Estimate (test code = 09633-7) ADEQUATE [facility] CenterPlatelet flmciimwdj5223-99-23 03:35:00* Test Item Value Reference Range Interpretation Comments Platelet Morphology Comment (test code = 07967-9) NORMAL [facility] CenterRBC fbbnulksmw0733-17-38 03:35:00* Test Item Value Reference Range Interpretation Comments Red Cell Morphology Comment (test code = 6742-1) NORMAL [facility] CenterCHEST 2 JNJAD9764-56-51 16:47:00 [facility] [address] [place] [address] Patient Name: ANAT FRANCE MR #: [id number] : 1955 Age/Sex: 64/M Req #: [id number] Adm Physician: Ordered by: EWA RAYMOND MD Report #: [id number] Location: OR Room/Bed: Procedure: [id number] DX/CHEST [...] 1648 COPY TO: EWA RAYMOND CT ABDOMEN/PELVIS [id number] 17:07:[address] [address] Patient Name: ANAT FRANCE MR #: [id number] : 1955 Age/Sex: 64/M Req #: [id number] Adm Physician: Ordered by: ASUNCION OH MD Report #: [id number] Location: CT Room/Bed: Procedure: 1206-[address]/CT [...]
[2019-11-05] MEDS ORDERED: SODIUM CHLORIDE 0.9% 50ML 50 ML ONE (13:26)
[2019-11-05] MEDS ORDERED: IOPAMIDOL 370 MG/ML 200 ML INFUS..BTL INJ ONE (13:27)
--- NOTE | 2019-11-05 13:59 | NUR ---
floor took report, but medical appointment scheduler had to get swab for covid r/o first. swab is running.
--- NOTE | 2019-11-05 15:11 | NUR ---
Pt transferred to floor, RN will call and ask for pain medication
--- NOTE | 2019-11-05 15:12 | NUR ---
RECEIVED REPORT FROM LOREN MACDONALD. PATIENT ARRIVED TO THE UNIT @ 1512 VIA WHEELCHAIR FROM THE ER. PATIENT IN STABLE CONDITION, NO S/S OF DISTRESS NOTED. NO PAIN VOICED AT THIS TIME. RESPIRATIONS EVEN AND NON-LABORED. TELEMETRY APPLIED. IV SITE ASYMPTOMATIC, AND PATENT, TRANSPARENT DRESSING C/D/I. BED IN LOWEST POSITION AND LOCKED. CALL LIGHT WITHIN REACH.
[2019-11-05 15:37] VITALS: BP 123/68
[2019-11-05 15:39] VITALS: BP 123/68
--- NOTE | 2019-11-05 18:30 | NUR ---
DR. Jr OH CAME AND SAW THE PATIENT NO NEW ORDERS RECEIVED.
--- NOTE | 2019-11-05 19:00 | NUR ---
Resumed care of patient. Patient awake and resting in bed, no s/s of distress at this time. Bed locked and in lowest position, side rails upx3, call light placed within reach. Patient instructed to call for assistance if needed, verbalized understanding. All safety measures in place.
--- NOTE | 2019-11-05 19:17 | NUR ---
COMPLETED BEDSIDE SHIFT REPORT AND ROUNDING WITH ONCOMING NIGHT NURSE. PATIENT IN STABLE CONDITION, NO S/S OF DISTRESS NOTED. NO PAIN VOICED AT THIS TIME. RESPIRATIONS EVEN AND NON-LABORED. TELEMETRY APPLIED. IV SITE ASYMPTOMATIC, AND PATENT, TRANSPARENT DRESSING C/D/I. BED IN LOWEST POSITION AND LOCKED. CALL LIGHT WITHIN REACH.
[2019-11-05 19:52] VITALS: BP 119/66
[2019-11-05] MEDS ORDERED: IBUPROFEN400 MG PO (20:45)
[2019-11-05 21:05] VITALS: BP 119/66
--- NOTE | 2019-11-05 21:22 | NUR ---
Patient complaining of stabbing pain to right side/ribs. Provided heat pack. Paged Dr. Jr Cortez for orders and awaiting return call.
--- NOTE | 2019-11-05 22:21 | NUR ---
Placed another call to Dr. Jr Cortez's answering service. Awaiting return call at this time.
--- NOTE | 2019-11-05 23:11 | NUR ---
Still awaiting return call from MD. Patient reporting that pain has "let up a little bit" and worsens upon deep breathing. Educated patient on splinting techniques. Patient states that heat has also helped relieve pain. Warm compresses provided.
[2019-11-05 23:47] VITALS: BP 111/66
--- NOTE | 2019-11-06 00:18 | NUR ---
Received orders from Dr. Jr Cortez for Toradol 30 mg IV Q6H PRN.
[2019-11-06] MEDS: KETOROLAC TROMETHAMINE 30 MG/ML VIAL IV PRN ×3 (00:30→19:33)
[2019-11-06 04:55] VITALS: BP 125/71
[2019-11-06 05:53] LABS: BASOPHILS # (AUTO) 0.1 (0.0-0.1); BASOPHILS % 0.5 % (0.0-1.0); EOSINOPHILS # (AUTO) 0.1 (0.0-0.4); EOSINOPHILS % 0.6 % (0.0-6.0); HEMATOCRIT 39.1 % (38.2-49.6); HEMOGLOBIN 12.1 g/dL (14.0-18.0); LYMPHOCYTES % 9.6 % (18.0-39.1); MEAN CORPUSCULAR HEMOGLOBIN 27.1 pg (28-32); MEAN CORPUSCULAR HGB CONC 30.9 g/dL (31-35); MEAN CORPUSCULAR VOLUME 87.7 fL (81-99); MONOCYTES # (AUTO) 1.4 (0.2-0.8); MONOCYTES % 13.3 % (4.4-11.3); NEUTROPHILS # (AUTO) 8.1 (2.1-6.9); NEUTROPHILS % 75.4 % (38.7-80.0); PLATELET COUNT 250 x10e3/uL (140-360); RED BLOOD COUNT 4.46 x10e6/uL (4.3-5.7); RED CELL DISTRIBUTION WIDTH 15.7 % (11.7-14.4)
[2019-11-06 06:15] LABS: ALANINE AMINOTRANSFERASE 23 IU/L (0-55); ALBUMIN/GLOBULIN RATIO 1.3 (0.8-2.0); ALKALINE PHOSPHATASE 105 IU/L (40-150); ANION GAP 17.5 mmol/L (8-16); BLOOD UREA NITROGEN 14 mg/dL (7-26); BUN/CREATININE RATIO 15 (6-25); CALCIUM 9.4 mg/dL (8.4-10.2); CARBON DIOXIDE 19 mmol/L (22-29); CHLORIDE 106 mmol/L (98-107); CREATININE, SERUM 0.94 mg/dL (0.72-1.25); EST GLOMERULAR FILTRATION RATE > 60 ML/MIN (60-); GLUCOSE 99 mg/dL (74-118); POTASSIUM 4.5 mmol/L (3.5-5.1); SODIUM 138 mmol/L (136-145)
--- NOTE | 2019-11-06 07:00 | NUR ---
Bedside report given to oncoming nurse. Patient resting in bed, respirations even and unlabored, no s/s of distress at this time. All safety measures in place.
[2019-11-06 08:00] VITALS: BP 131/70
[2019-11-06] MEDS: ENOXAPARIN INJ 80 MG/0.8 ML SYR SC SCH ×2 (08:36→21:00)
[2019-11-06 12:00] VITALS: BP 124/70
[2019-11-06 17:22] VITALS: BP 131/69
[2019-11-06 19:35] VITALS: BP 115/75
--- NOTE | 2019-11-06 19:48 | NUR ---
Bedside report completed, received pt sitting up in chair at bedside. c/o chest discomfort with hiccup and cough, med per mar. No s/sx of acute distress noted, personal items and call light within reach. Plan of care discussed with patient.
[2019-11-06 21:00] VITALS: BP 115/75
[2019-11-07 00:09] VITALS: BP 121/52
[2019-11-07 05:31] VITALS: BP 123/71
--- NOTE | 2019-11-07 07:00 | NUR ---
RECEIVED PATIENT AWAKE RESTING IN BED NO S/S OF DISTRESS. BED LOW, WHEELS LOCKED, SIDE RAILS X2. CALL LIGHT IN REACH WILL CONTINUE TO MONITOR PATIENT.
[2019-11-07] MEDS: ENOXAPARIN INJ 80 MG/0.8 ML SYR SC SCH (08:06)
[2019-11-07 08:50] VITALS: BP 125/69
[2019-11-07 08:51] VITALS: BP 125/69
[2019-11-07 12:56] VITALS: BP 122/77
[2019-11-07] MEDS ORDERED: XARELTO20 MG PO (13:17)
[2019-11-07] MEDS ORDERED: XARELTO10 MG PO (13:17)
--- NOTE | 2019-11-07 13:28 | NUR ---
REMOVED PATIENTS IV. CATHETER TIP INTACT AND PRESSURE DRESSING APPLIED.
--- NOTE | 2019-11-07 14:00 | NUR ---
PATIENT DISCHARGED FROM FACILITY. PATIENT GATHERED ALL PERSONAL BELONGINGS, DISCHARGE INSTRUCTIONS AND FOLLOW UP INFORMATION. PATIENT LEFT UNIT IN WHEELCHAIR AND WENT HOME VIA PRIVATE AUTO.
== END 2019-11-07 14:00 | disposition home or self-care (01) ==
LOC: ER 10:02 → ERHOLD 12:16 → INTOOBSV 12:16 → MED/SURG 15:26
DX: I26.99 Other pulmonary embolism without acute cor pulmonale (principal); Z85.038 Personal history of other malignant neoplasm of large intestine; Z11.59 Encounter for screening for other viral diseases
CPT/HCPCS: 36415 ×2; 71045; 71260; 80053 ×2; 82550; 82553; 83690; 83880; 84484; 85025 ×2; 85730; 87040; 93005; 99284; G0378 ×3; J1650 ×4; J1885 ×3; Q9967; U0002

== ENCOUNTER 2019-11-18 00:52 | Inpatient (IN) | payer BC, OTHER ==
[~2019-11-18] VITALS: Ht 177.8 cm; Wt 75.3 kg
[2019-11-18] VITALS (8 sets, daily range): BP systolic 124–145; BP diastolic 66–81
[~2019-11-18 00:52] MED LIST changes: +IBUPROFEN400 MG PO; +XARELTO10 MG PO; +XARELTO20 MG PO
[2019-11-18] MEDS ORDERED: SODIUM CHLORIDE 0.9% 1000ML 1,000 ML IV SCH (01:15)
[2019-11-18] MEDS ORDERED: CEFEPIME 2 GM/NS 0.9% 100 ML 100 ML IV ONE (01:15)
[2019-11-18] MEDS ORDERED: ACETAMINOPHEN 325 MG TAB PO ONE (01:15)
[2019-11-18 01:24] LABS: BASOPHILS % 0.3 % (0.0-1.0); EOSINOPHILS % 0.4 % (0.0-6.0); HEMATOCRIT 34.9 % (38.2-49.6); HEMOGLOBIN 11.1 g/dL (14.0-18.0); LYMPHOCYTES # (AUTO) 0.7 (1.0-3.2); LYMPHOCYTES % 9.7 % (18.0-39.1); MEAN CORPUSCULAR HEMOGLOBIN 25.5 pg (28-32); MEAN CORPUSCULAR HGB CONC 31.8 g/dL (31-35); MONOCYTES # (AUTO) 0.7 (0.2-0.8); MONOCYTES % 9.5 % (4.4-11.3); NEUTROPHILS # (AUTO) 5.5 (2.1-6.9); NEUTROPHILS % 78.7 % (38.7-80.0); PLATELET COUNT 470 x10e3/uL (140-360); RED BLOOD COUNT 4.36 x10e6/uL (4.3-5.7); RED CELL DISTRIBUTION WIDTH 15.2 % (11.7-14.4)
--- NOTE | 2019-11-18 01:30 | Emergency Department Note ---
History of Present Illnes History of Present Illness Chief Complaint: General Medicine Complaints History of Present Illness This is a 64 year old male 64 Y/O MALE PT AAOX3 REPORTS FEVER / CHILLS X1 DAY; ALSO WITH "MILD LEFT SHOULDER DISCOMFORT" PT DIAGNOSED WITH PULMONARY EMBOLISM ON NOV 04 AND IS NOW ON XARELTO. Historian: Patient Arrival Mode: Car Location: LEFT SHOULDER Quality: FEVER AND CHILLS Radiation: Reports non-radiation Severity: mild Duration (how long): day(s) (1) Timing of current episode: intermittent Progression: unchanged Chronicity: new Context: Reports recent illness (PULMONARY EDEMA) Relieving factors: none Exacerbating factors: none Associated symptoms: Reports denies other symptoms Past Medical/Family History Physician Review I have reviewed the patient's past medical and family history. Any updates have been documented here. Past Medical History Recent Fever: No Clinical Suspicion of Infectio: No New/Unexplained Change in Ment: No Past Medical History: TIA, Cancer Other Medical History: HEART MUMMER, Past Surgical History: Colon Resection Other Surgery: ILLOSTOMY Social History Smoking Cessation: Never Smoker Alcohol Use: None Any Illegal Drug Use: No Family History Family history of heart diseas: No Other Last Tetanus: UNKNOWN Review of Systems Review of Systems Constitutional: Reports as per HPI EENTM: Reports no symptoms Cardiovascular: Reports no symptoms Respiratory: Reports no symptoms Gastrointestinal: Reports no symptoms Genitourinary: Reports no symptoms Musculoskeletal: Reports no symptoms Integumentary: Reports no symptoms Neurological: Reports no symptoms Psychological: Reports no symptoms Endocrine: Reports no symptoms Hematological/Lymphatic: Reports no symptoms Physical Exam Related Data Allergies: Coded Allergies: No Known Allergies (Unverified , 02/03/19) Triage Vital Signs Vital Signs Date Time Temp Pulse Resp B/P (MAP) Pulse Ox O2 Delivery O2 Flow Rate FiO2 11/18/19 01:05 101.0 89 17 140/73 100 Room Air Vital signs reviewed: Yes Physical Exam CONSTITUTIONAL Constitutional: Present well-developed, Present well-nourished; Absent distressed HENT HENT: Present normocephalic, Present atraumatic, Present oropharynx clear/moist, Present nose normal HENT L/R: Present left ext ear normal, Present right ext ear normal EYES Eyes: Reports PERRL, Reports conjunctivae normal NECK Neck: Present ROM normal PULMONARY Pulmonary: Present effort normal, Present breath sounds normal CARDIOVASCULAR Cardiovascular: Present regular rhythm, Present heart sounds normal, Present capillary refill normal, Present normal rate GASTROINTESTINAL Abdominal: Present soft, Present nontender, Present bowel sounds normal, Present other (ILEOSTOMY PRESENT) GENITOURINARY Genitourinary: Present exam deferred SKIN Skin: Present warm, Present dry MUSCULOSKELETAL Musculoskeletal: Present ROM normal NEUROLOGICAL Neurological: Present alert, Present oriented x 3, Present no gross motor or sensory deficits PSYCHOLOGICAL Psychological: Present mood/affect normal, Present judgement normal Results Laboratory Laboratory Laboratory Tests Test 11/18/19 01:55 11/18/19 01:23 11/18/19 01:15 Urine Color Yellow (YELLOW) Urine Clarity Clear (CLEAR) Urine pH 5.5 (5 - 7) Urine Specific [place] 1.025 (1.010-1.025) Urine Protein Trace (NEGATIVE) Urine Glucose (UA) Negative (NEGATIVE) Urine Ketones Negative (NEGATIVE) Urine Blood Negative (NEGATIVE) Urine Nitrite Negative (NEGATIVE) Urine Bilirubin Negative (NEGATIVE) Urine Urobilinogen 0.2 mg/dL (0.2 - 1) Urine Leukocyte Esterase Negative (NEGATIVE) Urine RBC 0-5 /HPF (0-5) Urine WBC 0-5 /HPF (0-5) Urine Epithelial Cells Rare /LPF (NONE) Urine Amorphous Sediment Few (FEW) Urine Bacteria Few /HPF (NONE) Urine Mucus Few (RARE) Coronavirus (PCR) Detected (NOTDETECTED) White Blood Count 7.03 x10e3/uL (4.8-10.8) Red Blood Count 4.36 x10e6/uL (4.3-5.7) Hemoglobin 11.1 g/dL (14.0-18.0) Hematocrit 34.9 % (38.2-49.6) Mean Corpuscular Volume 80.0 fL (81-99) Mean Corpuscular Hemoglobin 25.5 pg (28-32) Mean Corpuscular Hemoglobin Concent 31.8 g/dL (31-35) Red Cell Distribution Width 15.2 % (11.7-14.4) Platelet Count 470 x10e3/uL (140-360) Neutrophils (%) (Auto) 78.7 % (38.7-80.0) Lymphocytes (%) (Auto) 9.7 % (18.0-39.1) Monocytes (%) (Auto) 9.5 % (4.4-11.3) Eosinophils (%) (Auto) 0.4 % (0.0-6.0) Basophils (%) (Auto) 0.3 % (0.0-1.0) Neutrophils # (Auto) 5.5 (2.1-6.9) Lymphocytes # (Auto) 0.7 (1.0-3.2) Monocytes # (Auto) 0.7 (0.2-0.8) Eosinophils # (Auto) 0.0 (0.0-0.4) Basophils # (Auto) 0.0 (0.0-0.1) Absolute Immature Granulocyte (auto 0.10 x10e3/uL (0-0.1) Sodium Level 135 mmol/L (136-145) Potassium Level 4.1 mmol/L (3.5-5.1) Chloride Level 101 mmol/L (98-107) Carbon Dioxide Level 23 mmol/L (22-29) Anion Gap 15.1 mmol/L (8-16) Blood Urea Nitrogen 9 mg/dL (7-26) Creatinine 0.90 mg/dL (0.72-1.25) Estimat Glomerular Filtration Rate > 60 ML/MIN (60-) BUN/Creatinine Ratio 10 (6-25) Glucose Level 108 mg/dL (74-118) Lactic Acid Level 0.8 mmol/L (0.5-2.0) Calcium Level 8.8 mg/dL (8.4-10.2) Total Bilirubin 0.6 mg/dL (0.2-1.2) Aspartate Amino Transf (AST/SGOT) 45 IU/L (5-34) Alanine Aminotransferase (ALT/SGPT) 79 IU/L (0-55) Alkaline Phosphatase 143 IU/L (40-150) Total Protein 7.2 g/dL (6.5-8.1) Albumin 3.8 g/dL (3.5-5.0) Globulin 3.4 g/dL (2.3-3.5) Albumin/Globulin Ratio 1.1 (0.8-2.0) Influenza Virus Types A,B Antigen Negative (NEGATIVE) Laboratory Tests Test 11/18/19 01:15 Lab results reviewed: Yes Imaging Imaging results reviewed: Yes Impressions Procedure: [id number] DX/CHEST SINGLE (PORTABLE) Exam Date: 11/18/19 Exam Time: 0150 REPORT STATUS: Signed EXAMINATION: CHEST SINGLE (PORTABLE) INDICATION: ^Y ^FEVER ^[id number] ^0150 ^Y COMPARISON: FINDINGS: The heart is nonenlarged. Pulmonary vessels are nondistended. No consolidation. New small right pleural effusion. No pneumothorax. IMPRESSION: New small right pleural effusion. No consolidation. Signed by: Luis Pena MD on 11/18/2019 2:25 AM Dictated By: LUIS PENA MD 4 Transcribed By: FABRICIO on 11/18/19224 COPY TO: NIYAH ANDERSON MD~ Procedures 12 Lead ECG Interpretation ECG Interpretation : ECG: ECG 1 Advertising Strategist: Interpreted by ED physician Date: Nov 18, 2019 Time: 01:21 Rhythm: sinus rhythm Rate: normal BPM: 93 QRS axis: normal Conduction: LAFB ST segments normal: Yes T waves normal: Yes Other findings: LVH Clinical Impression: abnormal ECG Assessment & Plan Medical Decision Making MDM PT WITH FEVER AND CHILLS FOR ONE DAY CBC, CMP, EKG, CXR, COVID 19, RAPID FLU, UA, URINE CULTURE, BLOOD CULTURE, LACTIC ACID, ORDERED TO EVAL FOR SEPSIS, PNEUMONIA, UTI, COVID 19, INFLUENZA, ELECTROLYTE ABNORMALITY TYLENOL 650 MG PO ORDERED 1 LITER NS IV ORDERED CEFEPIME 2 GRAMS IV ORDERED pt positive for pierson virus i spoke with dr mohamud, dr caro and left a message for dr gale, place pt in obs Assessment & Plan Final Impression: (1) Fever (2) COVID-19 (3) Pleural effusion Depart Disposition: ADMITTED Last Vital Signs Date Time Temp Pulse Resp B/P (MAP) Pulse Ox O2 Delivery O2 Flow Rate FiO2 11/18/19 01:05 101.0 89 17 140/73 100 Room Air Home Meds Reported Medications Rivaroxaban (XARELTO) 20 Mg Tablet, 20 MG PO DAILY 11/07/19 Rivaroxaban (XARELTO) 10 Mg Tablet, 15 MG PO BID for 21 Days 11/07/19 Ibuprofen (IBUPROFEN) 400 Mg Tablet, 400 MG PO Q4H PRN for MILD PAIN (1-3), TAB 11/05/19 Hydrocodone Bit/Acetaminophen (NORCO 7.5-325 TABLET) 1 Each Tablet, 1 TAB PO Q4H PRN, TAB 10/24/19 Medications in the ED Cefepime HCl 100 ml @ 200 mls/hr ONCE ONCE IV ; Start 11/18/19 at 01:15; Stop 11/18/19 at 01:44 Acetaminophen 650 mg ONCE ONCE PO ; Start 11/18/19 at 01:15; Stop 11/18/19 at 01:20; Status DC Sodium Chloride 1,000 ml @ 100 mls/hr Q10H IV ; Start 11/18/19 at 01:15; Stop 12/18/19 at 01:14 NIYAH ANDERSON MD Nov 18, 2019 01:30
[2019-11-18 01:42] LABS: ALANINE AMINOTRANSFERASE 79 IU/L (0-55); ALBUMIN 3.8 g/dL (3.5-5.0); ALBUMIN/GLOBULIN RATIO 1.1 (0.8-2.0); ALKALINE PHOSPHATASE 143 IU/L (40-150); ANION GAP 15.1 mmol/L (8-16); BLOOD UREA NITROGEN 9 mg/dL (7-26); BUN/CREATININE RATIO 10 (6-25); CALCIUM 8.8 mg/dL (8.4-10.2); CARBON DIOXIDE 23 mmol/L (22-29); CHLORIDE 101 mmol/L (98-107); EST GLOMERULAR FILTRATION RATE > 60 ML/MIN (60-); GLUCOSE 108 mg/dL (74-118); POTASSIUM 4.1 mmol/L (3.5-5.1); SODIUM 135 mmol/L (136-145)
[2019-11-18] MEDS ORDERED: SODIUM CHLORIDE 0.9% 1000ML 1,000 ML IV ONE ×2 (01:45→02:45)
--- OUTSIDE RECORDS SUMMARY | 2019-11-18 01:59 | XMS REPORT | Clinical Summary ---
Author Author [facility] Address Unknown Phone Unavailable Care Team Providers Care Lead Radiologic Technologist Name Role Phone Asked, No Pcp PCP [...] (1 of 2 - PCV13) INFLUENZA VACCINE 11/03/2019 Results Not on fileafter 11/17/2018 Insurance Type Payer Benefit Subscriber ID Effective Phone Address Plan / Dates Group PPO BCBS BCBS xxxxxxxxxxxx [id number] CHOICE resent PPO/IB[employer] [place] PPO (Home) [place] [address] Advance Directives For more information, please contact: [phone] Patient Business Process Specialist Explanation Type Date Recorded Advance Directives, Living Will and Medical Power of Bobbin Disker Advance Directives, 05/12/2017 1:44 PM Living Will and Medical Power of Bobbin Disker
[2019-11-18 02:00] LABS: BILIRUBIN,URINE NEGATIVE (NEGATIVE); CLARITY,URINE CLEAR (CLEAR); COLOR,URINE YELLOW (YELLOW); KETONES,URINE NEGATIVE (NEGATIVE); LEUKOCYTE ESTERASE ,URINE NEGATIVE (NEGATIVE); NITRITE,URINE NEGATIVE (NEGATIVE); PROTEIN,URINE DIPSTICK TRACE (NEGATIVE); URINE UROBILINOGEN 0.2 mg/dL (0.2 - 1)
--- OUTSIDE RECORDS SUMMARY | 2019-11-18 02:00 | XMS REPORT | Continuity of Care Document ---
Author Author [facility] t Organization [facility] Address [address] [place] [address] Phone Unavailable Care Team Providers Care Scale Installer Name Role Phone MARBELLA DO ARANDA PCP Manda ROBLES Attphys Unavailable [place], [place] Attphys Unavailable Dorota LUO LAIRD Attphys Unavailable Charleen RAYMOND Attphys Unavailable [place], [place] Attphys Unavailable JUVEANDDR CORIN Batres Attphys Unavailable [place], [place] Admphys Unavailable Charleen RAYMOND Admphys Unavailable DR CORIN MEDINA Admjessica Unavailable Payers Payer Name Policy Type Policy Number Effective Date [facility] Date [id number] 2019 00:00:[address] [facility] Cdc Review [id number] [facility] Problems Condition Name Condition Details Condition Category Status Onset Date Resolution Date Last Treatment Date Treating Clinician Comments Source TIA (transient ischemic attack) TIA (transient ischemic attack) Dis ease Active 2017-05-12 00:00:00 Waqas Metz Obstruction of colon Colonic obstruction Problem Active [facility] Pulmonary embolism Problem Active [facility] Allergies, Adverse Reactions, Alerts This patient [...] Signature (SIG) Comments Components Source Hydrocodone Bit/Acetaminophen ([place] 7.5-325 Tablet) 1 Each TABLET Hydrocodone Bit/Acetaminophen ([place] 7.5-325 Tablet) 1 Each TABLET Yes 1 Every 4 Hours as needed for [facility] Ibuprofen Ibuprofen Yes 400 Ever y 4 Hours as needed for Mild Pain (1-3) [facility] Rivaroxaban (Xarelto) 10 Mg TABLET Rivaroxaban (Xarelto) 10 Mg TABLET Yes 15 Twice A Day [facility] Rivaroxaban (Xarelto) 20 Mg TABLET Rivaroxaban (Xarelto) 20 Mg TABLET Yes [address] [facility] Vital Signs Vital Name Observation Time Observation Value Comments Source Body Temperature 2019-11-07 12:56:00 98.8 [degF] [facility] BMI (Body Mass Index) 2019-11-05 15:30:00 26.3 kg/m2 [facility] Weight 2019-11-05 09:29:00 183 [lb_av] [facility] Body Temperature 2019-10-24 08:59:00 97.6 [degF] [facility] BMI (Body Mass Index) 2019-10-24 08:52:00 26.3 kg/m2 [facility] Weight 2019-10-20 06:35:00 183.31 [lb_av] [facility] Procedures Procedure Date / Time Performed Performing Clinician Brigido doe Computed tomography of chest with contrast 2019-11-05 00:00:[address] [facility] Computed tomography of abdomen and pelvis with contrast 00:00:[address] [facility] COLONOSCOPY W/BALLOON DILAT 2019-05-18 00:00:[address] [facility] DILATION OF RECTUM WITH INTRALUMINAL DEVICE, ENDO 2019-04-20 00: 00:[address] [facility] Computed tomography of abdomen and pelvis with contrast 2019 00:00:[address] [facility] Computed tomography of abdomen and pelvis with contrast 2018 00:00:[address] [facility] RESECTION OF LEFT LARGE INTESTINE, OPEN APPROACH 2019-02-18 00:0 0:[address] [facility] X-ray of chest, two views 2019-02-13 00:00:[address] [facility] Computed tomography of abdomen and pelvis with contrast 2018 00:00:[address] [facility] COLONOSCOPY AND BIOPSY 2019-02-05 00:00:00 [facility] COLONOSCOPY SUBMUCOUS NJX 2019-02-05 00:00:00 [facility] COLONOSCOPY W/LESION REMOVAL 2019-02-05 00:00:[address] [facility] Plan of Care Planned Activity Planned Date Details Comments Source Future Scheduled Test 2019-11-03 00:00:00 INFLUENZA VACCINE [code = INFLUENZA VACCINE] [facility] Scheduled Test 2019 00:00:00 65+ PNEUMOCOCCAL V ACCINE (1 of 2 - PCV13) [code = 65+ PNEUMOCOCCAL VACCINE (1 of 2 - PCV13)] [facility] Scheduled Test 2004-01-03 00:00:00 COLONOSCOPY SCREEN ING [code = COLONOSCOPY SCREENING] [facility] Scheduled Test 2004-01-03 00:00:00 SHINGLES VACCINES (#1) [code = SHINGLES VACCINES (#1)] [facility] Instructions Pulmonary Embolism [facility] Encounters Start Date/Time End Date/Time Encounter Type Admission Type Attendi [facility] Care Department Encounter ID Source 2019-11-05 12:16:00 2019-11-07 14:00:00 Discharged Inpatient (obs) 1 VINICIUS ROBLES [facility] [id number] [facility] 2019-10-10 05:53:00 2019-10-24 11:30:00 Discharged Inpatient 1 LOKI [place] [facility] [id number] [facility] kes - Patients [facility] 2019-05-18 06:02:00 2019-05-18 06:02:00 Registered Surgical Day Care [facility] [id number] [facility] - Patients [facility] 2019-04-17 15:40:00 2019-04-21 18:09:00 Discharged Inpatient 1 SANDIP LUO [facility] [id number] [facility]ja medinas - Patients [facility] 2019-03-29 13:29:00 2019-03-29 16:57:00 Departed Emergency Room 1 SANDIP LUO [facility] [id number] [facility] Aleja medinas - Patients [facility] 2019-02-18 13:47:00 2019-03-01 11:35:00 Discharged Inpatient 3 EWA RAYMOND [facility] [id number] [facility]. [facility]ja [facility] Patients [facility] 2019-02-06 12:38:00 2019-02-06 12:38:00 Registered Clinic 3 ASUNCION [place] [facility] Patients [facility] [id number] [facility]. Aleja [facility]inas Patients [facility] 2019-02-05 09:25:00 2019-02-05 09:25:00 Registered Surgical Day Care [facility] [id number] [facility] 2017-07-19 05:15:00 2017-07-19 07:00:00 Outpatient CORIN MITCHELL [facility] [id number] [facility] Results Test Description Test Time Test Comments Results Result Comments Source Blood leukocytes automated count (number/volume) 2019-11-06 05:20:00 Test Item White Blood Count (test code = 6690-2) 10.79 4.8-10.[address] [facility] erythrocytes automated count (number/volume)2019-11-06 05:20:00* Test Item Value Reference Range Interpretation Comments Red Blood Count (test code = 789-8) 4.46 4.3-5.[address] [facility] hemoglobin measurement (moles/volume)2019-11-06 05:20:00* Test Item Value Reference Range Interpretation Comments Hemoglobin (test code = 74727-7) 12.1 14.0-18.[address] [facility] HospitalAutomated blood hematocrit (volume fraction)2019-11-06 05:20:00* Test Item Value Reference Range Interpretation Comments Hematocrit (test code = 4544-3) 39.1 38.2-49.[address] [facility] HospitalAutomated erythrocyte mean corpuscular crtlyz0501-95-47 05:20:00* Test Item Value Reference Range Interpretation Comments Mean Corpuscular Volume (test code = 787-2) 87.7 81-[address] [facility] HospitalAutomated erythrocyte mean corpuscular hemoglobin (mass per erythrocyte)2019-11-06 05:20:00* Test Item Value Reference Range Interpretation Comments Mean Corpuscular Hemoglobin (test code = 785-6) 27.1 28-[address] [facility] HospitalAutomated erythrocyte mean corpuscular hemoglobin concentration measurement (mass/volume)2019-11-06 05:20:00* Test Item Value Reference Range Interpretation Comments Mean Corpuscular Hemoglobin Concent (test code = 786-4) 30.9 31-[address] [facility] HospitalRDW FxxEy-Hxg0968-79-04 05:20:00* Test Item Value Reference Range Interpretation Comments Red Cell Distribution Width (test code = 28409-2) 15.7 11.7 -14.[address] [facility] HospitalAutthe [facility] hospitaled blood platelet count (count/volume)2019-11-06 05:20:00* Test Item Value Reference Range Interpretation Comments Platelet Count (test code = 777-3) 250 140-[address] [facility] HospitalAutthe [facility] hospitaled blood segmented neutrophil count as percentage of total lqvdyfovph1190-48-39 05:20:00* Test Item Value Reference Range Interpretation Comments Neutrophils (%) (Auto) (test code = 08055-4) 75.4 38.7-80.[address] HospitalAutthe [facility] hospitaled blood lymphocyte count as percentage ot total elgfgxjfxw8577-53-19 05:20:00* Test Item Value Reference Range Interpretation Comments Lymphocytes (%) (Auto) (test code = 736-9) 9.6 18.0-39.[address] [facility] HospitalAutomated blood monocyte count as percentage of total vowplffmjm7115-44-27 05:20:00* Test Item Value Reference Range Interpretation Comments Monocytes (%) (Auto) (test code = 5905-5) 13.3 4.4-11.[address] [facility] HospitalAutomated blood eosinophil count as percentage of total nhvpokakyr8554-86-31 05:20:00* Test Item Value Reference Range Interpretation Comments Eosinophils (%) (Auto) (test code = 713-8) 0.6 0.0-6.[address] [facility] HospitalAutomated blood basophil count as percentage of total jtuerzqdjk4565-00-95 05:20:00* Test Item Value Reference Range Interpretation Comments Basophils (%) (Auto) (test code = 706-2) 0.5 0.0-1.[address] [facility] HospitalFluoroscopic procedure less than one hour vtfakkuc4124-72-11 05:20:00* Test Item Value Reference Range Interpretation Comments IM GRANULOCYTES % (test code = IM GRANULOCYTES %) 0.6 0.0- 1.[address] [facility] HospitalAutomated blood neutrophil count 2019-11-06 05:20:00* Test Item Value Reference Range Interpretation Comments Neutrophils # (Auto) (test code = 751-8) 8.1 2.1-6.[address] [facility] HospitalBlood lymphocytes count (number/volume) 2019-11-06 05:20:00* Test Item Value Reference Range Interpretation Comments Lymphocytes # (Auto) (test code = 43066-0) 1.0 1.0-3.[address] [facility] HospitalBlood monocytes automated count (number/volume)2019-11-06 05:20:00* Test Item Value Reference Range Interpretation Comments Monocytes # (Auto) (test code = 742-7) 1.4 0.2-0.[address] [facility] HospitalAutomated blood eosinophil count 2019-11-06 05:20:00* Test Item Value Reference Range Interpretation Comments Eosinophils # (Auto) (test code = 711-2) 0.1 0.0-0.[address] HospitalAutomated blood basophil count (count/volume)2019-11-06 05:20:00* Test Item Value Reference Range Interpretation Comments Basophils # (Auto) (test code = 704-7) 0.1 0.0-0.[address] [facility] HospitalFluoroscopic procedure less than one hour dchfysvh2565-40-32 05:20:00* Test Item Value Reference Range Interpretation Comments Absolute Immature Granulocyte (auto (efrem t code = Absolute Immature Granulocyte (auto) 0.07 0-0.[address] HospitalActivated partial thromboplastin time (aPTT) in platelet poor plasma by coagulation nwsoa6387-75-45 05:20:00* Test Item Value Reference Range Interpretation Comments Activated Partial Thromboplast Time (test code = 40259-7) 40.7 23.8-35.5 [facility] sodium measurement (moles/volume)2019-11-06 05:20:00* Test Item Value Reference Range Interpretation Comments Sodium Level (test code = 2951-2) 138 136-145 [facility]ere[facility] or plasma potassium measurement (moles/volume)2019-11-06 05:20:00* Test Item Value Reference Range Interpretation Comments Potassium Level (test code = 2823-3) 4.5 3.5-5.1 [facility] or plasma chloride measurement (moles/volume)2019-11-06 05:20:00* Test Item Value Reference Range Interpretation Comments Chloride Level (test code = 2075-0) 106 98-107 [facility]ere[facility] or plasma carbon dioxide, total measurement (moles/volume)2019-11-06 05:20:00* Test Item Value Reference Range Interpretation Comments Carbon Dioxide Level (test code = 2028-9) 19 22-29 [facility] or plasma anion udd4370-58-86 05:20:00* Test Item Value Reference Range Interpretation Comments Anion Gap (test code = 21361-8) 17.5 8-16 [facility] or plasma urea nitrogen measurement (mass/volume)2019-11-06 05:20:00* Test Item Value Reference Range Interpretation Comments Blood Urea Nitrogen (test code = 3094-0) 14 7-26 [facility] or plasma creatinine measurement (mass/volume)2019-11-06 05:20:00* Test Item Value Reference Range Interpretation Comments Creatinine (test code = 2160-0) 0.94 0.72-1.25 [facility] or plasma urea nitrogen/creatinine mass iadvf5186-82-43 05:20:00* Test Item Value Reference Range Interpretation Comments BUN/Creatinine Ratio (test code = 3097-3) 15 6-[address] [facility] HospitalEstimated glomerular filtration rate (GFR) pcktqhpovrxfu9524-28-85 05:20:00* Test Item Value Reference Range Interpretation Comments Estimat Glomerular Filtration Rate (test code = 575787614) > 60 >60 Ranges were taken from the National Kidney Disease Education Program and the [facility] literature.Reference ranges:60 or greater: Okqprb35-47 ( for 3 consecutive months): Chronic kidney disease 15 or less: Kidney failureCHI St. [facility] HospitalGlucose otzifcpwgyb8920-03-13 05:20:00* Test Item Value Reference Range Interpretation Comments Glucose Level (test code = NJY1666) 99 74-118 [facility]ere[facility] or plasma calcium measurement (mass/volume)2019-11-06 05:20:00* Test Item Value Reference Range Interpretation Comments Calcium Level (test code = 45134-7) 9.4 8.4-10.2 [facility]ere[facility] or plasma total bilirubin measurement (mass/volume)2019-11-06 05:20:00* Test Item Value Reference Range Interpretation Comments Total Bilirubin (test code = 1975-2) 1.4 0.2-1.[address] [facility] HospitalFluoroscopic procedure less than one hour yvidkqzg4391-20-50 05:20:00* Test Item Value Reference Range Interpretation Comments Aspartate Amino Transf (AST/SGOT) (test code = Aspartate Amino Transf (AST/SGOT)) 17 5-34 [facility]ererum or plasma alanine aminotransferase measurement (enzymatic activity/volume)2019-11-06 05:20:00* Test Item Value Reference Range Interpretation Comments Alanine Aminotransferase (ALT/SGPT) (test code = 1742-6) 23 0-55 [facility]ere[facility] or plasma protein measurement (mass/volume)2019-11-06 05:20:00* Test Item Value Reference Range Interpretation Comments Total Protein (test code = 2885-2) 7.1 6.5-8.1 [facility]ere[facility] or plasma albumin measurement (mass/volume)2019-11-06 05:20:00* Test Item Value Reference Range Interpretation Comments Albumin (test code = 1751-7) 4.0 3.5-5.[address] [facility] HospitalPlasma globulin measurement (mass/volume) 2019-11-06 05:20:00* Test Item Value Reference Range Interpretation Comments Globulin (test code = 01749-2) 3.1 2.3-3.5 [facility]ere[facility] or plasma albumin/globulin mass imgbo9455-25-17 05:20:00* Test Item Value Reference Range Interpretation Comments Albumin/Globulin Ratio (test code = 1759-0) 1.3 0.8-2.0 [facility]ere[facility] or plasma alkaline phosphatase measurement (enzymatic activity/volume)2019-11-06 05:20:00* Test Item Value Reference Range Interpretation Comments Alkaline Phosphatase (test code = 6768-6) 105 40-[address] [facility] HospitalFluoroscopic procedure less than one hour kflbudcx3755-68-41 13:38:00* Test Item Value Reference Range Interpretation Comments Coronavirus (PCR) (test code = Coronavirus (PCR)) NOT DETECTED NOTD ETECTED SARS-COV2/RT-PCR CEPHEIDResults are for the detection of SARS-COV-2 RNA. The CORY S-COV-2 RNA is generally detectable in nasopharyngeal swab specimens during the acute phase of infection. Positive results are indicitive of active infection wi th SARS-COV-2; clinical correlation with patient history and other diagnostic in formation is necessary to determine patient infection status. Positive results d o not rule out bacterial infection or co-infection with other viruses. The agent detected may not be the definite cause of the disease.The limit of detection for this assay is 250 copies/mLThe SARS-CoV-2 test is a rapid, real-time RT-PCR test intended for the qualitative detection of nucleic acid from SARS-CoV-2 in uzma opharyngeal swab specimen collected from individuals suspected of COVID-19 by [facility] healthcare provider. This test has not been Food and Drug Administration (FD A) cleared or approved and has been authorized by FDA under an Emergency Use Aut horization (EUA). This EUA will be effective until the declaration that circumst ances exist justifying the authorization of the emergency use of in vitro diagno stic test for detection and or diagnosis of COVID-19 is terminated under section 564(b) of the Act, or the the EUA is revoked under 564(g) of the ACT.[facility] HospitalBlood drugnea5265-33-43 13:04:00* Test Item Value Reference Range Interpretation Comments Blood Culture (test code = 96471208) NO GROWTH AFTER [address] HospitalCT CHEST [id number] 12:09:00 [facility] [address] [address] Patient Name: ANAT FRANCE MR #: [id number] : 1955 Age/Sex: 64/M Req #: [id number] Adm Physician: Ordered by: VINICIUS ROBLES DO Report #: [id number] Location: ER Room/Bed: Procedure: [id number] CT/CT C HEST W Exam Date: 11/05/19 Exam Time: 1134 REPORT STATUS: Signed CT of the chest, PE protocol, with contrast, 11/05/2019. History: Shortness of br eath. Comparison: Chest x-ray from earlier today. Technique: Multide tector thin collimation CT scanning of the chest was performed from the level of the apices to the upper abdomen during the pulmonary arterial phase, after intravenous administration of contrast. Coronal and sagittal MIP reformations were obtained. RADIATION DOSE: Total DLP: 493 mGy*cm Dose mo dulation, iterative reconstruction, and/or weight based adjustment of the mA/k V was utilized to reduce the radiation dose to as low as reasonably achievable . Discussion: Chest: The pulmonary arteries are well-opacified demons trating hypodense filling defects within right middle lobe, lingular, and bila teral lower lobe segmental pulmonary artery branches. The main pulmonary arter y is normal in size measuring 2.5 cm in diameter. The heart and aorta are norm al in size. There is no IVC contrast reflux or right ventricular enlargement. Thyroid is unremarkable. There is no axillary or mediastinal adenopathy. There is bibasilar atelectasis with trace bilateral pleural effusions. Limited ev aluation of the upper abdomen shows normal bilateral adrenal glands. Bones and soft tissues: No acute abnormality. Mild degenerative changes are present throughout the thoracic spine. IMPRESSION: Bilateral segmental pulmo nary emboli. The findings were discussed with Dr. Robles at 12:15 on 11/05/2019 . Signed by: Nikita Ayala on 11/05/2019 12:19 PM Dictated By: EVIE AYALA MD 1219 Trans cribed By: FABRICIO on 11/05/19 1219 COPY TO: VINICIUS ROBLES DO CHEST SINGLE (PORTABLE)2019-11-05 10:27:00 [address] [address] Patient Name: ANAT FRANCE MR #: [id number] : 1955 Age/Sex: 64/M Req #: [id number] Adm Physician: Ordered by: VINICIUS ROBLES DO Report #: [id number] Location: ER Room/Bed: Procedure: [id number] DX/CHES T SINGLE (PORTABLE) Exam Date: 11/05/19 Exam Time: 1 000 REPORT STATUS: Signed Chest, 1 view, 11/05/2019. History: Shortness of breath. Comparison: . Findings: The cardiomediastinal silhouette and pulmonary vasculat ure are within normal limits for a portable exam. There is no focal consolidat ion or pleural effusion. There are no acute osseous or soft tissue abnormalit ies. Impression: No acute cardiopulmonary abnormality. Signed by: Nikita Ayala on 11/05/2019 10:28 AM Dictated By: NIKITA AYALA MD Electro nically Signed By: NIKITA AYALA MD on 11/05/19 1028 Transcribed By: FABRICIO on 11/05/19 1028 COPY TO: VINICIUS ROBLES DO BNP [facility] 2019-11-05 10:02:00* Test Item Value Reference Range Interpretation Comments B-Type Natriuretic Peptide (test code = 86709-2) 20.4 0-100 [facility] or plasma creatine kinase measurement (enzymatic activity/volume)2019-11-05 10:02:00* Test Item Value Reference Range Interpretation Comments Creatine Kinase (test code = 2157-6) 14 30-200 [facility]ere[facility] or plasma creatine kinase MB measurement (mass/volume)2019-11-05 10:02:00* Test Item Value Reference Range Interpretation Comments Creatine Kinase MB (test code = 23166-0) 0.70 0-5.[address] HospitalTroponin I measurement by highly sensitive enzyme mdvpnyyqgjj6106-03-12 10:02:00* Test Item Value Reference Range Interpretation Comments Troponin I (test code = 49638-6) 0.005 0-0.300 [facility] or plasma lipase measurement (enzymatic activity/volume)2019-11-05 10:02:00* Test Item Value Reference Range Interpretation Comments Lipase (test code = 3040-3) 11 8-[address] [facility] HospitalCapillary blood glucose measurement by glucometer (mass/volume)2019-10-23 18:11:00* Test Item Value Reference Range Interpretation Comments Bedside Glucose (test code = 81832-7) 117 70-120 Meter ID: [id number] [facility] blood glucose measurement by glucometer (mass/volume)2019-10-23 18:11:00* Test Item Value Reference Range Interpretation Comments Bedside Glucose (test code = 25426-5) 117 70-120 Meter ID: [id number]. [facility]kinBlood leukocytes automated count (number/volume)2019-10-23 05:06:00* Test Item Value Reference Range Interpretation Comments White Blood Count (test code = 6690-2) 8.77 4.8-10.[address] [facility] HospitalBlst[facility] erythrocytes automated count (number/volume)2019-10-23 05:06:00* Test Item Value Reference Range Interpretation Comments Red Blood Count (test code = 789-8) 4.35 4.3-5.[address] [facility] HospitalBlood hemoglobin measurement (moles/volume)2019-10-23 05:06:00* Test Item Value Reference Range Interpretation Comments Hemoglobin (test code = 92121-0) 11.2 14.0-18.[address] [facility] HospitalAutomated blood hematocrit (volume fraction)2019-10-23 05:06:00* Test Item Value Reference Range Interpretation Comments Hematocrit (test code = 4544-3) 35.6 38.2-49.[address] [facility] HospitalAutomated erythrocyte mean corpuscular kmzptz4003-27-90 05:06:00* Test Item Value Reference Range Interpretation Comments Mean Corpuscular Volume (test code = 787-2) 81.8 81-[address] [facility] HospitalAutomated erythrocyte mean corpuscular hemoglobin (mass per erythrocyte)2019-10-23 05:06:00* Test Item Value Reference Range Interpretation Comments Mean Corpuscular Hemoglobin (test code = 785-6) 25.7 28-[address] [facility] [address] [facility] HospitalAutomated erythrocyte mean corpuscular hemoglobin concentration measurement (mass/volume)2019-10-23 05:06:00* Test Item Value Reference Range Interpretation Comments Mean Corpuscular Hemoglobin Concent (test code = 786-4) 31.5 31-[address] [facility] HospitalRDW HgyOl-Avk2903-05-21 05:06:00* Test Item Value Reference Range Interpretation Comments Red Cell Distribution Width (test code = 99843-7) 15.2 11.7 -14.[address] [facility] [facility] HospitalAutomated blood platelet count (count/volume)2019-10-23 05:06:00* Test Item Value Reference Range Interpretation Comments Platelet Count (test code = 777-3) 359 140-[address] [facility] [facility] HospitalAutomated blood segmented neutrophil count as percentage of total kfsgzgvxft2799-01-24 05:06:00* Test Item Value Reference Range Interpretation Comments Neutrophils (%) (Auto) (test code = 76530-7) 66.6 38.7-80.[address] [facility] HospitalAutomated blood lymphocyte count as percentage ot total xnhkqoaurr6563-53-64 05:06:00* Test Item Value Reference Range Interpretation Comments Lymphocytes (%) (Auto) (test code = 736-9) 13.1 18.0-39.[address] [facility] HospitalAutomated blood monocyte count as percentage of total lhfvdnfdcn7859-90-94 05:06:00* Test Item Value Reference Range Interpretation Comments Monocytes (%) (Auto) (test code = 5905-5) 10.3 4.4-11.[address] [facility] HospitalAutomated blood eosinophil count as percentage of total culkgupuqe5175-14-64 05:06:00* Test Item Value Reference Range Interpretation Comments Eosinophils (%) (Auto) (test code = 713-8) 5.2 0.0-6.[address] [facility] HospitalAutomated blood basophil count as percentage of total malcslgtfk8379-94-93 05:06:00* Test Item Value Reference Range Interpretation Comments Basophils (%) (Auto) (test code = 706-2) 1.0 0.0-1.[address] HospitalFluoroscopic procedure less than one hour krumwhof4304-59-15 05:06:00* Test Item Value Reference Range Interpretation Comments IM GRANULOCYTES % (test code = IM GRANULOCYTES %) 3.8 0.0- 1.[address] HospitalAutomated blood neutrophil count 2019-10-23 05:06:00* Test Item Value Reference Range Interpretation Comments Neutrophils # (Auto) (test code = 751-8) 5.8 2.1-6.[address] [facility] HospitalBlood lymphocytes count (number/volume) 2019-10-23 05:06:00* Test Item Value Reference Range Interpretation Comments Lymphocytes # (Auto) (test code = 92312-6) 1.2 1.0-3.[address] [facility] HospitalBlood monocytes automated count (number/volume)2019-10-23 05:06:00* Test Item Value Reference Range Interpretation Comments Monocytes # (Auto) (test code = 742-7) 0.9 0.2-0.[address] HospitalAutomated blood eosinophil count 2019-10-23 05:06:00* Test Item Value Reference Range Interpretation Comments Eosinophils # (Auto) (test code = 711-2) 0.5 0.0-0.[address] HospitalAutomated blood basophil count (count/volume)2019-10-23 05:06:00* Test Item Value Reference Range Interpretation Comments Basophils # (Auto) (test code = 704-7) 0.1 0.0-0.[address] [facility] HospitalFluoroscopic procedure less than one hour mepfauld5980-32-18 05:06:00* Test Item Value Reference Range Interpretation Comments Absolute Immature Granulocyte (auto (efrem t code = Absolute Immature Granulocyte (auto) 0.33 0-0.1 [facility]ererum or plasma sodium measurement (moles/volume)2019-10-23 05:06:00* Test Item Value Reference Range Interpretation Comments Sodium Level (test code = 2951-2) 137 136-145 [facility] Centererum or plasma potassium measurement (moles/volume)2019-10-23 05:06:00* Test Item Value Reference Range Interpretation Comments Potassium Level (test code = 2823-3) 4.9 3.5-5.1 [facility] Centererum or plasma chloride measurement (moles/volume)2019-10-23 05:06:00* Test Item Value Reference Range Interpretation Comments Chloride Level (test code = 2075-0) 109 98-107 [facility] Centererum or plasma carbon dioxide, total measurement (moles/volume)2019-10-23 05:06:00* Test Item Value Reference Range Interpretation Comments Carbon Dioxide Level (test code = 2028-9) 21 22-29 [facility] Centererum or plasma anion vji6370-66-69 05:06:00* Test Item Value Reference Range Interpretation Comments Anion Gap (test code = 44327-0) 11.9 8-16 [facility]ererum or plasma urea nitrogen measurement (mass/volume)2019-10-23 05:06:00* Test Item Value Reference Range Interpretation Comments Blood Urea Nitrogen (test code = 3094-0) 6 7-26 [facility]ererum or plasma creatinine measurement (mass/volume)2019-10-23 05:06:00* Test Item Value Reference Range Interpretation Comments Creatinine (test code = 2160-0) 0.88 0.72-1.25 [facility] Centererum or plasma urea nitrogen/creatinine mass vcfhi7100-76-34 05:06:00* Test Item Value Reference Range Interpretation Comments BUN/Creatinine Ratio (test code = 3097-3) 7 6-[address] [facility] HospitalEstimated glomerular filtration rate (GFR) krgyshdmftxyd9447-48-61 05:06:00* Test Item Value Reference Range Interpretation Comments Estimat Glomerular Filtration Rate (test code = 516107105) > 60 >60 Ranges were taken from the National Kidney Disease Education Program and the [facility] Kid[facility] Foundation literature.Reference ranges:60 or greater: Ytouxs32-58 ( for 3 consecutive months): Chronic kidney disease 15 or less: Kidney failureCH[facility] HospitalGlucose idkwrwyjqxi9996-53-00 05:06:00* Test Item Value Reference Range Interpretation Comments Glucose Level (test code = EWG3053) 310 74-118 [facility] Centererum or plasma calcium measurement (mass/volume)2019-10-23 05:06:00* Test Item Value Reference Range Interpretation Comments Calcium Level (test code = 52233-8) 8.4 8.4-10.2 [facility] Centererum or plasma total bilirubin measurement (mass/volume)2019-10-16 05:10:00* Test Item Value Reference Range Interpretation Comments Total Bilirubin (test code = 1975-2) 0.9 0.2-1.[address] HospitalFluoroscopic procedure less than one hour uflbqrdw4865-09-43 05:10:00* Test Item Value Reference Range Interpretation Comments Aspartate Amino Transf (AST/SGOT) (test code = Aspartate Amino Transf (AST/SGOT)) 47 5-34 [facility] Centererum or plasma alanine aminotransferase measurement (enzymatic activity/volume)2019-10-16 05:10:00* Test Item Value Reference Range Interpretation Comments Alanine Aminotransferase (ALT/SGPT) (test code = 1742-6) 43 0-55 [facility] Centererum or plasma protein measurement (mass/volume)2019-10-16 05:10:00* Test Item Value Reference Range Interpretation Comments Total Protein (test code = 2885-2) 5.9 6.5-8.1 [facility] Centererum or plasma albumin measurement (mass/volume)2019-10-16 05:10:00* Test Item Value Reference Range Interpretation Comments Albumin (test code = 1751-7) 3.0 3.5-5.[address] HospitalPlasma globulin measurement (mass/volume) 2019-10-16 05:10:00* Test Item Value Reference Range Interpretation Comments Globulin (test code = 23213-6) 2.9 2.3-3.5 [facility] Centererum or plasma albumin/globulin mass pnsmi4046-62-87 05:10:00* Test Item Value Reference Range Interpretation Comments Albumin/Globulin Ratio (test code = 1759-0) 1.0 0.8-2.0 [facility] Centererum or plasma alkaline phosphatase measurement (enzymatic activity/volume)2019-10-16 05:10:00* Test Item Value Reference Range Interpretation Comments Alkaline Phosphatase (test code = 6768-6) 89 40-[address] [facility] HospitalABDOMEN ACUTE SERIES W/PA XCT0081-38-69 12:52:00 [facility] [address] [address] Patient Name: ANAT FRANCE MR #: [id number] : 1955 Age/Sex: 64/M Req #: [id number] Adm Physician: LOKI OH MD Ordered by: LOKI OH MD Report #: [id number] Location: MED/SURG Room/Bed: [facility] Procedure: [id number] DX/ABDOME N ACUTE SERIES W/PA CXR Exam [...] OH MD ABDOMEN 2 VIEW 2019-10-12 08:57:00 [address] [address] Patient Name: ANAT FRANCE MR #: [id number] : 1955 Age/Sex: 64/M Req #: [id number] Adm Physician: LOKI OH MD Ordered by: RADU RAYMOND MD Report #: [id number] Location: MED/SURG Room/Bed: [facility] Procedure: [id number] DX/AB DOMEN 2 VIEW Exam Date: 10/12/19 [...] AM Dict ated By: KAUSHAL MOORE MD 0901 Transcribed By: FABRICIO on 10/12/19 09 COPY TO: RADU RAYMOND MD ABDOMEN-1VIEW (KUB)2019-10-11 16:24:00 [address] [address] Patient Name: ANAT FRANCE MR #: [id number] : 1955 Age/Sex: 64/M Req #: [id number] Adm Physician: LOKI OH MD Ordered by: FILI WYATT MD Report #: [id number] Location: MED/SURG Room/Bed: [facility] Procedure: [id number] DX/ABDOMEN -1VIEW (KUB) Exam Date: 10/11/19 Exam [...] Sig parveen By: DUNG GIMENEZ MD on 10/11/191624 Transcribed By: FABRICIO on 162 COPY TO: FILI WYATT MD ABDOMEN 2 ZIXQ2269-79-59 08:48:00 [address] [address] Patient Name: ANAT FRANCE MR #: [id number] : 1955 Age/Sex: 64/M Req #: [id number] Adm Physician: LOKI OH MD Ordered by: RADU RAYMOND MD Report #: [id number] Location: MED/SURG Room/Bed: [facility] Procedure: [id number] DX/AB DOMEN 2 VIEW Exam Date: 10/11/19 [...] AM Dictated By: DUNG GIMENEZ MD 1 Transcribed By: FABRICIO on 10/11/19851 COPY TO: FIOR RAYMOND MD Fluoroscopic procedure less than one hour bpvgclhp3193-42-14 06:11:00* Test Item Value Reference Range Interpretation Comments Coronavirus (PCR) (test code = Coronavirus (PCR)) NOT DETECTED NOTD ETECTED Hologic Aptima SARS-CoV-2 assay is a nucleic amplification test intended for the qualitative detection of RNA from SARS-CoV-2 from nasopharyngeal (NAUTICAL INSTRUMENT MECHANIC) specimens. It is used under Emergency Use [...] for reprat testing oc clinically indicated.Tesing performed by:[facility] [address] [place] [address] [id number], Niyah Dhaliwal MD, PhD [facility] HospitalCT ABDOMEN/PELVIS T2815-31-10 05:07:00 [address] [address] Patient Name: ANAT FRANCE MR #: [id number] : 1955 Age/Sex: 64/M Req #: [id number] Adm Physician: Ordered by: NIYAH ANDERSON MD Report #: [id number] Location: ER Room/Bed: Procedure: [id number] CT/ CT ABDOMEN/PELVIS W Exam Date: 08/08/20 Exam Time: 0 420 REPORT STATUS: Signed EXAM: CT Abdomen and Pelvis WITH contrast INDICATION: EVAL FOR OBSTRUCTION/STR ICTURE COMPARISON: TECHNIQUE: Abdomen and pelvis were scanned utilizing a m ulWipstertector helical scanner from the lung base to [...] (PT) in platelet poor plasma by coagulation wswqv4251-26-24 03:05:00* Test Item Value Reference Range Interpretation Comments Prothrombin Time (test code = 5902-2) 12.2 11.9-14.[address] [facility] HospitalINR in Platelet poor plasma by Coagulation cbhyl0675-01-07 03:05:00* Test Item Value Reference Range Interpretation Comments Prothromb Time International Ratio (test code = 6301-6) 0.87 Oral Anticoagulant Therapy INR Values:1. Low Intensity Therapy 1.5 - 2.02 . Moderate Intensity Therapy 2.0 - 3.03. High Intensity Therapy(1) 2.5 - 3. 54. High Intensity Therapy(2) 3.0 - 4.05. Panic Value INR > 5.[address] [facility] HospitalActivated partial thromboplastin time (aPTT) in platelet poor plasma by coagulation xsgbd0454-49-46 03:05:00* Test Item Value Reference Range Interpretation Comments Activated Partial Thromboplast Time (test code = 82880-1) 27.9 23.8-35.5 [facility] Centererum or plasma amylase measurement (enzymatic activity/volume)2019-10-10 03:05:00* Test Item Value Reference Range Interpretation Comments Amylase Level (test code = 1798-8) 42 25-125 [facility] Centererum or plasma lipase measurement (enzymatic activity/volume)2019-10-10 03:05:00* Test Item Value Reference Range Interpretation Comments Lipase (test code = 3040-3) 11 8-[address] [facility] [facility] HospitalProthrombin time (PT) in platelet poor plasma by coagulation bkhoy6903-17-69 03:05:00* Test Item Value Reference Range Interpretation Comments Prothrombin Time (test code = 5902-2) 12.2 11.9-14.[address] [facility] HospitalINR in Platelet poor plasma by Coagulation vtrmp8975-29-68 03:05:00* Test Item Value Reference Range Interpretation Comments Prothromb Time International Ratio (test code = 6301-6) 0.87 Oral Anticoagulant Therapy INR Values:1. Low Intensity Therapy 1.5 - 2.02 . Moderate Intensity Therapy 2.0 - 3.03. High Intensity Therapy(1) 2.5 - 3. 54. High Intensity Therapy(2) 3.0 - 4.05. Panic Value INR > 5.0 [facility] Centererum or plasma amylase measurement (enzymatic activity/volume)2019-10-10 03:05:00* Test Item Value Reference Range Interpretation Comments Amylase Level (test code = 1798-8) 42 25-125 [facility] Centerodium Xaxpl7229-22-74 06:03:00* Test Item Value Reference Range Interpretation Comments Sodium Level (test code = 2951-2) 140 136-[address] [facility] HospitalPotassium Yiybe4951-47-05 06:03:00* Test Item Value Reference Range Interpretation Comments Potassium Level (test code = 2823-3) 4.1 3.5-5.[address] [facility] HospitalChloride Vupag1264-45-49 06:03:00* Test Item Value Reference Range Interpretation Comments Chloride Level (test code = 2075-0) 108 98-[address] [facility] HospitalCarbon Dioxide Payia4307-03-77 06:03:00* Test Item Value Reference Range Interpretation Comments Carbon Dioxide Level (test code = 2028-9) 26 22-[address] [facility] HospitalAnion Unc0060-29-45 06:03:00* Test Item Value Reference Range Interpretation Comments Anion Gap (test code = 48367-5) 10.1 8-[address] [facility] HospitalBlood Urea Ldvvwtuv2332-75-83 06:03:00* Test Item Value Reference Range Interpretation Comments Blood Urea Nitrogen (test code = 3094-0) 9 7-[address] [facility] HospitalCreatinine2020-02-18 06:03:00* Test Item Value Reference Range Interpretation Comments Creatinine (test code = 2160-0) 0.96 0.72-1.[address] [facility] HospitalBUN/Creatinine Esjhf7055-90-78 06:03:00* Test Item Value Reference Range Interpretation Comments BUN/Creatinine Ratio (test code = 3097-3) 9 6-[address] [facility] HospitalEstimat Glomerular Filtration Rate 2019-04-21 06:03:00* Test Item Value Reference Range Interpretation Comments Estimat Glomerular Filtration Rate (test code = 166630228) > 60 >60 Ranges were taken from the National Kidney Disease Education Program and the [facility] Kidney Foundation literature.Reference ranges:60 or greater: Rrxzzt53-37 ( for 3 consecutive months): Chronic kidney disease 15 or less: Kidney failureCH[facility] HospitalGlucose Nfqpo5698-05-13 06:03:00* Test Item Value Reference Range Interpretation Comments Glucose Level (test code = PEC7806) 95 74-[address] [facility] HospitalCalcium Eilgb5844-17-08 06:03:00* Test Item Value Reference Range Interpretation Comments Calcium Level (test code = 07271-7) 8.8 8.4-10.[address] [facility] HospitalWhite Blood Npsfi0229-90-28 05:47:00* Test Item Value Reference Range Interpretation Comments White Blood Count (test code = 6690-2) 8.38 4.8-10.[address] [facility] HospitalRed Blood Qotgi1873-15-93 05:47:00* Test Item Value Reference Range Interpretation Comments Red Blood Count (test code = 789-8) 4.11 4.3-5.[address] [facility] HospitalHemoglobin2020-02-18 05:47:00* Test Item Value Reference Range Interpretation Comments Hemoglobin (test code = 32194-1) 10.8 14.0-18.[address] [facility] HospitalHematocrit2020-02-18 05:47:00* Test Item Value Reference Range Interpretation Comments Hematocrit (test code = 4544-3) 34.2 38.2-49.[address] [facility] HospitalMean Corpuscular Utsegn2869-62-87 05:47:00* Test Item Value Reference Range Interpretation Comments Mean Corpuscular Volume (test code = 787-2) 83.2 81-[address] [facility] HospitalMean Corpuscular Plvzkracor0889-24-55 05:47:00* Test Item Value Reference Range Interpretation Comments Mean Corpuscular Hemoglobin (test code = 785-6) 26.3 28-[address] [facility] HospitalMean Corpuscular Hemoglobin Concent 2019-04-21 05:47:00* Test Item Value Reference Range Interpretation Comments Mean Corpuscular Hemoglobin Concent (test code = 786-4) 31.6 31-[address] [facility] HospitalRed Cell Distribution Umacu7565-66-63 05:47:00* Test Item Value Reference Range Interpretation Comments Red Cell Distribution Width (test code = 99485-9) 13.5 11.7 -14.[address] [facility] HospitalPlatelet Yjbqo2678-67-01 05:47:00* Test Item Value Reference Range Interpretation Comments Platelet Count (test code = 777-3) 257 140-[address] [facility] HospitalNeutrophils (%) (Auto)2019-04-21 05:47:00 * Test Item Value Reference Range Interpretation Comments Neutrophils (%) (Auto) (test code = 73586-6) 77.0 38.7-80.[address] [facility] HospitalLymphocytes (%) (Auto)2019-04-21 05:47:00 * Test Item Value Reference Range Interpretation Comments Lymphocytes (%) (Auto) (test code = 736-9) 11.5 18.0-39.[address] HospitalMonocytes (%) (Auto)2019-04-21 05:47:00* Test Item Value Reference Range Interpretation Comments Monocytes (%) (Auto) (test code = 5905-5) 10.9 4.4-11.[address] [facility] HospitalEosinophils (%) (Auto)2019-04-21 05:47:00 * Test Item Value Reference Range Interpretation Comments Eosinophils (%) (Auto) (test code = 713-8) 0.2 0.0-6.[address] [facility] HospitalBasophils (%) (Auto)2019-04-21 05:47:00* Test Item Value Reference Range Interpretation Comments Basophils (%) (Auto) (test code = 706-2) 0.2 0.0-1.[address] [facility] HospitalIM GRANULOCYTES %2019-04-21 05:47:00* Test Item Value Reference Range Interpretation Comments IM GRANULOCYTES % (test code = IM GRANULOCYTES %) 0.2 0.0- 1.[address] [facility] HospitalNeutrophils # (Auto)2019-04-21 05:47:00* Test Item Value Reference Range Interpretation Comments Neutrophils # (Auto) (test code = 751-8) 6.5 2.1-6.[address] [facility] HospitalLymphocytes # (Auto)2019-04-21 05:47:00* Test Item Value Reference Range Interpretation Comments Lymphocytes # (Auto) (test code = 09163-2) 1.0 1.0-3.[address] [facility] HospitalMonocytes # (Auto)2019-04-21 05:47:00* Test Item Value Reference Range Interpretation Comments Monocytes # (Auto) (test code = 742-7) 0.9 0.2-0.[address] [facility] HospitalEosinophils # (Auto)2019-04-21 05:47:00* Test Item Value Reference Range Interpretation Comments Eosinophils # (Auto) (test code = 711-2) 0.0 0.0-0.[address] [facility] HospitalBasophils # (Auto)2019-04-21 05:47:00* Test Item Value Reference Range Interpretation Comments Basophils # (Auto) (test code = 704-7) 0.0 0.0-0.[address] HospitalAbsolute Immature Granulocyte (auto 2019-04-21 05:47:00* Test Item Value Reference Range Interpretation Comments Absolute Immature Granulocyte (auto (efrem t code = Absolute Immature Granulocyte (auto) 0.02 0-0.[address] [facility] HospitalBlood Vaoxrod1895-16-76 15:06:00* Test Item Value Reference Range Interpretation Comments Blood Culture (test code = 04279598) NO GROWTH AFTER [address] [facility] HospitalTotal Wwpdeptfb1370-11-31 06:59:00* Test Item Value Reference Range Interpretation Comments Total Bilirubin (test code = 1975-2) 1.4 0.2-1.[address] [facility] HospitalAspartate Amino Transf (AST/SGOT) 2019-04-19 06:59:00* Test Item Value Reference Range Interpretation Comments Aspartate Amino Transf (AST/SGOT) (test code = Aspartate Amino Transf (AST/SGOT)) 14 5-[address] [facility] HospitalAlanine Aminotransferase (ALT/SGPT) 2019-04-19 06:59:00* Test Item Value Reference Range Interpretation Comments Alanine Aminotransferase (ALT/SGPT) (test code = 1742-6) 11 0-[address] [facility] [facility] HospitalTotal Uxhyuqp9716-86-46 06:59:00* Test Item Value Reference Range Interpretation Comments Total Protein (test code = 2885-2) 5.7 6.5-8.[address] [facility] HospitalAlbumin2020-02-16 06:59:00* Test Item Value Reference Range Interpretation Comments Albumin (test code = 1751-7) 3.3 3.5-5.[address] [facility] HospitalGlobulin2020-02-16 06:59:00* Test Item Value Reference Range Interpretation Comments Globulin (test code = 00665-5) 2.4 2.3-3.[address] [facility] HospitalAlbumin/Globulin Dwebb9435-71-14 06:59:00 * Test Item Value Reference Range Interpretation Comments Albumin/Globulin Ratio (test code = 1759-0) 1.4 0.8-2.[address] [facility] HospitalAlkaline Zycbvouklwi6016-57-58 06:59:00* Test Item Value Reference Range Interpretation Comments Alkaline Phosphatase (test code = 6768-6) 60 40-[address] [facility] HospitalLactic Acid Gcoey2539-71-91 15:26:00* Test Item Value Reference Range Interpretation Comments Lactic Acid Level (test code = Lactic Acid Level) 1.0 0.5- 2.[address] [facility] HospitalUrine FUD4886-49-82 15:20:00* Test Item Value Reference Range Interpretation Comments Urine WBC (test code = 5821-4) NONE 0-[address] [facility] HospitalUrine VYW7885-41-96 15:20:00* Test Item Value Reference Range Interpretation Comments Urine RBC (test code = 33485-0) NONE 0-[address] [facility] HospitalUrine Wkiibmwb3976-27-50 15:20:00* Test Item Value Reference Range Interpretation Comments Urine Bacteria (test code = 08824-3) RARE NONE [facility] HospitalUrine Epithelial Eczec7557-98-96 15:20:00 * Test Item Value Reference Range Interpretation Comments Urine Epithelial Cells (test code = 81648-8) NONE NONE [facility] HospitalCT ABDOMEN/PELVIS Y8354-57-27 15:06:00 [facility] [address] [address] Patient Name: ANAT FRANCE MR #: [id number] : 1955 Age/Sex: 64/M Req #: [id number] Adm Physician: Ordered by: ED HADLEY NP Report #: [id number] Location: ER Room/Bed: Procedure: 0214-[address]/CT [...] 3:14 PM Dictated By: Phyllis AYALA MD [address] anscribed By: FABRICIO on 04/17/19 5988 COPY TO: ED HADLEY NP Urine Ksuxx7275-82-77 15:03:00* Test Item Value Reference Range Interpretation Comments Urine Color (test code = 5778-6) YELLOW YELLOW [facility] HospitalUrine Jqlxidx9189-98-01 15:03:00* Test Item Value Reference Range Interpretation Comments Urine Clarity (test code = 53743-9) CLEAR CLEAR [facility] HospitalUrine Specific Spkoxaw4555-64-94 15:03:00 * Test Item Value Reference Range Interpretation Comments Urine Specific [place] (test code = 5811-5) 1.025 1.010-1.[address] [facility] HospitalUrine xZ1413-00-45 15:03:00* Test Item Value Reference Range Interpretation Comments Urine pH (test code = 48343-3) 7 5-[address] [facility] HospitalUrine Leukocyte Zxhzqfix4584-96-82 15:03:00* Test Item Value Reference Range Interpretation Comments Urine Leukocyte Esterase (test code = 5799-2) NEGATIVE NEGATIVE [facility] [facility] Zqczuuh1520-13-15 15:03:00* Test Item Value Reference Range Interpretation Comments Urine Nitrite (test code = 36375-1) NEGATIVE NEGATIVE [facility] Nsckvjm2165-42-50 15:03:00* Test Item Value Reference Range Interpretation Comments Urine Protein (test code = 5804-0) NEGATIVE NEGATIVE [facility] HospitalUrine Glucose (UA)2019-04-17 15:03:00* Test Item Value Reference Range Interpretation Comments Urine Glucose (UA) (test code = 2349-9) NEGATIVE NEGATIVE [facility] HospitalUrine Hfpsqie2987-00-71 15:03:00* Test Item Value Reference Range Interpretation Comments Urine Ketones (test code = 74713-7) NEGATIVE NEGATIVE [facility] HospitalU[facility] Vybfiuwswcvs3714-31-33 15:03:00* Test Item Value Reference Range Interpretation Comments Urine Urobilinogen (test code = 92994-9) 0.2 0.2-1 [facility] Bacgzvtvb8958-08-66 15:03:00* Test Item Value Reference Range Interpretation Comments Urine Bilirubin (test code = 1978-6) NEGATIVE NEGATIVE [facility] HospitalU[facility] Lyuzs9586-72-42 15:03:00* Test Item Value Reference Range Interpretation Comments Urine Blood (test code = 06081-4) NEGATIVE NEGATIVE [facility] HospitalProthrombin Svho2665-89-75 14:25:00* Test Item Value Reference Range Interpretation Comments Prothrombin Time (test code = 5902-2) 12.7 11.9-14.[address] [facility] HospitalProthromb Time International Ratio 2019-04-17 14:25:00* Test Item Value Reference Range Interpretation Comments Prothromb Time International Ratio (test code = 6301-6) 0.90 Oral Anticoagulant Therapy INR Values:1. Low Intensity Therapy 1.5 - 2.02 . Moderate Intensity Therapy 2.0 - 3.03. High Intensity Therapy(1) 2.5 - 3. 54. High Intensity Therapy(2) 3.0 - 4.05. Panic Value INR > 5.[address] [facility] HospitalActivated Partial Thromboplast Time 2019-04-17 14:25:00* Test Item Value Reference Range Interpretation Comments Activated Partial Thromboplast Time (test code = 52409-3) 27.4 23.8-35.[address] [facility] HospitalFluoroscopic procedure less than one hour tvrgwqac0995-68-07 13:50:00* Test Item Value Reference Range Interpretation Comments Lactic Acid Level (test code = Lactic Acid Level) 1.0 0.5- 2.[address] [facility] HospitalBlood ljsxddo6647-86-89 13:50:00* Test Item Value Reference Range Interpretation Comments Blood Culture (test code = 49919347) NO GROWTH AFTER 5 DAYS, FINAL REPORT [facility] HospitalFluoroscopic procedure less than one hour lhoxdsbp8528-43-87 13:50:00* Test Item Value Reference Range Interpretation Comments Lactic Acid Level (test code = Lactic Acid Level) 1.0 0.5- 2.[address] [facility] [facility] HospitalUrine color zjrplunahyirn6243-26-08 13:25:00* Test Item Value Reference Range Interpretation Comments Urine Color (test code = 5778-6) YELLOW YELLOW [facility] HospitalUrine anmnsiu1988-26-28 13:25:00* Test Item Value Reference Range Interpretation Comments Urine Clarity (test code = 17613-1) CLEAR CLEAR [facility] Centerpecific gravity of Urine by Test strip 2019-04-17 13:25:00* Test Item Value Reference Range Interpretation Comments Urine Specific [place] (test code = 5811-5) 1.025 1.010-1.[address] [facility] HospitalUrine pH measurement by automated test rclkj6388-49-22 13:25:00* Test Item Value Reference Range Interpretation Comments Urine pH (test code = 72715-7) 7 5-[address] [facility] [facility] HospitalUrine leukocyte esterase detection by nldzzyac1357-72-10 13:25:00* Test Item Value Reference Range Interpretation Comments Urine Leukocyte Esterase (test code = 5799-2) NEGATIVE NEGATIVE [facility] HospitalUrine nitrite uuewyhlsj4674-87-11 13:25:00* Test Item Value Reference Range Interpretation Comments Urine Nitrite (test code = 04959-9) NEGATIVE NEGATIVE [facility] HospitalUrine protein measurement by test strip (mass/volume)2019-04-17 13:25:00* Test Item Value Reference Range Interpretation Comments Urine Protein (test code = 5804-0) NEGATIVE NEGATIVE [facility] HospitalUrine glucose epwpcdimn8862-92-94 13:25:00* Test Item Value Reference Range Interpretation Comments Urine Glucose (UA) (test code = 2349-9) NEGATIVE NEGATIVE [facility] HospitalUrine ketones detection by automated test wagai3587-58-81 13:25:00* Test Item Value Reference Range Interpretation Comments Urine Ketones (test code = 00818-5) NEGATIVE NEGATIVE [facility] HospitalUrine urobilinogen measurement by test strip (mass/volume)2019-04-17 13:25:00* Test Item Value Reference Range Interpretation Comments Urine Urobilinogen (test code = 95365-5) 0.2 0.2-[address] HospitalUrine total bilirubin measurement (mass/volume)2019-04-17 13:25:00* Test Item Value Reference Range Interpretation Comments Urine Bilirubin (test code = 1978-6) NEGATIVE NEGATIVE [facility] HospitalUrine erythrocytes vvdlmssqr4712-73-44 13:25:00* Test Item Value Reference Range Interpretation Comments Urine Blood (test code = 70735-7) NEGATIVE NEGATIVE [facility] HospitalAutomated urine sediment leukocyte count by microscopy (number/high power field)2019-04-17 13:25:00* Test Item Value Reference Range Interpretation Comments Urine WBC (test code = 5821-4) NONE 0-[address] [facility] HospitalErythrocytes detection in urine sediment by light feweigmdzn8483-54-06 13:25:00* Test Item Value Reference Range Interpretation Comments Urine RBC (test code = 88815-8) NONE 0-[address] [facility] [facility] HospitalBacteria detection in urine sediment by light suhstbsodv8802-78-26 13:25:00* Test Item Value Reference Range Interpretation Comments Urine Bacteria (test code = 24166-4) RARE NONE [facility] HospitalEpithelial cells detection in urine sediment by light fvfiqmjxrm2630-18-26 13:25:00* Test Item Value Reference Range Interpretation Comments Urine Epithelial Cells (test code = 68573-5) NONE NONE [facility] HospitalUrine color lbnhwlbpadsvl8269-30-55 13:25:00* Test Item Value Reference Range Interpretation Comments Urine Color (test code = 5778-6) YELLOW YELLOW [facility] HospitalUrine ceejvob1266-81-14 13:25:00* Test Item Value Reference Range Interpretation Comments Urine Clarity (test code = 67337-1) CLEAR CLEAR [facility] Centerpecific gravity of Urine by Test strip 2019-04-17 13:25:00* Test Item Value Reference Range Interpretation Comments Urine Specific [place] (test code = 5811-5) 1.025 1.010-1.[address] [facility] HospitalUrine pH measurement by automated test ngtpw0153-70-81 13:25:00* Test Item Value Reference Range Interpretation Comments Urine pH (test code = 51764-2) 7 5-[address] [facility] [facility] HospitalUrine leukocyte esterase detection by pulioqqw6761-81-45 13:25:00* Test Item Value Reference Range Interpretation Comments Urine Leukocyte Esterase (test code = 5799-2) NEGATIVE NEGATIVE [facility] HospitalUrine nitrite pnxhnrahq6782-41-17 13:25:00* Test Item Value Reference Range Interpretation Comments Urine Nitrite (test code = 27048-0) NEGATIVE NEGATIVE [facility] HospitalUrine protein measurement by test strip (mass/volume)2019-04-17 13:25:00* Test Item Value Reference Range Interpretation Comments Urine Protein (test code = 5804-0) NEGATIVE NEGATIVE [facility] HospitalUrine glucose wmiplsmrs5914-64-30 13:25:00* Test Item Value Reference Range Interpretation Comments Urine Glucose (UA) (test code = 2349-9) NEGATIVE NEGATIVE [facility] HospitalUrine ketones detection by automated test ajvfj6860-66-16 13:25:00* Test Item Value Reference Range Interpretation Comments Urine Ketones (test code = 09541-9) NEGATIVE NEGATIVE [facility] HospitalUrine urobilinogen measurement by test strip (mass/volume)2019-04-17 13:25:00* Test Item Value Reference Range Interpretation Comments Urine Urobilinogen (test code = 98699-8) 0.2 0.2-[address] HospitalUrine total bilirubin measurement (mass/volume)2019-04-17 13:25:00* Test Item Value Reference Range Interpretation Comments Urine Bilirubin (test code = 1978-6) NEGATIVE NEGATIVE [facility] HospitalUrine erythrocytes dinvgrnvp4887-81-96 13:25:00* Test Item Value Reference Range Interpretation Comments Urine Blood (test code = 04697-7) NEGATIVE NEGATIVE [facility] HospitalAutomated urine sediment leukocyte count by microscopy (number/high power field)2019-04-17 13:25:00* Test Item Value Reference Range Interpretation Comments Urine WBC (test code = 5821-4) NONE 0-[address] [facility] HospitalErythrocytes detection in urine sediment by light bnskldhedr3396-41-93 13:25:00* Test Item Value Reference Range Interpretation Comments Urine RBC (test code = 37776-3) NONE 0-[address] [facility] HospitalBacteria detection in urine sediment by light clpfqzxuqd0538-47-12 13:25:00* Test Item Value Reference Range Interpretation Comments Urine Bacteria (test code = 69018-1) RARE NONE [facility] HospitalEpithelial cells detection in urine sediment by light pvxlfmlmvn9053-46-74 13:25:00* Test Item Value Reference Range Interpretation Comments Urine Epithelial Cells (test code = 29626-3) NONE NONE [facility] HospitalABDOMEN 2 KDAV4742-80-56 17:29:00 [facility] [address] [place] [address] Patient Name: ANAT FRANCE MR #: [id number] : 1955 Age/Sex: 64/M Req #: [id number] Adm Physician: Ordered by: SANDIP LUO MD Report #: [id number] Location: ER Room/Bed: Procedure: [id number] DX/ABDOMEN 2 VIEW Exam Date: 03/29/19 Exam [...] 03/29/191731 COPY TO: SANDIP LUO MD Sodium Tevce8574-83-95 16:11:00* Test Item Value Reference Range Interpretation Comments Sodium Level (test code = 2951-2) 140 136-[address] [facility] [facility] [facility] HospitalPotassium Oiswd6226-93-39 16:11:00* Test Item Value Reference Range Interpretation Comments Potassium Level (test code = 2823-3) 3.9 3.5-5.[address] [facility] HospitalChloride Krcep7705-22-46 16:11:00* Test Item Value Reference Range Interpretation Comments Chloride Level (test code = 2075-0) 105 98-[address] [facility] [facility] HospitalCarbon Dioxide Fwtgg3413-06-07 16:11:00* Test Item Value Reference Range Interpretation Comments Carbon Dioxide Level (test code = 2028-9) 25 22-[address] [facility] HospitalAnion Nio6826-12-65 16:11:00* Test Item Value Reference Range Interpretation Comments Anion Gap (test code = 65615-1) 13.9 8-[address] [facility] HospitalBlood Urea Yglkzeum8607-82-87 16:11:00* Test Item Value Reference Range Interpretation Comments Blood Urea Nitrogen (test code = 3094-0) 8 7-[address] [facility] HospitalCreatinine2020-01-26 16:11:00* Test Item Value Reference Range Interpretation Comments Creatinine (test code = 2160-0) 0.87 0.72-1.[address] [facility] HospitalBUN/Creatinine Crqts8543-69-28 16:11:00* Test Item Value Reference Range Interpretation Comments BUN/Creatinine Ratio (test code = 3097-3) 9 6-[address] [facility] HospitalEstimat Glomerular Filtration Rate 2019-03-29 16:11:00* Test Item Value Reference Range Interpretation Comments Estimat Glomerular Filtration Rate (test code = 025453080) > 60 >60 Ranges were taken from the National Kidney Disease Education Program and the [facility] Kidney Foundation literature.Reference ranges:60 or greater: Nftlfi00-11 ( for 3 consecutive months): Chronic kidney disease 15 or less: Kidney failureCHI [facility] HospitalGlucose Gklmq9304-77-80 16:11:00* Test Item Value Reference Range Interpretation Comments Glucose Level (test code = MHR7595) 98 74-[address] [facility] [facility] HospitalCalcium Wpjup8869-36-20 16:11:00* Test Item Value Reference Range Interpretation Comments Calcium Level (test code = 76322-8) 9.5 8.4-10.[address] [facility] [facility] HospitalTotal Wqsgzuupd0744-63-87 16:11:00* Test Item Value Reference Range Interpretation Comments Total Bilirubin (test code = 1975-2) 0.9 0.2-1.[address] [facility] HospitalAspartate Amino Transf (AST/SGOT) 2019-03-29 16:11:00* Test Item Value Reference Range Interpretation Comments Aspartate Amino Transf (AST/SGOT) (test code = Aspartate Amino Transf (AST/SGOT)) 18 5-[address] [facility] HospitalAlanine Aminotransferase (ALT/SGPT) 2019-03-29 16:11:00* Test Item Value Reference Range Interpretation Comments Alanine Aminotransferase (ALT/SGPT) (test code = 1742-6) 19 0-[address] [facility] [facility] [facility] HospitalTotal Evpryqf1135-08-52 16:11:00* Test Item Value Reference Range Interpretation Comments Total Protein (test code = 2885-2) 6.5 6.5-8.[address] [facility] HospitalAlbumin2020-01-26 16:11:00* Test Item Value Reference Range Interpretation Comments Albumin (test code = 1751-7) 3.8 3.5-5.[address] HospitalGlobulin2020-01-26 16:11:00* Test Item Value Reference Range Interpretation Comments Globulin (test code = 59168-6) 2.7 2.3-3.[address] [facility] HospitalAlbumin/Globulin Oshsg7727-18-89 16:11:00 * Test Item Value Reference Range Interpretation Comments Albumin/Globulin Ratio (test code = 1759-0) 1.4 0.8-2.[address] HospitalAlkaline Rxwnrooynli6428-98-10 16:11:00* Test Item Value Reference Range Interpretation Comments Alkaline Phosphatase (test code = 6768-6) 69 40-[address] [facility] [facility] HospitalCreatine Viahww6851-40-58 16:11:00* Test Item Value Reference Range Interpretation Comments Creatine Kinase (test code = 2157-6) 45 30-[address] [facility] HospitalCreatine Kinase XF0889-26-56 16:11:00* Test Item Value Reference Range Interpretation Comments Creatine Kinase MB (test code = 41705-2) 1.00 0-5.[address] HospitalTroponin Z1496-07-41 16:11:00* Test Item Value Reference Range Interpretation Comments Troponin I (test code = SUQ2051) 0.004 0-0.[address] HospitalCreatine Ampyvg9841-79-13 16:11:00* Test Item Value Reference Range Interpretation Comments Creatine Kinase (test code = 2157-6) 45 30-[address] [facility] HospitalCreatine Kinase JE7402-84-78 16:11:00* Test Item Value Reference Range Interpretation Comments Creatine Kinase MB (test code = 76026-9) 1.00 0-5.[address] [facility] HospitalTroponin L1253-65-82 16:11:00* Test Item Value Reference Range Interpretation Comments Troponin I (test code = NCT4202) 0.004 0-0.[address] HospitalWhite Blood Fzouy5954-64-08 15:44:00* Test Item Value Reference Range Interpretation Comments White Blood Count (test code = 6690-2) 8.91 4.8-10.[address] [facility] HospitalRed Blood Nnvbp4151-91-98 15:44:00* Test Item Value Reference Range Interpretation Comments Red Blood Count (test code = 789-8) 4.57 4.3-5.[address] [facility] HospitalHemoglobin2020-01-26 15:44:00* Test Item Value Reference Range Interpretation Comments Hemoglobin (test code = 07492-3) 12.7 14.0-18.[address] [facility] HospitalHematocrit2020-01-26 15:44:00* Test Item Value Reference Range Interpretation Comments Hematocrit (test code = 4544-3) 39.3 38.2-49.[address] [facility] HospitalMean Corpuscular Exrzwo4482-41-04 15:44:00* Test Item Value Reference Range Interpretation Comments Mean Corpuscular Volume (test code = 787-2) 86.0 81-[address] [facility] HospitalMean Corpuscular Gktdhmfudj1376-68-70 15:44:00* Test Item Value Reference Range Interpretation Comments Mean Corpuscular Hemoglobin (test code = 785-6) 27.8 28-[address] [facility] HospitalMean Corpuscular Hemoglobin Concent 2019-03-29 15:44:00* Test Item Value Reference Range Interpretation Comments Mean Corpuscular Hemoglobin Concent (test code = 786-4) 32.3 31-[address] [facility] HospitalRed Cell Distribution Lstdw9558-89-54 15:44:00* Test Item Value Reference Range Interpretation Comments Red Cell Distribution Width (test code = 33645-7) 13.6 11.7 -14.[address] [facility] HospitalPlatelet Ezmwu6446-89-63 15:44:00* Test Item Value Reference Range Interpretation Comments Platelet Count (test code = 777-3) 346 140-[address] [facility] HospitalNeutrophils (%) (Auto)2019-03-29 15:44:00 * Test Item Value Reference Range Interpretation Comments Neutrophils (%) (Auto) (test code = 39717-8) 76.6 38.7-80.[address] [facility] HospitalLymphocytes (%) (Auto)2019-03-29 15:44:00 * Test Item Value Reference Range Interpretation Comments Lymphocytes (%) (Auto) (test code = 736-9) 13.2 18.0-39.[address] [facility] HospitalMonocytes (%) (Auto)2019-03-29 15:44:00* Test Item Value Reference Range Interpretation Comments Monocytes (%) (Auto) (test code = 5905-5) 8.0 4.4-11.[address] [facility] HospitalEosinophils (%) (Auto)2019-03-29 15:44:00 * Test Item Value Reference Range Interpretation Comments Eosinophils (%) (Auto) (test code = 713-8) 1.2 0.0-6.[address] [facility] HospitalBasophils (%) (Auto)2019-03-29 15:44:00* Test Item Value Reference Range Interpretation Comments Basophils (%) (Auto) (test code = 706-2) 0.6 0.0-1.[address] [facility] HospitalIM GRANULOCYTES %2019-03-29 15:44:00* Test Item Value Reference Range Interpretation Comments IM GRANULOCYTES % (test code = IM GRANULOCYTES %) 0.4 0.0- 1.[address] [facility] [facility] HospitalNeutrophils # (Auto)2019-03-29 15:44:00* Test Item Value Reference Range Interpretation Comments Neutrophils # (Auto) (test code = 751-8) 6.8 2.1-6.[address] [facility] HospitalLymphocytes # (Auto)2019-03-29 15:44:00* Test Item Value Reference Range Interpretation Comments Lymphocytes # (Auto) (test code = 77754-5) 1.2 1.0-3.[address] [facility] HospitalMonocytes # (Auto)2019-03-29 15:44:00* Test Item Value Reference Range Interpretation Comments Monocytes # (Auto) (test code = 742-7) 0.7 0.2-0.[address] [facility] HospitalEosinophils # (Auto)2019-03-29 15:44:00* Test Item Value Reference Range Interpretation Comments Eosinophils # (Auto) (test code = 711-2) 0.1 0.0-0.[address] [facility] HospitalBasophils # (Auto)2019-03-29 15:44:00* Test Item Value Reference Range Interpretation Comments Basophils # (Auto) (test code = 704-7) 0.1 0.0-0.[address] [facility] HospitalAbsolute Immature Granulocyte (auto 2019-03-29 15:44:00* Test Item Value Reference Range Interpretation Comments Absolute Immature Granulocyte (auto (efrem t code = Absolute Immature Granulocyte (auto) 0.04 0-0.[address] [facility] HospitalUrine Dgcyi8272-81-88 15:44:00* Test Item Value Reference Range Interpretation Comments Urine Color (test code = 5778-6) YELLOW YELLOW [facility] HospitalUrine Bjkxkag2404-95-85 15:44:00* Test Item Value Reference Range Interpretation Comments Urine Clarity (test code = 96555-5) CLEAR CLEAR [facility] HospitalUrine Specific Vnegzkp6489-59-47 15:44:00 * Test Item Value Reference Range Interpretation Comments Urine Specific [place] (test code = 5811-5) 1.030 1.010-1.[address] [facility] HospitalUrine gE2632-39-96 15:44:00* Test Item Value Reference Range Interpretation Comments Urine pH (test code = 22793-5) 6 5-[address] [facility] HospitalUrine Leukocyte Bmmgtjzm4673-44-13 15:44:00* Test Item Value Reference Range Interpretation Comments Urine Leukocyte Esterase (test code = 5799-2) NEGATIVE NEGATIVE [facility] HospitalUrine Ksuluyg6380-28-35 15:44:00* Test Item Value Reference Range Interpretation Comments Urine Nitrite (test code = 22867-1) NEGATIVE NEGATIVE [facility] HospitalUrine Rqptwwd3710-02-72 15:44:00* Test Item Value Reference Range Interpretation Comments Urine Protein (test code = 5804-0) NEGATIVE NEGATIVE [facility] HospitalUrine Glucose (UA)2019-03-29 15:44:00* Test Item Value Reference Range Interpretation Comments Urine Glucose (UA) (test code = 2349-9) NEGATIVE NEGATIVE [facility] HospitalUrine Fywhnrv3145-71-34 15:44:00* Test Item Value Reference Range Interpretation Comments Urine Ketones (test code = 78949-1) NEGATIVE NEGATIVE [facility] Limrcefxpvxe9620-71-41 15:44:00* Test Item Value Reference Range Interpretation Comments Urine Urobilinogen (test code = 78962-4) 0.2 0.2-1 [facility] Gbunavchp8847-77-10 15:44:00* Test Item Value Reference Range Interpretation Comments Urine Bilirubin (test code = 1978-6) NEGATIVE NEGATIVE [facility] Ihulm9433-48-03 15:44:00* Test Item Value Reference Range Interpretation Comments Urine Blood (test code = 15466-4) NEGATIVE NEGATIVE [facility] HospitalUrine MHB6692-53-65 15:44:00* Test Item Value Reference Range Interpretation Comments Urine WBC (test code = 5821-4) 0-5 0-[address] [facility] [facility] HospitalUrine UKN9018-33-26 15:44:00* Test Item Value Reference Range Interpretation Comments Urine RBC (test code = 85653-6) 0-5 0-[address] [facility] HospitalUrine Exlrndax2687-66-76 15:44:00* Test Item Value Reference Range Interpretation Comments Urine Bacteria (test code = 30558-5) RARE NONE [facility] HospitalUrine Epithelial Keznt4444-31-15 15:44:00 * Test Item Value Reference Range Interpretation Comments Urine Epithelial Cells (test code = 82361-8) FEW NONE [facility] Centererum or plasma creatine kinase measurement (enzymatic activity/volume)2019-03-29 13:00:00* Test Item Value Reference Range Interpretation Comments Creatine Kinase (test code = 2157-6) 45 30-200 [facility] Centererum or plasma creatine kinase MB measurement (mass/volume)2019-03-29 13:00:00* Test Item Value Reference Range Interpretation Comments Creatine Kinase MB (test code = 26645-6) 1.00 0-5.[address] [facility] HospitalTroponin I measurement by highly sensitive enzyme gkdevgpjnpn3658-22-56 13:00:00* Test Item Value Reference Range Interpretation Comments Troponin I (test code = 58086-5) 0.004 0-0.300 [facility] Centerodium Mmdln3871-89-88 06:01:00* Test Item Value Reference Range Interpretation Comments Sodium Level (test code = 2951-2) 138 136-[address] [facility] [facility] HospitalPotassium Epwfe6103-23-36 06:01:00* Test Item Value Reference Range Interpretation Comments Potassium Level (test code = 2823-3) 3.5 3.5-5.[address] [facility] HospitalChloride Lfbix8743-16-55 06:01:00* Test Item Value Reference Range Interpretation Comments Chloride Level (test code = 2075-0) 105 98-[address] [facility] [facility] HospitalCarbon Dioxide Ezanu5206-70-86 06:01:00* Test Item Value Reference Range Interpretation Comments Carbon Dioxide Level (test code = 2028-9) 24 22-[address] [facility] HospitalAnion Jek4478-17-03 06:01:00* Test Item Value Reference Range Interpretation Comments Anion Gap (test code = 94766-7) 12.5 8-[address] [facility] HospitalBlood Urea Jwrfjwfp9364-61-57 06:01:00* Test Item Value Reference Range Interpretation Comments Blood Urea Nitrogen (test code = 3094-0) 8 7-[address] [facility] [facility] HospitalCreatinine2019-12-27 06:01:00* Test Item Value Reference Range Interpretation Comments Creatinine (test code = 2160-0) 0.88 0.72-1.[address] [facility] HospitalBUN/Creatinine Lwzpp8854-44-00 06:01:00* Test Item Value Reference Range Interpretation Comments BUN/Creatinine Ratio (test code = 3097-3) 9 6-[address] [facility] HospitalEstimat Glomerular Filtration Rate 2019-02-27 06:01:00* Test Item Value Reference Range Interpretation Comments Estimat Glomerular Filtration Rate (test code = 068895768) > 60 >60 Ranges were taken from the National Kidney Disease Education Program and the [facility] literature.Reference ranges:60 or greater: Lpensa99-09 ( for 3 consecutive months): Chronic kidney disease 15 or less: [address] [facility] HospitalGlucose Bxrzh9542-62-72 06:01:00* Test Item Value Reference Range Interpretation Comments Glucose Level (test code = BDM7160) 119 74-[address] [facility] HospitalCalcium Jnlvb8354-98-52 06:01:00* Test Item Value Reference Range Interpretation Comments Calcium Level (test code = 89694-0) 8.3 8.4-10.[address] [facility] HospitalTotal Pouvhnsnb9732-40-37 06:01:00* Test Item Value Reference Range Interpretation Comments Total Bilirubin (test code = 1975-2) 1.0 0.2-1.[address] [facility] HospitalAspartate Amino Transf (AST/SGOT) 2019-02-27 06:01:00* Test Item Value Reference Range Interpretation Comments Aspartate Amino Transf (AST/SGOT) (test code = Aspartate Amino Transf (AST/SGOT)) 28 5-[address] [facility] HospitalAlanine Aminotransferase (ALT/SGPT) 2019-02-27 06:01:00* Test Item Value Reference Range Interpretation Comments Alanine Aminotransferase (ALT/SGPT) (test code = 1742-6) 37 0-[address] [facility] HospitalTotal Ufqtzcz2412-87-14 06:01:00* Test Item Value Reference Range Interpretation Comments Total Protein (test code = 2885-2) 4.9 6.5-8.[address] [facility] HospitalAlbumin2019-12-27 06:01:00* Test Item Value Reference Range Interpretation Comments Albumin (test code = 1751-7) 2.2 3.5-5.[address] [facility] HospitalGlobulin2019-12-27 06:01:00* Test Item Value Reference Range Interpretation Comments Globulin (test code = 79890-2) 2.7 2.3-3.[address] [facility] HospitalAlbumin/Globulin Bqhnq4935-73-93 06:01:00 * Test Item Value Reference Range Interpretation Comments Albumin/Globulin Ratio (test code = 1759-0) 0.8 0.8-2.[address] [facility] HospitalAlkaline Lolcgeateuy8637-09-34 06:01:00* Test Item Value Reference Range Interpretation Comments Alkaline Phosphatase (test code = 6768-6) 84 40-[address] [facility] HospitalWhite Blood Cnuko9814-79-47 05:45:00* Test Item Value Reference Range Interpretation Comments White Blood Count (test code = 6690-2) 11.43 4.8-10.[address] [facility] HospitalRed Blood Aykzs0717-59-96 05:45:00* Test Item Value Reference Range Interpretation Comments Red Blood Count (test code = 789-8) 3.26 4.3-5.[address] [facility] HospitalHemoglobin2019-12-27 05:45:00* Test Item Value Reference Range Interpretation Comments Hemoglobin (test code = 23203-7) 9.6 14.0-18.[address] [facility] HospitalHematocrit2019-12-27 05:45:00* Test Item Value Reference Range Interpretation Comments Hematocrit (test code = 4544-3) 28.3 38.2-49.[address] [facility] HospitalMean Corpuscular Hnpdeu0013-18-56 05:45:00* Test Item Value Reference Range Interpretation Comments Mean Corpuscular Volume (test code = 787-2) 86.8 81-[address] [facility] HospitalMean Corpuscular Bcfadwxnon4213-97-30 05:45:00* Test Item Value Reference Range Interpretation Comments Mean Corpuscular Hemoglobin (test code = 785-6) 29.4 28-[address] [facility] HospitalMean Corpuscular Hemoglobin Concent 2019-02-27 05:45:00* Test Item Value Reference Range Interpretation Comments Mean Corpuscular Hemoglobin Concent (test code = 786-4) 33.9 31-[address] [facility] HospitalRed Cell Distribution Ifffc7225-72-26 05:45:00* Test Item Value Reference Range Interpretation Comments Red Cell Distribution Width (test code = 03497-7) 12.9 11.7 -14.[address] [facility] HospitalPlatelet Wkokn9345-92-25 05:45:00* Test Item Value Reference Range Interpretation Comments Platelet Count (test code = 777-3) 375 140-[address] [facility] HospitalNeutrophils (%) (Auto)2019-02-27 05:45:00 * Test Item Value Reference Range Interpretation Comments Neutrophils (%) (Auto) (test code = 87010-0) 73.5 38.7-80.[address] [facility] HospitalLymphocytes (%) (Auto)2019-02-27 05:45:00 * Test Item Value Reference Range Interpretation Comments Lymphocytes (%) (Auto) (test code = 736-9) 7.8 18.0-39.[address] [facility] HospitalMonocytes (%) (Auto)2019-02-27 05:45:00* Test Item Value Reference Range Interpretation Comments Monocytes (%) (Auto) (test code = 5905-5) 10.1 4.4-11.[address] [facility] HospitalEosinophils (%) (Auto)2019-02-27 05:45:00 * Test Item Value Reference Range Interpretation Comments Eosinophils (%) (Auto) (test code = 713-8) 5.7 0.0-6.[address] [facility] HospitalBasophils (%) (Auto)2019-02-27 05:45:00* Test Item Value Reference Range Interpretation Comments Basophils (%) (Auto) (test code = 706-2) 0.5 0.0-1.[address] [facility] HospitalIM GRANULOCYTES %2019-02-27 05:45:00* Test Item Value Reference Range Interpretation Comments IM GRANULOCYTES % (test code = IM GRANULOCYTES %) 2.4 0.0- 1.[address] [facility] HospitalNeutrophils # (Auto)2019-02-27 05:45:00* Test Item Value Reference Range Interpretation Comments Neutrophils # (Auto) (test code = 751-8) 8.4 2.1-6.[address] [facility] HospitalLymphocytes # (Auto)2019-02-27 05:45:00* Test Item Value Reference Range Interpretation Comments Lymphocytes # (Auto) (test code = 23109-2) 0.9 1.0-3.[address] [facility] HospitalMonocytes # (Auto)2019-02-27 05:45:00* Test Item Value Reference Range Interpretation Comments Monocytes # (Auto) (test code = 742-7) 1.2 0.2-0.[address] [facility] HospitalEosinophils # (Auto)2019-02-27 05:45:00* Test Item Value Reference Range Interpretation Comments Eosinophils # (Auto) (test code = 711-2) 0.7 0.0-0.[address] [facility] HospitalBasophils # (Auto)2019-02-27 05:45:00* Test Item Value Reference Range Interpretation Comments Basophils # (Auto) (test code = 704-7) 0.1 0.0-0.[address] [facility] HospitalAbsolute Immature Granulocyte (auto 2019-02-27 05:45:00* Test Item Value Reference Range Interpretation Comments Absolute Immature Granulocyte (auto (efrem t code = Absolute Immature Granulocyte (auto) 0.28 0-0.[address] [facility] HospitalABDOMEN ACUTE SERIES W/PA LEN3383-40-26 13:47:00 [place] [address] Patient Name: ANAT FRANCE MR #: [id number] : 1955 Age/Sex: 64/M Req #: [id number] Adm Physician: EWA RAYMOND MD Ordered by: EWA RAYMOND MD Report #: [id number] Location: MED/SURG Room/Bed: [facility] Procedure: [id number] DX/ABDOMEN ACUTE SERIES W/PA CXR Exam Date: [...] OPY TO: EWA RAYMOND MD CT ABDOMEN/PELVIS [id number] 17:35:00 [place] [address] Patient Name: ANAT FRANCE MR #: [id number] : 1955 Age/Sex: 64/M Req #: [id number] Adm Physician: EWA RAYMOND MD Ordered by: EWA RAYMOND MD Report #: [id number] Location: MED/SURG Room/Bed: [facility] Procedure: [id number] CT/CT ABDOMEN/PELVIS W Exam Date: 02/24/19 Exam [...] colon mass resection with direct colonic reanastomosis. Kwnor-pz-jobelgks peritoneum in the right upper quadrant as [...] EWA RAYMOND MD ABDOMEN ACUTE SERIES W/MARY JKW7421-72-98 15:33:00 [place] [address] Patient Name: ANAT FRANCE MR #: [id number] : 1955 Age/Sex: 64/M Req #: [id number] Adm Physician: EWA RAYMOND MD Ordered by: EWA RAYMOND MD Report #: [id number] Location: MED/SURG Room/Bed: [facility] Procedure: [id number] DX/ABDOMEN ACUTE SERIES W/PA CXR Exam Date: [...] TO: EWA SOTO MD Differential Total Cells Suothsj7886-95-60 12:44:00* Test Item Value Reference Range Interpretation Comments Differential Total Cells Counted (test code = Differen tial Total Cells Counted) [address] [facility] HospitalNeutrophils % (Manual)2019-02-19 12:44:00 * Test Item Value Reference Range Interpretation Comments Neutrophils % (Manual) (test code = 32033-7) 80 40-[address] [facility] HospitalBand Neutrophils %2019-02-19 12:44:00* Test Item Value Reference Range Interpretation Comments Band Neutrophils % (test code = 764-1) [address] [facility] HospitalLymphocytes % (Manual)2019-02-19 12:44:00 * Test Item Value Reference Range Interpretation Comments Lymphocytes % (Manual) (test code = 737-7) 3 19-[address] [facility] HospitalMonocytes % (Manual)2019-02-19 12:44:00* Test Item Value Reference Range Interpretation Comments Monocytes % (Manual) (test code = 744-3) 7 3.4-9.[address] [facility] HospitalPlatelet Hjhmmthv5165-42-59 12:44:00* Test Item Value Reference Range Interpretation Comments Platelet Estimate (test code = 19718-3) ADEQUATE [facility] HospitalPlatelet Morphology Meqraag9280-02-62 12:44:00* Test Item Value Reference Range Interpretation Comments Platelet Morphology Comment (test code = 77538-6) NORMAL [facility] HospitalRed Cell Morphology Lbbbtau7547-85-72 12:44:00* Test Item Value Reference Range Interpretation Comments Red Cell Morphology Comment (test code = 6742-1) NORMAL [facility] HospitalDifferential Total Cells Counted 2019-02-19 12:44:00* Test Item Value Reference Range Interpretation Comments Differential Total Cells Counted (test code = Connor tial Total Cells Counted) [address] [facility] HospitalNeutrophils % (Manual)2019-02-19 12:44:00 * Test Item Value Reference Range Interpretation Comments Neutrophils % (Manual) (test code = 47285-1) 80 40-[address] [facility] HospitalBand Neutrophils %2019-02-19 12:44:00* Test Item Value Reference Range Interpretation Comments Band Neutrophils % (test code = 764-1) [address] [facility] HospitalLymphocytes % (Manual)2019-02-19 12:44:00 * Test Item Value Reference Range Interpretation Comments Lymphocytes % (Manual) (test code = 737-7) 3 19-[address] [facility] HospitalMonocytes % (Manual)2019-02-19 12:44:00* Test Item Value Reference Range Interpretation Comments Monocytes % (Manual) (test code = 744-3) 7 3.4-9.[address] [facility] HospitalPlatelet Otukzzww1301-53-87 12:44:00* Test Item Value Reference Range Interpretation Comments Platelet Estimate (test code = 22109-8) ADEQUATE [facility] HospitalPlatelet Morphology Mqflckl6698-42-31 12:44:00* Test Item Value Reference Range Interpretation Comments Platelet Morphology Comment (test code = 17056-1) NORMAL [facility] HospitalRed Cell Morphology Npavgzb3617-22-24 12:44:00* Test Item Value Reference Range Interpretation Comments Red Cell Morphology Comment (test code = 6742-1) NORMAL [facility] HospitalDifferential Total Cells Counted 2019-02-19 12:44:00* Test Item Value Reference Range Interpretation Comments Differential Total Cells Counted (test code = Connor vargas Total Cells Counted) [address] [facility] HospitalNeutrophils % (Manual)2019-02-19 12:44:00 * Test Item Value Reference Range Interpretation Comments Neutrophils % (Manual) (test code = 18557-3) 80 40-[address] [facility] HospitalBand Neutrophils %2019-02-19 12:44:00* Test Item Value Reference Range Interpretation Comments Band Neutrophils % (test code = 764-1) [address] [facility] HospitalLymphocytes % (Manual)2019-02-19 12:44:00 * Test Item Value Reference Range Interpretation Comments Lymphocytes % (Manual) (test code = 737-7) 3 19-[address] [facility] HospitalMonocytes % (Manual)2019-02-19 12:44:00* Test Item Value Reference Range Interpretation Comments Monocytes % (Manual) (test code = 744-3) 7 3.4-9.[address] [facility] HospitalPlatelet Yqydqdet0051-74-36 12:44:00* Test Item Value Reference Range Interpretation Comments Platelet Estimate (test code = 46717-5) A[facility]QUATE [facility] HospitalPlatelet Morphology Jcefqax2205-14-67 12:44:00* Test Item Value Reference Range Interpretation Comments Platelet Morphology Comment (test code = 97034-3) NORMAL [facility] HospitalRed Cell Morphology Omtkbnb2158-64-82 12:44:00* Test Item Value Reference Range Interpretation Comments Red Cell Morphology Comment (test code = 6742-1) [facility]ORMAL [facility] HospitalFluoroscopic procedure less than one hour mkgjrhwd0128-04-49 03:35:00* Test Item Value Reference Range Interpretation Comments Differential Total Cells Counted (test code = Trinidadeulalia tial Total Cells Counted) 100 [facility] blood neutrophils/100 leukocytes 2019-02-19 03:35:00* Test Item Value Reference Range Interpretation Comments Neutrophils % (Manual) (test code = 48720-4) 80 40-74 [facility] blood band neutrophils form/100 yxywrlzxud7260-90-34 03:35:00* Test Item Value Reference Range Interpretation Comments Band Neutrophils % (test code = 764-1) 10 [facility] blood lymphocytes/100 leukocytes 2019-02-19 03:35:00* Test Item Value Reference Range Interpretation Comments Lymphocytes % (Manual) (test code = 737-7) 3 19-48 [facility] blood monocytes/100 leukocytes 2019-02-19 03:35:00* Test Item Value Reference Range Interpretation Comments Monocytes % (Manual) (test code = 744-3) 7 3.4-9.[address] [facility] HospitalBlood platelets count by estimate (number/volume)2019-02-19 03:35:00* Test Item Value Reference Range Interpretation Comments Platelet Estimate (test code = 19601-2) A[facility]QUATE [facility] HospitalPlatelet rqrdwjferd8923-62-96 03:35:00* Test Item Value Reference Range Interpretation Comments Platelet Morphology Comment (test code = 02049-1) NORMAL [facility] HospitalRBC bykjddcbwt5760-55-85 03:35:00* Test Item Value Reference Range Interpretation Comments Red Cell Morphology Comment (test code = 6742-1) NORMAL [facility] HospitalFluoroscopic procedure less than one hour pmtnrsdj0055-94-56 03:35:00* Test Item Value Reference Range Interpretation Comments Differential Total Cells Counted (test code = Differeulalia tial Total Cells Counted) 100 [facility] blood neutrophils/100 leukocytes 2019-02-19 03:35:00* Test Item Value Reference Range Interpretation Comments Neutrophils % (Manual) (test code = 54421-2) 80 40-74 [facility] blood band neutrophils form/100 cqneapvszw9420-15-37 03:35:00* Test Item Value Reference Range Interpretation Comments Band Neutrophils % (test code = 764-1) 10 [facility] blood lymphocytes/100 leukocytes 2019-02-19 03:35:00* Test Item Value Reference Range Interpretation Comments Lymphocytes % (Manual) (test code = 737-7) 3 19-48 [facility] blood monocytes/100 leukocytes 2019-02-19 03:35:00* Test Item Value Reference Range Interpretation Comments Monocytes % (Manual) (test code = 744-3) 7 3.4-9.[address] [facility] HospitalBlood platelets count by estimate (number/volume)2019-02-19 03:35:00* Test Item Value Reference Range Interpretation Comments Platelet Estimate (test code = 34020-4) [facility]DEQUATE [facility] HospitalPlatelet mtmxyoyyps4758-46-37 03:35:00* Test Item Value Reference Range Interpretation Comments Platelet Morphology Comment (test code = 11524-1) [facility]ORMAL [facility] HospitalRB ofsqglimqf2666-29-25 03:35:00* Test Item Value Reference Range Interpretation Comments Red Cell Morphology Comment (test code = 6742-1) [facility]ORMAL [facility] HospitalCHEST 2 BQVIL5424-43-25 16:47:00 [facility] [address] [place] [address] Patient Name: ANAT FRANCE MR #: [id number] : 1955 Age/Sex: 64/M Req #: [id number] Adm Physician: Ordered by: EWA RAYMOND MD Report #: [id number] Location: OR Room/Bed: Procedure: [id number] DX/CHEST [...] 1648 COPY TO: EWA RAYMOND CT ABDOMEN/PELVIS [id number] 17:07:00 [place] [address] Patient Name: ANAT FRANCE MR #: [id number] : 1955 Age/Sex: 64/M Req #: [id number] Adm Physician: Ordered by: ASUNCION OH MD Report #: [id number] Location: CT Room/Bed: Procedure: 1206-[address]/CT [...]
[2019-11-18 02:10] LABS: AMORPHOUS SEDIMENT,URINE FEW (FEW); BACTERIA,URINE FEW /HPF; EPITHELIAL CELLS,URINE RARE /LPF; MUCUS,URINE FEW (RARE); RBC,URINE 0-5 /HPF (0-5); WBC,URINE (MAN) 0-5 /HPF (0-5)
--- NOTE | 2019-11-18 02:29 | Diagnostic Imaging Report ---
EXAMINATION: CHEST SINGLE (PORTABLE) INDICATION: ^Y ^FEVER ^[id number] ^0150 ^Y COMPARISON: FINDINGS: The heart is nonenlarged. Pulmonary vessels are nondistended. No consolidation. New small right pleural effusion. No pneumothorax. IMPRESSION: New small right pleural effusion. No consolidation. Signed by: Gilberto Paz MD on 11/18/2019 2:25 AM
--- OUTSIDE RECORDS SUMMARY | 2019-11-18 02:51 | XMS REPORT | Clinical Summary ---
Author Author [employer] [facility] [employer] Address Unknown Phone Unavailable Care Team Providers Care Medical Transcription Radiology Name Role Phone Asked, No Pcp PCP [...] 2016-P CHOICE resent PPO/IBETH [place] PPO (Home) [place] [address] Advance Directives For more information, please contact: [phone] Patient Health Policy Manager Explanation Type Date Recorded Advance Directives, Living Will and Medical Power of Fabricator Special Items Advance Directives, 05/12/2017 1:44 PM Living Will and Medical Power of Fabricator Special Items
--- OUTSIDE RECORDS SUMMARY | 2019-11-18 02:52 | XMS REPORT | Continuity of Care Document ---
Author Author [facility] t Organization [facility] Address [address] [place] [address] Phone Unavailable Care Team Providers Care News Videotape Editor Name Role Phone MARBELLA DO ARANDA PCP Charleen ANDERSON Attphys Unavailable SANDHIGricelda Munoz AMBHEATHER Attphys Unavailable [place], [place] Attphys Unavailable Dorota LUO Attphys Unavailable Charleen RAYMOND Attphys Unavailable [place], [place] Attphys Unavailable JUVEANDDR CORIN Batres Attphygricelda Unavailable [place], [place] Admphys Unavailable Charleen RAYMOND Admphys Unavailable DR CORIN MEDINA Unavailable Payers Payer Name Policy Type Policy Number Effective Date Expiration Date rhett [facility] [id number] 2019 00:00:00 [facility] Cdc Review Covid19 [id number] [facility] Problems Condition Name Condition Details Condition Category Status Onset Date Resolution Date Last Treatment Date Treating Clinician Comments Source TIA (transient ischemic attack) TIA (transient ischemic attack) Dis ease Active 2017-05-12 00:00:00 Waqas Metz Obstruction of colon Colonic obstruction Problem Active [facility] Pulmonary embolism Problem Active [facility] Allergies, Adverse Reactions, Alerts This patient has no known allergies or adverse reactions. Social History Social Habit Start Date Stop Date Quantity Comments Source Sex Assigned At Alphonsefrank márquezvimal Metz Alcohol intake 2017-05-12 00:00:00 2017-05-12 00:00:00 Current non-drinker of alcohol (finding) Waqas Metz Smoking Status Start Date Stop Date Source Never smoker Waqas mejia Medications Ordered Medication Name Filled Medication Name Start Date Stop Da te Current Medication? Ordering Clinician Indication Dosage Frequency Signature (SIG) Comments Components Source Hydrocodone Bit/Acetaminophen ([place] 7.5-325 Tablet) 1 Each TABLET Hydrocodone Bit/Acetaminophen ([place] 7.5-325 Tablet) 1 Each TABLET Yes 1 Every 4 Hours as needed for [facility] Ibuprofen Ibuprofen Yes 400 Ever y 4 Hours as needed for Mild Pain (1-3) [facility] Rivaroxaban (Xarelto) 10 Mg TABLET Rivaroxaban (Xarelto) 10 Mg TABLET Yes 15 Twice A Day [facility] Rivaroxaban (Xarelto) 20 Mg TABLET Rivaroxaban (Xarelto) 20 Mg TABLET Yes 20 Daily [facility] Vital Signs Vital Name Observation Time Observation Value Comments Source Body Temperature 2019-11-07 12:56:00 98.8 [degF] [facility] BMI (Body Mass Index) 2019-11-05 15:30:00 26.3 kg/m2 [facility] Weight 2019-11-05 09:29:00 183 [lb_av] [facility] Body Temperature 2019-10-24 08:59:00 97.6 [degF] [facility] BMI (Body Mass Index) 2019-10-24 08:52:00 26.3 kg/m2 [facility] Weight 2019-10-20 06:35:00 183.31 [lb_av] [facility] Procedures Procedure Date / Time Performed Performing Clinician Brigido doe Computed tomography of chest with contrast 2019-11-05 00:00:00 [facility] Computed tomography of abdomen [...] [facility]SY 2019-02-05 00:00:00 [facility] COLONOSCOPY SUBMUCOUS NJX 2019-02-05 00:00:00 [facility] COLONOSCOPY W/LESION REMOVAL 2019-02-05 00:00:00 [facility] Plan of Care Planned Activity Planned Date Details Comments Source Future Scheduled Test 2019-11-03 00:00:00 INFLUENZA VACCINE [code = INFLUENZA VACCINE] [facility] Scheduled Test 2019 00:00:00 65+ PNEUMOCOCCAL V ACCINE (1 of 2 - PCV13) [code = 65+ PNEUMOCOCCAL VACCINE (1 of 2 - PCV13)] [facility] Scheduled Test 2004-01-03 00:00:00 COLONOSCOPY SCREEN ING [code = COLONOSCOPY SCREENING] [facility] Scheduled Test 2004-01-03 00:00:00 SHINGLES VACCINES (#1) [code = SHINGLES VACCINES (#1)] [facility] Instructions Pulmonary Embolism [facility] Encounters Start Date/Time End Date/Time Encounter Type Admission Type Attendi [facility] Facility Care Department Encounter ID Source 2019-11-05 12:16:00 2019-11-07 14:00:00 Discharged Inpatient (obs) 1 AUSTINAlexanderVINICIUS [facility] [id number] [facility] 2019-10-10 05:53:00 2019-10-24 11:30:00 Discharged Inpatient 1 [place]I [place] [facility] [id number] [facility]. Aleja kes - Patients [facility] 2019-05-18 06:02:00 2019-05-18 06:02:00 Registered Surgical Day Care [facility]'s Patients [facility] [id number] [facility] Patients [facility] 2019-04-17 15:40:00 2019-04-21 18:09:00 [facility] [id number] [facility]. Aleja medinas Patients [facility] 2019-03-29 13:29:00 2019-03-29 16:57:00 Departed Emergency [facility] Patients [facility] [id number] [facility]. [facility] 2019-02-18 13:47:00 2019-03-01 11:35:00 Discharged Inpatient 3 EWA RAYMOND [facility] [id number] [facility] 2019-02-06 12:38:00 2019-02-06 12:38:00 Registered Clinic 3 ASUNCION [place] [facility]'s [facility] [id number] [facility] 2019-02-05 09:25:00 2019-02-05 09:25:00 Registered Surgical Day Care [facility]'s [facility] [id number] [facility] 2017-07-19 05:15:00 2017-07-19 07:00:00 Outpatient [facility] [id number] [facility] Results Test Description Test Time Test Comments Results Result Comments Source CHEST SINGLE (PORTABLE) 2019-11-18 02:22:00 [place] [address] Patient Name: ANAT FRANCE MR #: [id number] : 1955 Age/Sex: 64/M Req #: [id number] Adm Physician: Ordered by: NIYAH ANDERSON MD Report #: Location: ER Room/Bed: Procedure: DX/CHEST SINGLE (PORTABLE) Exam Date: 11/18/19 Exam Time: 149 REPORT STATUS: Signed EXAMINATION: CHEST SINGLE (PORTABLE) INDICATION: Y FEVER [id number] Y COMPARISON: FINDINGS: The heart is nonenlarged. Pulmonary vessels are nondistended. No consolidation. New small right pleural effusion. No pneumothorax. IMPRESSION: New small right pleural effusion. No consolidation. Signed by: Luis Paz MD on 11/18/2019 2:25 AM Dictated By: LUIS PAZ MD 4 Transcribed By: FABRICIO on 11/18/19224 COPY TO: NIYAH ANDERSON MD Blood leukocytes automated count (number/volume) 2019-11-06 05:20:00 Test Item White Blood Count (test code = 6690-2) 10.79 4.8-10.8 [facility] count (number/volume)2019-11-06 05:20:00* Test Item Value Reference Range Interpretation Comments Red Blood Count (test code = 789-8) 4.46 4.3-5.7 [facility] hemoglobin measurement (moles/volume)2019-11-06 05:20:00* Test Item Value Reference Range Interpretation Comments Hemoglobin (test code = 55703-8) 12.1 14.0-18.0 [facility] HospitalAutomated blood hematocrit (volume fraction)2019-11-06 05:20:00* Test Item Value Reference Range Interpretation Comments Hematocrit (test code = 4544-3) 39.1 38.2-49.6 [facility] HospitalAutomated erythrocyte mean corpuscular carpbo2556-68-98 05:20:00* Test Item Value Reference Range Interpretation Comments Mean Corpuscular Volume (test code = 787-2) 87.7 81-99 [facility] HospitalAutomated erythrocyte mean corpuscular hemoglobin (mass per erythrocyte)2019-11-06 05:20:00* Test Item Value Reference Range Interpretation Comments Mean Corpuscular Hemoglobin (test code = 785-6) 27.1 28-32 [facility] HospitalAutomated erythrocyte mean corpuscular hemoglobin concentration measurement (mass/volume)2019-11-06 05:20:00* Test Item Value Reference Range Interpretation Comments Mean Corpuscular Hemoglobin Concent (test code = 786-4) 30.9 31-35 [facility] HospitalRDW UuzIv-Osb5522-50-04 05:20:00* Test Item Value Reference Range Interpretation Comments Red Cell Distribution Width (test code = 67716-6) 15.7 11.7 -14.4 [facility] HospitalAutomated blood platelet count (count/volume)2019-11-06 05:20:00* Test Item Value Reference Range Interpretation Comments Platelet Count (test code = 777-3) 250 140-360 [facility] HospitalAutcritical access hospitaled blood segmented neutrophil count as percentage of total nhrjnaqkob6643-68-88 05:20:00* Test Item Value Reference Range Interpretation Comments Neutrophils (%) (Auto) (test code = 97601-4) 75.4 38.7-80.0 [facility] HospitalAutomated blood lymphocyte count as percentage ot total bxrpjdbjgh0857-43-89 05:20:00* Test Item Value Reference Range Interpretation Comments Lymphocytes (%) (Auto) (test code = 736-9) 9.6 18.0-39.1 [facility] HospitalAutomated blood monocyte count as percentage of total tkqscnbdte0377-89-43 05:20:00* Test Item Value Reference Range Interpretation Comments Monocytes (%) (Auto) (test code = 5905-5) 13.3 4.4-11.3 [facility] HospitalAutomated blood eosinophil count as percentage of total npuqwhntyq3397-35-14 05:20:00* Test Item Value Reference Range Interpretation Comments Eosinophils (%) (Auto) (test code = 713-8) 0.6 0.0-6.0 [facility] HospitalAutomated blood basophil count as percentage of total cdonnwmwiq8245-94-47 05:20:00* Test Item Value Reference Range Interpretation Comments Basophils (%) (Auto) (test code = 706-2) 0.5 0.0-1.0 [facility] HospitalFluoroscopic procedure less than one hour lxqslthz3433-36-62 05:20:00* Test Item Value Reference Range Interpretation Comments IM GRANULOCYTES % (test code = IM GRANULOCYTES %) 0.6 0.0- 1.0 [facility] HospitalAutomated blood neutrophil count 2019-11-06 05:20:00* Test Item Value Reference Range Interpretation Comments Neutrophils # (Auto) (test code = 751-8) 8.1 2.1-6.9 [facility] HospitalBlood lymphocytes count (number/volume) 2019-11-06 05:20:00* Test Item Value Reference Range Interpretation Comments Lymphocytes # (Auto) (test code = 88576-7) 1.0 1.0-3.2 [facility]Bl[facility] monocytes automated count (number/volume)2019-11-06 05:20:00* Test Item Value Reference Range Interpretation Comments Monocytes # (Auto) (test code = 742-7) 1.4 0.2-0.8 [facility] HospitalAutomated blood eosinophil count 2019-11-06 05:20:00* Test Item Value Reference Range Interpretation Comments Eosinophils # (Auto) (test code = 711-2) 0.1 0.0-0.4 [facility] HospitalAutomated blood basophil count (count/volume)2019-11-06 05:20:00* Test Item Value Reference Range Interpretation Comments Basophils # (Auto) (test code = 704-7) 0.1 0.0-0.1 [facility] HospitalFluoroscopic procedure less than one hour ketqkual6160-06-26 05:20:00* Test Item Value Reference Range Interpretation Comments Absolute Immature Granulocyte (auto (efrem t code = Absolute Immature Granulocyte (auto) 0.07 0-0.1 [facility] HospitalActivated partial thromboplastin time (aPTT) in platelet poor plasma by coagulation wfxfe1541-02-82 05:20:00* Test Item Value Reference Range Interpretation Comments Activated Partial Thromboplast Time (test code = 38060-0) 40.7 23.8-35.5 [facility] sodium measurement (moles/volume)2019-11-06 05:20:00* Test Item Value Reference Range Interpretation Comments Sodium Level (test code = 2951-2) 138 136-145 [facility] Hospitaler[facility] or plasma potassium measurement (moles/volume)2019-11-06 05:20:00* Test Item Value Reference Range Interpretation Comments Potassium Level (test code = 2823-3) 4.5 3.5-5.1 [facility] Hospitaler[facility] or plasma chloride measurement (moles/volume)2019-11-06 05:20:00* Test Item Value Reference Range Interpretation Comments Chloride Level (test code = 2075-0) 106 98-107 [facility] Hospitalerum or plasma carbon dioxide, total measurement (moles/volume)2019-11-06 05:20:00* Test Item Value Reference Range Interpretation Comments Carbon Dioxide Level (test code = 2028-9) 19 22-29 [facility] Hospitalerum or plasma anion xqe6574-01-99 05:20:00* Test Item Value Reference Range Interpretation Comments Anion Gap (test code = 54920-0) 17.5 8-16 [facility] Hospitaler[facility] or plasma urea nitrogen measurement (mass/volume)2019-11-06 05:20:00* Test Item Value Reference Range Interpretation Comments Blood Urea Nitrogen (test code = 3094-0) 14 7-26 [facility] Hospitaler[facility] or plasma creatinine measurement (mass/volume)2019-11-06 05:20:00* Test Item Value Reference Range Interpretation Comments Creatinine (test code = 2160-0) 0.94 0.72-1.25 [facility] Hospitaler[facility] or plasma urea nitrogen/creatinine mass gphhz2300-12-62 05:20:00* Test Item Value Reference Range Interpretation Comments BUN/Creatinine Ratio (test code = 3097-3) 15 6-25 [facility] HospitalEstimated glomerular filtration rate (GFR) vvqqontmixkal1057-67-64 05:20:00* Test Item Value Reference Range Interpretation Comments Estimat Glomerular Filtration Rate (test code = 618521057) > 60 >60 Ranges were taken from the National Kidney Disease Education Program and the [employer] literature.Reference ranges:60 or greater: Zlvnsq06-54 ( for 3 consecutive months): Chronic kidney disease 15 or less: Kidney failureMethodist Southlake HospitalGlucose uthnwdyuuoo7974-05-22 05:20:00* Test Item Value Reference Range Interpretation Comments Glucose Level (test code = SSE1196) 99 74-118 [facility] Hospitaler[facility] or plasma calcium measurement (mass/volume)2019-11-06 05:20:00* Test Item Value Reference Range Interpretation Comments Calcium Level (test code = 60906-0) 9.4 8.4-10.2 [facility] Hospitaler[facility] or plasma total bilirubin measurement (mass/volume)2019-11-06 05:20:00* Test Item Value Reference Range Interpretation Comments Total Bilirubin (test code = 1975-2) 1.4 0.2-1.2 [facility] HospitalFluoroscopic procedure less than one hour dblturef5291-83-01 05:20:00* Test Item Value Reference Range Interpretation Comments Aspartate Amino Transf (AST/SGOT) (test code = Aspartate Amino Transf (AST/SGOT)) 17 5-34 [facility] Hospitalerum or plasma alanine aminotransferase measurement (enzymatic activity/volume)2019-11-06 05:20:00* Test Item Value Reference Range Interpretation Comments Alanine Aminotransferase (ALT/SGPT) (test code = 1742-6) 23 0-55 [facility] Hospitalerum or plasma protein measurement (mass/volume)2019-11-06 05:20:00* Test Item Value Reference Range Interpretation Comments Total Protein (test code = 2885-2) 7.1 6.5-8.1 [facility] Hospitaler[facility] or plasma albumin measurement (mass/volume)2019-11-06 05:20:00* Test Item Value Reference Range Interpretation Comments Albumin (test code = 1751-7) 4.0 3.5-5.0 [facility] HospitalPlasma globulin measurement (mass/volume) 2019-11-06 05:20:00* Test Item Value Reference Range Interpretation Comments Globulin (test code = 27157-2) 3.1 2.3-3.5 [facility] Hospitaler[facility] or plasma albumin/globulin mass zzats5927-04-69 05:20:00* Test Item Value Reference Range Interpretation Comments Albumin/Globulin Ratio (test code = 1759-0) 1.3 0.8-2.0 [facility] Hospitalerum or plasma alkaline phosphatase measurement (enzymatic activity/volume)2019-11-06 05:20:00* Test Item Value Reference Range Interpretation Comments Alkaline Phosphatase (test code = 6768-6) 105 40-150 [facility] HospitalFluoroscopic procedure less than one hour zxlpgard9371-20-43 13:38:00* Test Item Value Reference Range Interpretation Comments Coronavirus (PCR) (test code = Coronavirus (PCR)) NOT DETECTED NOTD ETECTED SARS-COV2/RT-PCR CEPHEIDResults are for the detection of SARS-COV-2 RNA. The CORY S-COV-2 RNA is generally detectable in nasopharyngeal swab specimens during the acute phase of infection. Positive results are indicitive of active infection wi SARS-COV-2; clinical correlation with patient history and [...] collected from individuals suspected of COVID-19 by eir healthcare provider. This test has not been [...] EUA is revoked under 564(g) of the ACT.[facility] HospitalBlood jfhffdx6520-07-30 13:04:00* Test Item Value Reference Range Interpretation Comments Blood Culture (test code = 85665162) NO GROWTH AFTER 48 HOURS [facility] HospitalCT CHEST P4507-71-71 12:09:00 [facility] [address] [address] Patient Name: ANAT FRANCE MR #: [id number] : 1955 Age/Sex: 64/M Req #: [id number] Adm Physician: Ordered by: VINICIUS ROBLES DO Report #: [id number] Location: ER Room/Bed: Procedure: [id number] CT/CT C HEST W Exam Date: 11/05/19 [...] VINICIUS ROBLES DO CHEST SINGLE (PORTABLE)2019-11-05 10:27:00 [place] [address] Patient Name: ANAT FRANCE MR #: [id number] : 1955 Age/Sex: 64/M Req #: [id number] Adm Physician: Ordered by: VINICIUS ROBLES DO Report #: [id number] Location: ER Room/Bed: Procedure: [id number] DX/CHES T SINGLE (PORTABLE) Exam Date: 11/05/19 [...] 1028 COPY TO: VINICIUS ROBLES DO BNP Bld-nc 2019-11-05 10:02:00* Test Item Value Reference Range Interpretation Comments B-Type Natriuretic Peptide (test code = 45437-1) 20.4 0-100 [facility] Hospitalerum or plasma creatine kinase measurement (enzymatic activity/volume)2019-11-05 10:02:00* Test Item Value Reference Range Interpretation Comments Creatine Kinase (test code = 2157-6) 14 30-200 [facility] Hospitalerum or plasma creatine kinase MB measurement (mass/volume)2019-11-05 10:02:00* Test Item Value Reference Range Interpretation Comments Creatine Kinase MB (test code = 45156-2) 0.70 0-5.0 [facility] HospitalTroponin I measurement by highly sensitive enzyme jazwmlvyqaj8057-74-62 10:02:00* Test Item Value Reference Range Interpretation Comments Troponin I (test code = 73529-4) 0.005 0-0.300 [facility] Hospitalerum or plasma lipase measurement (enzymatic activity/volume)2019-11-05 10:02:00* Test Item Value Reference Range Interpretation Comments Lipase (test code = 3040-3) 11 8-78 [facility] HospitalCapillary blood glucose measurement by glucometer (mass/volume)2019-10-23 18:11:00* Test Item Value Reference Range Interpretation Comments Bedside Glucose (test code = 82141-6) 117 70-120 Meter ID: [id number] Hermann Pearland HospitalCapillary blood glucose measurement by glucometer (mass/volume)2019-10-23 18:11:00* Test Item Value Reference Range Interpretation Comments Bedside Glucose (test code = 16513-2) 117 70-120 Meter ID: [id number] Hermann Pearland HospitalBlood leukocytes automated count (number/volume)2019-10-23 05:06:00* Test Item Value Reference Range Interpretation Comments White Blood Count (test code = 6690-2) 8.77 4.8-10.8 [facility] HospitalBlortonville hospital erythrocytes automated count (number/volume)2019-10-23 05:06:00* Test Item Value Reference Range Interpretation Comments Red Blood Count (test code = 789-8) 4.35 4.3-5.7 [facility] HospitalBlood hemoglobin measurement (moles/volume)2019-10-23 05:06:00* Test Item Value Reference Range Interpretation Comments Hemoglobin (test code = 82135-9) 11.2 14.0-18.0 [facility] HospitalAutomated blood hematocrit (volume fraction)2019-10-23 05:06:00* Test Item Value Reference Range Interpretation Comments Hematocrit (test code = 4544-3) 35.6 38.2-49.6 [facility] HospitalAutomated erythrocyte mean corpuscular rxzpvs4023-95-78 05:06:00* Test Item Value Reference Range Interpretation [...] = 786-4) 31.5 31-35 [facility] HospitalRDW SdjRr-Rty1717-00-21 05:06:00* Test Item Value Reference Range Interpretation Comments Red Cell Distribution Width (test code = 17933-3) 15.2 11.7 -14.4 [facility] HospitalAutomated blood platelet count (count/volume)2019-10-23 05:06:00* Test Item Value Reference Range Interpretation Comments Platelet Count (test code = 777-3) 359 140-360 [facility] HospitalAutomated blood segmented neutrophil count as percentage of total jrifgftahe6037-52-69 05:06:00* Test Item Value Reference Range Interpretation Comments Neutrophils (%) (Auto) (test code = 09797-8) 66.6 38.7-80.0 [facility] HospitalAutomated blood lymphocyte count as percentage ot total lcrysbirnw8256-86-19 05:06:00* Test Item Value Reference Range Interpretation Comments Lymphocytes (%) (Auto) (test code = 736-9) 13.1 18.0-39.1 [facility] HospitalAutomated blood monocyte count as percentage of total rbrljorihq9088-36-79 05:06:00* Test Item Value Reference Range Interpretation Comments Monocytes (%) (Auto) (test code = 5905-5) 10.3 4.4-11.3 [facility] HospitalAutcritical access hospitaled blood eosinophil count as percentage of total uqkdwmvbuy3840-41-03 05:06:00* Test Item Value Reference Range Interpretation Comments Eosinophils (%) (Auto) (test code = 713-8) 5.2 0.0-6.0 [facility] HospitalAutomated blood basophil count as percentage of total cazdcbitqj7910-06-45 05:06:00* Test Item Value Reference Range Interpretation Comments Basophils (%) (Auto) (test code = 706-2) 1.0 0.0-1.0 [facility] HospitalFluoroscopic procedure less than one hour rmvtfnsk3602-09-03 05:06:00* Test Item Value Reference Range Interpretation [...] Comments Lymphocytes # (Auto) (test code = 33404-1) 1.2 1.0-3.2 [facility] HospitalBlood monocytes automated count (number/volume)2019-10-23 05:06:00* Test [...] [facility] HospitalFluoroscopic procedure less than one hour iyogmowx4148-48-87 05:06:00* Test Item Value Reference Range Interpretation Comments Absolute Immature Granulocyte (auto (efrem t code = Absolute Immature Granulocyte (auto) 0.33 0-0.1 [facility] Hospitalerum or plasma sodium measurement (moles/volume)2019-10-23 05:06:00* Test Item Value Reference Range Interpretation Comments Sodium Level (test code = 2951-2) 137 136-145 [facility] Hospitalerum or plasma potassium measurement (moles/volume)2019-10-23 05:06:00* Test Item Value Reference Range Interpretation Comments Potassium Level (test code = 2823-3) 4.9 3.5-5.1 [facility] Hospitalerum or plasma chloride measurement (moles/volume)2019-10-23 05:06:00* Test Item Value Reference Range Interpretation Comments Chloride Level (test code = 2075-0) 109 98-107 [facility] Hospitalerum or plasma carbon dioxide, total measurement (moles/volume)2019-10-23 05:06:00* Test Item Value Reference Range Interpretation Comments Carbon Dioxide Level (test code = 2028-9) 21 [facility] Hospitalerum or plasma anion bqw3692-28-07 05:06:00* Test Item Value Reference Range Interpretation Comments Anion Gap (test code = 66042-9) 11.9 8-16 [facility] Hospitalerum or plasma urea nitrogen measurement (mass/volume)2019-10-23 05:06:00* Test Item Value Reference Range Interpretation Comments Blood Urea Nitrogen (test code = 3094-0) 6 7- [facility] Hospitalerum or plasma creatinine measurement (mass/volume)2019-10-23 05:06:00* Test Item Value Reference Range Interpretation Comments Creatinine (test code = 2160-0) 0.88 0.72-1.25 [facility] Hospitalerum or plasma urea nitrogen/creatinine mass yavoe1263-17-64 05:06:00* Test Item Value Reference Range Interpretation Comments BUN/Creatinine Ratio (test code = 3097-3) 7 - [facility] HospitalEstimated glomerular filtration rate (GFR) pllxsmxsdeyks4109-55-70 05:06:00* Test Item Value Reference Range Interpretation Comments Estimat Glomerular Filtration Rate (test code = 500476057) > 60 >60 Ranges were taken from the National Kidney Disease Education Program and the [employer] literature.Reference ranges:60 or greater: Khhdlh12-17 ( for 3 consecutive months): Chronic kidney disease 15 or less: Kidney failureMethodist Southlake HospitalGlucose cwzxrfjuzwt0856-17-40 05:06:00* Test Item Value Reference Range Interpretation Comments Glucose Level (test code = CKK4943) 310 74-118 [facility] or plasma calcium measurement (mass/volume)2019-10-23 05:06:00* Test Item Value Reference Range Interpretation Comments Calcium Level (test code = 37850-9) 8.4 8.4-10.2 [facility] Hospitaler[facility] or plasma total bilirubin measurement (mass/volume)2019-10-16 05:10:00* Test Item Value Reference Range Interpretation Comments Total Bilirubin (test code = 1975-2) 0.9 0.2-1.2 [facility] HospitalFluoroscopic procedure less than one hour bfzdsysn6545-27-33 05:10:00* Test Item Value Reference Range Interpretation Comments Aspartate Amino Transf (AST/SGOT) (test code = Aspartate Amino Transf (AST/SGOT)) 47 5-34 [facility] Hospitalerum or plasma alanine aminotransferase measurement (enzymatic activity/volume)2019-10-16 05:10:00* Test Item Value Reference Range Interpretation Comments Alanine Aminotransferase (ALT/SGPT) (test code = 1742-6) 43 0-55 [facility] Hospitalerum or plasma protein measurement (mass/volume)2019-10-16 05:10:00* Test Item Value Reference Range Interpretation Comments Total Protein (test code = 2885-2) 5.9 6.5-8.1 [facility] Hospitalerum or plasma albumin measurement (mass/volume)2019-10-16 05:10:00* Test Item Value Reference Range Interpretation Comments Albumin (test code = 1751-7) 3.0 3.5-5.0 [facility] HospitalPlasma globulin measurement (mass/volume) 2019-10-16 05:10:00* Test Item Value Reference Range Interpretation Comments Globulin (test code = 29909-1) 2.9 2.3-3.5 [facility] Hospitalerum or plasma albumin/globulin mass gvaiv8006-89-38 05:10:00* Test Item Value Reference Range Interpretation Comments Albumin/Globulin Ratio (test code = 1759-0) 1.0 0.8-2.0 [facility] Hospitalerum or plasma alkaline phosphatase measurement (enzymatic activity/volume)2019-10-16 05:10:00* Test Item Value Reference Range Interpretation Comments Alkaline Phosphatase (test code = 6768-6) 89 40-150 [facility] HospitalABDOMEN ACUTE SERIES W/PA MOG2110-03-79 12:52:00 [place] [address] Patient Name: ANAT FRANCE MR #: [id number] : 1955 Age/Sex: 64/M Req #: [id number] Adm Physician: LOKI OH MD Ordered by: LOKI OH MD Report #: [id number] Location: MED/SURG Room/Bed: [facility] Procedure: [id number] DX/ABDOME N ACUTE SERIES W/PA CXR Exam Date: 10/13/19 Exam Demra e: 1220 REPORT STATUS: Signed EX AMINATION: [...] OH MD ABDOMEN 2 VIEW 2019-10-12 08:57:00 [place] [address] Patient Name: ANAT FRANCE MR #: [id number] : 1955 Age/Sex: 64/M Req #: [id number] Adm Physician: LOKI OH MD Ordered by: RADU RAYMOND MD Report #: [id number] Location: MED/SURG Room/Bed: [facility] Procedure: [id number] DX/AB DOMEN 2 VIEW Exam Date: 10/12/19 [...] TO: RADU RAYMOND MD ABDOMEN-1VIEW (KUB)2019-10-11 16:24:00 [place] [address] Patient Name: ANAT FRANCE MR #: [id number] : 1955 Age/Sex: 64/M Req #: [id number] Adm Physician: LOKI OH MD Ordered by: FILI WYATT MD Report #: [id number] Location: MED/SURG Room/Bed: [facility] Procedure: [id number] DX/ABDOMEN -1VIEW (KUB) Exam Date: 10/11/19 Exam Time: 1540 REPORT STATUS: Signed Abdomen/KUB INDICATION: NGT PLACEMENT [id number] COMPARISON: Abdomen x- ray 0820 hours. FINDINGS: [...] Sig parveen By: BRIGETTE GIMENEZ MD on 10/11/19 162 Transcribed By: FABRICIO on 1625 COPY TO: FILI WYATT MD ABDOMEN 2 LKSY6787-59-23 08:48:00 [place] [address] Patient Name: ANAT FRANCE MR #: [id number] : 1955 Age/Sex: 64/M Req #: [id number] Adm Physician: LOKI OH MD Ordered by: RADU RAYMOND MD Report #: [id number] Location: MED/SURG Room/Bed: [facility] Procedure: [id number] DX/AB DOMEN 2 VIEW Exam Date: 10/11/19 [...] MD Fluoroscopic procedure less than one hour rzkcxfcz7085-72-03 06:11:00* Test Item Value Reference Range Interpretation Comments Coronavirus (PCR) (test code = Coronavirus (PCR)) NOT DETECTED NOTD ETECTED [facility] A[facility]ima SARS-CoV-2 assay is a nucleic amplification test intended for the qualitative detection of RNA from SARS-CoV-2 from nasopharyngeal (FACILITY MECHANIC) specimens. It is used under Emergency [...] for reprat testing oc clinically indicated.Tesing performed by:[facility] [address] [place] [address] [id number], Niyah Dhaliwal MD, PhD [facility] HospitalCT ABDOMEN/PELVIS G3065-98-36 05:07:00 [facility] [address] [place] [address] Patient Name: ANAT FRANCE MR #: [id number] : 1955 Age/Sex: 64/M Req #: [id number] Adm Physician: Ordered by: NIYAH ANDERSON MD Report #: [id number] Location: ER Room/Bed: Procedure: [id number] CT/ CT ABDOMEN/PELVIS W Exam Date: 10/10/19 Exam Time: 0 420 REPORT STATUS: Signed EXAM: CT Abdomen and Pelvis WITH contrast INDICATION: EVAL FOR OBSTRUCTION/STR ICTURE COMPARISON: TECHNIQUE: Abdomen and pelvis were scanned utilizing a [employer] helical scanner from the lung base to [...] (PT) in platelet poor plasma by coagulation cueiy8674-82-20 03:05:00* Test Item Value Reference Range Interpretation Comments Prothrombin Time (test code = 5902-2) 12.2 11.9-14.5 [facility] HospitalINR in Platelet poor plasma by Coagulation lkzbt3641-11-40 03:05:00* Test Item Value Reference Range Interpretation [...] (aPTT) in platelet poor plasma by coagulation ccakm5857-57-24 03:05:00* Test Item Value Reference Range Interpretation Comments Activated Partial Thromboplast Time (test code = 54065-6) 27.9 23.8-35.5 [facility] Hospitalerum or plasma amylase measurement (enzymatic activity/volume)2019-10-10 03:05:00* Test Item Value Reference Range Interpretation Comments Amylase Level (test code = 1798-8) 42 25-125 [facility] Hospitalerum or plasma lipase measurement (enzymatic activity/volume)2019-10-10 03:05:00* Test Item Value Reference Range Interpretation Comments Lipase (test code = 3040-3) 11 8-78 [facility] HospitalProthrombin time (PT) in platelet poor plasma by coagulation cjiqb7928-91-16 03:05:00* Test Item Value Reference Range Interpretation Comments Prothrombin Time (test code = 5902-2) 12.2 11.9-14.5 [facility] HospitalINR in Platelet poor plasma by Coagulation hadvj0796-52-92 03:05:00* Test Item Value Reference Range Interpretation Comments Prothromb Time International Ratio (test code = 6301-6) 0.87 Oral Anticoagulant Therapy INR Values:1. Low Intensity Therapy 1.5 - 2.02 . Moderate Intensity Therapy 2.0 - 3.03. High Intensity Therapy(1) 2.5 - 3. 54. High Intensity Therapy(2) 3.0 - 4.05. Panic Value INR > 5.0 [facility] Hospitalerum or plasma amylase measurement (enzymatic activity/volume)2019-10-10 03:05:00* Test Item Value Reference Range Interpretation Comments Amylase Level (test code = 1798-8) 42 25-125 [facility] Hospitalodium Vfsns4117-46-33 06:03:00* Test Item Value Reference Range Interpretation Comments Sodium Level (test code = 2951-2) 140 136-145 [facility] HospitalPotassium Nycpb6773-96-64 06:03:00* Test Item Value Reference Range Interpretation Comments Potassium Level (test code = 2823-3) 4.1 3.5-5.1 [facility] HospitalChloride Mneud4363-74-63 06:03:00* Test Item Value Reference Range Interpretation Comments Chloride Level (test code = 2075-0) 108 98-107 H [facility] HospitalCarbon Dioxide Xczpy9345-73-17 06:03:00* Test Item Value Reference Range Interpretation Comments Carbon Dioxide Level (test code = 2028-9) 26 22-29 [facility] HospitalAnion Che6669-98-02 06:03:00* Test Item Value Reference Range Interpretation Comments Anion Gap (test code = 26133-0) 10.1 8-16 [facility] HospitalBlood Urea Jdrwzrgj0789-03-68 06:03:00* Test Item Value Reference Range Interpretation Comments Blood Urea Nitrogen (test code = 3094-0) 9 7-26 [facility] HospitalCreatinine2020-02-18 06:03:00* Test Item Value Reference Range Interpretation Comments Creatinine (test code = 2160-0) 0.96 0.72-1.25 [facility] HospitalBUN/Creatinine Aaqpf5913-65-41 06:03:00* Test Item Value Reference Range Interpretation Comments BUN/Creatinine Ratio (test code = 3097-3) 9 6-25 [facility] HospitalEstimat Glomerular Filtration Rate 2019-04-21 06:03:00* Test Item Value Reference Range Interpretation Comments Estimat Glomerular Filtration Rate (test code = 948222142) > 60 >60 Ranges were taken from the National Kidney Disease Education Program and the [employer] literature.Reference ranges:60 or greater: Bnqzgu42-02 ( for 3 consecutive months): Chronic kidney disease 15 or less: Kidney failureMethodist Southlake HospitalGlucose Tfwta8785-80-67 06:03:00* Test Item Value Reference Range Interpretation Comments Glucose Level (test code = FEV1966) 95 74-118 [facility] HospitalCalcium Tszbx9361-96-85 06:03:00* Test Item Value Reference Range Interpretation Comments Calcium Level (test code = 18690-3) 8.8 8.4-10.2 [facility] HospitalWhite Blood Oyrsf9492-05-00 05:47:00* Test Item Value Reference Range Interpretation Comments White Blood Count (test code = 6690-2) 8.38 4.8-10.8 [facility] HospitalRed Blood Vrifx2660-94-23 05:47:00* Test Item Value Reference Range Interpretation Comments Red Blood Count (test code = 789-8) 4.11 4.3-5.7 L [facility] HospitalHemoglobin2020-02-18 05:47:00* Test Item Value Reference Range Interpretation Comments Hemoglobin (test code = 80896-5) 10.8 14.0-18.0 L [facility] HospitalHematocrit2020-02-18 05:47:00* Test Item Value Reference Range Interpretation Comments Hematocrit (test code = 4544-3) 34.2 38.2-49.6 L [facility] HospitalMean Corpuscular Emaqjj4133-67-34 05:47:00* Test Item Value Reference Range Interpretation Comments Mean Corpuscular Volume (test code = 787-2) 83.2 81-99 [facility] HospitalMean Corpuscular Goemxbvcvv5955-80-52 05:47:00* Test Item Value Reference Range Interpretation Comments Mean Corpuscular Hemoglobin (test code = 785-6) 26.3 28-32 L [facility] HospitalMean Corpuscular Hemoglobin Concent 2019-04-21 05:47:00* Test Item Value Reference Range Interpretation Comments Mean Corpuscular Hemoglobin Concent (test code = 786-4) 31.6 31-35 [facility] HospitalRed Cell Distribution Udjwe6422-32-23 05:47:00* Test Item Value Reference Range Interpretation Comments Red Cell Distribution Width (test code = 92018-9) 13.5 11.7 -14.4 [facility] HospitalPlatelet Zmseu2492-40-20 05:47:00* Test Item Value Reference Range Interpretation Comments Platelet Count (test code = 777-3) 257 140-360 [facility] HospitalNeutrophils (%) (Auto)2019-04-21 05:47:00 * Test Item Value Reference Range Interpretation Comments Neutrophils (%) (Auto) (test code = 21563-8) 77.0 38.7-80.0 [facility] HospitalLymphocytes (%) (Auto)2019-04-21 [...] Comments Lymphocytes # (Auto) (test code = 35446-2) 1.0 1.0-3.2 [facility] HospitalMonocytes # (Auto)2019-04-21 [...] Granulocyte (auto) 0.02 0-0.1 [facility] HospitalBlood Yhfnawx4139-78-95 15:06:00* Test Item Value Reference Range Interpretation Comments Blood Culture (test code = 45837533) NO GROWTH AFTER 72 HOURS [facility] HospitalTotal Prqrjuzfy6752-39-96 06:59:00* Test Item Value Reference Range Interpretation [...] = 1742-6) 11 0-55 [facility] HospitalTotal Jejbncm2558-66-43 06:59:00* Test Item Value Reference Range Interpretation Comments Total Protein (test code = 2885-2) 5.7 6.5-8.1 L [facility] HospitalAlbumin2020-02-16 06:59:00* Test Item Value Reference Range Interpretation Comments Albumin (test code = 1751-7) 3.3 3.5-5.0 L [facility] HospitalGlobulin2020-02-16 06:59:00* Test Item Value Reference Range Interpretation Comments Globulin (test code = 53405-3) 2.4 2.3-3.5 [facility] HospitalAlbumin/Globulin Zqryk0065-69-97 06:59:00 * Test Item Value Reference Range Interpretation Comments Albumin/Globulin Ratio (test code = 1759-0) 1.4 0.8-2.0 [facility] HospitalAlkaline Kggphptdast8755-09-28 06:59:00* Test Item Value Reference Range Interpretation Comments Alkaline Phosphatase (test code = 6768-6) 60 40-150 [facility] HospitalLactic Acid Rptrv2687-05-94 15:26:00* Test Item Value Reference Range Interpretation Comments Lactic Acid Level (test code = Lactic Acid Level) 1.0 0.5- 2.0 [facility] HospitalUrine RQR9567-79-42 15:20:00* Test Item Value Reference Range Interpretation Comments Urine WBC (test code = 5821-4) NONE 0-5 [facility] HospitalUrine DNX9208-69-60 15:20:00* Test Item Value Reference Range Interpretation Comments Urine RBC (test code = 33150-8) NONE 0-5 [facility] HospitalUrine Bwvdrrbi1079-00-47 15:20:00* Test Item Value Reference Range Interpretation Comments Urine Bacteria (test code = 20484-2) RARE NONE [facility] HospitalUrine Epithelial Pydst4228-33-41 15:20:00 * Test Item Value Reference Range Interpretation Comments Urine Epithelial Cells (test code = 59884-3) NONE NONE [facility] HospitalCT ABDOMEN/PELVIS W5691-55-30 15:06:00 [facility] [address] [place] [address] Patient Name: ANAT FRANCE MR #: [id number] : 1955 Age/Sex: 64/M Req #: [id number] [facility] Physician: Ordered by: ED HADLEY NP Report #: [id number] Location: ER Room/Bed: Procedure: [id number]/CT [...] 3:14 PM Dictated By: Phyllis AYALA MD 13 [address] anscribed By: FABRICIO on 04/17/191513 COPY TO: ED HADLEY [employer]ACILITY [employer]CH[employer] Urine Zqctg2395-51-47 15:03:00* Test Item Value Reference Range Interpretation Comments Urine Color (test code = 5778-6) YELLOW YELLOW [facility] HospitalUrine Fffwfaf1431-32-62 15:03:00* Test Item Value Reference Range Interpretation Comments Urine Clarity (test code = 07241-0) CLEAR CLEAR [facility] HospitalUrine Specific Vipbsau3001-36-52 15:03:00 * Test Item Value Reference Range Interpretation Comments Urine Specific [place] (test code = 5811-5) 1.025 1.010-1.02 5 [facility] HospitalUrine yB6022-78-29 15:03:00* Test Item Value Reference Range Interpretation Comments Urine pH (test code = 56583-0) 7 5-7 [facility] HospitalUrine Leukocyte Nisnfewa6861-98-17 15:03:00* Test Item Value Reference Range Interpretation Comments Urine Leukocyte Esterase (test code = 5799-2) NEGATIVE NEGATIVE [facility] HospitalUrine Pqhvcxb5595-92-54 15:03:00* Test Item Value Reference Range Interpretation Comments Urine Nitrite (test code = 13999-0) NEGATIVE NEGATIVE [facility] HospitalUrine Tcafuki6389-49-11 15:03:00* Test Item Value Reference Range Interpretation Comments Urine Protein (test code = 5804-0) NEGATIVE NEGATIVE [facility] HospitalUrine Glucose (UA)2019-04-17 15:03:00* Test Item Value Reference Range Interpretation Comments Urine Glucose (UA) (test code = 2349-9) NEGATIVE NEGATIVE [facility] HospitalUrine Oojdvvb7589-85-30 15:03:00* Test Item Value Reference Range Interpretation Comments Urine Ketones (test code = 63942-2) NEGATIVE NEGATIVE [facility] HospitalUrine Dkitcdhoubik2400-98-30 15:03:00* Test Item Value Reference Range Interpretation Comments Urine Urobilinogen (test code = 60105-7) 0.2 0.2-1 [facility] HospitalUrine Mvhkgxsxm7582-52-81 15:03:00* Test Item Value Reference Range Interpretation Comments Urine Bilirubin (test code = 1978-6) NEGATIVE NEGATIVE [facility] HospitalUrine Iosix1616-92-27 15:03:00* Test Item Value Reference Range Interpretation Comments Urine Blood (test code = 81135-8) NEGATIVE NEGATIVE [facility] HospitalProthrombin Walt2907-78-32 14:25:00* Test Item Value Reference Range Interpretation [...] Activated Partial Thromboplast Time (test code = 79283-3) 27.4 23.8-35.5 [facility] HospitalFluoroscopic procedure less than one hour gwcltqqr4176-31-22 13:50:00* Test Item Value Reference Range Interpretation Comments Lactic Acid Level (test code = Lactic Acid Level) 1.0 0.5- 2.0 [facility] HospitalBlood xqdwztl2195-24-20 13:50:00* Test Item Value Reference Range Interpretation Comments Blood Culture (test code = 87567351) NO GROWTH AFTER 5 DAYS, FINAL REPORT [facility] HospitalFluoroscopic procedure less than one hour rybcivmq0542-29-24 13:50:00* Test Item Value Reference Range Interpretation Comments Lactic Acid Level (test code = Lactic Acid Level) 1.0 0.5- 2.0 [facility] HospitalUrine color pvpyooqffmurh8292-18-79 13:25:00* Test Item Value Reference Range Interpretation Comments Urine Color (test code = 5778-6) YELLOW YELLOW [facility] HospitalUrine xbaskwn3777-77-93 13:25:00* Test Item Value Reference Range Interpretation Comments Urine Clarity (test code = 26289-5) CLEAR CLEAR [facility] Hospitalpecific gravity of Urine by Test strip 2019-04-17 13:25:00* Test Item Value Reference Range Interpretation Comments Urine Specific [place] (test code = 5811-5) 1.025 1.010-1.02 5 [facility] HospitalUrine pH measurement by automated test eykrg9797-01-62 13:25:00* Test Item Value Reference Range Interpretation Comments Urine pH (test code = 55096-6) 7 5-7 [facility] HospitalUrine leukocyte esterase detection by rsgndwsm3122-10-52 13:25:00* Test Item Value Reference Range Interpretation Comments Urine Leukocyte Esterase (test code = 5799-2) NEGATIVE NEGATIVE [facility] HospitalUrine nitrite zrtttugfs1965-59-01 13:25:00* Test Item Value Reference Range Interpretation Comments Urine Nitrite (test code = 82454-2) NEGATIVE NEGATIVE [facility] HospitalUrine protein measurement by test strip (mass/volume)2019-04-17 13:25:00* Test Item Value Reference Range Interpretation Comments Urine Protein (test code = 5804-0) NEGATIVE NEGATIVE [facility] HospitalUrine glucose nsokcowxn7078-99-31 13:25:00* Test Item Value Reference Range Interpretation Comments Urine Glucose (UA) (test code = 2349-9) NEGATIVE NEGATIVE [facility] HospitalUrine ketones detection by automated test cqraj7841-27-20 13:25:00* Test Item Value Reference Range Interpretation Comments Urine Ketones (test code = 10610-1) NEGATIVE NEGATIVE [facility] HospitalUrine urobilinogen measurement by test strip (mass/volume)2019-04-17 13:25:00* Test Item Value Reference Range Interpretation Comments Urine Urobilinogen (test code = 97926-7) 0.2 0.2-1 [facility] HospitalUrine total bilirubin measurement (mass/volume)2019-04-17 13:25:00* Test Item Value Reference Range Interpretation Comments Urine Bilirubin (test code = 1978-6) NEGATIVE NEGATIVE [facility] HospitalUrine erythrocytes ykkpryzyr6884-63-01 13:25:00* Test Item Value Reference Range Interpretation Comments Urine Blood (test code = 54312-9) NEGATIVE NEGATIVE [facility] HospitalAutomated urine sediment leukocyte count by microscopy (number/high power field)2019-04-17 13:25:00* Test Item Value Reference Range Interpretation Comments Urine WBC (test code = 5821-4) NONE 0-5 [facility] HospitalErythrocytes detection in urine sediment by light pfqrrcxvya3041-17-87 13:25:00* Test Item Value Reference Range Interpretation Comments Urine RBC (test code = 07197-7) NONE 0-5 [facility] HospitalBacteria detection in urine sediment by light xqodurgyqp1879-42-12 13:25:00* Test Item Value Reference Range Interpretation Comments Urine Bacteria (test code = 43311-3) RARE NONE [facility] HospitalEpithelial cells detection in urine sediment by light jekmmmmpcj6817-42-74 13:25:00* Test Item Value Reference Range Interpretation Comments Urine Epithelial Cells (test code = 29491-2) NONE NONE [facility] HospitalUrine color qiklkiiywstrt1377-74-45 13:25:00* Test Item Value Reference Range Interpretation Comments Urine Color (test code = 5778-6) YELLOW YELLOW [facility] HospitalUrine oxqobao4369-35-30 13:25:00* Test Item Value Reference Range Interpretation Comments Urine Clarity (test code = 74413-3) CLEAR CLEAR [facility] Hospitalpecific gravity of Urine by Test strip 2019-04-17 13:25:00* Test Item Value Reference Range Interpretation Comments Urine Specific [place] (test code = 5811-5) 1.025 1.010-1.02 5 [facility] HospitalUrine pH measurement by automated test cqddw9931-70-31 13:25:00* Test Item Value Reference Range Interpretation Comments Urine pH (test code = 01087-6) 7 5-7 [facility] HospitalUrine leukocyte esterase detection by zdgesjei8505-93-25 13:25:00* Test Item Value Reference Range Interpretation Comments Urine Leukocyte Esterase (test code = 5799-2) NEGATIVE NEGATIVE [facility] HospitalUrine nitrite aejhicrhw4754-41-48 13:25:00* Test Item Value Reference Range Interpretation Comments Urine Nitrite (test code = 87940-7) NEGATIVE NEGATIVE [facility] HospitalUrine protein measurement by test strip (mass/volume)2019-04-17 13:25:00* Test Item Value Reference Range Interpretation Comments Urine Protein (test code = 5804-0) NEGATIVE NEGATIVE [facility] HospitalUrine glucose cjgikpicv3907-95-77 13:25:00* Test Item Value Reference Range Interpretation Comments Urine Glucose (UA) (test code = 2349-9) NEGATIVE NEGATIVE [facility] HospitalUrine ketones detection by automated test acgcd0677-72-44 13:25:00* Test Item Value Reference Range Interpretation Comments Urine Ketones (test code = 99262-0) NEGATIVE NEGATIVE [facility] HospitalUrine urobilinogen measurement by test strip (mass/volume)2019-04-17 13:25:00* Test Item Value Reference Range Interpretation Comments Urine Urobilinogen (test code = 14044-6) 0.2 0.2-1 [facility] HospitalUrine total bilirubin measurement (mass/volume)2019-04-17 13:25:00* Test Item Value Reference Range Interpretation Comments Urine Bilirubin (test code = 1978-6) NEGATIVE NEGATIVE [facility] HospitalUrine erythrocytes kaxytsfjd5567-43-88 13:25:00* Test Item Value Reference Range Interpretation Comments Urine Blood (test code = 90292-0) NEGATIVE NEGATIVE [facility] HospitalAutomated urine sediment leukocyte count by microscopy (number/high power field)2019-04-17 13:25:00* Test Item Value Reference Range Interpretation Comments Urine WBC (test code = 5821-4) NONE 0-5 [facility] HospitalErythrocytes detection in urine sediment by light xgptioyxod2790-25-78 13:25:00* Test Item Value Reference Range Interpretation Comments Urine RBC (test code = 06355-3) NONE 0-5 [facility] HospitalBacteria detection in urine sediment by light gnmneqejnw5481-90-42 13:25:00* Test Item Value Reference Range Interpretation Comments Urine Bacteria (test code = 60787-7) RARE NONE [facility] HospitalEpithelial cells detection in urine sediment by light rkyiomnmbv5796-33-91 13:25:00* Test Item Value Reference Range Interpretation Comments Urine Epithelial Cells (test code = 21854-2) NONE NONE [facility] HospitalABDOMEN 2 LTJK1133-10-31 17:29:00 [facility] [address] [address] Patient Name: ANAT FRACNE MR #: [id number] : 1955 Age/Sex: 64/M Req #: [id number] Adm Physician: Ordered by: SANDIP LUO MD Report #: [id number] Location: ER Room/Bed: Procedure: [id number] DX/ABDOMEN 2 VIEW Exam Date: 03/29/19 Exam [...] 03/29/191731 COPY TO: SANDIP LUO MD Sodium Bhnnd4524-24-59 16:11:00* Test Item Value Reference Range Interpretation Comments Sodium Level (test code = 2951-2) 140 136-145 [facility] HospitalPotassium Ymjsb0419-98-35 16:11:00* Test Item Value Reference Range Interpretation Comments Potassium Level (test code = 2823-3) 3.9 3.5-5.1 [facility] HospitalChloride Rrfvb3051-89-16 16:11:00* Test Item Value Reference Range Interpretation Comments Chloride Level (test code = 2075-0) 105 98-107 [facility] HospitalCarbon Dioxide Nacsz9806-63-67 16:11:00* Test Item Value Reference Range Interpretation Comments Carbon Dioxide Level (test code = 2028-9) 25 22-29 [facility] HospitalAnion Tht4607-22-18 16:11:00* Test Item Value Reference Range Interpretation Comments Anion Gap (test code = 24892-6) 13.9 8-16 [facility] HospitalBlood Urea Yocxvxez0793-91-99 16:11:00* Test Item Value Reference Range Interpretation Comments Blood Urea Nitrogen (test code = 3094-0) 8 7-26 [facility] HospitalCreatinine2020-01-26 16:11:00* Test Item Value Reference Range Interpretation Comments Creatinine (test code = 2160-0) 0.87 0.72-1.25 [facility] HospitalBUN/Creatinine Qtyob3758-08-38 16:11:00* Test Item Value Reference Range Interpretation Comments BUN/Creatinine Ratio (test code = 3097-3) 9 6- [facility] HospitalEstimat Glomerular Filtration Rate 2019-03-29 16:11:00* Test Item Value Reference Range Interpretation Comments Estimat Glomerular Filtration Rate (test code = 441119344) > 60 >60 Ranges were taken from the National Kidney Disease Education Program and the [facility] Foundation literature.Reference ranges:60 or greater: Pnwvxc67-16 ( for 3 consecutive months): Chronic kidney disease 15 or less: Kidney failureMethodist Southlake HospitalGlucose Rghzl1428-26-88 16:11:00* Test Item Value Reference Range Interpretation Comments Glucose Level (test code = TKY9225) 98 74-118 [facility] HospitalCalcium Xkkaw5424-18-96 16:11:00* Test Item Value Reference Range Interpretation Comments Calcium Level (test code = 07455-1) 9.5 8.4-10.2 [facility] HospitalTotal Tpmsyekgn3070-65-13 16:11:00* Test Item Value Reference Range Interpretation [...] = 1742-6) 19 0-55 [facility] HospitalTotal Fmlyhkw1739-26-04 16:11:00* Test Item Value Reference Range Interpretation Comments Total Protein (test code = 2885-2) 6.5 6.5-8.1 [facility] HospitalAlbumin2020-01-26 16:11:00* Test Item Value Reference Range Interpretation Comments Albumin (test code = 1751-7) 3.8 3.5-5.0 [facility] HospitalGlobulin2020-01-26 16:11:00* Test Item Value Reference Range Interpretation Comments Globulin (test code = 03684-1) 2.7 2.3-3.5 [facility] HospitalAlbumin/Globulin Sxopq5816-58-47 16:11:00 * Test Item Value Reference Range Interpretation Comments Albumin/Globulin Ratio (test code = 1759-0) 1.4 0.8-2.0 [facility] HospitalAlkaline Jbopxiwasmb4613-49-45 16:11:00* Test Item Value Reference Range Interpretation Comments Alkaline Phosphatase (test code = 6768-6) 69 40-150 [facility] HospitalCreatine Tnmeet6634-16-04 16:11:00* Test Item Value Reference Range Interpretation Comments Creatine Kinase (test code = 2157-6) 45 30-200 [facility] HospitalCreatine Kinase QO1659-25-90 16:11:00* Test Item Value Reference Range Interpretation Comments Creatine Kinase MB (test code = 60813-6) 1.00 0-5.0 [facility] HospitalTroponin K0713-30-55 16:11:00* Test Item Value Reference Range Interpretation Comments Troponin I (test code = YKN2486) 0.004 0-0.300 [facility] HospitalCreatine Balkmn7359-56-58 16:11:00* Test Item Value Reference Range Interpretation Comments Creatine Kinase (test code = 2157-6) 45 30-200 [facility] HospitalCreatine Kinase KQ6787-42-13 16:11:00* Test Item Value Reference Range Interpretation Comments Creatine Kinase MB (test code = 71973-3) 1.00 0-5.0 [facility] HospitalTroponin G5337-83-91 16:11:00* Test Item Value Reference Range Interpretation Comments Troponin I (test code = JLN6775) 0.004 0-0.300 [facility] HospitalWhite Blood Vlufo3374-58-40 15:44:00* Test Item Value Reference Range Interpretation Comments White Blood Count (test code = 6690-2) 8.91 4.8-10.8 [facility] HospitalRed Blood Pzagc2440-32-69 15:44:00* Test Item Value Reference Range Interpretation Comments Red Blood Count (test code = 789-8) 4.57 4.3-5.7 [facility] HospitalHemoglobin2020-01-26 15:44:00* Test Item Value Reference Range Interpretation Comments Hemoglobin (test code = 22443-4) 12.7 14.0-18.0 L [facility] HospitalHematocrit2020-01-26 15:44:00* Test Item Value Reference Range Interpretation Comments Hematocrit (test code = 4544-3) 39.3 38.2-49.6 [facility] HospitalMean Corpuscular Xeswfb7341-18-44 15:44:00* Test Item Value Reference Range Interpretation Comments Mean Corpuscular Volume (test code = 787-2) 86.0 81-99 [facility] HospitalMean Corpuscular Ulauasohzx5159-85-51 15:44:00* Test Item Value Reference Range Interpretation Comments Mean Corpuscular Hemoglobin (test code = 785-6) 27.8 28-32 L [facility] HospitalMean Corpuscular Hemoglobin Concent 2019-03-29 15:44:00* Test Item Value Reference Range Interpretation Comments Mean Corpuscular Hemoglobin Concent (test code = 786-4) 32.3 31-35 [facility] HospitalRed Cell Distribution Agqol1449-35-04 15:44:00* Test Item Value Reference Range Interpretation Comments Red Cell Distribution Width (test code = 98717-5) 13.6 11.7 -14.4 [facility] HospitalPlatelet Idhxh4011-01-59 15:44:00* Test Item Value Reference Range Interpretation Comments Platelet Count (test code = 777-3) 346 140-360 [facility] HospitalNeutrophils (%) (Auto)2019-03-29 15:44:00 * Test Item Value Reference Range Interpretation Comments Neutrophils (%) (Auto) (test code = 20612-4) 76.6 38.7-80.0 [facility] HospitalLymphocytes (%) (Auto)2019-03-29 [...] Comments Lymphocytes # (Auto) (test code = 54977-5) 1.2 1.0-3.2 [facility] HospitalMonocytes # (Auto)2019-03-29 [...] Granulocyte (auto) 0.04 0-0.1 [facility] HospitalUrine Ctvqw3212-67-90 15:44:00* Test Item Value Reference Range Interpretation Comments Urine Color (test code = 5778-6) YELLOW YELLOW [facility] HospitalUrine Yiylwsc6862-39-33 15:44:00* Test Item Value Reference Range Interpretation Comments Urine Clarity (test code = 87761-6) CLEAR CLEAR [facility] HospitalUrine Specific Sqqosfd8706-55-29 15:44:00 * Test Item Value Reference Range Interpretation Comments Urine Specific [place] (test code = 5811-5) 1.030 1.010-1.02 5 H [facility] HospitalUrine xT9659-01-60 15:44:00* Test Item Value Reference Range Interpretation Comments Urine pH (test code = 46376-0) 6 5-7 [facility] HospitalUrine Leukocyte Rzoyhfhs9301-92-06 15:44:00* Test Item Value Reference Range Interpretation Comments Urine Leukocyte Esterase (test code = 5799-2) NEGATIVE NEGATIVE [facility] HospitalUrine Gimdzpa7705-89-46 15:44:00* Test Item Value Reference Range Interpretation Comments Urine Nitrite (test code = 03574-8) NEGATIVE NEGATIVE [facility] HospitalUrine Ggcdyex9497-99-90 15:44:00* Test Item Value Reference Range Interpretation Comments Urine Protein (test code = 5804-0) NEGATIVE NEGATIVE [facility] HospitalUrine Glucose (UA)2019-03-29 15:44:00* Test Item Value Reference Range Interpretation Comments Urine Glucose (UA) (test code = 2349-9) NEGATIVE NEGATIVE [facility] HospitalUrine Qqjoayb4592-50-94 15:44:00* Test Item Value Reference Range Interpretation Comments Urine Ketones (test code = 47766-3) NEGATIVE NEGATIVE [facility] HospitalUrine Eifgyulbatsg7313-53-29 15:44:00* Test Item Value Reference Range Interpretation Comments Urine Urobilinogen (test code = 77477-7) 0.2 0.2-1 [facility] HospitalUrine Onciaptie0358-05-68 15:44:00* Test Item Value Reference Range Interpretation Comments Urine Bilirubin (test code = 1978-6) NEGATIVE NEGATIVE [facility] HospitalUrine Zhsem8972-22-93 15:44:00* Test Item Value Reference Range Interpretation Comments Urine Blood (test code = 31145-3) NEGATIVE NEGATIVE [facility] HospitalUrine ZFW8569-02-28 15:44:00* Test Item Value Reference Range Interpretation Comments Urine WBC (test code = 5821-4) 0-5 0-5 [facility] HospitalUrine AAU4501-50-33 15:44:00* Test Item Value Reference Range Interpretation Comments Urine RBC (test code = 78067-7) 0-5 0-5 [facility] HospitalUrine Nuijyyvo0050-97-26 15:44:00* Test Item Value Reference Range Interpretation Comments Urine Bacteria (test code = 77378-7) RARE NONE [facility] HospitalUrine Epithelial Disnc6126-21-25 15:44:00 * Test Item Value Reference Range Interpretation Comments Urine Epithelial Cells (test code = 06291-1) FEW NONE [facility] plasma creatine kinase measurement (enzymatic activity/volume)2019-03-29 13:00:00* Test Item Value Reference Range Interpretation Comments Creatine Kinase (test code = 2157-6) 45 30-200 [facility] Hospitalerum or plasma creatine kinase MB measurement (mass/volume)2019-03-29 13:00:00* Test Item Value Reference Range Interpretation Comments Creatine Kinase MB (test code = 06404-8) 1.00 0-5.0 [facility] HospitalTroponin I measurement by highly sensitive enzyme ppkaaohcyab7902-55-78 13:00:00* Test Item Value Reference Range Interpretation Comments Troponin I (test code = 17295-9) 0.004 0-0.300 [facility] Hospitalodium Ctdbk2135-19-90 06:01:00* Test Item Value Reference Range Interpretation Comments Sodium Level (test code = 2951-2) 138 136-145 [facility] HospitalPotassium Zchnu1585-04-30 06:01:00* Test Item Value Reference Range Interpretation Comments Potassium Level (test code = 2823-3) 3.5 3.5-5.1 [facility] HospitalChloride Ullgj8140-65-04 06:01:00* Test Item Value Reference Range Interpretation Comments Chloride Level (test code = 2075-0) 105 98-107 [facility] HospitalCarbon Dioxide Ytxfo1527-03-81 06:01:00* Test Item Value Reference Range Interpretation Comments Carbon Dioxide Level (test code = 2028-9) 24 22-29 [facility] HospitalAnion Ghb3868-65-84 06:01:00* Test Item Value Reference Range Interpretation Comments Anion Gap (test code = 95131-8) 12.5 8-16 [facility] HospitalBlood Urea Vjsvxmgn8506-72-12 06:01:00* Test Item Value Reference Range Interpretation Comments Blood Urea Nitrogen (test code = 3094-0) 8 7-26 [facility] HospitalCreatinine2019-12-27 06:01:00* Test Item Value Reference Range Interpretation Comments Creatinine (test code = 2160-0) 0.88 0.72-1.25 [facility] HospitalBUN/Creatinine Dtxyh7738-36-33 06:01:00* Test Item Value Reference Range Interpretation Comments BUN/Creatinine Ratio (test code = 3097-3) 9 6-25 [facility] HospitalEstimat Glomerular Filtration Rate 2019-02-27 06:01:00* Test Item Value Reference Range Interpretation Comments Estimat Glomerular Filtration Rate (test code = 276299963) > 60 >60 Ranges were taken from the National Kidney Disease Education Program and the [facility] literature.Reference ranges:60 or greater: Itofyy45-11 ( for 3 consecutive months): Chronic kidney disease 15 or less: Kidney failureMethod[facility] HospitalGlucose Hbaeu2832-39-11 06:01:00* Test Item Value Reference Range Interpretation Comments Glucose Level (test code = ZDC4510) 119 74-118 H [facility] HospitalCalcium Tcajp7551-36-02 06:01:00* Test Item Value Reference Range Interpretation Comments Calcium Level (test code = 85983-6) 8.3 8.4-10.2 L [facility] HospitalTotal Cdladlofx2671-22-08 06:01:00* Test Item Value Reference Range Interpretation [...] = 1742-6) 37 0-55 [facility] HospitalTotal Hmsguok2608-39-87 06:01:00* Test Item Value Reference Range Interpretation Comments Total Protein (test code = 2885-2) 4.9 6.5-8.1 L [facility] HospitalAlbumin2019-12-27 06:01:00* Test Item Value Reference Range Interpretation Comments Albumin (test code = 1751-7) 2.2 3.5-5.0 L [facility] HospitalGlobulin2019-12-27 06:01:00* Test Item Value Reference Range Interpretation Comments Globulin (test code = 22360-4) 2.7 2.3-3.5 [facility] HospitalAlbumin/Globulin Laatt1156-03-51 06:01:00 * Test Item Value Reference Range Interpretation Comments Albumin/Globulin Ratio (test code = 1759-0) 0.8 0.8-2.0 [facility] HospitalAlkaline Wqaiwenupol1444-63-66 06:01:00* Test Item Value Reference Range Interpretation Comments Alkaline Phosphatase (test code = 6768-6) 84 40-150 [facility] HospitalWhite Blood Icfyo4607-07-46 05:45:00* Test Item Value Reference Range Interpretation Comments White Blood Count (test code = 6690-2) 11.43 4.8-10.8 H [facility] HospitalRed Blood Kxbpy5836-07-84 05:45:00* Test Item Value Reference Range Interpretation Comments Red Blood Count (test code = 789-8) 3.26 4.3-5.7 L [facility] HospitalHemoglobin2019-12-27 05:45:00* Test Item Value Reference Range Interpretation Comments Hemoglobin (test code = 77904-8) 9.6 14.0-18.0 L [facility] HospitalHematocrit2019-12-27 05:45:00* Test Item Value Reference Range Interpretation Comments Hematocrit (test code = 4544-3) 28.3 38.2-49.6 L [facility] HospitalMean Corpuscular Yjlkbi0739-82-40 05:45:00* Test Item Value Reference Range Interpretation Comments Mean Corpuscular Volume (test code = 787-2) 86.8 81-99 [facility] HospitalMean Corpuscular Mrjnoigiof1732-37-41 05:45:00* Test Item Value Reference Range Interpretation Comments Mean Corpuscular Hemoglobin (test code = 785-6) 29.4 28-32 [facility] Hemoglobin Concent 2019-02-27 05:45:00* Test Item Value Reference Range Interpretation Comments Mean Corpuscular Hemoglobin Concent (test code = 786-4) 33.9 31-35 [facility] HospitalRed Cell Distribution Ufiwb2537-06-32 05:45:00* Test Item Value Reference Range Interpretation Comments Red Cell Distribution Width (test code = 24009-7) 12.9 11.7 -14.4 [facility] HospitalPlatelet Jkqkz7474-37-32 05:45:00* Test Item Value Reference Range Interpretation Comments Platelet Count (test code = 777-3) 375 140-360 H [facility] HospitalNeutrophils (%) (Auto)2019-02-27 05:45:00 * Test Item Value Reference Range Interpretation Comments Neutrophils (%) (Auto) (test code = 27188-3) 73.5 38.7-80.0 [facility] HospitalLymphocytes (%) (Auto)2019-02-27 [...] Comments Lymphocytes # (Auto) (test code = 18125-9) 0.9 1.0-3.2 L [facility] HospitalMonocytes # [...] H [facility] HospitalABDOMEN ACUTE SERIES W/PA YMZ9171-75-30 13:47:00 [place] [address] Patient Name: ANAT FRANCE MR #: [id number] : 1955 Age/Sex: 64/M Req #: [id number] Adm Physician: EWA RAYMOND MD Ordered by: EWA RAYMOND MD Report #: [id number] Location: MED/SURG Room/Bed: [facility] [place] Procedure: [id number] DX/ABDOMEN ACUTE SERIES W/PA CXR Exam Date: [...] OPY TO: EWA RAYMOND MD CT ABDOMEN/PELVIS H3521-93-05 17:35:00 [place] [address] Patient Name: ANAT FRANCE MR #: [id number] : 1955 Age/Sex: 64/M Req #: [id number] Adm Physician: EWA RAYMOND MD Ordered by: EWA RAYMOND MD Report #: [id number] Location: MED/SURG Room/Bed: [facility] [place] Procedure: [id number] CT/CT ABDOMEN/PELVIS W Exam Date: 02/24/19 Exam Time: 1710 REPORT STATUS: Sig parveen EXAM: CT Abdomen and Pelvis WITH contrast INDICATION: Pneumoperitoneu m on earlier KUB ADNORMAL KUB. ONLY IV CONTRAST NO ORAL [id number] COMPARISON: KUB 02/24/[address] abdomen and [...] colon mass resection with direct colonic reanastomosis. Tzmjo-us-lekzyghx peritoneum in the right upper quadrant as [...] EWA RAYMOND MD ABDOMEN ACUTE SERIES W/PA HIU8180-69-86 15:33:00 [place] [address] Patient Name: ANAT FRANCE MR #: [id number] : 1955 Age/Sex: 64/M Req #: [id number] Adm Physician: EWA RAYMOND MD Ordered by: EWA RAYMOND MD Report #: [id number] Location: MED/SURG Room/Bed: [facility] [place] Procedure: [id number] DX/ABDOMEN ACUTE SERIES W/PA CXR Exam Date: [...] TO: EWA SOTO MD Differential Total Cells Gqnzplp7975-63-01 12:44:00* Test Item Value Reference Range Interpretation Comments Differential Total Cells Counted (test code = Differen tial Total Cells Counted) 100 [facility] HospitalNeutrophils % (Manual)2019-02-19 12:44:00 * Test Item Value Reference Range Interpretation Comments Neutrophils % (Manual) (test code = 83399-5) 80 40-74 H [facility] HospitalBand Neutrophils [...] = 744-3) 7 3.4-9.0 [facility] HospitalPlatelet Esfacetr4180-22-14 12:44:00* Test Item Value Reference Range Interpretation Comments Platelet Estimate (test code = 52637-7) ADEQUATE [facility] HospitalPlatelet Morphology Jsmqqix6474-58-07 12:44:00* Test Item Value Reference Range Interpretation Comments Platelet Morphology Comment (test code = 67773-1) NORMAL [facility] HospitalRed Cell Morphology Uerqwxo6901-72-62 12:44:00* Test Item Value Reference Range Interpretation [...] Comments Neutrophils % (Manual) (test code = 31963-9) 80 40-74 H [facility] HospitalBand Neutrophils [...] = 744-3) 7 3.4-9.0 [facility] HospitalPlatelet Nybgadvq4994-15-26 12:44:00* Test Item Value Reference Range Interpretation Comments Platelet Estimate (test code = 18644-4) ADEQUATE [facility] HospitalPlatelet Morphology Mmkijnq6613-05-09 12:44:00* Test Item Value Reference Range Interpretation Comments Platelet Morphology Comment (test code = 46774-7) NORMAL [facility] HospitalRed Cell Morphology Cezjrey2970-53-07 12:44:00* Test Item Value Reference Range Interpretation Comments Red Cell Morphology Comment (test code = 6742-1) NORMAL [facility] HospitalDifferential Total Cells Counted 2019-02-19 12:44:00* Test Item Value Reference Range Interpretation Comments Differential Total Cells Counted (test code = Trinidadeulalia tial Total Cells Counted) 100 [facility] HospitalNeutrophils % (Manual)2019-02-19 12:44:00 * Test Item Value Reference Range Interpretation Comments Neutrophils % (Manual) (test code = 68981-5) 80 40-74 H [facility] HospitalBand Neutrophils [...] = 744-3) 7 3.4-9.0 [facility] HospitalPlatelet Yitqratc9034-41-13 12:44:00* Test Item Value Reference Range Interpretation Comments Platelet Estimate (test code = 70545-7) ADEQUATE [facility] HospitalPlatelet Morphology Tqvlgtd6407-20-65 12:44:00* Test Item Value Reference Range Interpretation Comments Platelet Morphology Comment (test code = 12846-5) NORMAL [facility] HospitalRed Cell Morphology Mhskdjt0192-48-14 12:44:00* Test Item Value Reference Range Interpretation Comments Red Cell Morphology Comment (test code = 6742-1) NORMAL [facility] HospitalFluoroscopic procedure less than one hour qgqkztgj5914-13-86 03:35:00* Test Item Value Reference Range Interpretation Comments Differential Total Cells Counted (test code = Differen tial Total Cells Counted) 100 [facility] blood neutrophils/100 leukocytes 2019-02-19 03:35:00* Test Item Value Reference Range Interpretation Comments Neutrophils % (Manual) (test code = 90501-2) 80 40-74 [facility] blood band neutrophils form/100 uuhyhlywvc0022-99-02 03:35:00* Test Item Value Reference Range Interpretation Comments Band Neutrophils % (test code = 764-1) 10 [facility] blood lymphocytes/100 leukocytes 2019-02-19 03:35:00* Test Item Value Reference Range Interpretation Comments Lymphocytes % (Manual) (test code = 737-7) 3 19-48 [facility] blood monocytes/100 leukocytes 2019-02-19 03:35:00* Test Item Value Reference Range Interpretation Comments Monocytes % (Manual) (test code = 744-3) 7 3.4-9.0 [facility] HospitalBlood platelets count by estimate (number/volume)2019-02-19 03:35:00* Test Item Value Reference Range Interpretation Comments Platelet Estimate (test code = 70752-7) ADEQUATE [facility] HospitalPlatelet wjmohcrtru4836-62-90 03:35:00* Test Item Value Reference Range Interpretation Comments Platelet Morphology Comment (test code = 18355-7) NORMAL [facility] HospitalRBC wmpejflqhj5556-85-33 03:35:00* Test Item Value Reference Range Interpretation Comments Red Cell Morphology Comment (test code = 6742-1) NORMAL [facility] HospitalFluoroscopic procedure less than one hour cgetxcsp2186-84-74 03:35:00* Test Item Value Reference Range Interpretation Comments Differential Total Cells Counted (test code = Differen tial Total Cells Counted) 100 [facility] blood neutrophils/100 leukocytes 2019-02-19 03:35:00* Test Item Value Reference Range Interpretation Comments Neutrophils % (Manual) (test code = 83867-1) 80 40-74 [facility]Manl[facility] neutrophils form/100 xmyoyzfmpr5296-04-56 03:35:00* Test Item Value Reference Range Interpretation Comments Band Neutrophils % (test code = 764-1) 10 [facility] blood lymphocytes/100 leukocytes 2019-02-19 03:35:00* Test Item Value Reference Range Interpretation Comments Lymphocytes % (Manual) (test code = 737-7) 3 19-48 [facility] blood monocytes/100 leukocytes 2019-02-19 03:35:00* Test Item Value Reference Range Interpretation Comments Monocytes % (Manual) (test code = 744-3) 7 3.4-9.0 [facility] HospitalBlood platelets count by estimate (number/volume)2019-02-19 03:35:00* Test Item Value Reference Range Interpretation Comments Platelet Estimate (test code = 60590-2) ADEQUATE [facility] HospitalPlatelet npeollvsoz0652-47-84 03:35:00* Test Item Value Reference Range Interpretation Comments Platelet Morphology Comment (test code = 98781-6) NORMAL [facility] HospitalRBC zmnkxcjyoo2792-97-21 03:35:00* Test Item Value Reference Range Interpretation Comments Red Cell Morphology Comment (test code = 6742-1) NORMAL [facility] HospitalCHES 2 KBPWF2291-03-00 16:47:00 [place] [address] Patient Name: ANAT FRANCE MR #: [id number] : 1955 Age/Sex: 64/M Req #: [id number] Adm Physician: Ordered by: EWA RAYMOND MD Report #: [id number] Location: OR Room/Bed: Procedure: [id number] DX/CHEST [...] 1648 COPY TO: EWA RAYMOND CT ABDOMEN/PELVIS D8786-39-80 17:07:00 [place] [address] Patient Name: ANAT FRANCE MR #: [id number] : 1955 Age/Sex: 64/M Req #: [id number] Adm Physician: Ordered by: ASUNCION OH MD Report #: [id number] Location: CT Room/Bed: Procedure: 1206-[address]/CT [...]
[2019-11-18] MEDS: CEFTRIAXONE SOD 1 GRAM/0.9% SOD CHL 50ML BAG IV SCH (02:54)
[2019-11-18 03:10] LABS: CREATINE KINASE MB 0.7 ng/mL (0-5.0)
[2019-11-18] MEDS ORDERED: AZITHROMYCIN 500MG/SOD CHL 0.9% 250ML BAG IV SCH (03:30)
[2019-11-18] MEDS: ACETAMINOPHEN 325 MG TAB PO PRN ×2 (08:16→15:39)
[2019-11-18 11:14] LABS: CREATINE KINASE MB 1.1 ng/mL (0-5.0)
--- NOTE | 2019-11-18 15:04 | Consultation ---
DATE OF CONSULTATION: Pulmonary Consultation REASON FOR CONSULT: COVID pneumonia and shortness of breath. HISTORY OF PRESENT ILLNESS: Mr. Quintero is a 64-year-old male, who has been in the hospital. He is admitted to the hospital with COVID-19 infection. The patient had a history of colon cancer and surgery done last year in February of 2019. After that he developed pulmonary embolism and the patient is on Xarelto. He presented today with increasing cough, fever and chills for one day and left shoulder discomfort. In the emergency room, the patient underwent COVID-19, testing which was positive and influenza testing was negative. He is currently not on oxygen and breathing well. He is still having marked chest discomfort. REVIEW OF SYSTEMS: GENERAL: Denies any shortness of breath. The patient has mild chest discomfort. GI: Denies any nausea or vomiting. MUSCULOSKELETAL: Denies any arthralgias or myalgias. NEURO: Denies any focal weakness. The rest of the review of systems are negative except as in HPI. PAST MEDICAL HISTORY: Colon cancer and pulmonary embolism. FAMILY AND SOCIAL HISTORY: He does not smoke, does not drink. PHYSICAL EXAMINATION: VITAL SIGNS: Temperature 97.9, pulse of 66, and blood pressure 124/67. CHEST: Clear to auscultation bilaterally. No Wheezing. HEART: S1 and S2 audible. ABDOMEN: Soft. EXTREMITIES: No pedal edema. NEUROLOGIC: Awake and alert. LABORATORY DATA: White count of 7000, hemoglobin 11.1, and platelets 470. Chemistry is within normal limits. ASSESSMENT/PLAN: Mr. Quintero is a 64-year-old male with history of colon cancer, status post resection, pulmonary embolism. The patient is on Xarelto, which will be resumed. At this point, the patient is not requiring any oxygen. Continue the patient on azithromycin and Rocephin. I will start the patient on Decadron. Chest x-ray showing small pleural effusion. We will do ultrasound of the chest. May need thoracentesis with nodular effusion. Thank you for this consult. MD PHOEBE Bee/BHARGAV /[id number]
[2019-11-18] MEDS ORDERED: DEXAMETHASONE SOD PHOS 10 MG/1 ML VIAL IV SCH (15:30)
[2019-11-18] MEDS: RIVAROXABAN 15 MG TABLET PO SCH (17:00)
[2019-11-18] MEDS ORDERED: RIVAROXABAN 10 MG TABLET PO SCH (17:00)
[2019-11-18 20:17] LABS: CREATINE KINASE MB 1.1 ng/mL (0-5.0)
--- NOTE | 2019-11-18 20:49 | Diagnostic Imaging Report ---
EXAMINATION: Limited chest ultrasound CLINICAL INDICATION: Pleural effusion COMPARISON: Portable chest 11/18/2019 DISCUSSION: Transverse images of the chest were performed. Examination shows a small to moderate right-sided pleural effusion with associated compressive atelectasis. No left-sided pleural effusion is identified. IMPRESSION: 1. Small to moderate right-sided pleural effusion. The staff physician below has personally reviewed this exam on the date of dictation. Signed by: Dr. Varun South M.D. on 11/18/2019 8:46 PM
--- NOTE | 2019-11-18 21:11 | Consultation ---
DATE OF CONSULTATION: REASON FOR CONSULTATION: Fever. HISTORY OF PRESENT ILLNESS: Mr. Quintero is a very pleasant 64-year-old. The patient who back in February was diagnosed with cancer in 2019. He had resection of the colon. After that, he was complicated by pulmonary embolism. He was on Xarelto. He was doing well until three days ago and had fever. There is no shortness of breath. He came to emergency room where he was found to have COVID-19, so he is being admitted. The patient denies any complaints besides the fever. REVIEW OF SYSTEMS: A 14-point review of systems, all negative. PAST MEDICAL HISTORY: As above. PAST SURGICAL HISTORY: As above. ALLERGIES: NKA. SOCIAL HISTORY: There is no smoking, drug abuse or alcohol abuse. FAMILY HISTORY: Otherwise unremarkable. PHYSICAL EXAMINATION: GENERAL: Currently alert, oriented. VITAL SIGNS: Stable. Currently afebrile. HEENT: He is not icteric. NECK: Supple. CHEST: Clear. HEART: S1, S2. ABDOMEN: Soft. Bowel sounds present. EXTREMITIES: No edema. SKIN: No rash. IMPRESSION: Fever due to COVID-19. The patient is not hypoxemic. There is really no need for steroid. He is on Xarelto, so continue with Xarelto for anticoagulation. I am going to keep him on Rocephin until I get the blood cultures to make sure there is no superimposed infection. Discussed with the patient. Discussed with medical team. We will follow. He needs to be on isolation for 10 days post onset of symptoms. There is no need to repeat the PCR. MD LIZ Mayo/BHARGAV /[id number]
--- NOTE | 2019-11-18 21:36 | NUR ---
Cardiology Consult Dictation# [id number]
--- NOTE | 2019-11-18 22:12 | Consultation ---
DATE OF CONSULTATION: 11/18/2019 Cardiology Consultation REQUESTING PHYSICIAN: Dr. Cortez. REASON FOR CONSULTATION: Arrhythmia. HISTORY OF PRESENT ILLNESS: This is a 64-year-old male with history of mitral valve prolapse, colon cancer status post resection, and pulmonary embolism, who presents with complaints of fever. He was found to be COVID positive in the ER and admitted for further care. While admitted, he was noted to have ectopy on telemetry and Cardiology consulted for further recommendations. The patient denies any cardiac complaints. Denies any chest pain, shortness of breath, palpitations, edema, orthopnea, or PND. He does notice he has back pain when he lays down that this has been present since he had his pulmonary embolism. REVIEW OF SYSTEMS: Negative except as per HPI. PAST MEDICAL HISTORY: 1. History of murmur, reported to be mitral valve prolapse. 2. Colon cancer, status post resection. 3. Pulmonary embolism. 4. History of bowel obstruction, status post ileostomy. PAST SURGICAL HISTORY: 1. Ileostomy. 2. Colon cancer resection. ALLERGIES: NO KNOWN DRUG ALLERGIES. MEDICATIONS: Please see medication list. SOCIAL HISTORY: No tobacco or illicit drugs. Does drink alcohol on occasion. FAMILY HISTORY: Pertinent for mother with congestive heart failure. PHYSICAL EXAMINATION: VITAL SIGNS: Temperature 98.8 degrees, pulse 77, respiratory rate 20, blood pressure 155/74, and oxygen saturation 99% on room air. The patient was not examined due to isolation for COVID- 19. LABORATORY DATA: WBC 7.03, hemoglobin 11.1, hematocrit 34.9, and platelets 470. Sodium 135, potassium 4.1, chloride 101, CO2 23, BUN 9, and creatinine 0.9. Troponin 0.014. EKG, normal sinus rhythm, left anterior fascicular block, minimal voltage criteria for LVH, may be normal variant. Telemetry was personally reviewed and interpreted, revealing normal sinus rhythm, PACs and PVCs. Chest x-ray, new small right pleural effusion. Ultrasound chest, small to moderate right-sided pleural effusion. IMPRESSION: 1. Premature atrial contractions and premature ventricular contractions. 2. COVID-19 pneumonia. 3. History of heart murmur. 4. Colon cancer, status post resection. 5. Pulmonary embolism, on Xarelto. 6. Bowel obstruction, status post ileostomy. RECOMMENDATIONS: The patient is ruled out for myocardial infarction with serial cardiac biomarkers. TSH was within normal range. Continue to monitor the patient on telemetry. Replete electrolytes. Maintain potassium above 4 and magnesium above 2. Obtain echocardiogram. If echocardiogram is unremarkable, no further cardiac evaluation will be indicated while in-house. The patient can follow up as an outpatient for outpatient Holter monitoring and ischemic evaluation. Continue supportive care. Continue Xarelto for treatment of the patient's pulmonary embolism. Decision regarding thoracentesis per Pulmonary. Thank you for this consult. We will continue to follow. Zandra Causey MD ABS/MODL /[id number]
[2019-11-19] VITALS (7 sets, daily range): BP systolic 122–141; BP diastolic 62–88
[2019-11-19] MEDS: ACETAMINOPHEN 325 MG TAB PO PRN ×2 (00:50→23:40)
[2019-11-19] MEDS: CEFTRIAXONE SOD 1 GRAM/0.9% SOD CHL 50ML BAG IV SCH (03:32)
[2019-11-19 06:20] LABS: HEMATOCRIT 35.4 % (38.2-49.6); HEMOGLOBIN 10.9 g/dL (14.0-18.0); LYMPHOCYTES # (AUTO) 0.5 (1.0-3.2); LYMPHOCYTES % 11.9 % (18.0-39.1); MEAN CORPUSCULAR HGB CONC 30.8 g/dL (31-35); MEAN CORPUSCULAR VOLUME 81.2 fL (81-99); MONOCYTES # (AUTO) 0.3 (0.2-0.8); MONOCYTES % 7.4 % (4.4-11.3); NEUTROPHILS # (AUTO) 3.4 (2.1-6.9); PLATELET COUNT 479 x10e3/uL (140-360); RED BLOOD COUNT 4.36 x10e6/uL (4.3-5.7); RED CELL DISTRIBUTION WIDTH 15.2 % (11.7-14.4)
[2019-11-19 06:42] LABS: ALANINE AMINOTRANSFERASE 58 IU/L (0-55); ALBUMIN 3.6 g/dL (3.5-5.0); ALBUMIN/GLOBULIN RATIO 1.1 (0.8-2.0); ALKALINE PHOSPHATASE 124 IU/L (40-150); ANION GAP 15.6 mmol/L (8-16); BLOOD UREA NITROGEN 12 mg/dL (7-26); BUN/CREATININE RATIO 16 (6-25); CALCIUM 9.3 mg/dL (8.4-10.2); CARBON DIOXIDE 24 mmol/L (22-29); CHLORIDE 109 mmol/L (98-107); CREATININE, SERUM 0.77 mg/dL (0.72-1.25); EST GLOMERULAR FILTRATION RATE > 60 ML/MIN (60-); GLUCOSE 130 mg/dL (74-118); POTASSIUM 4.6 mmol/L (3.5-5.1)
[2019-11-19 06:52] LABS: SODIUM 144 mmol/L (136-145)
[2019-11-19] MEDS: RIVAROXABAN 15 MG TABLET PO SCH ×2 (09:00→17:00)
--- NOTE | 2019-11-19 11:20 | Progress Note ---
DATE: SUBJECTIVE: The patient is doing well. Chest ultrasound showing small effusion. Otherwise, the patient is stable. PHYSICAL EXAMINATION: VITAL SIGNS: Temperature 97.8, pulse of 76, blood pressure 131/88, respiratory rate of 18, O2 saturation 99%. CHEST: Clear to auscultation bilaterally. HEART: S1, S2 audible. The patient is not hypoxic on room air, saturating 99%. IMAGING DATA: Chest ultrasound showing small right-sided effusion. ASSESSMENT AND PLAN: Mr. Quintero is a 64-year-old male with coronavirus disease-2019 pneumonia, history of colon cancer, status post resection. Currently has ileostomy, improving. No respiratory distress. We will request IR for thoracentesis. We will defer thoracentesis for now. Recent pulmonary embolism, continue the patient on Xarelto, high risk to stop it at this point. MD PHOEBE Bee/BHARGAV /[id number]
--- NOTE | 2019-11-19 11:25 | Progress Note ---
DATE: 11/19/2019 Cardiology Progress Note. SUBJECTIVE: The patient was discussed with nursing staff. No events reported overnight. OBJECTIVE: VITAL SIGNS: Temperature 97.8 degrees, pulse 76, respiratory rate 18, blood pressure 131/88, oxygen saturation 99% on room air. The patient was not examined due to isolation for COVID-19. LABORATORY DATA: WBC 4.3, hemoglobin 10.9, hematocrit 35.4, platelets 479. Sodium 134, potassium 4.6, chloride 109, CO2 of 24, BUN 12, and creatinine 0.77. TELEMETRY: Telemetry was personally reviewed and interpreted, revealing normal sinus rhythm, PACs and PVCs. IMPRESSION: 1. PACs and PVCs. 2. COVID-19 pneumonia. 3. History of heart murmur. 4. Colon cancer status post resection. 5. Pulmonary embolism, on Xarelto. 6. Bowel obstruction, status post ileostomy. RECOMMENDATIONS: The patient ruled out for myocardial infarction with serial cardiac biomarkers. TSH within normal range. Monitor patient on telemetry. Replete electrolytes. Maintain potassium above 4 and magnesium above 2. Echocardiogram is pending. We will review images once it is done. If the echo is normal, no further cardiac evaluation will be indicated while inpatient. He can follow up as an outpatient for Holter and he is monitoring ischemic evaluation. Continue supportive care. Continue Xarelto for treatment of pulmonary embolism. Decision regarding thoracentesis per Pulmonary. Thank you for this consult. We will continue to follow. Zandra Causey MD ABS/MODL /[id number]
--- NOTE | 2019-11-19 16:30 | NUR ---
INFECTIOUS DISEASE PROGRESS NOTE SUNNY OSULLIVAN M.D. REASON FOR CONSULTATION: Fever. HISTORY OF PRESENT ILLNESS: Mr. Quintero is a very pleasant 64-year-old. The patient who back in February was diagnosed with cancer in 2018. He had resection of the colon. After that, he was complicated by pulmonary embolism. He was on Xarelto. He was doing well until three days ago and had fever. There is no shortness of breath. He came to emergency room where he was found to have COVID-19, so he is being admitted. The patient denies any complaints besides the fever. REVIEW OF SYSTEMS: A 14-point review of systems, all negative. PHYSICAL EXAMINATION: GENERAL: Currently alert, oriented. VITAL SIGNS: Stable. Currently afebrile. HEENT: He is not icteric. NECK: Supple. CHEST: Clear. HEART: S1, S2, no s3, s4 ABDOMEN: Soft. Bowel sounds present. EXTREMITIES: No edema. SKIN: No rash LABS: Reviewed RADIOLOGY: reviewed IMPRESSION: Fever due to COVID-19 Colon Cancer s/p PE PLAN: Continue Rocephin for now -The patient is not hypoxemic -no need for steroid Continue Xarelto home med He needs to be on isolation for 10 days post onset of symptoms There is no need to repeat the PCR Ange Veloz MSN, [employer]IC WORKER, AGACNP-BC Sunny Osullivan M.D
[2019-11-20] VITALS: BP 138/79
[2019-11-20] MEDS: CEFTRIAXONE SOD 1 GRAM/0.9% SOD CHL 50ML BAG IV SCH (03:58)
[2019-11-20 04:00] VITALS: BP 130/74
[2019-11-20] MEDS: ACETAMINOPHEN 325 MG TAB PO PRN ×2 (05:22→13:58)
--- NOTE | 2019-11-20 07:30 | NUR ---
PATIENT IS AWAKE, ALERT, AND IN STABLE CONDITION WITH NO S/S OF RESPIRATORY DISTRESS. PATIENT DENIES PAIN. TELEMETRY APPLIED. CALL LIGHT IS WITHIN REACH, PATIENT INSTRUCTED TO CALL FOR ASSISTANCE NEEDED.
[2019-11-20] MEDS: RIVAROXABAN 15 MG TABLET PO SCH (08:16)
[2019-11-20 09:12] VITALS: BP 122/62
[2019-11-20 09:15] VITALS: BP 122/62
--- NOTE | 2019-11-20 11:34 | Progress Note ---
DATE: 11/20/2019 Cardiology Progress Note SUBJECTIVE: The patient was discussed with nursing staff. No events reported overnight. OBJECTIVE: VITAL SIGNS: Temperature 98 degrees, pulse 85, respiratory rate 20, blood pressure 152/62, oxygen saturation 98% on room air. The patient was not examined due to isolation for COVID-19. CARDIAC MEDICATIONS: Xarelto 15 mg p.o. b.i.d. LABORATORY DATA: None today. TELEMETRY: Personally reviewed and interpreted revealing normal sinus rhythm with PVCs. IMPRESSION: 1. Premature atrial contractions and premature ventricular contractions. 2. Coronavirus disease-2019 pneumonia. 3. History of heart murmur. 4. Colon cancer, status post resection. 5. Pulmonary embolism, on Xarelto. 6. Bowel obstruction, status post ileostomy. RECOMMENDATIONS: The patient ruled out for myocardial infarction with serial cardiac biomarkers. TSH is within normal range. Echocardiogram demonstrated normal LV systolic function. Monitor patient on telemetry. Replete electrolytes. Maintain potassium above 4, magnesium above 2. No further cardiac evaluation is indicated at this time. He can follow up as an outpatient for 24-hour Holter as well as ischemic evaluation. Continue supportive care. He is currently on 15 mg p.o. b.i.d. of Xarelto. This will need to continue for several more days before he can be switched to 20 mg daily. Decision regarding thoracentesis per Pulmonary. Thank you for this consult. We will continue to follow. Zandra Causey MD ABS/MODL /[id number]
--- NOTE | 2019-11-20 14:42 | NUR ---
PATIENT DISCHARGE HOME- PATIENT OFF THE UNIT AT 1420 PER WHEELCHAIR ACCOMPANIED BY RN TO THE FRONT LOBBY/PATIENT'S PERSONAL VEHICLE. PATIENT IN STABLE CONDITION WITH NO S/S OF RESPIRATORY DISTRESS. NO PAIN VOICED. IV REMOVED WITH TIP INTACT. DISCHARGE TEACHING AND INSTRUCTIONS GIVEN TO THE PATIENT. ALL PERSONAL ITEMS WERE TAKEN WITH THE PATIENT.
--- NOTE | 2019-11-20 17:06 | NUR ---
this infectious disease progress note date of service is November 20, 2019 patient is currently alert oriented he has no complaints whatsoever review of systems otherwise unremarkable his physical exam is currently alert oriented but is stable currently afebrile HEENT is not pink neck supple chest clear heart S1-S2 with soft voice are present extremities no edema skin no rash depression, patient is in with no hypoxemia is doing good he could be discharged home no treatment he needs to stay in isolation for 10 days since the onset of symptoms there is no need to repeat PCR discussed with him all the above
== END 2019-11-20 14:16 | disposition home or self-care (01) | DRG 177 ==
LOC: ER 01:15 → ERHOLD 02:48 → MED/SURG3 03:08 → OBSVTOIN 11-19 08:24
DX: U07.1 COVID-19 (principal); J12.89 Other viral pneumonia; I49.3 Ventricular premature depolarization; Z08 Encounter for follow-up examination after completed treatment for malignant neoplasm; Z85.038 Personal history of other malignant neoplasm of large intestine; Z86.711 Personal history of pulmonary embolism; Z79.01 Long term (current) use of anticoagulants; Z93.2 Ileostomy status
CPT/HCPCS: 36415; 71045; 76604; 80053; 81001; 82550; 82553; 82948; 83605; 83735; 84443; 84484; 85025; 87040; 87086; 87400; 93005; 93306; 99284; G0378; J0456; J0696; J1100; J7030; U0002

== ENCOUNTER → 2020-01-21 | Day surgery (SDC) | payer BC ==
[2020-01-18 13:53] LABS: BASOPHILS # (AUTO) 0.1 (0.0-0.1); EOSINOPHILS # (AUTO) 0.1 (0.0-0.4); HEMATOCRIT 42.5 % (38.2-49.6); LYMPHOCYTES # (AUTO) 1.3 (1.0-3.2); LYMPHOCYTES % 17.9 % (18.0-39.1); MEAN CORPUSCULAR HEMOGLOBIN 25.2 pg (28-32); MEAN CORPUSCULAR HGB CONC 30.6 g/dL (31-35); MEAN CORPUSCULAR VOLUME 82.5 fL (81-99); MONOCYTES # (AUTO) 0.8 (0.2-0.8); MONOCYTES % 10.9 % (4.4-11.3); NEUTROPHILS # (AUTO) 4.7 (2.1-6.9); NEUTROPHILS % 67.9 % (38.7-80.0); PLATELET COUNT 279 x10e3/uL (140-360); RED BLOOD COUNT 5.15 x10e6/uL (4.3-5.7); RED CELL DISTRIBUTION WIDTH 17.1 % (11.7-14.4)
[2020-01-18 14:25] LABS: ANION GAP 12.3 mmol/L (8-16); BLOOD UREA NITROGEN 13 mg/dL (7-26); BUN/CREATININE RATIO 14 (6-25); CALCIUM 9.4 mg/dL (8.4-10.2); CARBON DIOXIDE 26 mmol/L (22-29); CHLORIDE 107 mmol/L (98-107); CREATININE, SERUM 0.94 mg/dL (0.72-1.25); EST GLOMERULAR FILTRATION RATE > 60 ML/MIN (60-); GLUCOSE 88 mg/dL (74-118); POTASSIUM 4.3 mmol/L (3.5-5.1); SODIUM 141 mmol/L (136-145)
--- NOTE | 2020-01-18 15:04 | Diagnostic Imaging Report ---
Exam: CHEST 2 VIEWS Date: 01/18/2020 3:00 PM INDICATION: ^[id number] ^1410 ^PRE OP Comparison: 11/18/2019 FINDINGS: Lines/Tubes:None Lungs:The lungs are well inflated. No focal consolidation or pulmonary edema. Pleura:No pleural effusion. No pneumothorax. Heart/Mediastinum:The cardiomediastinal silhouette is normal in size and contour. Bones/Soft Tissues: No acute osseous abnormality. Upper abdomen: Unremarkable. IMPRESSION: Negative for acute intrathoracic process. Signed by: Mat Riggins MD on 01/18/2020 3:01 PM
[~2020-01-21] MED LIST changes: +PROPOFOL IV EMULSION 10 MG/ML 20 ML VIAL ONE
[2020-01-21 11:00] VITALS: BP 127/83
== END | disposition home or self-care (01) ==
LOC: OR 07:35
PROVIDERS: ATTEND Surgery
DX: Z08 Encounter for follow-up examination after completed treatment for malignant neoplasm (principal); Z85.038 Personal history of other malignant neoplasm of large intestine; Z98.0 Intestinal bypass and anastomosis status; I34.1 Nonrheumatic mitral (valve) prolapse; Z01.810 Encounter for preprocedural cardiovascular examination; Z01.812 Encounter for preprocedural laboratory examination; Z01.818 Encounter for other preprocedural examination; Z20.828 Contact with and (suspected) exposure to other viral communicable diseases; Z79.02 Long term (current) use of antithrombotics/antiplatelets; Z86.711 Personal history of pulmonary embolism; Z86.19 Personal history of other infectious and parasitic diseases
CPT/HCPCS: 36415; 45378; 71046; 80048; 85025; 93005; J2704; U0002

== ENCOUNTER 2020-02-15 09:43 | Inpatient (IN) | payer BC ==
[~2020-02-15] VITALS: Ht 180.3 cm; Wt 82.0 kg
[~2020-02-15 09:43] MED LIST changes: -PROPOFOL IV EMULSION 10 MG/ML 20 ML VIAL ONE
[2020-02-15] MEDS ORDERED: MIDAZOLAM HCL 2 MG/2 ML VIAL ONE (12:57)
[2020-02-15] MEDS ORDERED: FENTANYL CITRATE/PF 100MCG/2 ML INJ ONE ×2 (12:57→16:30)
[2020-02-15] MEDS ORDERED: PROPOFOL IV EMULSION 10 MG/ML 20 ML VIAL ONE (13:20)
[2020-02-15] MEDS ORDERED: ROCURONIUM BROMIDE 10 MG/ML 5ML VIAL IV ONE (13:20)
[2020-02-15] MEDS ORDERED: ONDANSETRON HCL INJ 2MG/ML 2ML 2 MG/ML VIAL ONE (13:20)
[2020-02-15] MEDS ORDERED: NEOSTIGMINE 1 MG/ML 10ML VIAL ONE (13:20)
[2020-02-15] MEDS ORDERED: DEXAMETHASONE SOD PHOS INJ 4 MG/ML VIAL ONE (13:20)
[2020-02-15] MEDS ORDERED: LIDOCAINE HCL 2% LOCAL INJ 5 ML SDV VIAL INJ ONE (13:20)
[2020-02-15] MEDS ORDERED: LIDOCAINE HCL 2% JELLY 5 ML TUBE ONE (13:20)
[2020-02-15] MEDS ORDERED: SEVOFLURANE INHAL SOLN 250 ML PEN BTL ONE (13:20)
[2020-02-15] MEDS ORDERED: GLYCOPYRROLATE INJ 0.2 MG/ML VIAL ONE (13:20)
[2020-02-15] MEDS ORDERED: BUPIVACAINE 0.25% 30ML SDV ONE (15:08)
[2020-02-15] MEDS ORDERED: ACETAMINOPHEN 1000 MG/100 ML IV PRN (15:30)
[2020-02-15] MEDS: PANTOPRAZOLE 40 MG 10ML VIAL IV SCH (17:00)
[2020-02-15] MEDS ORDERED: HYDROMORPHONE 1MG/1ML INJ ONE (19:07)
[2020-02-15 20:00] VITALS: BP 148/85
[2020-02-15 20:30] VITALS: BP 153/85
[2020-02-15 20:45] VITALS: BP 153/85
[2020-02-15] MEDS: SODIUM CHLORIDE 0.9% 1000ML 1,000 ML IV SCH (21:27)
[2020-02-15] MEDS: CEFOXITIN 1GM/0.9% NS 50ML 50 ML IV SCH (21:27)
[2020-02-15] MEDS: ENOXAPARIN SOD INJ 40 MG/0.4 ML SYR SC SCH (21:27)
[2020-02-15] MEDS: HYDROMORPHONE 1MG/1ML INJ IV PRN (21:27)
[2020-02-15] MEDS: ONDANSETRON HCL INJ 2MG/ML 2ML 2 MG/ML VIAL IV PRN (21:28)
[2020-02-16] VITALS (7 sets, daily range): BP systolic 119–145; BP diastolic 62–78
[2020-02-16] MEDS: CEFOXITIN 1GM/0.9% NS 50ML 50 ML IV SCH (02:00)
[2020-02-16] MEDS: ONDANSETRON HCL INJ 2MG/ML 2ML 2 MG/ML VIAL IV PRN (04:28)
[2020-02-16] MEDS: HYDROMORPHONE 1MG/1ML INJ IV PRN ×5 (04:28→21:29)
[2020-02-16] MEDS: SODIUM CHLORIDE 0.9% 1000ML 1,000 ML IV SCH ×2 (06:06→16:03)
[2020-02-16 06:17] LABS: BASOPHILS % 0.2 % (0.0-1.0); HEMATOCRIT 36.6 % (38.2-49.6); HEMOGLOBIN 11.6 g/dL (14.0-18.0); LYMPHOCYTES # (AUTO) 0.9 (1.0-3.2); LYMPHOCYTES % 8.2 % (18.0-39.1); MEAN CORPUSCULAR HEMOGLOBIN 25.7 pg (28-32); MEAN CORPUSCULAR HGB CONC 31.7 g/dL (31-35); MONOCYTES # (AUTO) 1.1 (0.2-0.8); MONOCYTES % 10.4 % (4.4-11.3); NEUTROPHILS # (AUTO) 8.7 (2.1-6.9); NEUTROPHILS % 80.8 % (38.7-80.0); PLATELET COUNT 229 x10e3/uL (140-360); RED BLOOD COUNT 4.52 x10e6/uL (4.3-5.7); RED CELL DISTRIBUTION WIDTH 16.2 % (11.7-14.4)
[2020-02-16 06:59] LABS: BLOOD UREA NITROGEN 14 mg/dL (7-26); BUN/CREATININE RATIO 16 (6-25); CALCIUM 8.1 mg/dL (8.4-10.2); CARBON DIOXIDE 22 mmol/L (22-29); CHLORIDE 106 mmol/L (98-107); EST GLOMERULAR FILTRATION RATE > 60 ML/MIN (60-); GLUCOSE 100 mg/dL (74-118); SODIUM 138 mmol/L (136-145)
[2020-02-16] MEDS: PANTOPRAZOLE 40 MG 10ML VIAL IV SCH (16:05)
[2020-02-16] MEDS: ENOXAPARIN SOD INJ 40 MG/0.4 ML SYR SC SCH (16:05)
[2020-02-16] MEDS ORDERED: INFLUENZA VIRUS VAC SPLIT INJ 0.5 ML SYR IM SCH (22:55)
[2020-02-17] VITALS (7 sets, daily range): BP systolic 143–161; BP diastolic 83–87
[2020-02-17] MEDS: HYDROMORPHONE 1MG/1ML INJ IV PRN ×3 (00:35→11:36)
[2020-02-17] MEDS: SODIUM CHLORIDE 0.9% 1000ML 1,000 ML IV SCH ×3 (05:35→23:07)
[2020-02-17] MEDS: ONDANSETRON HCL INJ 2MG/ML 2ML 2 MG/ML VIAL IV PRN (06:23)
[2020-02-17 09:33] LABS: BASOPHILS % 0.3 % (0.0-1.0); EOSINOPHILS % 0.2 % (0.0-6.0); HEMATOCRIT 41.1 % (38.2-49.6); HEMOGLOBIN 12.7 g/dL (14.0-18.0); LYMPHOCYTES % 9.4 % (18.0-39.1); MEAN CORPUSCULAR HEMOGLOBIN 25.1 pg (28-32); MEAN CORPUSCULAR HGB CONC 30.9 g/dL (31-35); MEAN CORPUSCULAR VOLUME 81.2 fL (81-99); MONOCYTES # (AUTO) 1.2 (0.2-0.8); MONOCYTES % 11.5 % (4.4-11.3); NEUTROPHILS # (AUTO) 8.1 (2.1-6.9); NEUTROPHILS % 78.2 % (38.7-80.0); PLATELET COUNT 237 x10e3/uL (140-360); RED BLOOD COUNT 5.06 x10e6/uL (4.3-5.7); RED CELL DISTRIBUTION WIDTH 16.4 % (11.7-14.4)
[2020-02-17 09:52] LABS: ANION GAP 15.7 mmol/L (8-16); BLOOD UREA NITROGEN 10 mg/dL (7-26); BUN/CREATININE RATIO 13 (6-25); CALCIUM 8.3 mg/dL (8.4-10.2); CARBON DIOXIDE 23 mmol/L (22-29); CHLORIDE 104 mmol/L (98-107); CREATININE, SERUM 0.79 mg/dL (0.72-1.25); EST GLOMERULAR FILTRATION RATE > 60 ML/MIN (60-); GLUCOSE 92 mg/dL (74-118); POTASSIUM 3.7 mmol/L (3.5-5.1); SODIUM 139 mmol/L (136-145)
[2020-02-17] MEDS: PANTOPRAZOLE 40 MG 10ML VIAL IV SCH (17:26)
[2020-02-17] MEDS: ENOXAPARIN SOD INJ 40 MG/0.4 ML SYR SC SCH (17:26)
[2020-02-17] MEDS: HYDROCODONE/APAP 7.5MG-325MG 1 EA TAB PO PRN ×2 (17:26→23:17)
[2020-02-18] VITALS (7 sets, daily range): BP systolic 114–136; BP diastolic 57–87
[2020-02-18] MEDS ORDERED: METOPROLOL TARTRATE INJ 1 MG/ML VIAL IV ONE ×2 (05:15→16:00)
[2020-02-18] MEDS ORDERED: DIGOXIN INJ 0.25 MG/ML 2 ML AMP IV PRN ×2 (05:15→19:15)
[2020-02-18 09:11] LABS: BASOPHILS % 0.3 % (0.0-1.0); EOSINOPHILS # (AUTO) 0.1 (0.0-0.4); EOSINOPHILS % 1.2 % (0.0-6.0); HEMATOCRIT 39.2 % (38.2-49.6); HEMOGLOBIN 12.3 g/dL (14.0-18.0); LYMPHOCYTES # (AUTO) 0.6 (1.0-3.2); LYMPHOCYTES % 6.5 % (18.0-39.1); MEAN CORPUSCULAR HEMOGLOBIN 25.5 pg (28-32); MEAN CORPUSCULAR HGB CONC 31.4 g/dL (31-35); MEAN CORPUSCULAR VOLUME 81.2 fL (81-99); MONOCYTES % 10.7 % (4.4-11.3); NEUTROPHILS # (AUTO) 7.2 (2.1-6.9); NEUTROPHILS % 80.9 % (38.7-80.0); PLATELET COUNT 237 x10e3/uL (140-360); RED BLOOD COUNT 4.83 x10e6/uL (4.3-5.7); RED CELL DISTRIBUTION WIDTH 15.9 % (11.7-14.4)
[2020-02-18 09:47] LABS: ANION GAP 12.6 mmol/L (8-16); BLOOD UREA NITROGEN 8 mg/dL (7-26); BUN/CREATININE RATIO 11 (6-25); CALCIUM 8.4 mg/dL (8.4-10.2); CARBON DIOXIDE 26 mmol/L (22-29); CHLORIDE 105 mmol/L (98-107); CREATININE, SERUM 0.75 mg/dL (0.72-1.25); EST GLOMERULAR FILTRATION RATE > 60 ML/MIN (60-); GLUCOSE 112 mg/dL (74-118); POTASSIUM 3.6 mmol/L (3.5-5.1); SODIUM 140 mmol/L (136-145)
[2020-02-18] MEDS: SODIUM CHLORIDE 0.9% 1000ML 1,000 ML IV SCH (12:27)
[2020-02-18] MEDS: PANTOPRAZOLE 40 MG 10ML VIAL IV SCH (17:01)
[2020-02-18] MEDS: ENOXAPARIN SOD INJ 40 MG/0.4 ML SYR SC SCH (17:01)
[2020-02-18] MEDS ORDERED: METOPROLOL TARTRATE INJ 1 MG/ML VIAL IV PRN (19:15)
[2020-02-18] MEDS: DIGOXIN INJ 0.25 MG/ML 2 ML AMP IV SCH ×2 (22:01→22:37)
[2020-02-19] VITALS (7 sets, daily range): BP systolic 109–135; BP diastolic 66–75
[2020-02-19] MEDS: SODIUM CHLORIDE 0.9% 1000ML 1,000 ML IV SCH ×2 (01:47→15:07)
[2020-02-19] MEDS ORDERED: DIGOXIN INJ 0.25 MG/ML 2 ML AMP IV SCH (09:00)
[2020-02-19] MEDS: PANTOPRAZOLE 40 MG 10ML VIAL IV SCH (18:06)
[2020-02-19] MEDS: ENOXAPARIN SOD INJ 40 MG/0.4 ML SYR SC SCH (18:06)
[2020-02-19] MEDS: METOPROLOL TARTRATE 25 MG TAB PO SCH (18:07)
[2020-02-19] MEDS ORDERED: HYDROMORPHONE 1MG/1ML INJ IV PRN (21:30)
[2020-02-20] VITALS: BP 134/84
[2020-02-20 04:51] VITALS: BP 133/80
[2020-02-20 07:36] VITALS: BP 142/77
[2020-02-20 08:27] VITALS: BP 142/77
[2020-02-20] MEDS: METOPROLOL TARTRATE 25 MG TAB PO SCH (09:02)
[2020-02-20 11:32] VITALS: BP 140/70
[2020-02-20 15:18] VITALS: BP 127/71
[2020-02-20] MEDS ORDERED: RIVAROXABAN 10 MG TABLET PO SCH (17:00)
[2020-02-20] MEDS ORDERED: TYLENOL # 31 EA PO (17:26)
[2020-02-20] MEDS ORDERED: KEFLEX500 MG PO (17:27)
== END 2020-02-20 18:45 | disposition home or self-care (01) | DRG 329 ==
LOC: OR 09:43 → PACU V 15:23 → MED/SURG 20:21
PROVIDERS: ADMIT Surgery; ATTEND Surgery
PROC: 0DBB0ZZ Excision of Ileum, Open Approach (ICD-10-PCS; principal; 2020-02-15 12:00)
DX: Z43.2 Encounter for attention to ileostomy (principal); U07.1 COVID-19; I48.0 Paroxysmal atrial fibrillation; Z01.812 Encounter for preprocedural laboratory examination; Z20.828 Contact with and (suspected) exposure to other viral communicable diseases; Z86.19 Personal history of other infectious and parasitic diseases; Z86.711 Personal history of pulmonary embolism; Z79.01 Long term (current) use of anticoagulants; Z86.718 Personal history of other venous thrombosis and embolism
CPT/HCPCS: 36415; 80048; 85025; 93005; 93306; J1100; J1160; J1170; J1650; J2001; J2250; J2405; J2710; J3010; J7030; U0002

== ENCOUNTER 2020-02-21 20:22 | Inpatient (IN) | payer BC ==
[~2020-02-21] VITALS: Ht 180.3 cm; Wt 80.7 kg
[~2020-02-21 20:22] MED LIST changes: +KEFLEX500 MG PO; +TYLENOL # 31 EA PO
[2020-02-21] MEDS ORDERED: DIATRIZOATE MEGL/DIATRIZOA SOD 30 ML BTL PO ONE (20:38)
[2020-02-21] MEDS ORDERED: ONDANSETRON HCL INJ 2MG/ML 2ML 2 MG/ML VIAL IV STA (20:38)
[2020-02-21 20:57] LABS: BASOPHILS % 0.4 % (0.0-1.0); EOSINOPHILS # (AUTO) 0.4 (0.0-0.4); EOSINOPHILS % 3.9 % (0.0-6.0); HEMATOCRIT 39.7 % (38.2-49.6); HEMOGLOBIN 12.2 g/dL (14.0-18.0); LYMPHOCYTES % 11.7 % (18.0-39.1); MEAN CORPUSCULAR HEMOGLOBIN 25.1 pg (28-32); MEAN CORPUSCULAR HGB CONC 30.7 g/dL (31-35); MEAN CORPUSCULAR VOLUME 81.7 fL (81-99); MONOCYTES # (AUTO) 0.7 (0.2-0.8); MONOCYTES % 8.2 % (4.4-11.3); NEUTROPHILS # (AUTO) 6.7 (2.1-6.9); NEUTROPHILS % 75.5 % (38.7-80.0); PLATELET COUNT 332 x10e3/uL (140-360); RED BLOOD COUNT 4.86 x10e6/uL (4.3-5.7); RED CELL DISTRIBUTION WIDTH 16.5 % (11.7-14.4)
[2020-02-21 21:08] LABS: INR 1.36; PROTHROMBIN TIME 17.5 seconds (11.9-14.5)
[2020-02-21 21:09] LABS: PARTIAL THROMBOPLASTIN TIME 37.1 seconds (23.8-35.5)
[2020-02-21 21:17] LABS: ALANINE AMINOTRANSFERASE 16 IU/L (0-55); ALBUMIN 3.7 g/dL (3.5-5.0); ALBUMIN/GLOBULIN RATIO 1.2 (0.8-2.0); ALKALINE PHOSPHATASE 67 IU/L (40-150); ANION GAP 13.9 mmol/L (8-16); BLOOD UREA NITROGEN 12 mg/dL (7-26); BUN/CREATININE RATIO 14 (6-25); CALCIUM 8.9 mg/dL (8.4-10.2); CARBON DIOXIDE 25 mmol/L (22-29); CHLORIDE 103 mmol/L (98-107); CREATININE, SERUM 0.87 mg/dL (0.72-1.25); EST GLOMERULAR FILTRATION RATE > 60 ML/MIN (60-); GLUCOSE 118 mg/dL (74-118); POTASSIUM 3.9 mmol/L (3.5-5.1); SODIUM 138 mmol/L (136-145)
[2020-02-21 21:18] LABS: AMYLASE 32 U/L (25-125); LIPASE 6 U/L (8-78)
[2020-02-21 21:33] LABS: CLARITY,URINE CLEAR (CLEAR); COLOR,URINE YELLOW (YELLOW); LEUKOCYTE ESTERASE ,URINE NEGATIVE (NEGATIVE); NITRITE,URINE NEGATIVE (NEGATIVE); PROTEIN,URINE DIPSTICK NEGATIVE (NEGATIVE)
[2020-02-21 21:34] LABS: KETONES,URINE NEGATIVE (NEGATIVE); RBC,URINE 0-5 /HPF (0-5); URINE UROBILINOGEN 0.2 mg/dL (0.2 - 1); WBC,URINE (MAN) 0-5 /HPF (0-5)
[2020-02-21] MEDS ORDERED: IOPAMIDOL 370 MG/ML 200 ML INFUS..BTL INJ ONE (22:52)
[2020-02-21] MEDS ORDERED: SODIUM CHLORIDE 0.9% 50ML 50 ML ONE (22:52)
[2020-02-22] VITALS (10 sets, daily range): BP systolic 137–162; BP diastolic 71–86
[2020-02-22] MEDS ORDERED: PIPER-TAZ 3.375 GM / NS 50ML IV STA (00:21)
[2020-02-22] MEDS ORDERED: MORPHINE SULFATE INJ 4 MG/ML INJ 1ML IV PRN (00:30)
[2020-02-22] MEDS: SODIUM CHLORIDE 0.9% 1000ML 1,000 ML IV SCH ×3 (00:59→20:55)
[2020-02-22] MEDS ORDERED: XARELTO20 MG PO (02:57)
[2020-02-22] MEDS: ONDANSETRON HCL INJ 2MG/ML 2ML 2 MG/ML VIAL IV PRN ×2 (03:11→14:33)
[2020-02-22] MEDS: HYDROMORPHONE 1MG/1ML INJ IV PRN ×3 (03:11→22:47)
[2020-02-22] MEDS: PIPER-TAZ 3.375 GM 50 ML IV SCH ×3 (05:46→22:42)
[2020-02-22 07:48] LABS: BASOPHILS # (AUTO) 0.1 (0.0-0.1); BASOPHILS % 0.6 % (0.0-1.0); EOSINOPHILS # (AUTO) 0.1 (0.0-0.4); EOSINOPHILS % 1.2 % (0.0-6.0); HEMATOCRIT 40.7 % (38.2-49.6); HEMOGLOBIN 12.7 g/dL (14.0-18.0); LYMPHOCYTES # (AUTO) 0.8 (1.0-3.2); LYMPHOCYTES % 8.6 % (18.0-39.1); MEAN CORPUSCULAR HEMOGLOBIN 25.5 pg (28-32); MEAN CORPUSCULAR HGB CONC 31.2 g/dL (31-35); MEAN CORPUSCULAR VOLUME 81.6 fL (81-99); MONOCYTES # (AUTO) 0.7 (0.2-0.8); MONOCYTES % 8.2 % (4.4-11.3); NEUTROPHILS % 81.1 % (38.7-80.0); PLATELET COUNT 319 x10e3/uL (140-360); RED BLOOD COUNT 4.99 x10e6/uL (4.3-5.7); RED CELL DISTRIBUTION WIDTH 16.5 % (11.7-14.4)
[2020-02-22 08:09] LABS: ALKALINE PHOSPHATASE 68 IU/L (40-150); BLOOD UREA NITROGEN 10 mg/dL (7-26); BUN/CREATININE RATIO 13 (6-25); CALCIUM 8.6 mg/dL (8.4-10.2); CARBON DIOXIDE 23 mmol/L (22-29); CHLORIDE 105 mmol/L (98-107); CREATININE, SERUM 0.78 mg/dL (0.72-1.25); EST GLOMERULAR FILTRATION RATE > 60 ML/MIN (60-); GLUCOSE 117 mg/dL (74-118); SODIUM 138 mmol/L (136-145)
[2020-02-22 08:23] LABS: ALANINE AMINOTRANSFERASE 13 IU/L (0-55)
[2020-02-22 08:37] LABS: ALBUMIN 3.3 g/dL (3.5-5.0); ALBUMIN/GLOBULIN RATIO 1.1 (0.8-2.0)
[2020-02-23] VITALS (8 sets, daily range): BP systolic 138–145; BP diastolic 70–76
[2020-02-23 04:50] LABS: BASOPHILS % 0.4 % (0.0-1.0); EOSINOPHILS # (AUTO) 0.2 (0.0-0.4); EOSINOPHILS % 2.8 % (0.0-6.0); HEMATOCRIT 36.5 % (38.2-49.6); HEMOGLOBIN 11.2 g/dL (14.0-18.0); LYMPHOCYTES # (AUTO) 1.1 (1.0-3.2); LYMPHOCYTES % 15.1 % (18.0-39.1); MEAN CORPUSCULAR HEMOGLOBIN 24.9 pg (28-32); MEAN CORPUSCULAR HGB CONC 30.7 g/dL (31-35); MEAN CORPUSCULAR VOLUME 81.1 fL (81-99); MONOCYTES # (AUTO) 0.8 (0.2-0.8); MONOCYTES % 10.9 % (4.4-11.3); NEUTROPHILS % 70.4 % (38.7-80.0); PLATELET COUNT 289 x10e3/uL (140-360); RED CELL DISTRIBUTION WIDTH 16.3 % (11.7-14.4)
[2020-02-23] MEDS: PIPER-TAZ 3.375 GM 50 ML IV SCH ×3 (05:03→21:37)
[2020-02-23 05:09] LABS: ALANINE AMINOTRANSFERASE 9 IU/L (0-55); ALKALINE PHOSPHATASE 60 IU/L (40-150); ANION GAP 9.8 mmol/L (8-16); BLOOD UREA NITROGEN 12 mg/dL (7-26); BUN/CREATININE RATIO 15 (6-25); CALCIUM 8.1 mg/dL (8.4-10.2); CARBON DIOXIDE 26 mmol/L (22-29); CHLORIDE 107 mmol/L (98-107); CREATININE, SERUM 0.79 mg/dL (0.72-1.25); EST GLOMERULAR FILTRATION RATE > 60 ML/MIN (60-); GLUCOSE 91 mg/dL (74-118); POTASSIUM 3.8 mmol/L (3.5-5.1); SODIUM 139 mmol/L (136-145)
[2020-02-23 05:37] LABS: ALBUMIN 2.8 g/dL (3.5-5.0)
[2020-02-23] MEDS: SODIUM CHLORIDE 0.9% 1000ML 1,000 ML IV SCH ×2 (06:00→14:36)
[2020-02-24] VITALS (8 sets, daily range): BP systolic 143–169; BP diastolic 69–79
[2020-02-24] MEDS: SODIUM CHLORIDE 0.9% 1000ML 1,000 ML IV SCH ×3 (04:50→21:12)
[2020-02-24] MEDS: PIPER-TAZ 3.375 GM 50 ML IV SCH ×3 (05:26→21:12)
[2020-02-25] VITALS: BP 136/77
[2020-02-25 04:00] VITALS: BP 143/68
[2020-02-25] MEDS: PIPER-TAZ 3.375 GM 50 ML IV SCH (05:58)
[2020-02-25 07:28] VITALS: BP 146/76
[2020-02-25 08:24] VITALS: BP 146/76
[2020-02-25 11:28] VITALS: BP 131/78
== END 2020-02-25 11:29 | disposition home or self-care (01) | DRG 390 ==
LOC: ER 20:29 → ERHOLD 02-22 00:40 → MED/SURG 02-22 02:46
PROVIDERS: ADMIT Surgery; ATTEND Surgery
DX: K56.600 Partial intestinal obstruction, unspecified as to cause (principal); Z86.73 Personal history of transient ischemic attack (TIA), and cerebral infarction without residual deficits; F41.9 Anxiety disorder, unspecified; E78.5 Hyperlipidemia, unspecified; I34.1 Nonrheumatic mitral (valve) prolapse; Z90.49 Acquired absence of other specified parts of digestive tract; Z20.828 Contact with and (suspected) exposure to other viral communicable diseases
CPT/HCPCS: 36415; 74019; 74022; 74177; 80053; 81001; 82150; 83690; 85025; 85610; 85730; 96361; 99284; J1170; J2405; J2543; J7030; Q9967; U0002

== ENCOUNTER 2020-04-10 18:43 | Emergency (ER) | payer BC, MEDICARE ==
[~2020-04-10] VITALS: Ht 175.3 cm; Wt 83.9 kg
[2020-04-10 19:13] LABS: BASOPHILS # (AUTO) 0.1 (0.0-0.1); EOSINOPHILS # (AUTO) 0.2 (0.0-0.4); EOSINOPHILS % 2.5 % (0.0-6.0); HEMATOCRIT 41.9 % (38.2-49.6); HEMOGLOBIN 13.1 g/dL (14.0-18.0); LYMPHOCYTES # (AUTO) 1.6 (1.0-3.2); LYMPHOCYTES % 22.3 % (18.0-39.1); MEAN CORPUSCULAR HGB CONC 31.3 g/dL (31-35); MEAN CORPUSCULAR VOLUME 80.1 fL (81-99); MONOCYTES # (AUTO) 0.6 (0.2-0.8); NEUTROPHILS # (AUTO) 4.8 (2.1-6.9); NEUTROPHILS % 65.5 % (38.7-80.0); PLATELET COUNT 311 x10e3/uL (140-360); RED BLOOD COUNT 5.23 x10e6/uL (4.3-5.7); RED CELL DISTRIBUTION WIDTH 15.9 % (11.7-14.4)
[2020-04-10 19:22] LABS: INR 1.75; PROTHROMBIN TIME 21.8 seconds (11.9-14.5)
[2020-04-10 19:23] LABS: PARTIAL THROMBOPLASTIN TIME 38.3 seconds (23.8-35.5)
[2020-04-10 19:32] LABS: ALANINE AMINOTRANSFERASE 17 IU/L (0-55); ALBUMIN 3.9 g/dL (3.5-5.0); ALBUMIN/GLOBULIN RATIO 1.3 (0.8-2.0); ALKALINE PHOSPHATASE 71 IU/L (40-150); ANION GAP 13.9 mmol/L (8-16); BLOOD UREA NITROGEN 12 mg/dL (7-26); BUN/CREATININE RATIO 13 (6-25); CALCIUM 8.6 mg/dL (8.4-10.2); CARBON DIOXIDE 23 mmol/L (22-29); CHLORIDE 108 mmol/L (98-107); CREATINE KINASE 73 IU/L (30-200); CREATININE, SERUM 0.94 mg/dL (0.72-1.25); EST GLOMERULAR FILTRATION RATE > 60 ML/MIN (60-); GLUCOSE 137 mg/dL (74-118); POTASSIUM 3.9 mmol/L (3.5-5.1); SODIUM 141 mmol/L (136-145)
[2020-04-10 21:02] VITALS: BP 161/83
== END 2020-04-10 21:04 | disposition home or self-care (01) ==
LOC: ER 18:45
DX: R00.2 Palpitations (principal); R94.31 Abnormal electrocardiogram [ECG] [EKG]; I10 Essential (primary) hypertension; E78.5 Hyperlipidemia, unspecified; F41.9 Anxiety disorder, unspecified; Z86.73 Personal history of transient ischemic attack (TIA), and cerebral infarction without residual deficits; Z85.038 Personal history of other malignant neoplasm of large intestine; Z86.718 Personal history of other venous thrombosis and embolism
CPT/HCPCS: 36415; 71045; 80053; 82550; 82553; 84484; 85025; 85610; 85730; 93005; 99284

== ENCOUNTER → 2020-05-03 | Day surgery (SDC) | payer MEDICARE ==
[~2020-05-03] VITALS: Ht 177.8 cm; Wt 83.9 kg
[2020-05-03] VITALS (12 sets, daily range): BP systolic 122–142; BP diastolic 66–86
[~2020-05-03] MED LIST changes: +BENZOCAINE 20% SPR 60 ML CAN ONE; +FENTANYL CITRATE/PF 100MCG/2 ML INJ ONE; +HEPARIN SOD (PORCINE) 1000 UNIT/ML 30ML ONE; +HEPARIN SOD/SOD CHLORIDE 2,000 ML ONE; +IOPAMIDOL 370 MG/ML 200 ML INFUS..BTL INJ ONE; +LIDOCAINE HCL 2% LOCAL 20 ML VIAL ONE; +MIDAZOLAM HCL 2 MG/2 ML VIAL ONE; +NITROGLYCERIN/D5W 200 MCG/ML 250 ML ONE; +PROPOFOL IV EMULSION 10 MG/ML 20 ML VIAL ONE; +SODIUM CHLORIDE 0.9% 1000ML 1,000 ML ONE; +VERAPAMIL HCL 2.5 MG/ML 2 ML VIAL ONE
== END | disposition home or self-care (01) ==
LOC: CATH LAB 10:16
PROVIDERS: ATTEND Internal Medicine Interventional Cardiology
DX: I25.118 Atherosclerotic heart disease of native coronary artery with other forms of angina pectoris (principal); R94.39 Abnormal result of other cardiovascular function study; I48.91 Unspecified atrial fibrillation; Z79.02 Long term (current) use of antithrombotics/antiplatelets; D68.9 Coagulation defect, unspecified; I34.0 Nonrheumatic mitral (valve) insufficiency; Z01.812 Encounter for preprocedural laboratory examination; Z20.822 Contact with and (suspected) exposure to COVID-19; Z86.73 Personal history of transient ischemic attack (TIA), and cerebral infarction without residual deficits; Z86.711 Personal history of pulmonary embolism; Z86.718 Personal history of other venous thrombosis and embolism; Z85.038 Personal history of other malignant neoplasm of large intestine
CPT/HCPCS: 76937; 93320; 93325; 93458; C1887; J1644; J2001; J2250; J2704; J3010; J7030; Q9967; U0002; 93307; 93312; 99152

== ENCOUNTER 2020-07-16 01:24 | Inpatient (IN) | payer MEDICARE ==
[~2020-07-16] VITALS: Ht 177.8 cm; Wt 83.9 kg
[2020-07-16] VITALS (7 sets, daily range): BP systolic 117–169; BP diastolic 75–97
[~2020-07-16 01:24] MED LIST changes: -BENZOCAINE 20% SPR 60 ML CAN ONE; -FENTANYL CITRATE/PF 100MCG/2 ML INJ ONE; -HEPARIN SOD (PORCINE) 1000 UNIT/ML 30ML ONE; -HEPARIN SOD/SOD CHLORIDE 2,000 ML ONE; -IOPAMIDOL 370 MG/ML 200 ML INFUS..BTL INJ ONE; -LIDOCAINE HCL 2% LOCAL 20 ML VIAL ONE; -MIDAZOLAM HCL 2 MG/2 ML VIAL ONE; -NITROGLYCERIN/D5W 200 MCG/ML 250 ML ONE; -PROPOFOL IV EMULSION 10 MG/ML 20 ML VIAL ONE; -SODIUM CHLORIDE 0.9% 1000ML 1,000 ML ONE; -VERAPAMIL HCL 2.5 MG/ML 2 ML VIAL ONE
[2020-07-16] MEDS ORDERED: ONDANSETRON HCL INJ 2MG/ML 2ML 2 MG/ML VIAL IV STA ×2 (01:42→04:33)
[2020-07-16] MEDS ORDERED: ONDANSETRON HCL INJ 2MG/ML 2ML 2 MG/ML VIAL ONE (01:49)
[2020-07-16 01:51] LABS: BASOPHILS # (AUTO) 0.1 (0.0-0.1); BASOPHILS % 0.6 % (0.0-1.0); EOSINOPHILS # (AUTO) 0.2 (0.0-0.4); EOSINOPHILS % 2.6 % (0.0-6.0); HEMATOCRIT 41.3 % (38.2-49.6); HEMOGLOBIN 12.8 g/dL (14.0-18.0); LYMPHOCYTES % 11.7 % (18.0-39.1); MEAN CORPUSCULAR HEMOGLOBIN 24.6 pg (28-32); MEAN CORPUSCULAR VOLUME 79.3 fL (81-99); MONOCYTES # (AUTO) 0.8 (0.2-0.8); MONOCYTES % 9.5 % (4.4-11.3); NEUTROPHILS # (AUTO) 6.6 (2.1-6.9); PLATELET COUNT 275 x10e3/uL (140-360); RED BLOOD COUNT 5.21 x10e6/uL (4.3-5.7); RED CELL DISTRIBUTION WIDTH 16.9 % (11.7-14.4)
[2020-07-16 02:10] LABS: ALANINE AMINOTRANSFERASE 18 IU/L (0-55); ALBUMIN 3.8 g/dL (3.5-5.0); ALBUMIN/GLOBULIN RATIO 1.3 (0.8-2.0); ALKALINE PHOSPHATASE 64 IU/L (40-150); ANION GAP 15.1 mmol/L (8-16); BLOOD UREA NITROGEN 18 mg/dL (7-26); BUN/CREATININE RATIO 16 (6-25); CALCIUM 9.2 mg/dL (8.4-10.2); CARBON DIOXIDE 25 mmol/L (22-29); CHLORIDE 106 mmol/L (98-107); CREATINE KINASE 141 IU/L (30-200); CREATININE, SERUM 1.11 mg/dL (0.72-1.25); EST GLOMERULAR FILTRATION RATE > 60 ML/MIN (60-); GLUCOSE 131 mg/dL (74-118); POTASSIUM 4.1 mmol/L (3.5-5.1); SODIUM 142 mmol/L (136-145)
[2020-07-16] MEDS ORDERED: IOPAMIDOL 370 MG/ML 200 ML INFUS..BTL INJ ONE (02:26)
[2020-07-16] MEDS ORDERED: SODIUM CHLORIDE 0.9% 50ML 50 ML ONE (02:26)
[2020-07-16] MEDS ORDERED: MORPHINE SULFATE INJ 2 MG/ML SYR IV STA (04:33)
[2020-07-16] MEDS ORDERED: FENTANYL CITRATE/PF 100MCG/2 ML INJ IV PRN (05:00)
[2020-07-16] MEDS ORDERED: FENTANYL CITRATE/PF 100MCG/2 ML INJ IV SCH (06:00)
[2020-07-16] MEDS: SODIUM CHLORIDE 0.9% 1000ML 1,000 ML IV SCH ×3 (06:29→22:20)
[2020-07-16] MEDS ORDERED: HYDROMORPHONE 1MG/1ML INJ IV PRN (09:45)
[2020-07-16] MEDS: METOPROLOL SUCCINATE 25 MG TAB XL PO SCH (10:30)
[2020-07-16 11:42] LABS: INR 1.42
[2020-07-16] MEDS ORDERED: WARFARIN SOD 5 MG TAB PO SCH (17:00)
[2020-07-17] VITALS: BP 114/60
[2020-07-17] MEDS: SODIUM CHLORIDE 0.9% 1000ML 1,000 ML IV SCH ×3 (03:05→11:30)
[2020-07-17 04:06] VITALS: BP 110/60
[2020-07-17 06:37] LABS: BASOPHILS % 0.5 % (0.0-1.0); EOSINOPHILS # (AUTO) 0.2 (0.0-0.4); EOSINOPHILS % 3.8 % (0.0-6.0); HEMATOCRIT 35.9 % (38.2-49.6); HEMOGLOBIN 11.2 g/dL (14.0-18.0); LYMPHOCYTES # (AUTO) 1.4 (1.0-3.2); LYMPHOCYTES % 25.2 % (18.0-39.1); MEAN CORPUSCULAR HEMOGLOBIN 24.6 pg (28-32); MEAN CORPUSCULAR HGB CONC 31.2 g/dL (31-35); MEAN CORPUSCULAR VOLUME 78.9 fL (81-99); MONOCYTES # (AUTO) 0.5 (0.2-0.8); MONOCYTES % 9.7 % (4.4-11.3); NEUTROPHILS # (AUTO) 3.4 (2.1-6.9); NEUTROPHILS % 60.4 % (38.7-80.0); PLATELET COUNT 226 x10e3/uL (140-360); RED BLOOD COUNT 4.55 x10e6/uL (4.3-5.7); RED CELL DISTRIBUTION WIDTH 16.4 % (11.7-14.4)
[2020-07-17 06:58] LABS: INR 1.63
[2020-07-17 07:29] LABS: ALANINE AMINOTRANSFERASE 15 IU/L (0-55); ALBUMIN 3.1 g/dL (3.5-5.0); ALBUMIN/GLOBULIN RATIO 1.3 (0.8-2.0); ALKALINE PHOSPHATASE 61 IU/L (40-150); ANION GAP 10.3 mmol/L (8-16); BLOOD UREA NITROGEN 10 mg/dL (7-26); BUN/CREATININE RATIO 11 (6-25); CARBON DIOXIDE 24 mmol/L (22-29); CHLORIDE 111 mmol/L (98-107); CREATININE, SERUM 0.91 mg/dL (0.72-1.25); EST GLOMERULAR FILTRATION RATE > 60 ML/MIN (60-); GLUCOSE 98 mg/dL (74-118); POTASSIUM 4.3 mmol/L (3.5-5.1); SODIUM 141 mmol/L (136-145)
[2020-07-17 08:12] VITALS: BP 135/77
[2020-07-17] MEDS: METOPROLOL SUCCINATE 25 MG TAB XL PO SCH (08:16)
[2020-07-17 08:23] VITALS: BP 135/77
[2020-07-17 12:18] VITALS: BP 127/81
[2020-07-17] MEDS ORDERED: WARFARIN SOD 5 MG TAB PO SCH (17:00)
[2020-07-17 17:12] VITALS: BP 127/75
== END 2020-07-17 17:44 | disposition home or self-care (01) | DRG 390 ==
LOC: ER 01:35 → ERHOLD 04:21 → MED/SURG 06:05
PROVIDERS: ADMIT Internal Medicine; ATTEND Internal Medicine
DX: K56.609 Unspecified intestinal obstruction, unspecified as to partial versus complete obstruction (principal); Z86.73 Personal history of transient ischemic attack (TIA), and cerebral infarction without residual deficits; E78.5 Hyperlipidemia, unspecified; Z86.718 Personal history of other venous thrombosis and embolism; Z79.01 Long term (current) use of anticoagulants; Z86.711 Personal history of pulmonary embolism; Z85.038 Personal history of other malignant neoplasm of large intestine; I48.91 Unspecified atrial fibrillation; F41.9 Anxiety disorder, unspecified; Z20.822 Contact with and (suspected) exposure to COVID-19
CPT/HCPCS: 36415; 74177; 80053; 82550; 82553; 84484; 85025; 85610; 93005; 99284; J2405; J3010; J7030; Q9967; U0002

== ENCOUNTER 2020-08-07 13:02 | Observation (INO) | payer MEDICARE ==
[~2020-08-07] VITALS: Ht 180.3 cm; Wt 85.7 kg
[2020-08-07] MEDS ORDERED: SODIUM CHLORIDE 0.9% 500ML 500 ML IV ONE (13:30)
[2020-08-07 13:38] LABS: BASOPHILS # (AUTO) 0.1 (0.0-0.1); BASOPHILS % 0.7 % (0.0-1.0); EOSINOPHILS # (AUTO) 0.1 (0.0-0.4); EOSINOPHILS % 1.2 % (0.0-6.0); HEMATOCRIT 43.8 % (38.2-49.6); HEMOGLOBIN 13.6 g/dL (14.0-18.0); LYMPHOCYTES # (AUTO) 1.5 (1.0-3.2); MEAN CORPUSCULAR HEMOGLOBIN 24.4 pg (28-32); MEAN CORPUSCULAR HGB CONC 31.1 g/dL (31-35); MEAN CORPUSCULAR VOLUME 78.5 fL (81-99); MONOCYTES # (AUTO) 0.8 (0.2-0.8); MONOCYTES % 10.1 % (4.4-11.3); NEUTROPHILS # (AUTO) 5.6 (2.1-6.9); NEUTROPHILS % 69.5 % (38.7-80.0); PLATELET COUNT 303 x10e3/uL (140-360); RED BLOOD COUNT 5.58 x10e6/uL (4.3-5.7); RED CELL DISTRIBUTION WIDTH 17.3 % (11.7-14.4)
[2020-08-07 13:52] LABS: INR 1.52
[2020-08-07 13:53] LABS: PARTIAL THROMBOPLASTIN TIME 34.9 seconds (23.8-35.5)
[2020-08-07 13:55] LABS: ALANINE AMINOTRANSFERASE 19 IU/L (0-55); ALBUMIN 4.1 g/dL (3.5-5.0); ALBUMIN/GLOBULIN RATIO 1.3 (0.8-2.0); ALKALINE PHOSPHATASE 71 IU/L (40-150); ANION GAP 15.4 mmol/L (8-16); BLOOD UREA NITROGEN 11 mg/dL (7-26); BUN/CREATININE RATIO 10 (6-25); CALCIUM 9.1 mg/dL (8.4-10.2); CARBON DIOXIDE 21 mmol/L (22-29); CHLORIDE 108 mmol/L (98-107); CREATINE KINASE 147 IU/L (30-200); CREATININE, SERUM 1.08 mg/dL (0.72-1.25); EST GLOMERULAR FILTRATION RATE > 60 ML/MIN (60-); GLUCOSE 95 mg/dL (74-118); MAGNESIUM 2.1 MG/DL (1.3-2.1); POTASSIUM 4.4 mmol/L (3.5-5.1); SODIUM 140 mmol/L (136-145)
[2020-08-07] MEDS ORDERED: NITROGLYCERIN 0.4 MG SUBL SL PRN (17:00)
[2020-08-07] MEDS ORDERED: ONDANSETRON HCL INJ 2MG/ML 2ML 2 MG/ML VIAL IV PRN (17:00)
[2020-08-07 18:41] VITALS: BP 160/82
[2020-08-07 20:00] VITALS: BP 139/75
[2020-08-07 20:40] VITALS: BP 139/75
[2020-08-07] MEDS ORDERED: WARFARIN SODIUM5 MG PO (22:45)
[2020-08-07 23:29] LABS: CREATINE KINASE MB 1.9 ng/mL (0-5.0)
[2020-08-08] VITALS: BP 117/58
[2020-08-08 04:00] VITALS: BP 114/68
[2020-08-08 05:50] LABS: BASOPHILS % 0.7 % (0.0-1.0); EOSINOPHILS # (AUTO) 0.2 (0.0-0.4); EOSINOPHILS % 3.6 % (0.0-6.0); HEMOGLOBIN 11.7 g/dL (14.0-18.0); LYMPHOCYTES # (AUTO) 1.3 (1.0-3.2); LYMPHOCYTES % 23.5 % (18.0-39.1); MEAN CORPUSCULAR HEMOGLOBIN 24.7 pg (28-32); MEAN CORPUSCULAR HGB CONC 30.8 g/dL (31-35); MEAN CORPUSCULAR VOLUME 80.2 fL (81-99); MONOCYTES # (AUTO) 0.7 (0.2-0.8); MONOCYTES % 11.7 % (4.4-11.3); NEUTROPHILS # (AUTO) 3.3 (2.1-6.9); NEUTROPHILS % 60.1 % (38.7-80.0); PLATELET COUNT 230 x10e3/uL (140-360); RED BLOOD COUNT 4.74 x10e6/uL (4.3-5.7); RED CELL DISTRIBUTION WIDTH 16.9 % (11.7-14.4)
[2020-08-08 06:11] LABS: ALANINE AMINOTRANSFERASE 15 IU/L (0-55); ALBUMIN 3.3 g/dL (3.5-5.0); ALBUMIN/GLOBULIN RATIO 1.4 (0.8-2.0); ALKALINE PHOSPHATASE 56 IU/L (40-150); ANION GAP 12.2 mmol/L (8-16); BLOOD UREA NITROGEN 14 mg/dL (7-26); BUN/CREATININE RATIO 14 (6-25); CALCIUM 8.1 mg/dL (8.4-10.2); CARBON DIOXIDE 24 mmol/L (22-29); CHLORIDE 108 mmol/L (98-107); CHOL/HDL RATIO 6.6 (3.9-4.7); CHOLESTEROL 245 MD/DL (0-199); CREATININE, SERUM 0.97 mg/dL (0.72-1.25); EST GLOMERULAR FILTRATION RATE > 60 ML/MIN (60-); GLUCOSE 95 mg/dL (74-118); HDL CHOLESTEROL 37 MG/DL (40-60); LDL CHOLESTEROL 172 MG/DL (60-130); POTASSIUM 4.2 mmol/L (3.5-5.1); SODIUM 140 mmol/L (136-145); TRIGLYCERIDES 178 MG/DL (0-149)
[2020-08-08 06:43] LABS: CREATINE KINASE MB 1.7 ng/mL (0-5.0)
[2020-08-08 08:08] VITALS: BP 135/71
[2020-08-08 08:10] VITALS: BP 135/71
[2020-08-08 16:18] VITALS: BP 138/71
== END 2020-08-08 17:30 | disposition home or self-care (01) ==
LOC: ER 14:31 → ERHOLD 16:52 → MED/SURG3 18:29
DX: R07.9 Chest pain, unspecified (principal); I34.1 Nonrheumatic mitral (valve) prolapse; I10 Essential (primary) hypertension; I48.91 Unspecified atrial fibrillation; E78.5 Hyperlipidemia, unspecified; Z85.038 Personal history of other malignant neoplasm of large intestine
CPT/HCPCS: 36415 ×2; 70450; 71045; 80053 ×2; 80061; 82550 ×2; 82553 ×2; 83735; 83880; 84484 ×2; 85025 ×2; 85610; 85730; 93005; 99284; G0378 ×2; J7040

== ENCOUNTER 2020-09-25 15:55 | Emergency (ER) | payer MEDICARE, BC ==
[~2020-09-25] VITALS: Ht 180.3 cm; Wt 83.9 kg
[~2020-09-25 15:55] MED LIST changes: +WARFARIN SODIUM5 MG PO
[2020-09-25] MEDS ORDERED: ELIQUIS5 MG PO (16:13)
== END 2020-09-25 17:35 | disposition home or self-care (01) ==
LOC: ER 17:08
DX: R25.2 Cramp and spasm (principal); M79.605 Pain in left leg; I10 Essential (primary) hypertension; I48.91 Unspecified atrial fibrillation; Z85.038 Personal history of other malignant neoplasm of large intestine; Z86.73 Personal history of transient ischemic attack (TIA), and cerebral infarction without residual deficits; E78.5 Hyperlipidemia, unspecified
CPT/HCPCS: 93971; 99283

== ENCOUNTER → 2020-11-14 | Outpatient (CLI) | payer MEDICARE, BC ==
[~2020-11-14] MED LIST changes: +BACTRIM DS TAB1 EACH PO; +ELIQUIS5 MG PO
== END | disposition home or self-care (01) ==
LOC: US 13:49
PROVIDERS: ATTEND Family Medicine
DX: R22.9 Localized swelling, mass and lump, unspecified (principal); Z79.82 Long term (current) use of aspirin; Z95.1 Presence of aortocoronary bypass graft; Z86.711 Personal history of pulmonary embolism
CPT/HCPCS: 76882

== ENCOUNTER 2021-01-05 09:24 | Emergency (ER) | payer MEDICARE, BC ==
[~2021-01-05] VITALS: Ht 180.3 cm; Wt 83.9 kg
[~2021-01-05 09:24] MED LIST changes: -BACTRIM DS TAB1 EACH PO
[2021-01-05 10:49] LABS: CLARITY,URINE CLOUDY (CLEAR); COLOR,URINE YELLOW (YELLOW); KETONES,URINE NEGATIVE (NEGATIVE); LEUKOCYTE ESTERASE ,URINE TRACE (NEGATIVE); NITRITE,URINE POSITIVE (NEGATIVE); PROTEIN,URINE DIPSTICK 2+ (NEGATIVE)
[2021-01-05 10:50] LABS: URINE UROBILINOGEN 0.2 mg/dL (0.2 - 1)
[2021-01-05 10:51] LABS: BACTERIA,URINE MANY /HPF; EPITHELIAL CELLS,URINE FEW /LPF; RBC,URINE >50 /HPF (0-5); WBC,URINE (MAN) >50 /HPF (0-5)
[2021-01-05] MEDS ORDERED: BACTRIM DS TAB1 EACH PO (10:55)
[2021-01-05 11:10] VITALS: BP 140/84
[2021-01-05] MEDS ORDERED: TRIMETHOPRIM/SULFAMETHOXAZOLE 160-800 MG TAB PO ONE (11:30)
== END 2021-01-05 11:11 | disposition home or self-care (01) ==
LOC: ER 09:35
DX: R30.0 Dysuria (principal); N39.0 Urinary tract infection, site not specified; I10 Essential (primary) hypertension; I48.91 Unspecified atrial fibrillation; E78.5 Hyperlipidemia, unspecified; Z85.038 Personal history of other malignant neoplasm of large intestine; I34.1 Nonrheumatic mitral (valve) prolapse
CPT/HCPCS: 81001; 87086; 87186; 99283

== ENCOUNTER → 2021-03-07 | Outpatient (CLI) | payer MEDICARE, BC ==
[~2021-03-07] MED LIST changes: +BACTRIM DS TAB1 EACH PO
== END ==
LOC: RAD 12:36
PROVIDERS: ATTEND Internal Medicine Interventional Cardiology
DX: R07.9 Chest pain, unspecified (principal)
CPT/HCPCS: 71046

== ENCOUNTER 2021-12-10 09:43 | Emergency (ER) | payer BC, MEDICARE ==
[~2021-12-10] VITALS: Ht 180.3 cm; Wt 83.9 kg
[2021-12-10] MEDS ORDERED: CEFDINIR300 MG PO (10:06)
== END 2021-12-10 10:11 | disposition home or self-care (01) ==
LOC: FSED 10:05
DX: R30.0 Dysuria (principal); N30.00 Acute cystitis without hematuria; I10 Essential (primary) hypertension; E78.5 Hyperlipidemia, unspecified; F41.9 Anxiety disorder, unspecified; I48.91 Unspecified atrial fibrillation; I34.1 Nonrheumatic mitral (valve) prolapse; Z86.73 Personal history of transient ischemic attack (TIA), and cerebral infarction without residual deficits; Z85.038 Personal history of other malignant neoplasm of large intestine
CPT/HCPCS: 81003; 99282

== ENCOUNTER 2022-01-13 12:56 | Emergency (ER) | payer MEDICARE, BC ==
[~2022-01-13] VITALS: Ht 180.3 cm; Wt 83.9 kg
[~2022-01-13 12:56] MED LIST changes: +CEFDINIR300 MG PO
[2022-01-13] MEDS ORDERED: SODIUM CHLORIDE FLUSH 10 ML SYR IV PRN (14:00)
[2022-01-13 14:17] LABS: BASOPHILS # (AUTO) 0.1 (0.0-0.1); BASOPHILS % 0.8 % (0.0-1.0); EOSINOPHILS # (AUTO) 0.2 (0.0-0.4); HEMATOCRIT 48.1 % (38.2-49.6); HEMOGLOBIN 14.7 g/dL (14.0-18.0); LYMPHOCYTES # (AUTO) 1.1 (1.0-3.2); MEAN CORPUSCULAR HEMOGLOBIN 27.9 pg (28-32); MEAN CORPUSCULAR HGB CONC 30.6 g/dL (31-35); MEAN CORPUSCULAR VOLUME 91.3 fL (81-99); MONOCYTES # (AUTO) 0.7 (0.2-0.8); MONOCYTES % 9.2 % (4.4-11.3); NEUTROPHILS # (AUTO) 5.7 (2.1-6.9); NEUTROPHILS % 73.6 % (38.7-80.0); PLATELET COUNT 296 x10e3/uL (140-360); RED BLOOD COUNT 5.27 x10e6/uL (4.3-5.7); RED CELL DISTRIBUTION WIDTH 15.4 % (11.7-14.4)
[2022-01-13 14:30] LABS: ALBUMIN/GLOBULIN RATIO 1.3 (0.8-2.0); ANION GAP 14.8 mmol/L (8-16); CALCIUM 9.9 mg/dL (8.4-10.2); CREATININE, SERUM 1.22 mg/dL (0.72-1.25); POTASSIUM 4.8 mmol/L (3.5-5.1)
== END 2022-01-13 15:43 | disposition home or self-care (01) ==
LOC: ER 12:58
DX: R94.39 Abnormal result of other cardiovascular function study (principal); R94.31 Abnormal electrocardiogram [ECG] [EKG]; I10 Essential (primary) hypertension; I48.91 Unspecified atrial fibrillation; E78.5 Hyperlipidemia, unspecified; F41.9 Anxiety disorder, unspecified; I25.2 Old myocardial infarction; Z86.73 Personal history of transient ischemic attack (TIA), and cerebral infarction without residual deficits; Z85.038 Personal history of other malignant neoplasm of large intestine
CPT/HCPCS: 36415; 71045; 80053; 83880; 84484; 85025; 93005; 99283

== ENCOUNTER 2022-05-13 08:46 | Emergency (ER) | payer MEDICARE, BC ==
[~2022-05-13] VITALS: Ht 180.3 cm; Wt 83.9 kg
[2022-05-13] MEDS ORDERED: DICYCLOMINE HCL 20 MG/2 ML VIAL IM ONE (09:15)
[2022-05-13] MEDS: LACTATED RINGER'S 1,000 ML INJ ONE (09:20)
[2022-05-13 09:26] LABS: BASOPHILS # (AUTO) 0.1 (0.0-0.1); BASOPHILS % 0.8 % (0.0-1.0); EOSINOPHILS # (AUTO) 0.2 (0.0-0.4); EOSINOPHILS % 2.5 % (0.0-6.0); HEMATOCRIT 49.2 % (38.2-49.6); HEMOGLOBIN 15.5 g/dL (14.0-18.0); LYMPHOCYTES # (AUTO) 1.3 (1.0-3.2); LYMPHOCYTES % 15.8 % (18.0-39.1); MEAN CORPUSCULAR HEMOGLOBIN 27.4 pg (28-32); MEAN CORPUSCULAR HGB CONC 31.5 g/dL (31-35); MEAN CORPUSCULAR VOLUME 87.1 fL (81-99); MONOCYTES # (AUTO) 0.8 (0.2-0.8); MONOCYTES % 10.3 % (4.4-11.3); NEUTROPHILS # (AUTO) 5.5 (2.1-6.9); PLATELET COUNT 267 x10e3/uL (140-360); RED BLOOD COUNT 5.65 x10e6/uL (4.3-5.7); RED CELL DISTRIBUTION WIDTH 15.8 % (11.7-14.4)
[2022-05-13 09:32] LABS: INR 0.83; PROTHROMBIN TIME 11.9 seconds (11.9-14.5)
[2022-05-13 09:44] LABS: ALBUMIN 4.2 g/dL (3.5-5.0); ALBUMIN/GLOBULIN RATIO 1.4 (0.8-2.0); ANION GAP 14.7 mmol/L (8-16); CALCIUM 8.8 mg/dL (8.4-10.2); CREATININE, SERUM 1.29 mg/dL (0.72-1.25); POTASSIUM 3.7 mmol/L (3.5-5.1)
[2022-05-13] MEDS ORDERED: SODIUM CHLORIDE 0.9% 100 ML ONE (10:02)
[2022-05-13] MEDS ORDERED: IOPAMIDOL 370 MG/ML 100 ML INFUS..BTL INJ ONE (10:02)
[2022-05-13 11:26] VITALS: BP 117/85
== END 2022-05-13 11:32 | disposition home or self-care (01) ==
LOC: ER 08:49
DX: K62.5 Hemorrhage of anus and rectum (principal); I10 Essential (primary) hypertension; I25.2 Old myocardial infarction; E78.5 Hyperlipidemia, unspecified; I48.91 Unspecified atrial fibrillation; Z79.02 Long term (current) use of antithrombotics/antiplatelets; I25.10 Atherosclerotic heart disease of native coronary artery without angina pectoris; Z95.5 Presence of coronary angioplasty implant and graft; F41.9 Anxiety disorder, unspecified; Z86.718 Personal history of other venous thrombosis and embolism; Z86.711 Personal history of pulmonary embolism; Z85.038 Personal history of other malignant neoplasm of large intestine; Z86.73 Personal history of transient ischemic attack (TIA), and cerebral infarction without residual deficits; Z79.899 Other long term (current) drug therapy
CPT/HCPCS: 36415; 74174; 80053; 83690; 85025; 85610; 93005; 99284; C9113; J7050; J7121; Q9967